=== PATIENT | female | born 1930 | race Caucasian/White ===

== ENCOUNTER → 2016-06-16 | Outpatient (CLI) | payer OTHER ==
[~2016-06-16] MED LIST: ACET-1138 PO; AMLO-110 PO; AMOX875T PO; ASPI81TA28 PO; BUME1TAB PO; CALC500C70 PO; CHOL1000 PO; CMD4 PO; CYAN10005 PO; DOCU100C31 PO; HYDR200T5 PO; HYG/25 PO; INSDGIPEN SC; LBT200 PO; LEVO150T9 PO; LEVO75TA5 PO; LISI-461 PO; METO1TAB69 PO; NRV5 PO; NVLG SC; OMEG10007 PO; OXYC1TAB3 PO; SIMV20TA2 PO; WARF2TAB8 PO; WARF4TAB8 PO
--- NOTE | 2016-06-16 14:53 | DIAGNOSTIC IMAGING REPORT ---
Venous Doppler left leg LEFT VENOUS DOPP LOWER EXT UNILAT CLINICAL HISTORY: L LEG POST OR BLOOD CLOT pain. Edema. TECHNIQUE: Venous Doppler COMPARISON STUDY: None FINDINGS: Normal study IMPRESSION: Normal study Electronically signed by: Kushal Garcia M.D. 06/16/2016 2:52 PM Dictated Date/Time: 06/16/2016 2:51 PM
== END | disposition home or self-care (01) ==
LOC: C.ULTR 14:13
PROVIDERS: ATTEND Orthopaedic Surgery Sports Medicine
DX: M79.605 Pain in left leg (principal)

== ENCOUNTER → 2016-06-21 | Outpatient (CLI) | payer OTHER ==
[2016-06-21 11:28] LABS: ESTIMATED AVERAGE GLUCOSE 114 mg/dl; HA1C FLAG Normal (Normal)
== END | disposition home or self-care (01) ==
LOC: C.LAB1850 09:37
PROVIDERS: ATTEND Nurse Practitioner Family
DX: E11.29 Type 2 diabetes mellitus with other diabetic kidney complication (principal)

== ENCOUNTER → 2016-09-03 | Outpatient (CLI) | payer OTHER ==
[~2016-09-03] MED LIST changes: +LISI40TA PO; +METO100T44 PO; -METO1TAB69 PO; +MRLP17X PO; +ZFRI4 IV
--- NOTE | 2016-09-03 11:24 | DIAGNOSTIC IMAGING REPORT ---
TWO VIEW CHEST CLINICAL HISTORY: Dyspnea. FINDINGS: PA and lateral chest radiographs are correlated with chest CT dated 12/06/2013. The heart is top normal for projection. There is atherosclerotic calcification of the thoracic aorta. The pulmonary vascular structures noncongested. Chronic interstitial thickening is unchanged. Small pleural effusions are identified on the lateral view with bibasilar consolidation. There is no pneumothorax. The skeletal structures are osteopenic. Degenerative change and hyperkyphosis are noted throughout the thoracic spine. IMPRESSION: Small pleural effusions with bibasilar consolidation. This likely represents atelectasis. Correlate clinically for evidence of superimposed pneumonia. Electronically signed by: Sergey Blanco M.D. 09/03/2016 11:22 AM Dictated Date/Time: 09/03/2016 11:13 AM
[2016-09-03 17:29] LABS: HEMATOCRIT 36.3 % (37-47); MEAN CELL VOLUME 89.6 fL (80-100); MEAN CORPUSCULAR HEMOGLOBIN 27.4 pg (25-34); MEAN CORPUSCULAR HGB CONC 30.6 g/dl (32-36); MEAN PLATELET VOLUME 10.2 fL (7.4-10.4); PLATELET COUNT 230 K/uL (130-400); RED BLOOD COUNT 4.05 M/uL (4.2-5.4); WHITE BLOOD COUNT 11.24 K/uL (4.8-10.8)
[2016-09-03 17:53] LABS: BLOOD UREA NITROGEN 28 mg/dl (7-18); BUN/CREATININE RATIO 17.7 (10-20); CALCIUM 9.2 mg/dl (8.5-10.1); CARBON DIOXIDE 28 mmol/L (21-32); CHLORIDE 108 mmol/L (98-107); GLUCOSE 63 mg/dl (70-99); PHOSPHORUS 2.9 mg/dl (2.5-4.9); POTASSIUM 4.5 mmol/L (3.5-5.1); SODIUM 143 mmol/L (136-145)
== END | disposition home or self-care (01) ==
LOC: C.RADPV 10:50
PROVIDERS: ATTEND Nurse Practitioner Family
DX: R06.02 Shortness of breath (principal); E03.9 Hypothyroidism, unspecified; N18.3 Chronic kidney disease, stage 3 (moderate)

== ENCOUNTER → 2016-09-21 | Outpatient (CLI) | payer OTHER ==
[2016-09-21 13:06] LABS: ESTIMATED AVERAGE GLUCOSE 117 mg/dl; HA1C FLAG Normal (Normal)
== END | disposition home or self-care (01) ==
LOC: C.LAB1850 11:17
PROVIDERS: ATTEND Nurse Practitioner Family
DX: E11.29 Type 2 diabetes mellitus with other diabetic kidney complication (principal)

== ENCOUNTER → 2016-09-29 | Outpatient (CLI) | payer OTHER ==
[2016-09-29 18:22] LABS: MANUAL MICROSCOPIC REQUIRED? NO; REVIEW REQ? NO; URINE APPEARANCE CLEAR (CLEAR); URINE BILIRUBIN NEG (NEG); URINE COLOR YELLOW; URINE EPITHELIAL CELL AUTO >30 /lpf (0-5); URINE NITRITE NEG (NEG); URINE PH 7.5 (4.5-7.5); URINE SPECIFIC GRAVITY 1.011 (1.000-1.030); UROBILINOGEN NEG (NEG)
[2016-09-29 19:53] LABS: URINE PROTIEN/CREAT RATIO 0.2 (0-0.2); URINE TOTAL PROTEIN 13.6 mg/dl (0-11.9)
== END | disposition home or self-care (01) ==
LOC: C.LABPVFM 15:00
PROVIDERS: ATTEND Internal Medicine Nephrology
DX: N18.3 Chronic kidney disease, stage 3 (moderate) (principal)

== ENCOUNTER → 2016-11-09 | Outpatient (CLI) | payer OTHER ==
--- NOTE | 2016-11-09 09:50 | DIAGNOSTIC IMAGING REPORT ---
LEFT TIBIA/FIBULA 2 VIEWS ROUTINE CLINICAL HISTORY: PAIN AND SWELLING OF LOWER LEG LT COMPARISON STUDY: Left ankle 05/07/2016. FINDINGS: Status post internal fixation of a bimalleolar fracture. The hardware appears intact. The alignment is anatomic. Mild soft tissue swelling within the distal left lower leg and ankle. 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 No acute fracture or dislocation within the left lower leg. IMPRESSION: Postoperative changes as described above. No evidence for hardware complication. Mild soft tissue swelling within the distal left lower leg and ankle. Electronically signed by: Jason Wilkerson M.D. 11/09/2016 9:49 AM Dictated Date/Time: 11/09/2016 9:47 AM
== END | disposition home or self-care (01) ==
LOC: C.RADPV 09:24
PROVIDERS: ATTEND Nurse Practitioner
DX: M79.662 Pain in left lower leg (principal); M79.89 Other specified soft tissue disorders

== ENCOUNTER 2016-11-16 11:23 | Inpatient (IN) | payer OTHER ==
[~2016-11-16] VITALS: Ht 162.6 cm; Wt 86.6 kg
[2016-11-16] MEDS: AMLODIPINE BESYLATE 5 MG TAB PO SCH (09:00)
[~2016-11-16 11:23] MED LIST changes: -AMOX875T PO; -BUME1TAB PO; -CHOL1000 PO; -CMD4 PO; -CYAN10005 PO; -LBT200 PO; -LISI40TA PO; -METO100T44 PO; -MRLP17X PO; -NRV5 PO; -SIMV20TA2 PO; -WARF2TAB8 PO; -WARF4TAB8 PO; -ZFRI4 IV
--- NOTE | 2016-11-16 12:10 | EMERGENCY ROOM VISIT NOTE ---
History Report prepared by Fabrizio: Susan Brower Under the Supervision of: Dr. Kelvin Srivastava M.D. 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 The patient's daughter states that the patient was watching her make sandwiches when she abruptly experienced syncope and fell over. The patient hit her head. The patient's daughter states that they were getting ready to go [place] [employer] [place] because they have a concession stand up there. The patient was inside in air conditioning when she experienced syncope and her daughter states that she wasn' t excessively hot or cold. The patient's granddaughter is in nursing school and witnessed the syncopal episode. The patient's granddaughter states that the patient may have experienced a seizure because she wasn't full unconscious but she wasn't responding to them either. The episode lasted for about 5 seconds. The patient states that she felt fine prior to experiencing syncope. She denies any lightheadedness, dizziness, chest pain, or shortness of breath prior to the syncopal episode. The patient states that she was lightheaded/dizzy without vertigo after the syncopal event. The patient is not on any blood thinners. The patient's daughter adds that the patient has seen Dr. Gandhi - Cardiology for heart problems. She has been diagnosed with an arrhythmia in the past but is not on any medication for it. 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 Please see Additional Medical History Sheet. Past Medical & Surgical Medical Problems: (1) Anemia (2) CLL (chronic lymphocytic leukemia) (3) Diabetes mellitus type II, controlled (4) HTN (hypertension) (5) Rheumatoid arthritis Surgical Problems: (1) History of cholecystectomy Family History Cancer Diabetes mellitus Heart disease Hypertension Social History Smoking Status: Never Smoker Drug Use: none Marital Status: Housing Status: lives with family Occupation Status: retired Current/Historical Medications Scheduled Amlodipine (Norvasc), 5 MG PO DAILY Aspirin (Aspirin Ec), 81 MG PO BID Bumetanide (Bumex), 1 MG PO DAILY Calcium/Vitamin D (Os-Ildefonso 500 Plus D), 1 TAB PO DAILY Chlorthalidone (Hygroton), 25 MG PO DAILY Cholecalciferol (Vitamin D3), 1,000 INTER.UNIT PO DAILY Cyanocobalamin (Vitamin B-12), 1,000 MCG PO DAILY Fish Oil ([place]-3), 1 CAP PO DAILY Hydroxychloroquine Sulfate (Plaquenil), 200 MG PO HS Insulin Aspart (Novolog), 7 UNITS SC QDB Insulin Aspart (Novolog), 7 UNITS SC QDL Insulin Aspart (Novolog), 9 UNITS SC QDD Insulin Glargine (Lantus Solostar), 22 UNITS SC DAILY Levothyroxine Sodium (Levothyroxine Sodium), 1 TAB PO WK Levothyroxine Sodium (Levothyroxine Sodium), 1 TAB PO DIRECTED Lisinopril (Zestril), 40 MG PO DAILY Metoprolol Succ (Toprol Xl) (Toprol-Xl ), 100 MG PO DAILY Simvastatin (Zocor), 20 MG PO DAILY Allergies Coded Allergies: No Known Allergies (Unverified , 11/16/16) Physical Exam Vital Signs Date Time Temp Pulse Resp B/P (MAP) Pulse Ox O2 Delivery O2 Flow Rate FiO2 11/16/16 14:38 49 18 108/59 96 11/16/16 14:37 40 11/16/16 13:53 61 13 97 11/16/16 13:34 58 16 193/71 96 Room Air 59 183/72 60 196/67 11/16/16 13:32 183/72 196/67 11/16/16 13:30 193/71 11/16/16 13:27 199/74 11/16/16 12:53 59 27 96 11/16/16 12:41 56 11/16/16 12:23 61 24 11/16/16 12:19 221/72 11/16/16 12:06 59 11/16/16 11:53 67 20 11/16/16 11:38 207/81 11/16/16 11:26 36.7 60 18 205/70 97 Room Air Physical Exam GENERAL: Patient awake, alert, oriented x 3. Patient follows commands. Patient does not appear toxic. Patient is adequately hydrated and well- nourished. SKIN: No erythema, pallor, cyanosis or rash HEENT: Normal head, scalp is nontender without ecchymosis, lumps, bumps, or bruises, no simental sign or raccoon sign, pupils equal, reactive to light and accommodation. Ears normal, no hemotympanum. Lesion on nose and midforehead which appear to be old. Oral cavity and posterior pharynx appear normal. Neck: Supple, nontender. Without adenopathy, no neck vein distention. LUNGS: Clear to auscultation. No wheezes, no rales, no rhonchi. HEART: No murmurs. No gallops. No rubs ABDOMEN: Obese. No masses, no rebound, no hepatomegaly or splenomegaly. EXTREMITIES: Ecchymosis on left lateral lower leg. 1+ pedal and pretibial edema. No calf or thigh tenderness. NEUROLOGIC: Cranial nerves II-XII within normal limits. No gross motor sensory function deficits. Medical Decision & Procedures Laboratory Results Test 11/16/16 12:24 11/16/16 13:24 Urine Color YELLOW Urine Appearance CLEAR (CLEAR) Urine pH 7.0 (4.5-7.5) Urine Specific [place] 1.010 (1.000-1.030) Urine Protein TRACE (NEG) Urine Glucose (UA) NEG (NEG) Urine Ketones NEG (NEG) Urine Occult Blood NEG (NEG) Urine Nitrite NEG (NEG) Urine Bilirubin NEG (NEG) Urine Urobilinogen NEG (NEG) Urine Leukocyte Esterase TRACE (NEG) Urine WBC (Auto) 1-5 /hpf (0-5) Urine RBC (Auto) 0-4 /hpf (0-4) Urine Hyaline Casts (Auto) 1-5 /lpf (0-5) Urine Epithelial Cells (Auto) >30 /lpf (0-5) Urine Bacteria (Auto) 1+ (NEG) Laboratory results as stated above per my review. Medications Administered Medications (Trade) Dose Ordered Sig/Carmen Route Start Time Stop Time Status Last Admin Dose Admin Amlodipine Besylate (Norvasc Tab) 5 mg NOW ONCE PO 11/16/16 12:45 11/16/16 12:46 DC 11/16/16 12:45 5 MG ECG Indication: syncope Rate (beats per minute): 59 Rhythm: other (Second degree AV block, type 2) Findings: no acute ischemic change, other (normal axis) Comparison ECG Date: no prior available Change: Repeat EKG revealed a rate of 46 with a second degree AV block type 2 ED Course 1145: Past medical records reviewed. The patient was evaluated in room C3. A complete history and physical examination was performed. 1245: Ordered Norvasc Tab 5 mg PO 1510: I reassessed the patient. She experienced an episode of bradycardia with a rate in the 40s. 1533: Upon reevaluation, the patient is resting comfortably. I discussed today' s findings with her. She verbalized agreement of the treatment plan. The patient will be evaluated for further management. Medical Decision Nurses notes reviewed. Medical history sheet reviewed. Differential diagnosis includes but is not limited to: syncope, arrhythmia, hypertension, metabolic disorder including hypoglycemia. The patient had a syncopal episode earlier today without any premonition. She has no prior cardiac history. Multiple labs, EKG and imaging were obtained. Please see above. EKG reveals a second-degree AV block type II. The patient did have a few episodes of bradycardia with a rate down to 40. The patient will require further evaluation hospital. The patient may require pacemaker. I discussed care with Dr. Staples. Medication Reconciliation: I attest that I have personally reviewed the patient' s current medication list. Blood Pressure Screening: Patient was found to have an elevated blood pressure and was referred to their primary doctor for recheck and further treatment. Consults Time Called: 1520 Consulting Physician: Dr. Staples - [facility] [place] Returned Call: 16:10 He will see the patient. He is aware of her EKG and bradycardia. Impression Primary Impression: Syncope Additional Impressions: Second degree AV block Bradycardia Scribe Attestation The scribe's documentation has been prepared under my direction and personally reviewed by me in its entirety. I confirm that the note above accurately reflects all work, treatment, procedures, and medical decision making performed by me. Departure Information Dispostion Being Evaluated By Hospitalist Referrals No Doctor, Assigned (PCP) Patient Instructions [facility] Problem Qualifiers Primary Impression: Syncope Syncope type: unspecified Qualified Codes: R55 - Syncope and collapse
[2016-11-16] MEDS ORDERED: AMLODIPINE BESYLATE 5 MG TAB PO ONE (12:45)
[2016-11-16] MEDS ORDERED: BUME1TAB PO (13:34)
[2016-11-16] MEDS ORDERED: METO1TAB69 PO (13:34)
[2016-11-16] MEDS ORDERED: SIMV20TA2 PO (13:34)
[2016-11-16] MEDS ORDERED: CYAN10005 PO (13:35)
[2016-11-16] MEDS ORDERED: CHOL1000 PO (13:35)
[2016-11-16 13:49] LABS: MANUAL MICROSCOPIC REQUIRED? NO; REVIEW REQ? NO; URINE APPEARANCE CLEAR (CLEAR); URINE BILIRUBIN NEG (NEG); URINE COLOR YELLOW; URINE EPITHELIAL CELL AUTO >30 /lpf (0-5); URINE NITRITE NEG (NEG); UROBILINOGEN NEG (NEG); ZZURINE CULT IF INDIC CATH YES
[2016-11-16 16:34] VITALS: BP 192/63; PULSE 45; TEMP 36.7; O2SAT 96; BMI 31.0
[2016-11-16 16:34] LABS: PROTHROMBIN TIME (PATIENT) 10.5 SECONDS (9.0-12.0)
[2016-11-16 16:38] LABS: BUN/CREATININE RATIO 20.7 (10-20); CALCIUM 9.4 mg/dl (8.5-10.1); CREATININE 1.7 mg/dl (0.60-1.20); POTASSIUM 4.2 mmol/L (3.5-5.1)
[2016-11-16 16:39] LABS: BASO % 0.8 %; BASO ABS # 0.09 K/uL (0-0.2); COMPLETE YES; HEMATOCRIT 39.9 % (37-47); IG% 0.4 %; LYMPH % 26.8 %; LYMPH ABS # 3.08 K/uL (1.2-3.4); MEAN CELL VOLUME 88.7 fL (80-100); MEAN CORPUSCULAR HEMOGLOBIN 28.7 pg (25-34); MEAN CORPUSCULAR HGB CONC 32.3 g/dl (32-36); MEAN PLATELET VOLUME 10.9 fL (7.4-10.4); MONO % 8.7 %; NEUT % 63.3 %; PLATELET COUNT 214 K/uL (130-400); WHITE BLOOD COUNT 11.51 K/uL (4.8-10.8)
[2016-11-16] MEDS ORDERED: ONDANSETRON INJ 2 MG/ML 2 ML VIAL IV PRN (17:15)
[2016-11-16] MEDS ORDERED: GLUCAGON FOR INJ 1 MG VIAL SQ PRN (17:15)
[2016-11-16] MEDS ORDERED: GLUCOSE 40% GEL 15 GM TUBE PO PRN (17:15)
[2016-11-16] MEDS ORDERED: GLUCOSE 10 TABS/TUBE PO PRN (17:15)
[2016-11-16] MEDS ORDERED: ACETAMINOPHEN 325 MG TAB PO PRN (17:15)
[2016-11-16] MEDS ORDERED: DEXTROSE 50% 50 ML SYR IV PRN (17:15)
--- NOTE | 2016-11-16 17:42 | DIAGNOSTIC IMAGING REPORT ---
SINGLE VIEW CHEST CLINICAL HISTORY: Bradycardia. Dyspnea. FINDINGS: An AP, portable, upright chest radiograph is compared to study dated 09/03/2016 and correlated with chest CT dated 10/18/2013. The examination is degraded by portable technique and patient rotation. Cardiac pads are in place. The heart is mildly enlarged and there is atherosclerotic calcification of the thoracic aorta. The pulmonary vascular is noncongested. Chronic additional thickening is unchanged. No airspace consolidation or large pleural effusion is seen. No pneumothorax is identified. The skeletal structures are osteopenic. The bony thorax is grossly intact. IMPRESSION: Cardiomegaly with no acute cardiopulmonary abnormality. Electronically signed by: Sergey Blanco M.D. 11/16/2016 5:40 PM Dictated Date/Time: 11/16/2016 5:39 PM
--- NOTE | 2016-11-16 18:05 | History and Physical ---
History & Physical Date & Time of Service: Nov 16, 2016 at 17:51 Chief Complaint: Elevated Bp, Fainted Primary Care Physician: Katharina Perez C.R.N.P History of Present Illness Source: patient The patient is an 86-year-old female who presents to the emergency department after a syncopal episode that occurred just prior to arrival. The patient's daughter reports that she was watching the patient makes sandwiches when she without warning fell over and hit her head. Family reports that after falling, patient's wasn't responding to them in a normal manner for about 5 seconds. Patient reports that she felt fine prior to the syncopal episode, in particular she denied lightheadedness or dizziness, chest pain, palpitations or shortness of breath or any other warning symptoms prior to the syncope. She has had no previous episodes of syncope. She follows with Dr. Gandhi from cardiology, and reportedly has been diagnosed with an arrhythmia in the past but is not on any medications. Past Medical/Surgical History Medical Problems: (1) Anemia Status: Chronic (2) CLL (chronic lymphocytic leukemia) Status: Chronic (3) Diabetes mellitus type II, controlled Status: Chronic (4) HTN (hypertension) Status: Chronic (5) Rheumatoid arthritis Status: Chronic Surgical Problems: (1) History of cholecystectomy Status: Chronic Family History Cancer Diabetes mellitus Heart disease Hypertension Social History Smoking Status: Never Smoker Smokeless Tobacco Use: No Alcohol Use: none Drug Use: none Marital Status: Occupational Status: retired Immunizations History of Influenza Vaccine: Yes Influenza Vaccine Date: Mar 20, 2014 History of Tetanus Vaccine?: Unknown History of Pneumococcal: Yes History of Hepatitis B Vaccine: No Multi-Drug Resistant Organisms History of MDRO: No Allergies Coded Allergies: No Known Allergies (Unverified , 11/16/16) Home Medications Scheduled Amlodipine (Norvasc), 5 MG PO DAILY Aspirin (Aspirin Ec), 81 MG PO BID Bumetanide (Bumex), 1 MG PO DAILY Calcium/Vitamin D (Os-Ildefonso 500 Plus D), 1 TAB PO DAILY Chlorthalidone (Hygroton), 25 MG PO DAILY Cholecalciferol (Vitamin D3), 1,000 INTER.UNIT PO DAILY Cyanocobalamin (Vitamin B-12), 1,000 MCG PO DAILY Fish Oil ([place]-3), 1 CAP PO DAILY Hydroxychloroquine Sulfate (Plaquenil), 200 MG PO HS Insulin Aspart (Novolog), 7 UNITS SC QDB Insulin Aspart (Novolog), 7 UNITS SC QDL Insulin Aspart (Novolog), 9 UNITS SC QDD Insulin Glargine (Lantus Solostar), 22 UNITS SC DAILY Levothyroxine Sodium (Levothyroxine Sodium), 1 TAB PO WK Levothyroxine Sodium (Levothyroxine Sodium), 1 TAB PO DIRECTED Lisinopril (Zestril), 40 MG PO DAILY Metoprolol Succ (Toprol Xl) (Toprol-Xl ), 100 MG PO DAILY Simvastatin (Zocor), 20 MG PO DAILY Review of Systems The patient denies chest pain, palpitations, shortness of breath, cough, lower extremity swelling, vision change, sore throat, fevers, chills, sweats, nausea, vomiting, abdominal pain, pelvic pain, blood in urine or stool, dysuria, urinary frequency or urgency, rash, abnormal bruising or bleeding, focal weakness, numbness or tingling in arms or legs, arthralgias or myalgias, back or neck pain, night sweats, or allergy symptoms. The review of systems is otherwise negative other than for that already noted above, and at least 10 systems have been reviewed. Physical Exam Vital Signs Date Time Temp Pulse Resp B/P (MAP) Pulse Ox O2 Delivery O2 Flow Rate FiO2 11/16/16 16:40 40 11/16/16 16:34 36.7 45 14 192/63 96 Room Air 11/16/16 16:31 192/63 11/16/16 16:28 45 14 96 11/16/16 16:01 179/86 11/16/16 15:58 55 19 97 11/16/16 15:31 169/87 11/16/16 15:28 56 21 96 11/16/16 15:01 156/63 11/16/16 14:58 56 18 95 11/16/16 14:38 49 18 108/59 96 11/16/16 14:37 40 11/16/16 14:31 108/59 11/16/16 14:28 60 22 97 11/16/16 14:01 154/66 11/16/16 13:58 59 19 97 11/16/16 13:53 61 13 97 11/16/16 13:34 58 16 193/71 96 Room Air 59 183/72 60 196/67 11/16/16 13:32 183/72 196/67 11/16/16 13:30 193/71 11/16/16 13:27 199/74 11/16/16 12:53 59 27 96 11/16/16 12:41 56 11/16/16 12:23 61 24 11/16/16 12:19 221/72 11/16/16 12:06 59 11/16/16 11:53 67 20 11/16/16 11:38 207/81 11/16/16 11:26 36.7 60 18 205/70 97 Room Air The patient is awake, well-developed and adequately nourished, alert and oriented 3, normocephalic and atraumatic, lying in bed and in no acute distress. HEENT--PERRL, EOMI, mucous membranes and oropharynx normal. Neck--supple, no JVD or bruits, thyroid normal, trachea midline, no adenopathy. Heart--normal S1 and S2, no extra beats, no murmurs, rubs or gallops. Lungs--clear bilaterally with good air movement, no respiratory distress, no accessory muscle use. Abdomen--normal bowel sounds and soft, nontender and nondistended, no hernias or masses, no organomegaly. Extremities--no cyanosis, clubbing or edema. There are good distal pulses b/l. Dermatologic--normal skin turgor, normal color, warm and dry, no abnormal lymph nodes, no rash. Neurologic--cranial nerves II through XII grossly intact. Rheumatologic--normal range of motion, nontender, muscles and joints. Psychiatric--normal affect. Diagnostics Laboratory Results Results Past 24 Hours Test 11/16/16 11:49 11/16/16 12:24 Range/Units White Blood Count 11.51 4.8-10.8 K/uL Red Blood Count 4.50 4.2-5.4 M/uL Hemoglobin 12.9 12.0-16.0 g/dL Hematocrit 39.9 37-47 % Mean Corpuscular Volume 88.7 80-100 fL Mean Corpuscular Hemoglobin 28.7 25-34 pg Mean Corpuscular Hemoglobin Concent 32.3 32-36 g/dl Platelet Count 214 130-400 K/uL Mean Platelet Volume 10.9 7.4-10.4 fL Neutrophils (%) (Auto) 63.3 % Lymphocytes (%) (Auto) 26.8 % Monocytes (%) (Auto) 8.7 % Eosinophils (%) (Auto) 0.0 % Basophils (%) (Auto) 0.8 % Neutrophils # (Auto) 7.29 1.4-6.5 K/uL Lymphocytes # (Auto) 3.08 1.2-3.4 K/uL Monocytes # (Auto) 1.00 0.11-0.59 K/uL Eosinophils # (Auto) 0.00 0-0.5 K/uL Basophils # (Auto) 0.09 0-0.2 K/uL RDW Standard Deviation 49.6 36.4-46.3 fL RDW Coefficient of Variation 15.4 11.5-14.5 % Immature Granulocyte % (Auto) 0.4 % Immature Granulocyte # (Auto) 0.05 0.00-0.02 K/uL Prothrombin Time 10.5 9.0-12.0 SECONDS Prothromb Time International Ratio 1.0 0.9-1.1 Activated Partial Thromboplast Time 24.8 21.0-31.0 SECONDS Partial Thromboplastin Ratio 1.0 Sodium Level 142 136-145 mmol/L Potassium Level 4.2 3.5-5.1 mmol/L Chloride Level 106 98-107 mmol/L Carbon Dioxide Level 31 21-32 mmol/L Anion Gap 5.0 3-11 mmol/L Blood Urea Nitrogen 35 7-18 mg/dl Creatinine 1.70 0.60-1.20 mg/dl Est Creatinine Clear Calc Drug Dose 25.3 ml/min Estimated GFR () 31.5 Estimated GFR (Non- 27.2 BUN/Creatinine Ratio 20.7 10-20 Random Glucose 82 70-99 mg/dl Calcium Level 9.4 8.5-10.1 mg/dl Total Bilirubin 0.4 0.2-1 mg/dl Aspartate Amino Transf (AST/SGOT) 18 15-37 U/L Alanine Aminotransferase (ALT/SGPT) 19 12-78 U/L Alkaline Phosphatase 79 45-117 U/L Troponin I 0.053 0-0.045 ng/ml Total Protein 7.7 6.4-8.2 gm/dl Albumin 3.8 3.4-5.0 gm/dl Globulin 3.9 2.5-4.0 gm/dl Albumin/Globulin Ratio 1.0 0.9-2 Urine Color YELLOW Urine Appearance CLEAR CLEAR Urine pH 7.0 4.5-7.5 Urine Specific [place] 1.010 1.000-1.030 Urine Protein TRACE NEG Urine Glucose (UA) NEG NEG Urine Ketones NEG NEG Urine Occult Blood NEG NEG Urine Nitrite NEG NEG Urine Bilirubin NEG NEG Urine Urobilinogen NEG NEG Urine Leukocyte Esterase TRACE NEG Urine WBC (Auto) 1-5 0-5 /hpf Urine RBC (Auto) 0-4 0-4 /hpf Urine Hyaline Casts (Auto) 1-5 0-5 /lpf Urine Epithelial Cells (Auto) >30 0-5 /lpf Urine Bacteria (Auto) 1+ NEG Microbiology Results 11/16/16 Urine Culture, Received Pending Diagnostic Radiology Patient Name: ED CORNELL Unit Number: [id number] Dictated: 11/16/161738 Transcribed: 11/16/161738 EV Printed Date/Time: [~ rep prt dt]/[~ rep prt tm] [~ rep ct labl] - [~ rep ct ivnm] [facility] [address] Dictated: 11/16/161738 Transcribed: 11/16/161738 EV Printed Date/Time: [~ rep prt dt]/[~ rep prt tm] [~ rep ct labl] - [~ rep ct ivnm] [~ rep ct add3]] SINGLE VIEW CHEST CLINICAL HISTORY: Bradycardia. Dyspnea. FINDINGS: An AP, portable, upright chest radiograph is compared to study dated 09/03/2016 and correlated with chest CT dated 10/18/2013. The examination is degraded by portable technique and patient rotation. Cardiac pads are in place. The heart is mildly enlarged and there is atherosclerotic calcification of the thoracic aorta. The pulmonary vascular is noncongested. Chronic additional thickening is unchanged. No airspace consolidation or large pleural effusion is seen. No pneumothorax is identified. The skeletal structures are osteopenic. The bony thorax is grossly intact. IMPRESSION: Cardiomegaly with no acute cardiopulmonary abnormality. Electronically signed by: Sergey Blanco M.D. 11/16/2016 5:40 PM Dictated Date/Time: 11/16/2016 5:39 PM The status of this report is Signed. Draft = Not yet reviewed or approved by Radiologist. Signed = Reviewed and approved by Radiologist. <AttendingPhy></AttendingPhy> <FamilyPhy>Katharina Perez C.R.N.P</FamilyPhy> < PrimaryPhy>Katharina Perez C.R.N.P</PrimaryPhy> <UnitNumber>[id number]</ UnitNumber> <VisitNumber>[id number]</VisitNumber> <PatientName>ED CORNELL Joe </PatientName> <DateOfBirth>1930</DateOfBirth> <Location>[facility]</Location> <ServiceDate>11/16/16</ServiceDate> <MNE>ESINDI</MNE> <OrderingPhy>Rony Staples M.D.</OrderingPhy> <OrderingPhyMNE>f rep ord dr manuel</OrderingPhyMNE> < DictatingPhyMNE>f rep dict dr manuel</DictatingPhyMNE> <CCListMNE>f rep ct mne</ CCListMNE> <AdmittingPhyMNE>f pt admit dr manuel</AdmittingPhyMNE> <AttendingPhyMNE >f pt attend dr manuel</AttendingPhyMNE> <ConsultingPhyMNE>f pt consult dr manuel</ConsultingPhyMNE> <FamilyPhyMNE>f pt fam dr manuel</FamilyPhyMNE> <OtherPhyMNE>f pt other dr manuel</OtherPhyMNE> < PrimaryPhyMNE>f pt prim care dr manuel</PrimaryPhyMNE> <ReferringPhyMNE>f pt referring dr manuel</ReferringPhyMNE> EKG EKG shows junctional rhythm at 59 beats per minute nonspecific ST changes. Impression Assessment and Plan Syncopal episode/junctional rhythm on EKG/elevated troponin 0.053/renal insufficiency--the patient will be admitted to the telemetry unit for serial cardiac enzymes, cardiac rhythm monitoring and a 2-D echocardiogram with Dopplers. We'll place pacer pads patient and keep transcutaneous pacer pads at bedside. We'll hold metoprolol succinate 100 mg by mouth daily, HCTZ and bumetanide. We will increase amlodipine from 5 mg every morning to twice a day. We'll hold lisinopril due to renal insufficiency We'll consult cardiology. Diabetes mellitus continue Lantus insulin 22 units subcutaneous every evening, and placement Accu-Cheks before meals and at bedtime with NovoLog coverage scale. Hyperlipidemia--continue simvastatin 20 mg by mouth daily. Rheumatoid arthritis--continue hydroxychloroquine 200 mg by mouth at bedtime. Hypothyroidism--continue dosing as per outpatient. Vitamin B12 deficiency--continue supplement 1000 g by mouth daily. Level of Care Telemetry Advanced Directives Existing Advance Directive: No Existing Living Will: Yes Existing Power of Turbine Inspector: Yes Resuscitation Status FULL RESUSCITATION VTE Prophylaxis VTE Risk Assessment Done? Y/N: Yes Risk Level: Moderate Given or contraindicated: SCD's
[2016-11-16 19:03] VITALS: BP 171/58; PULSE 42; TEMP 36.4; O2SAT 96
[2016-11-16] MEDS: NSS + 20MEQ KCL 1000ML 1,000 ML IV SCH (19:17)
[2016-11-16] MEDS: HYDROXYCHLOROQUINE SULFATE 200 MG TAB PO SCH (20:27)
[2016-11-16] MEDS: INSULIN ASPART 100 UNITS/ML 3 ML PEN SC SCH (20:28)
[2016-11-16] MEDS: INSULIN GLARGINE SOLOSTAR 100 UNITS/ML 3 ML PEN SC SCH (20:29)
[2016-11-16 23:33] VITALS: BP 163/69; PULSE 44; TEMP 36.4; O2SAT 96
[2016-11-17 01:58] LABS: CKMB/CK RATIO 1.5 (0-3.0)
[2016-11-17 03:53] VITALS: BP 168/63; PULSE 48; TEMP 36.5; O2SAT 99
[2016-11-17] MEDS: NSS + 20MEQ KCL 1000ML 1,000 ML IV SCH ×2 (05:28→15:23)
[2016-11-17] MEDS: LEVOTHYROXINE 75 MCG TAB PO SCH (05:28)
[2016-11-17 06:52] VITALS: BP 169/75; PULSE 49; TEMP 36.8; O2SAT 94
[2016-11-17 07:08] LABS: BASO % 0.5 %; BASO ABS # 0.05 K/uL (0-0.2); COMPLETE YES; EOS % 2.7 %; HEMATOCRIT 39.7 % (37-47); IG% 0.2 %; LYMPH % 18.9 %; LYMPH ABS # 1.87 K/uL (1.2-3.4); MEAN CELL VOLUME 89.2 fL (80-100); MEAN CORPUSCULAR HEMOGLOBIN 28.5 pg (25-34); MEAN PLATELET VOLUME 11.4 fL (7.4-10.4); MONO % 9.1 %; NEUT % 68.6 %; PLATELET COUNT 198 K/uL (130-400); RED BLOOD COUNT 4.45 M/uL (4.2-5.4); WHITE BLOOD COUNT 9.88 K/uL (4.8-10.8)
[2016-11-17 07:18] LABS: PROTHROMBIN TIME (PATIENT) 10.9 SECONDS (9.0-12.0)
[2016-11-17 07:37] LABS: BUN/CREATININE RATIO 20.1 (10-20); CALCIUM 9.1 mg/dl (8.5-10.1); CREATININE 1.4 mg/dl (0.60-1.20); MAGNESIUM 1.7 mg/dl (1.8-2.4); POTASSIUM 4.8 mmol/L (3.5-5.1)
[2016-11-17] MEDS: SIMVASTATIN 20 MG TAB PO SCH (07:45)
[2016-11-17] MEDS: CYANOCOBALAMIN 500 MCG TAB (VIT B-12) PO SCH (07:45)
[2016-11-17] MEDS: CHOLECALCIFEROL 1000 INTER.UNIT TAB PO SCH (07:46)
[2016-11-17] MEDS: CALCIUM 600MG + VIT D 400 IU TAB PO SCH (07:46)
[2016-11-17] MEDS: AMLODIPINE BESYLATE 5 MG TAB PO SCH (07:46)
[2016-11-17] MEDS: INSULIN ASPART 100 UNITS/ML 3 ML PEN SC SCH ×4 (07:47→20:02)
[2016-11-17] MEDS ORDERED: LISINOPRIL 10 MG TAB PO SCH (09:00)
[2016-11-17] MEDS ORDERED: AMLODIPINE BESYLATE 5 MG TAB PO SCH (09:00)
--- NOTE | 2016-11-17 09:32 | ECHOCARDIOGRAM REPORT ---
*NOTICE TO RECEIVING [facility] This information is strictly Confidential and protected under [place] law. [place] law prohibits you from making any further disclosure of this information unless further disclosure is expressly permitted by the written consent of the person to whom it pertains or is authorized by law. A general authorization for the release of medical or other information is not sufficient for this purpose. Hospital accepts no responsibility if the information is made available to any other person, INCLUDING THE PATIENT. Interpretation Summary * Name: ED CORNELL Study Date: 11/17/2016 06:57 AM BP: 168/63 mmHg * Patient Location: C.2T\S\S238\S\2 HR: 60 * : 1930 (M/d/yyy) Gender: Female Height: 64 in * Age: 86 yrs Ethnicity: [place] Weight: 180 lb * Ordering Physician: Rony Staples * Performed By: Hanh Lnadis * * Reason For Study: BRADYCARDIA, 2ND DEGREE HEART BLOCK * BSA: 1.9 m2 * Normal biventricular systolic function. * Mild concentric left ventricle hypertrophy. * Left ventricular diastolic dysfunction. * Mild biatrial dilatation. * Mild mitral and tricuspid regurgitation. * Mild pulmonary hypertension. * -- Conclusions -- * Aortic valve sclerosis moderate, without significant aortic valvular stenosis. Procedure Details * A complete two-dimensional transthoracic echocardiogram was performed (2D, M-mode, Doppler and color flow Doppler). Left Ventricle * The left ventricle is normal in size. * There is mild concentric left ventricular hypertrophy. * Ejection Fraction = 65-70%. * A full diastolic examination was done with clinical findings of Class II diastolic dysfunction. * The left ventricular wall motion is normal. Right Ventricle * The right ventricle is normal in size and function. * The right ventricular systolic function is normal as assessed by tricuspid annular plane systolic excursion (TAPSE) (normal >1.5 cm). Atria * The left atrium is mildly dilated. * The right atrium is mildly dilated. * No ASD detected; PFO is not assessed. Mitral Valve * There is mild mitral annular calcification. * The mitral valve leaflets appear normal. * There is no mitral valve stenosis. * There is mild mitral regurgitation. Tricuspid Valve * The tricuspid valve is not well visualized, but is grossly normal. * There is mild tricuspid regurgitation. * Right ventricular systolic pressure is elevated at 40-50mmHg. Aortic Valve * The aortic valve is trileaflet. * The aortic valve opens well. * Aortic valve sclerosis moderate, without significant aortic valvular stenosis. * No aortic regurgitation is present. Pulmonic Valve * The pulmonary valve is inadequately visualized, but the Doppler data is adequate for interpretation. * Pulmonic stenosis is absent. * There is no significant pulmonary regurgitation. Great Vessels * The aortic root is normal size. Pericardium/Pleural * There is no pericardial effusion. Great Vessels * Normal inferior vena cava diameter and respiratory variation suggests normal central venous pressure. MMode 2D Measurements and Calculations IVSd 1.4 cm IVSs 2.0 cm LVIDd 4.1 cm LVIDs 2.7 cm LVPWd 1.4 cm LVPWs 1.7 cm IVS/LVPW 10 FS 35.2 % EDV(Teich) 76.2 ml ESV(Teich) 26.7 ml EF(Teich) 64.9 % EDV(cubed) 71.3 ml ESV(cubed) 19.4 ml EF(cubed) 72.7 % % IVS thick 42.1 % % LVPW thick 20.5 % LV mass(C)d 221.0 grams LV mass(C)dI 118.1 grams/m\S\2 LV mass(C)s 199.9 grams LV mass(C)sI 106.9 grams/m\S\2 SV(Teich) 49.5 ml SI(Teich) 26.5 ml/m\S\2 SV(cubed) 51.8 ml SI(cubed) 27.7 ml/m\S\2 ACS 0.90 cm LA dimension 4.3 cm asc Aorta Diam 2.8 cm LVAd ap4 23.7 cm\S\2 LVLd ap4 6.8 cm EDV(MOD-sp4) 70.3 ml EDV(sp4-el) 69.9 ml LVAs ap4 11.8 cm\S\2 LVLs ap4 5.1 cm ESV(MOD-sp4) 23.4 ml ESV(sp4-el) 23.1 ml EF(MOD-sp4) 66.8 % EF(sp4-el) 66.9 % LVAd ap2 26.6 cm\S\2 LVLd ap2 6.8 cm EDV(MOD-sp2) 86.4 ml EDV(sp2-el) 89.1 ml LVAs ap2 14.7 cm\S\2 LVLs ap2 6.0 cm ESV(MOD-sp2) 29.7 ml ESV(sp2-el) 30.5 ml EF(MOD-sp2) 65.6 % EF(sp2-el) 65.8 % LVLd %diff -0.93 % EDV(MOD-bp) 78.3 ml LVLs %diff 14.2 % ESV(MOD-bp) 28.3 ml EF(MOD-bp) 63.9 % SV(MOD-sp4) 46.9 ml SI(MOD-sp4) 25.1 ml/m\S\2 SV(MOD-sp2) 56.7 ml SI(MOD-sp2) 30.3 ml/m\S\2 SV(MOD-bp) 50.0 ml SI(MOD-bp) 26.7 ml/m\S\2 SV(sp4-el) 46.8 ml SI(sp4-el) 25.0 ml/m\S\2 SV(sp2-el) 58.6 ml SI(sp2-el) 31.3 ml/m\S\2 Doppler Measurements and Calculations MV E max jayne 121.3 cm/sec MV A max jayne 85.2 cm/sec MV E/A 1.4 MV dec time 0.24 sec Ao V2 max 169.6 cm/sec Ao max PG 11.5 mmHg Ao max PG (full) 7.3 mmHg LV V1 max PG 4.2 mmHg LV V1 max 103.0 cm/sec MR max jayne 426.6 cm/sec MR max PG 73.0 mmHg PA V2 max 117.0 cm/sec PA max PG 5.5 mmHg TR max jayne 323.7 cm/sec
[2016-11-17 10:39] LABS: CKMB/CK RATIO 1.9 (0-3.0)
--- NOTE | 2016-11-17 10:41 | Clinical Documentation Query ---
HEATHER Blandon : CLINICAL DOCUMENTATION QUERY Documentation includes "renal insufficiency", not otherwise specified. Estimated GFR range from 02/27 to present of 26-35 ml/min. As appropriate, consider clarification as suggested below as this directly impacts DRG assignment. Thank you. In your clinical opinion is this patient being managed for: ( ) Chronic kidney disease, stage 4 ( ) Other explanation of clinical findings (Please Explain) ( ) Unable to determine (Please Define) ( ) Need to Discuss ( ) Not Agree The medical record reflects the following clinical findings, treatment, and risk factors. Clinical Indicators: As above Treatment: Serial chemistries, holding of Lisinopril Risk Factors: Age, diabetes, hypertension Please clarify and document your clinical opinion in the progress notes and discharge summary. Terms such as "probable", "suspected", "likely", "questionable", "possible", or "still to be ruled out" are acceptable. IF IN AGREEMENT, YOU MUST DOCUMENT ABOVE DIAGNOSTIC STATEMENT IN DAILY PROGRESS NOTES AND DISCHARGE SUMMARY. This document is not part of the patient's record. Thank You, Heather Tapia, RN [phone]
[2016-11-17 11:44] VITALS: BP 165/48; PULSE 51; TEMP 36.8; O2SAT 91
--- NOTE | 2016-11-17 12:37 | Cardiology Consultation ---
Cardiology Consultation Date of Service Nov 17, 2016. (Qing Espino, CHERELLE) Cardiology Consultation Cardiology Consultation: Date: 11/17/16 Requesting Physician: Dr. Staples Attending Junior Marketing Associate: Dr. Gandhi Subjective: Patient is an 85-year-old female who follows with Dr. Gandhi for routine cardiac care, with past history of paroxysmal atrial flutter, diagnosed in April 2017 in the post op setting after ORIF of ankle. 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 Due to age, fall risk, and no recurrent findings of arrhythmia, she was maintained on ASA therapy alone without anticoagulation therapy. Other history includes sinus bradycardia (rates around 50- asymptomatic) hypertension, DM, CLL, and RA. She was recently started on Bumex as outpatient due to LE edema and HTN. She has been taking medication for about 2 months. Edema improved with diuretic therapy. Yesterday she states she was in normal state of health, preparing food in her kitchen when she experienced sudden syncopal episode. She hit head but states no injury was sustained. Witnessed by family. She lost consciousness for approx 30 seconds. When she awoke, she noted dizziness, that resolved on the way to the hospital. She denies symptoms of dizziness, palpitations prior to sudden syncope. This was first event. No prior syncopal events. She denies recent or recurrent dizziness. No recent palpitations. no recent chest pain or SOB. She denies recent falls since April when she fractured her ankle. She admits to being "unsteady" at times and uses a walker or a cane for ambulation. No recent orthopnea, PND or LE edema. At time of consult, patient feeling well. She has had nor recurrent dizziness, syncope or near syncope since admission. No sense of palpitations. No chest pain or SOB. No headaches or vision changes. No orthopnea, PND or edema. Review of systems: See HPI for pertinent positives. All other 10 point review of systems is negative. PMH: 1. RA 2. Hypertension 3. DM 4. CLL 5. Paroxysmal atrial flutter 6. Hypothyroidism Surgical History 1. Cholecystectomy Social History: . Lives with daughter and family. No history of tobacco abuse. No alcohol use. Family History: She reports brother of ID age 6 Review of patient's allergies indicates: No Known Allergies Current Outpatient Prescriptions Reported Home Medications Medications Dose Route/Sig Max Daily Dose Days Date Category Vitamin B-12 (Cyanocobalamin) 1,000 Mcg Tab 1,000 Mcg PO DAILY 11/16/16 Reported Vitamin D3 (Cholecalciferol) 1,000 Unit Tab 1,000 Inter.unit PO DAILY 11/16/16 Reported Zocor (Simvastatin) 20 Mg Tab 20 Mg PO DAILY 11/16/16 Reported Toprol-Xl (Metoprolol Succinate) 100 Mg Tabcr 100 Mg PO DAILY 11/16/16 Reported Bumex (Bumetanide) 1 Mg Tab 1 Mg PO DAILY 11/16/16 Reported Aspirin Ec (Aspirin) 81 Mg Tab 81 Mg PO BID 30 05/08/16 Rx Plaquenil (Hydroxychloroquine Sulfate) 200 Mg Tab 200 Mg PO HS 05/07/16 Reported Novolog (Insulin Aspart) 100 Units/Ml Inj 9 Units SC QDD 05/07/16 Reported Novolog (Insulin Aspart) 100 Units/Ml Inj 7 Units SC QDL 05/07/16 Reported Novolog (Insulin Aspart) 100 Units/Ml Inj 7 Units SC QDB 05/07/16 Reported Lantus Solostar (Insulin Glargine) 100 Unit/Ml Inj 22 Units SC HS 05/07/16 Reported Levothyroxine Sodium 75 Mcg Tab 1 Tab PO DIRECTED 90 05/07/16 Reported Levothyroxine Sodium 150 Mcg Tab 1 Tab PO WK 90 05/07/16 Reported [place] (Chlorthalidone) 25 Mg Tab 25 Mg PO DAILY 05/07/16 Reported Norvasc (Amlodipine Besylate) 5 Mg Tab 5 Mg PO DAILY 05/07/16 Reported Zestril (Lisinopril) 10 Mg Tab 40 Mg PO DAILY 05/07/16 Reported [place]-3 (Fish Oil) 1 Ea Cap 1 Cap PO DAILY 09/06/13 Reported [place] 500 Plus D (Calcium/Vitamin D) Tab 1 Tab PO DAILY 09/06/13 Reported Physical Exam: Last 8 Hrs Date Time Temp Pulse Resp B/P (MAP) Pulse Ox O2 Delivery O2 Flow Rate FiO2 11/17/16 11:44 36.8 51 18 165/48 (87) 91 Room Air 11/17/16 08:00 Room Air 11/17/16 06:52 36.8 49 18 169/75 (106) 94 Room Air General: no acute distress and stated age Head: normocephalic, skin cancer lesion/scar on nose and forehead Eyes: conjunctiva are pink and non-injected, sclera clear Neck: supple, no adenopathy, no bruits, normal jugular venous pulse, no hepatojugular reflux Chest: normal shape and normal respiratory effort Lungs: clear to auscultation and percussion Cardiac Exam: slightly irregular, slow. no murmurs gallops or rubs - normal S1, normal S2 Pulses: 2(+) throughout Abdomen: abdomen soft, non-tender, no abnormal masses and no hepatosplenomegaly Musculoskeletal: no gait disturbance, no joint inflammation, no deforming arthritis Extremities: no edema and no cyanosis Neuro: grossly normal exam DATA this admission EKG on admission: 2:1 Atrial flutter at 59 bpm Repeat EKG on 11/16/16: ATrial flutter with slow ventricular response, variable AV block Repeat EKG on 11/17/16 AM: Atrial flutter with variable AV block and slow response at 45 bpm Telemetry reviewed - atrial flutter with slow response, mutiple pauses. Longest pause that I noted was 3.5 seconds occuring this AM at approx 7:35 AM. No symptoms. Echocardiogram reviewed, date 11/17/[address] Mackenzie of [facility] Normal biventricular systolic function. Mild concentric left ventricle hypertrophy. Left ventricular diastolic dysfunction. Mild biatrial dilatation. Mild mitral and tricuspid regurgitation. Mild pulmonary hypertension. -- Conclusions -- Aortic valve sclerosis moderate, without significant aortic valvular stenosis. Chest xray on admission: IMPRESSION: Cardiomegaly with no acute cardiopulmonary abnormality. Prior Data: 24 hour holter monitor reviewed from 06/2016: Avg. Heart Rate: 43 Max. Heart Rate: 75 Min. Heart Rate: 25 There is artifact on the tracings which make interpretation of the rhythm difficult. It is hard to differentiate between atrial flutter waves or cycled interference. The longest R to R interval was 3.1 seconds. Bradycardia occurred during normal sleeping hours. No ventricular ectopy was recorded. No symptoms were recorded by the patient Impression: 1. Syncope - secondary to bradycardia/slow ventricular rates/pauses vs mild dehdyration/renal insufficiency secondary to overdiuresis. 2. Paroxysmal atrial flutter with slow ventricular response, pauses up to 3.5 seconds on telemetry. No AV daniella blocking agents. 3. Hypertension - borderline 4. RA 5. CLL PLAN: Discussed with the patient/family today regarding possible causes of her syncope. May be due to overdiuresis and mild dehydration. However, she does have significant slow ventricular rates at times. She has not been taking any rate lowering medications. She does have a history of sinus bradycardia with HR in the 50's. She now has recurrent atrial flutter with slow response. Consult EP to consider pacemaker implantation and treatment of atrial flutter - rate/rhythm control. Also need to consider anticoagulation therapy. Last fall was in April 2016. CHADS2 score of at least 3. Will start IV heparin in the hospital and then further decide [facility] anticoagulation therapy as hospital course progresses. Case discussed with Dr. Gandhi. Will follow as hospital course progresses. (Qing Espino PA-C) CARDIOLOGY ATTENDING ADDENDUM: The patient was seen and personally examined. Agree with Qing Espino PA-C's findings and plans as documented above. Pt. well known to me from office practice. I suspect her previous fall earlier this year may have been related to bradycardia. Will probably benefit from a pacemaker. EP to see the patient today. (Jaime Gandhi, DO)
[2016-11-17] MEDS ORDERED: MAGNESIUM OXIDE 400 MG TAB PO ONE (12:41)
[2016-11-17] MEDS: HEPARIN 25,000 UNIT/500ML D5W 500 ML IV PRN (14:20)
[2016-11-17 15:34] VITALS: BP 155/65; PULSE 47; TEMP 36.4; O2SAT 95
--- NOTE | 2016-11-17 17:21 | Hospitalist Progress Note ---
Hospitalist Progress Note Date of Service Nov 17, 2016. Subjective Pt evaluation today including: conversation w/ patient Pain: no pain Medications Medications (Trade) Dose Ordered Sig/Carmen Route Start Time Stop Time Status Last Admin Dose Admin Potassium Chloride/Sodium Chloride 1,000 ml @ 100 mls/hr Q10H IV 11/16/16 19:00 12/16/16 18:59 11/17/16 15:23 100 MLS/HR Insulin Aspart (novoLOG ASPART) SLIDING SCALE If C... ACHS SC 11/16/16 21:00 12/16/16 20:59 11/17/16 17:07 4 UNITS Calcium/Vitamin D (Caltrate Plus Tab) 1 tab DAILY PO 11/17/16 09:00 12/17/16 08:59 11/17/16 07:46 1 TAB Cholecalciferol (Vitamin D Tab) 1,000 inter.unit DAILY PO 11/17/16 09:00 12/17/16 08:59 11/17/16 07:46 1,000 INTER.UNIT Cyanocobalamin (Vitamin B-12 Tab) 1,000 mcg DAILY PO 11/17/16 09:00 12/17/16 08:59 11/17/16 07:45 1,000 MCG Hydroxychloroquine Sulfate (Plaquenil Tab) 200 mg HS PO 11/16/16 21:00 12/16/16 20:59 11/16/16 20:27 200 MG Insulin Glargine (Lantus Solostar Pen) 22 units HS SC 11/16/16 21:00 12/16/16 20:59 11/16/16 20:29 22 UNITS Levothyroxine Sodium (Synthroid Tab) 75 mcg DAILYBB PO 11/17/16 06:00 12/17/16 06:59 11/17/16 05:28 75 MCG Simvastatin (Zocor Tab) 20 mg DAILY PO 11/17/16 09:00 12/17/16 08:59 11/17/16 07:45 20 MG Magnesium Oxide (Mag-Ox Tab) 400 mg 1241 ONCE PO 11/17/16 12:41 11/17/16 12:53 DC 11/17/16 14:17 400 MG Heparin Sodium/ Dextrose 500 ml @ 24 mls/hr [id number] PRN IV 11/17/16 14:00 12/17/16 13:59 11/17/16 14:20 24 MLS/HR Objective Vital Signs Date Time Temp Pulse Resp B/P (MAP) Pulse Ox O2 Delivery O2 Flow Rate FiO2 11/17/16 16:00 Room Air 11/17/16 15:34 36.4 47 18 155/65 (95) 95 Room Air 11/17/16 12:00 Room Air 11/17/16 11:44 36.8 51 18 165/48 (87) 91 Room Air 11/17/16 08:00 Room Air 11/17/16 06:52 36.8 49 18 169/75 (106) 94 Room Air 11/17/16 04:00 Room Air 11/17/16 03:53 36.5 48 18 168/63 (98) 99 Room Air 11/17/16 00:00 Room Air 11/16/16 23:33 36.4 44 20 163/69 (100) 96 Room Air 11/16/16 20:00 Room Air 11/16/16 19:03 36.4 42 16 171/58 (95) 96 Room Air 11/16/16 18:09 55 96 Physical Exam General Appearance: no apparent distress ENT: hearing grossly normal Neck: supple Respiratory/Chest: lungs clear Cardiovascular: no edema, + bradycardia, + irregularly irregular Abdomen: normal bowel sounds Extremities: normal range of motion Neurologic/Psychiatric: alert, normal mood/affect Laboratory Results Last 24 Hours Test 11/16/16 19:02 11/16/16 19:09 11/16/16 20:22 11/17/16 01:02 Bedside Glucose 131 mg/dl 135 mg/dl 157 mg/dl Total Creatine Kinase 110 U/L Creatine Kinase MB 1.7 ng/ml Creatine Kinase MB Ratio 1.5 Troponin I 0.062 ng/ml Test 11/17/16 06:32 11/17/16 06:35 11/17/16 09:44 11/17/16 11:17 White Blood Count 9.88 K/uL Red Blood Count 4.45 M/uL Hemoglobin 12.7 g/dL Hematocrit 39.7 % Mean Corpuscular Volume 89.2 fL Mean Corpuscular Hemoglobin 28.5 pg Mean Corpuscular Hemoglobin Concent 32.0 g/dl Platelet Count 198 K/uL Mean Platelet Volume 11.4 fL Neutrophils (%) (Auto) 68.6 % Lymphocytes (%) (Auto) 18.9 % Monocytes (%) (Auto) 9.1 % Eosinophils (%) (Auto) 2.7 % Basophils (%) (Auto) 0.5 % Neutrophils # (Auto) 6.77 K/uL Lymphocytes # (Auto) 1.87 K/uL Monocytes # (Auto) 0.90 K/uL Eosinophils # (Auto) 0.27 K/uL Basophils # (Auto) 0.05 K/uL RDW Standard Deviation 49.9 fL RDW Coefficient of Variation 15.3 % Immature Granulocyte % (Auto) 0.2 % Immature Granulocyte # (Auto) 0.02 K/uL Prothrombin Time 10.9 SECONDS Prothromb Time International Ratio 1.0 Activated Partial Thromboplast Time 25.0 SECONDS Partial Thromboplastin Ratio 1.0 Sodium Level 144 mmol/L Potassium Level 4.8 mmol/L Chloride Level 110 mmol/L Carbon Dioxide Level 30 mmol/L Anion Gap 4.0 mmol/L Blood Urea Nitrogen 28 mg/dl Creatinine 1.40 mg/dl Est Creatinine Clear Calc Drug Dose 31.9 ml/min Estimated GFR () 39.9 Estimated GFR (Non- 34.4 BUN/Creatinine Ratio 20.1 Random Glucose 82 mg/dl Calcium Level 9.1 mg/dl Magnesium Level 1.7 mg/dl Bedside Glucose 89 mg/dl 112 mg/dl Total Creatine Kinase 101 U/L Creatine Kinase MB 1.9 ng/ml Creatine Kinase MB Ratio 1.9 Troponin I 0.055 ng/ml Test 11/17/16 16:19 Bedside Glucose 108 mg/dl Assessment and Plan (1) Syncope Assessment & Plan: Cardiology has been consulted question of bradycardia versus mildly dehydrated state secondary to diuretics control clerk auditing has been consulted for the question of the patient would benefit from pacemaker placement (2) Bradycardia (3) Diabetes mellitus type II, controlled (4) HTN (hypertension) Assessment & Plan: Adjust blood pressure medications (5) CLL (chronic lymphocytic leukemia) (6) Rheumatoid arthritis Problem Qualifiers (1) Syncope: Syncope type: unspecified Qualified Codes: R55 - Syncope and collapse
[2016-11-17 19:32] VITALS: BP 167/66; PULSE 60; TEMP 36.8; O2SAT 97
[2016-11-17] MEDS: HYDROXYCHLOROQUINE SULFATE 200 MG TAB PO SCH (20:03)
[2016-11-17] MEDS: INSULIN GLARGINE SOLOSTAR 100 UNITS/ML 3 ML PEN SC SCH (20:06)
[2016-11-17 21:09] LABS: PARTIAL THROMBOPLASTIN RATIO 1.7
[2016-11-17] MEDS ORDERED: HEPARIN IV BOLUS 3,000 UNIT in SYRINGE 0 ML IV SCH (22:45)
[2016-11-18] VITALS (7 sets, daily range): BP systolic 151–183; BP diastolic 52–74; PULSE 51–65; TEMP 36.4–36.7; O2SAT 96–100
[2016-11-18] MEDS: NSS + 20MEQ KCL 1000ML 1,000 ML IV SCH ×3 (01:00→21:05)
[2016-11-18] MEDS: LEVOTHYROXINE 75 MCG TAB PO SCH (06:08)
[2016-11-18] MEDS: INSULIN ASPART 100 UNITS/ML 3 ML PEN SC SCH ×4 (07:00→21:00)
[2016-11-18 07:05] LABS: BASO % 0.6 %; BASO ABS # 0.05 K/uL (0-0.2); COMPLETE YES; EOS % 3.4 %; HEMATOCRIT 38.4 % (37-47); IG% 0.2 %; LYMPH % 25.7 %; LYMPH ABS # 2.31 K/uL (1.2-3.4); MEAN CELL VOLUME 88.7 fL (80-100); MEAN CORPUSCULAR HEMOGLOBIN 27.9 pg (25-34); MEAN CORPUSCULAR HGB CONC 31.5 g/dl (32-36); MEAN PLATELET VOLUME 10.8 fL (7.4-10.4); MONO % 8.7 %; NEUT % 61.4 %; PLATELET COUNT 177 K/uL (130-400); RED BLOOD COUNT 4.33 M/uL (4.2-5.4)
[2016-11-18 07:24] LABS: PARTIAL THROMBOPLASTIN RATIO 4.6; PROTHROMBIN TIME (PATIENT) 11.1 SECONDS (9.0-12.0)
[2016-11-18 07:35] LABS: BUN/CREATININE RATIO 16.5 (10-20); CALCIUM 9.1 mg/dl (8.5-10.1); CREATININE 1.3 mg/dl (0.60-1.20); MAGNESIUM 1.7 mg/dl (1.8-2.4); POTASSIUM 4.7 mmol/L (3.5-5.1)
[2016-11-18] MEDS: MAGNESIUM OXIDE 400 MG TAB PO SCH (09:27)
[2016-11-18] MEDS: SIMVASTATIN 20 MG TAB PO SCH (09:27)
[2016-11-18] MEDS: AMLODIPINE BESYLATE 5 MG TAB PO SCH (09:27)
[2016-11-18] MEDS: CALCIUM 600MG + VIT D 400 IU TAB PO SCH (09:27)
[2016-11-18] MEDS: CHOLECALCIFEROL 1000 INTER.UNIT TAB PO SCH (09:27)
[2016-11-18] MEDS: CYANOCOBALAMIN 500 MCG TAB (VIT B-12) PO SCH (09:27)
[2016-11-18] MEDS ORDERED: LISINOPRIL 40 MG TAB PO ONE (10:26)
--- NOTE | 2016-11-18 10:26 | Cardiology Follow-Up ---
Subjective General Date of Service: Nov 18, 2016. Chief Complaint: syncope Pt evaluation today including: conversation w/ patient, physical exam, chart review, lab review, review of studies, review of inpatient medication list History of Present Illness Patient feeling ok. Denies symptoms of dizziness, syncope or near syncope. no chest pain or SOB. No LE edema, orthopnea, PND or cough. Allergies Coded Allergies: No Known Allergies (Unverified , 11/16/16) Social History Smoking Status: Never Smoker Hx Tobacco Use In Past Year?: No Hx Alcohol Use - Type And Amou: No Hx Substance Use - Type And Am: No Problem List Medical Problems: (1) Bradycardia Status: Acute (2) Fracture dislocation of left ankle Status: Acute (3) Second degree AV block Status: Acute (4) Syncope Status: Acute Surgical Problems: (1) History of cholecystectomy Status: Chronic Review of Systems Respiratory: No cough, No sputum, No wheezing, No shortness of breath, No dyspnea at rest, No hemoptysis Cardiac: No chest pain, No orthopnea, No PND, No edema, No palpitations Physical Exam Vital Signs Last Vital Signs Documentation Date Time Temp Pulse Resp B/P (MAP) Pulse Ox O2 Delivery O2 Flow Rate FiO2 11/18/16 08:00 Room Air 11/18/16 07:14 36.4 65 20 176/63 (100) 97 183/70 (107) Physical Exam Constitutional: General Apperance: obese Level of Distress: NAD Psychiatric: Mental Status: active & alert Orientation: to time, to place, to person Head: normocephalic Eyes: Pupils: PERRLA Neck: supple Lungs: Respiratory effort: no dyspnea Auscultation: no wheezing, no rales/crackles Cardiovascular: Heart Auscultation: II/ ISABELLA, irregular rate rhythm Abdomen: Bowel Sounds: normal Inspection & Palpation: soft, non-distended Extremities: no cyanosis, no edema Assessment and Plan Assessment and Plan Impression: 1. Syncope - likely secondary to bradycardia/slow ventricular rates/pauses 2. Paroxysmal atrial flutter with slow ventricular response, pauses up to 3.5 seconds on telemetry. No AV daniella blocking agents. 3. Hypertension - elevated secondary to holding lisinopril, and diuretic therapy 4. RA 5. CLL 6. Acute on chronic kidney disease - elevated creatinine on admission secondary to recent increase in diuretic therapy. Improving. PLAN: Diuretics/lisinopril on hold due to elevated creatinine. Trending down. Resume home dose lisinopril 40 mg daily due to HTN. EP consult for atrial flutter slow rates, pauses. Would likely benefit from PPM implant. IV heparin for atrial flutter. Need to consider [facility] anticoagulation therapy with Coumadin. CHADS2 score of 3. Case discussed with Dr. Gandhi. Will follow. CARDIOLOGY ATTENDING ADDENDUM: The patient was seen and personally examined. Agree with Qing Espino PA-C's findings and plans as documented above. Looks like pacer may be delayed until Tuesday. Laboratory Results Last 24 Hours Test 11/17/16 11:17 11/17/16 16:19 11/17/16 20:01 11/17/16 20:35 Bedside Glucose 112 mg/dl 108 mg/dl 137 mg/dl Activated Partial Thromboplast Time 45.4 SECONDS Partial Thromboplastin Ratio 1.7 Test 11/18/16 06:36 11/18/16 06:42 Bedside Glucose 78 mg/dl White Blood Count 9.00 K/uL Red Blood Count 4.33 M/uL Hemoglobin 12.1 g/dL Hematocrit 38.4 % Mean Corpuscular Volume 88.7 fL Mean Corpuscular Hemoglobin 27.9 pg Mean Corpuscular Hemoglobin Concent 31.5 g/dl Platelet Count 177 K/uL Mean Platelet Volume 10.8 fL Neutrophils (%) (Auto) 61.4 % Lymphocytes (%) (Auto) 25.7 % Monocytes (%) (Auto) 8.7 % Eosinophils (%) (Auto) 3.4 % Basophils (%) (Auto) 0.6 % Neutrophils # (Auto) 5.53 K/uL Lymphocytes # (Auto) 2.31 K/uL Monocytes # (Auto) 0.78 K/uL Eosinophils # (Auto) 0.31 K/uL Basophils # (Auto) 0.05 K/uL RDW Standard Deviation 49.7 fL RDW Coefficient of Variation 15.3 % Immature Granulocyte % (Auto) 0.2 % Immature Granulocyte # (Auto) 0.02 K/uL Prothrombin Time 11.1 SECONDS Prothromb Time International Ratio 1.0 Activated Partial Thromboplast Time 119.0 SECONDS Partial Thromboplastin Ratio 4.6 Sodium Level 144 mmol/L Potassium Level 4.7 mmol/L Chloride Level 112 mmol/L Carbon Dioxide Level 27 mmol/L Anion Gap 5.0 mmol/L Blood Urea Nitrogen 22 mg/dl Creatinine 1.30 mg/dl Est Creatinine Clear Calc Drug Dose 35.3 ml/min Estimated GFR () 43.6 Estimated GFR (Non- 37.6 BUN/Creatinine Ratio 16.5 Random Glucose 70 mg/dl Calcium Level 9.1 mg/dl Magnesium Level 1.7 mg/dl
[2016-11-18] MEDS: HEPARIN 25,000 UNIT/500ML D5W 500 ML IV PRN (11:42)
--- NOTE | 2016-11-18 12:51 | Clinical Documentation Query ---
CHIP Haines : CLINICAL DOCUMENTATION QUERY Documentation includes "renal insufficiency" and "acute on chronic kidney disease", not otherwise specified. Estimated GFR range from 15 to present of 26-35 ml/min. As appropriate, consider clarification as suggested below as this directly impacts DRG assignment. Thank you. In your clinical opinion is this patient being managed for: ( ) JOSH on chronic kidney disease, stage 4 ( ) Other explanation of clinical findings (Please Explain) ( ) Unable to determine (Please Define) ( ) Need to Discuss ( ) Not Agree The medical record reflects the following clinical findings, treatment, and risk factors. Clinical Indicators: As above Treatment: Serial chemistries, holding of Lisinopril Risk Factors: Age, diabetes, hypertension Please clarify and document your clinical opinion in the progress notes and discharge summary. Terms such as "probable", "suspected", "likely", "questionable", "possible", or "still to be ruled out" are acceptable. IF IN AGREEMENT, YOU MUST DOCUMENT ABOVE DIAGNOSTIC STATEMENT IN DAILY PROGRESS NOTES AND DISCHARGE SUMMARY. This document is not part of the patient's record. Thank You, David Tapia, RN [phone]
[2016-11-18 14:16] LABS: PARTIAL THROMBOPLASTIN RATIO 2.2
[2016-11-18] MEDS: HYDROXYCHLOROQUINE SULFATE 200 MG TAB PO SCH (21:06)
[2016-11-18] MEDS: INSULIN GLARGINE SOLOSTAR 100 UNITS/ML 3 ML PEN SC SCH (21:11)
[2016-11-19] VITALS (9 sets, daily range): BP systolic 116–184; BP diastolic 49–76; PULSE 59–72; TEMP 36.3–37; O2SAT 95–98; Ht 162.6 cm; Wt 86.6 kg
--- NOTE | 2016-11-19 03:38 | Hospitalist Progress Note ---
Hospitalist Progress Note Date of Service Nov 18, 2016. Subjective Pt evaluation today including: conversation w/ patient, conversation w/ family Patient with no complaints of chest pain or shortness of breath awaiting pacemaker placement tomorrow All Other Systems: Reviewed and Negative Medications Medications (Trade) Dose Ordered Sig/Carmen Route Start Time Stop Time Status Last Admin Dose Admin Magnesium Oxide (Mag-Ox Tab) 400 mg QAM PO 11/18/16 09:00 12/18/16 08:59 11/18/16 09:27 400 MG Lisinopril (Zestril Tab) 40 mg 1026 ONCE PO 11/18/16 10:26 11/18/16 11:05 DC 11/18/16 11:53 40 MG Objective Vital Signs Date Time Temp Pulse Resp B/P (MAP) Pulse Ox O2 Delivery O2 Flow Rate FiO2 11/18/16 23:59 Room Air 11/18/16 23:19 36.4 57 20 179/63 (101) 96 Room Air 11/18/16 19:30 Room Air 11/18/16 19:01 36.6 61 18 170/62 (98) 100 Room Air 11/18/16 16:00 Room Air 11/18/16 14:53 36.5 61 18 165/62 (96) 98 Room Air 11/18/16 12:00 Room Air 11/18/16 10:53 36.5 62 20 151/68 (95) 96 Room Air 11/18/16 08:00 Room Air 11/18/16 07:14 36.4 65 20 176/63 (100) 97 Room Air 183/70 (107) 11/18/16 04:00 Room Air 11/18/16 03:48 36.5 59 20 154/52 (86) 99 Room Air Physical Exam General Appearance: no apparent distress ENT: hearing grossly normal Neck: supple Respiratory/Chest: lungs clear Cardiovascular: regular rate, rhythm Abdomen: normal bowel sounds Extremities: normal range of motion Laboratory Results Last 24 Hours Test 11/18/16 06:36 11/18/16 06:42 11/18/16 11:26 11/18/16 13:45 Bedside Glucose 78 mg/dl 157 mg/dl White Blood Count 9.00 K/uL Red Blood Count 4.33 M/uL Hemoglobin 12.1 g/dL Hematocrit 38.4 % Mean Corpuscular Volume 88.7 fL Mean Corpuscular Hemoglobin 27.9 pg Mean Corpuscular Hemoglobin Concent 31.5 g/dl Platelet Count 177 K/uL Mean Platelet Volume 10.8 fL Neutrophils (%) (Auto) 61.4 % Lymphocytes (%) (Auto) 25.7 % Monocytes (%) (Auto) 8.7 % Eosinophils (%) (Auto) 3.4 % Basophils (%) (Auto) 0.6 % Neutrophils # (Auto) 5.53 K/uL Lymphocytes # (Auto) 2.31 K/uL Monocytes # (Auto) 0.78 K/uL Eosinophils # (Auto) 0.31 K/uL Basophils # (Auto) 0.05 K/uL RDW Standard Deviation 49.7 fL RDW Coefficient of Variation 15.3 % Immature Granulocyte % (Auto) 0.2 % Immature Granulocyte # (Auto) 0.02 K/uL Prothrombin Time 11.1 SECONDS Prothromb Time International Ratio 1.0 Activated Partial Thromboplast Time 119.0 SECONDS 56.6 SECONDS Partial Thromboplastin Ratio 4.6 2.2 Sodium Level 144 mmol/L Potassium Level 4.7 mmol/L Chloride Level 112 mmol/L Carbon Dioxide Level 27 mmol/L Anion Gap 5.0 mmol/L Blood Urea Nitrogen 22 mg/dl Creatinine 1.30 mg/dl Est Creatinine Clear Calc Drug Dose 35.3 ml/min Estimated GFR () 43.6 Estimated GFR (Non- 37.6 BUN/Creatinine Ratio 16.5 Random Glucose 70 mg/dl Calcium Level 9.1 mg/dl Magnesium Level 1.7 mg/dl Test 11/18/16 16:19 11/18/16 20:39 Bedside Glucose 102 mg/dl 113 mg/dl Assessment and Plan (1) Syncope Assessment & Plan: Secondary to bradycardia pacemaker being placed on 2016 (2) Bradycardia (3) Diabetes mellitus type II, controlled (4) HTN (hypertension) Assessment & Plan: JANETH inhibitor restarted titrate in the context of renal insufficiency (5) CLL (chronic lymphocytic leukemia) (6) Rheumatoid arthritis Discharge planning: uncertain Problem Qualifiers (1) Syncope: Syncope type: unspecified Qualified Codes: R55 - Syncope and collapse
[2016-11-19] MEDS: LEVOTHYROXINE 75 MCG TAB PO SCH (05:28)
[2016-11-19] MEDS: NSS + 20MEQ KCL 1000ML 1,000 ML IV SCH (06:45)
[2016-11-19] MEDS: INSULIN ASPART 100 UNITS/ML 3 ML PEN SC SCH ×4 (07:00→20:10)
[2016-11-19] MEDS ORDERED: BACITRACIN OINT 0.9 GM PKT ONE (07:57)
[2016-11-19] MEDS ORDERED: BACITRACIN 50000 UNIT VIAL ONE (07:57)
[2016-11-19] MEDS ORDERED: LIDOCAINE HCL 1% 20 ML VIAL ONE ×2 (07:57→10:00)
[2016-11-19 08:11] LABS: BASO % 0.4 %; BASO ABS # 0.03 K/uL (0-0.2); COMPLETE YES; EOS % 4.1 %; HEMATOCRIT 37.7 % (37-47); IG% 0.3 %; LYMPH % 21.4 %; LYMPH ABS # 1.62 K/uL (1.2-3.4); MEAN CELL VOLUME 88.1 fL (80-100); MEAN CORPUSCULAR HEMOGLOBIN 27.8 pg (25-34); MEAN CORPUSCULAR HGB CONC 31.6 g/dl (32-36); MEAN PLATELET VOLUME 10.3 fL (7.4-10.4); MONO % 7.5 %; NEUT % 66.3 %; PLATELET COUNT 179 K/uL (130-400); RED BLOOD COUNT 4.28 M/uL (4.2-5.4); WHITE BLOOD COUNT 7.57 K/uL (4.8-10.8)
[2016-11-19 08:20] LABS: PARTIAL THROMBOPLASTIN RATIO 0.9; PROTHROMBIN TIME (PATIENT) 10.6 SECONDS (9.0-12.0)
[2016-11-19 08:40] LABS: BUN/CREATININE RATIO 11.5 (10-20); CALCIUM 9.2 mg/dl (8.5-10.1); CREATININE 1.3 mg/dl (0.60-1.20); MAGNESIUM 1.8 mg/dl (1.8-2.4); POTASSIUM 4.9 mmol/L (3.5-5.1)
--- NOTE | 2016-11-19 09:24 | History & Physical Bridge Note ---
H&P Re-Evaluation Bridge Note: I have examined the patient, reviewed the History & Physical and in the interval since the performance of the History & Physical I have noted the following changes of clinical significance: No changes noted. I reviewed the indications, procedure, risks and alternatives of pacemaker implantation with her with her daughter present, consent had previously been obtained by Dr. Gutierrez. She understands and agrees to proceed.
[2016-11-19] MEDS ORDERED: KEFZOL SPECIAL PROCEDURE STOCK 1 GM ADDVIAL IV ONE (09:25)
--- NOTE | 2016-11-19 09:25 | Procedure Note ---
Pre-Mod Sedation Assessment General Date of Moderate Sedation: Nov 19, 2016. Vital Signs: Vital Signs Past 12 Hours Date Time Temp Pulse Resp B/P (MAP) Pulse Ox O2 Delivery O2 Flow Rate FiO2 11/19/16 07:15 36.4 64 16 116/75 (89) 97 11/19/16 04:20 36.9 60 18 175/49 (91) 98 Room Air 11/19/16 04:00 Room Air 11/18/16 23:59 Room Air 11/18/16 23:19 36.4 57 20 179/63 (101) 96 Room Air Review Cardiovascular: regular rate, rhythm Abdomen: normal bowel sounds Lungs: lungs clear Pre-Sedation Airway Assessment Smoking Status: Never Smoker Procedure Planning Contraindications-for Mod Sed: None Yes Notes The planned sedation has been discussed with the patient and consent obtained. I have identified the patient, determined the appropriateness of sedation and have assessed the patient immediately prior to the procedure. All medicine(s) and interventions are by my order.
[2016-11-19] MEDS ORDERED: FENTANYL CITRATE INJ 50 MCG/1 ML 2 ML VIAL ONE ×2 (09:29→10:24)
[2016-11-19] MEDS ORDERED: MIDAZOLAM HCL 5 MG/ML 1 ML VIAL ONE (09:29)
[2016-11-19] MEDS ORDERED: MIDAZOLAM HCL 1 MG/ML 2ML VIAL ONE (10:24)
--- NOTE | 2016-11-19 10:40 | Cardiology Procedure Brief Nt ---
Preliminary Cardiology Note Procedure Date Nov 19, 2016. Pre-Procedure Diagnosis tachybradycardia syndrome Post-Procedure Diagnosis same Procedure(s) Performed Dual chamber pacemaker implantation Slot Technician Dr. Jorge Print Decorator(s) none Estimated Blood Loss 30 cc Preliminary Findings Good lead position, good measurements with the patient in atrial flutter with good flutter measurement, could not test atrial pacing Recommendations Monitor overnight Specimens None Anesthesia local with sedation Complication(s) None Disposition PCU
--- NOTE | 2016-11-19 10:42 | Procedure Note ---
Post-Mod Sedation Assessment General Date of Moderate Sedation Nov 19, 2016. Vital Signs: Vital Signs Past 12 Hours Date Time Temp Pulse Resp B/P (MAP) Pulse Ox O2 Delivery O2 Flow Rate FiO2 11/19/16 10:35 95 16 127/47 (73) 94 Room Air 11/19/16 08:00 Room Air 11/19/16 07:15 36.4 64 16 116/75 (89) 97 11/19/16 04:20 36.9 60 18 175/49 (91) 98 Room Air 11/19/16 04:00 Room Air 11/18/16 23:59 Room Air 11/18/16 23:19 36.4 57 20 179/63 (101) 96 Room Air Review - Discharge Criteria Vital Signs Stable: Yes Alert/Oriented/Conversant: Yes Returned to Baseline Mental St: Yes Nausea Absent/Minimal: Yes Pain/Discomfort/Absent/Minimal: Yes Normal/Baseline Respirations: Yes Active Bleeding?: No
[2016-11-19] MEDS ORDERED: ACETAMINOPHEN 325 MG TAB PO PRN (10:45)
--- NOTE | 2016-11-19 10:53 | [facility] Operative Report ---
Operative Report Operative Date Nov 19, 2016. Pre-Operative Diagnosis Tachybradycardia syndrome Post-Operative Diagnosis same Procedure(s) Performed Dual chamber pacemaker implantation Surgeon Dr. Jorge Movie Machine Operator Surgeon(s) none Estimated Blood Loss 30 cc Findings Good atrial and ventricular lead position Excellent pacing and sensing characteristics in the ventricle, see implant data sheet Excellent sensing in the atrium, atrial pacing cannot be evaluated due to atrial flutter. See implant data sheet. Specimens None Anesthesia local with sedation Complication(s) None Disposition PCU Description of Procedure This is an 86-year-old woman with tachybradycardia syndrome including atrial fibrillation/flutter with a rapid ventricular response and sinus bradycardia. She requires pacemaker implantation for heart rate support to allow control of her tachycardia arrhythmia. After obtaining informed consent for the procedure, she was prepped and draped in standard sterile manner for a left sided pacemaker implantation. The left prepectoral region was anesthetized with 1% lidocaine local anesthetic and left subclavian venipuncture was performed by percutaneous technique. A guidewire was placed the left subclavian vein and a 5 cm incision was made proximal to the left clavicle. A pacemaker pocket was formed by blunt dissection. A bacitracin-soaked sponge was placed in the pocket. An 8 Polish Medtronic lead introducer was placed over the guidewire into the left subclavian vein, the dilator and guidewire removed and a bipolar active fixation steroid tipped ventricular lead was advanced into the superior vena cava. A guidewire was placed back introducer and another 8 Polish Medtronic lead introducer was placed over the guidewire into the left subclavian vein. The dilator and guidewire were removed and a bipolar active fixation steroid tipped atrial lead was advanced into the superior vena cava. The guidewire was placed to the introducer and the introducer was stripped from the lead and guidewire. Using a curved stylette the ventricular lead was advanced through the right ventricular outflow tract and then using a straight stylette was positioned right ventricular apex. The screws extended fixing the lead in position. The atrial lead was positioned in the region of the atrial appendage and the screw extended fixing the lead in position. Pacing and sensing thresholds were evaluated and details are noted on the data sheet. The leads were attached to the anterior pectoral fascia using 2 sutures of 2-0 silk around each lead collar. The bacitracin-soaked sponges were removed from the pocket, the guidewire was removed from left subclavian vein and hemostasis was obtained. The pacemaker was attached to the leads and found to be functioning normally. It was placed in the pocket with the leads coiled beneath it and the incision was closed with a running double subcutaneous closure of 3- 0 V-lock, followed by a subcuticular skin closure of 4-0 Vicryl. Bacitracin was placed on incision and a pressure dressing applied. I attest to the content of the Intraoperative Record and any orders documented therein. Any exceptions are noted below.
--- NOTE | 2016-11-19 11:27 | Cardiology Follow-Up ---
Subjective General Date of Service: Nov 19, 2016. Chief Complaint: syncope Pt evaluation today including: conversation w/ patient, conversation w/ family , physical exam, chart review, lab review, review of studies, review of inpatient medication list History of Present Illness Patient sleeping/groggy after pacemaker implant today. Tolerated procedure without incident. Offers no complaints at this time. Family at bedside. Anticoagulation therapy discussed with daughter. They are concerned regarding risk of CVA. Understand fall risks/bleeding risk, wishing to initiate Coumadin for anticoagulation. Allergies Coded Allergies: No Known Allergies (Unverified , 11/16/16) Social History Smoking Status: Never Smoker Hx Tobacco Use In Past Year?: No Hx Alcohol Use - Type And Amou: No Hx Substance Use - Type And Am: No Problem List Medical Problems: (1) Bradycardia Status: Acute (2) Fracture dislocation of left ankle Status: Acute (3) Second degree AV block Status: Acute (4) Syncope Status: Acute Surgical Problems: (1) History of cholecystectomy Status: Chronic Review of Systems Respiratory: No cough, No sputum, No wheezing, No shortness of breath, No dyspnea at rest, No hemoptysis Cardiac: No chest pain, No orthopnea, No PND, No edema, No palpitations Physical Exam Vital Signs Last Vital Signs Documentation Date Time Temp Pulse Resp B/P (MAP) Pulse Ox O2 Delivery O2 Flow Rate FiO2 11/19/16 11:01 36.6 60 18 148/71 (96) 95 Room Air Physical Exam Constitutional: General Apperance: obese Level of Distress: NAD Psychiatric: Mental Status: active & alert Orientation: to time, to place, to person Head: normocephalic Eyes: Pupils: PERRLA Neck: supple Lungs: Respiratory effort: no dyspnea Auscultation: no wheezing, no rales/crackles Cardiovascular: Heart Auscultation: II/ ISABELLA, irregular rate rhythm Abdomen: Bowel Sounds: normal Inspection & Palpation: soft, non-distended Extremities: no cyanosis, no edema Assessment and Plan Assessment and Plan Impression: 1. Syncope - likely secondary to bradycardia/slow ventricular rates/pauses - S/ P dual chamber pacemaker implantation 2. Paroxysmal atrial flutter with slow ventricular response, pauses up to 3.5 seconds on telemetry. No AV daniella blocking agents. 3. Hypertension - borderline 4. RA 5. CLL 6. Acute on chronic kidney disease - elevated creatinine on admission secondary to recent increase in diuretic therapy. Improving. PLAN: tolerated pacemaker implant without issues. remains in atrial flutter with Ventricular pacing Risks/benefits of anticoagulation therapy discussed with family. They wish to initiate Coumadin. Start Coumadin 5 mg today. Monitor PT/INR Metoprolol succinate 25 mg BID resumed. Case discussed with Dr. Gandhi. Will follow. CARDIOLOGY ATTENDING ADDENDUM: The patient was seen and personally examined. Agree with Qing Espino PA-C's findings and plans as documented above. Ok to start coumadin. Beta lori for hr control. Laboratory Results Last 24 Hours Test 11/18/16 11:26 11/18/16 13:45 11/18/16 16:19 11/18/16 20:39 Bedside Glucose 157 mg/dl 102 mg/dl 113 mg/dl Activated Partial Thromboplast Time 56.6 SECONDS Partial Thromboplastin Ratio 2.2 Test 11/19/16 07:18 11/19/16 07:50 11/19/16 09:46 Bedside Glucose 74 mg/dl 91 mg/dl White Blood Count 7.57 K/uL Red Blood Count 4.28 M/uL Hemoglobin 11.9 g/dL Hematocrit 37.7 % Mean Corpuscular Volume 88.1 fL Mean Corpuscular Hemoglobin 27.8 pg Mean Corpuscular Hemoglobin Concent 31.6 g/dl Platelet Count 179 K/uL Mean Platelet Volume 10.3 fL Neutrophils (%) (Auto) 66.3 % Lymphocytes (%) (Auto) 21.4 % Monocytes (%) (Auto) 7.5 % Eosinophils (%) (Auto) 4.1 % Basophils (%) (Auto) 0.4 % Neutrophils # (Auto) 5.02 K/uL Lymphocytes # (Auto) 1.62 K/uL Monocytes # (Auto) 0.57 K/uL Eosinophils # (Auto) 0.31 K/uL Basophils # (Auto) 0.03 K/uL RDW Standard Deviation 48.8 fL RDW Coefficient of Variation 15.4 % Immature Granulocyte % (Auto) 0.3 % Immature Granulocyte # (Auto) 0.02 K/uL Prothrombin Time 10.6 SECONDS Prothromb Time International Ratio 1.0 Activated Partial Thromboplast Time 24.5 SECONDS Partial Thromboplastin Ratio 0.9 Sodium Level 145 mmol/L Potassium Level 4.9 mmol/L Chloride Level 114 mmol/L Carbon Dioxide Level 26 mmol/L Anion Gap 5.0 mmol/L Blood Urea Nitrogen 15 mg/dl Creatinine 1.30 mg/dl Est Creatinine Clear Calc Drug Dose 34.6 ml/min Estimated GFR () 43.6 Estimated GFR (Non- 37.6 BUN/Creatinine Ratio 11.5 Random Glucose 75 mg/dl Calcium Level 9.2 mg/dl Magnesium Level 1.8 mg/dl
[2016-11-19] MEDS ORDERED: METOPROLOL SUCC 25MG EXT REL TAB PO ONE (11:28)
[2016-11-19] MEDS: SIMVASTATIN 20 MG TAB PO SCH (11:38)
[2016-11-19] MEDS: AMLODIPINE BESYLATE 5 MG TAB PO SCH (11:38)
[2016-11-19] MEDS: CYANOCOBALAMIN 500 MCG TAB (VIT B-12) PO SCH (11:38)
[2016-11-19] MEDS: LISINOPRIL 40 MG TAB PO SCH (11:39)
[2016-11-19] MEDS: MAGNESIUM OXIDE 400 MG TAB PO SCH (11:39)
[2016-11-19] MEDS: CHOLECALCIFEROL 1000 INTER.UNIT TAB PO SCH (11:39)
[2016-11-19] MEDS: CALCIUM 600MG + VIT D 400 IU TAB PO SCH (11:39)
[2016-11-19] MEDS: KETOROLAC TROMETHAMINE 10 MG TAB PO PRN (16:47)
[2016-11-19] MEDS: WARFARIN SOD 4 MG TAB PO SCH (17:05)
[2016-11-19] MEDS ORDERED: NURSING VERBAL MED ORDER ONE (17:30)
[2016-11-19] MEDS: CEFAZOLIN IV 1,000 MG in DEXTROSE 5% 50ML 50 ML IV SCH (17:55)
[2016-11-19] MEDS: METOPROLOL SUCC 25MG EXT REL TAB PO SCH (20:07)
[2016-11-19] MEDS: HYDROXYCHLOROQUINE SULFATE 200 MG TAB PO SCH (20:08)
[2016-11-19] MEDS: INSULIN GLARGINE SOLOSTAR 100 UNITS/ML 3 ML PEN SC SCH (20:09)
[2016-11-20] VITALS (9 sets, daily range): BP systolic 127–197; BP diastolic 49–88; PULSE 60–94; TEMP 36.5–37.3; O2SAT 94–96
--- NOTE | 2016-11-20 00:32 | Hospitalist Progress Note ---
Hospitalist Progress Note Date of Service Nov 19, 2016. Subjective Pt evaluation today including: conversation w/ patient, conversation w/ family Patient with no complaints status post pacemaker Objective Vital Signs Date Time Temp Pulse Resp B/P (MAP) Pulse Ox O2 Delivery O2 Flow Rate FiO2 11/20/16 00:01 Room Air 11/19/16 23:15 36.6 60 18 184/76 (112) 95 Room Air 11/19/16 20:00 Room Air 11/19/16 19:30 36.5 59 22 168/73 (104) 95 Room Air 11/19/16 15:50 Room Air 11/19/16 15:45 37.0 61 22 150/64 (92) 95 Room Air 11/19/16 12:47 36.4 72 18 156/55 (88) 97 11/19/16 11:45 36.4 63 18 151/61 (91) 95 Room Air 11/19/16 11:30 Room Air 11/19/16 11:17 36.3 63 18 164/71 (102) 97 Room Air 11/19/16 11:01 36.6 60 18 148/71 (96) 95 Room Air 11/19/16 10:45 75 16 115/47 (69) 94 Room Air 11/19/16 10:35 95 16 127/47 (73) 94 Room Air 11/19/16 08:00 Room Air 11/19/16 07:15 36.4 64 16 116/75 (89) 97 11/19/16 04:20 36.9 60 18 175/49 (91) 98 Room Air 11/19/16 04:00 Room Air Physical Exam General Appearance: no apparent distress ENT: hearing grossly normal Neck: supple Respiratory/Chest: lungs clear Cardiovascular: regular rate, rhythm Abdomen: non tender Neurologic/Psychiatric: alert Laboratory Results Last 24 Hours Test 11/19/16 07:18 11/19/16 07:50 11/19/16 09:46 11/19/16 10:53 Bedside Glucose 74 mg/dl 91 mg/dl 103 mg/dl White Blood Count 7.57 K/uL Red Blood Count 4.28 M/uL Hemoglobin 11.9 g/dL Hematocrit 37.7 % Mean Corpuscular Volume 88.1 fL Mean Corpuscular Hemoglobin 27.8 pg Mean Corpuscular Hemoglobin Concent 31.6 g/dl Platelet Count 179 K/uL Mean Platelet Volume 10.3 fL Neutrophils (%) (Auto) 66.3 % Lymphocytes (%) (Auto) 21.4 % Monocytes (%) (Auto) 7.5 % Eosinophils (%) (Auto) 4.1 % Basophils (%) (Auto) 0.4 % Neutrophils # (Auto) 5.02 K/uL Lymphocytes # (Auto) 1.62 K/uL Monocytes # (Auto) 0.57 K/uL Eosinophils # (Auto) 0.31 K/uL Basophils # (Auto) 0.03 K/uL RDW Standard Deviation 48.8 fL RDW Coefficient of Variation 15.4 % Immature Granulocyte % (Auto) 0.3 % Immature Granulocyte # (Auto) 0.02 K/uL Prothrombin Time 10.6 SECONDS Prothromb Time International Ratio 1.0 Activated Partial Thromboplast Time 24.5 SECONDS Partial Thromboplastin Ratio 0.9 Sodium Level 145 mmol/L Potassium Level 4.9 mmol/L Chloride Level 114 mmol/L Carbon Dioxide Level 26 mmol/L Anion Gap 5.0 mmol/L Blood Urea Nitrogen 15 mg/dl Creatinine 1.30 mg/dl Est Creatinine Clear Calc Drug Dose 34.6 ml/min Estimated GFR () 43.6 Estimated GFR (Non- 37.6 BUN/Creatinine Ratio 11.5 Random Glucose 75 mg/dl Calcium Level 9.2 mg/dl Magnesium Level 1.8 mg/dl Test 11/19/16 16:15 11/19/16 20:05 Bedside Glucose 123 mg/dl 115 mg/dl Assessment and Plan (1) Syncope Assessment & Plan: Status post pacemaker (2) Bradycardia Assessment & Plan: Status post pacemaker see how patient feels tomorrow may need short-term rehabilitation (3) Diabetes mellitus type II, controlled (4) HTN (hypertension) (5) CLL (chronic lymphocytic leukemia) (6) Rheumatoid arthritis Problem Qualifiers (1) Syncope: Syncope type: unspecified Qualified Codes: R55 - Syncope and collapse
[2016-11-20] MEDS: CEFAZOLIN IV 1,000 MG in DEXTROSE 5% 50ML 50 ML IV SCH ×2 (01:40→10:41)
[2016-11-20] MEDS: LEVOTHYROXINE 75 MCG TAB PO SCH (05:56)
[2016-11-20] MEDS: KETOROLAC TROMETHAMINE 10 MG TAB PO PRN (05:57)
[2016-11-20] MEDS: CHOLECALCIFEROL 1000 INTER.UNIT TAB PO SCH (07:42)
[2016-11-20] MEDS: SIMVASTATIN 20 MG TAB PO SCH (07:42)
[2016-11-20] MEDS: MAGNESIUM OXIDE 400 MG TAB PO SCH (07:42)
[2016-11-20] MEDS: CALCIUM 600MG + VIT D 400 IU TAB PO SCH (07:43)
[2016-11-20] MEDS: AMLODIPINE BESYLATE 5 MG TAB PO SCH (07:43)
[2016-11-20] MEDS: METOPROLOL SUCC 25MG EXT REL TAB PO SCH (07:43)
[2016-11-20] MEDS: LISINOPRIL 40 MG TAB PO SCH (07:43)
[2016-11-20] MEDS: CYANOCOBALAMIN 500 MCG TAB (VIT B-12) PO SCH (07:44)
--- NOTE | 2016-11-20 08:13 | DIAGNOSTIC IMAGING REPORT ---
CHEST 2 VIEWS ROUTINE CLINICAL HISTORY: Chest x-ray status post pacemaker placement COMPARISON STUDY: 11/16/2016 FINDINGS: The cardiac and mediastinal contours remain stable. There is been interval placement of a left subclavian dual-chamber central venous pacemaker. Electrodes position is unremarkable. No pneumothorax is visualized. Since the prior study, the patient developed interstitial edema with subpleural septal lines. There is no lobar consolidation.[ IMPRESSION: 1. Interval development of subpleural septal edema 2. No evidence of pneumothorax status post placement of a left sided pacemaker Electronically signed by: Bro Cee M.D. 11/20/2016 8:11 AM Dictated Date/Time: 11/20/2016 8:10 AM
[2016-11-20] MEDS: INSULIN ASPART 100 UNITS/ML 3 ML PEN SC SCH ×4 (08:47→21:23)
[2016-11-20] MEDS ORDERED: BUMETANIDE 1 MG TAB PO ONE (09:00)
[2016-11-20] MEDS ORDERED: AMLODIPINE BESYLATE 5 MG TAB PO ONE (09:30)
[2016-11-20 10:00] LABS: INR 1.1 (0.9-1.1)
--- NOTE | 2016-11-20 10:38 | Cardiology Follow-Up ---
Subjective Subjective Date of Service: Nov 20, 2016. Pt evaluation today including: conversation w/ patient, physical exam, chart review, lab review, review of studies, review of inpatient medication list Additional Details: Pt seen and examined, oob in chair. States that she feels well. Denies cp, sob, palpitations, lightheadedness or dizziness. Slight tenderness at pocket site. Tele reviewed: v-paced Problem List Medical Problems: (1) Bradycardia Status: Acute (2) Fracture dislocation of left ankle Status: Acute (3) Second degree AV block Status: Acute (4) Syncope Status: Acute Surgical Problems: (1) History of cholecystectomy Status: Chronic Review of Systems Respiratory: No cough, No sputum, No wheezing, No shortness of breath, No dyspnea at rest, No hemoptysis Cardiac: No chest pain, No orthopnea, No PND, No edema, No palpitations Objective Vital Signs Last Vital Signs Documentation Date Time Temp Pulse Resp B/P (MAP) Pulse Ox O2 Delivery O2 Flow Rate FiO2 11/20/16 07:30 Room Air 11/20/16 07:08 37.1 62 20 164/88 (113) 96 Physical Exam: General Appearance: WD/WN, no apparent distress, + pertinent finding (nasal lesion) Eyes: bilateral eyes normal inspection, bilateral eyes PERRL, bilateral eyes EOMI ENT: normal ENT inspection, hearing grossly normal, pharynx normal Neck: supple, no adenopathy, thyroid normal, no JVD, no carotid bruits, trachea midline Respiratory/Chest: chest non-tender, lungs clear, normal breath sounds, no respiratory distress, no accessory muscle use Cardiovascular: regular rate, rhythm, no edema, no JVD, no murmur Abdomen: normal bowel sounds, non tender, soft, no organomegaly Extremities: normal range of motion, non-tender, normal inspection, no pedal edema, no calf tenderness Neurologic/Psychiatric: change management specialist II-XII nml as tested, no motor/sensory deficits, alert, normal mood/affect, oriented x 3 Skin: normal color, warm/dry, no rash Lymphatic: no adenopathy Assessment and Plan Impression: 1. Syncope - likely secondary to bradycardia/slow ventricular rates/pauses - S/ P dual chamber pacemaker implantation 2. Paroxysmal atrial flutter with slow ventricular response coumadin and metoprolol started 3. Hypertension - borderline 4. RA 5. CLL 6. Acute on chronic kidney disease - elevated creatinine on admission secondary to recent increase in diuretic therapy. Improving. ok to d/c to home from cardiac standpoint Discharge planning: uncertain
--- NOTE | 2016-11-20 15:44 | Hospitalist Progress Note ---
Hospitalist Progress Note Date of Service Nov 20, 2016. Subjective Pt evaluation today including: conversation w/ patient, chart review, lab review Patient with no complaints Objective Vital Signs Date Time Temp Pulse Resp B/P (MAP) Pulse Ox O2 Delivery O2 Flow Rate FiO2 11/20/16 14:02 61 20 184/72 (109) 95 Room Air 11/20/16 11:13 37.3 60 20 176/72 (106) 94 Room Air 11/20/16 07:30 Room Air 11/20/16 07:08 37.1 62 20 164/88 (113) 96 Nasal Cannula 11/20/16 04:00 Room Air 11/20/16 03:09 36.7 60 16 164/64 (97) 95 Room Air 11/20/16 00:01 Room Air 11/19/16 23:15 36.6 60 18 184/76 (112) 95 Room Air 11/19/16 20:00 Room Air 11/19/16 19:30 36.5 59 22 168/73 (104) 95 Room Air 11/19/16 15:50 Room Air 11/19/16 15:45 37.0 61 22 150/64 (92) 95 Room Air Physical Exam General Appearance: no apparent distress ENT: hearing grossly normal Neck: trachea midline Respiratory/Chest: lungs clear Cardiovascular: regular rate, rhythm, no edema Abdomen: non tender, soft Extremities: no pedal edema Laboratory Results Last 24 Hours Test 11/19/16 16:15 11/19/16 20:05 11/20/16 06:47 11/20/16 09:12 Bedside Glucose 123 mg/dl 115 mg/dl 79 mg/dl Prothrombin Time 12.0 SECONDS Prothromb Time International Ratio 1.1 Test 11/20/16 11:12 Bedside Glucose 94 mg/dl Assessment and Plan (1) Syncope (2) Bradycardia Assessment & Plan: Status post pacemaker (3) Diabetes mellitus type II, controlled (4) HTN (hypertension) Assessment & Plan: We'll adjust blood pressure medications changed metoprolol to 50 twice a day and increase amlodipine 10 daily secondary to increased blood pressure (5) CLL (chronic lymphocytic leukemia) (6) Rheumatoid arthritis Problem Qualifiers (1) Syncope: Syncope type: unspecified Qualified Codes: R55 - Syncope and collapse
--- NOTE | 2016-11-20 15:54 | [facility] Operative Report ---
Operative Report Operative Date Nov 20, 2016. Pre-Operative Diagnosis Tachybradycardia syndrome Post-Operative Diagnosis same Procedure(s) Performed Dual chamber pacemaker implantation Surgeon Dr. Jorge Quarter Seamer Surgeon(s) none Estimated Blood Loss 30 cc Findings Good lead position, good measurements. Specimens None Anesthesia local with sedation Disposition PCU Description of Procedure After obtaining informed consent for the procedure, the patient was brought to the laboratory and prepped and draped in the standard sterile manner. The left prepectoral region was anesthetized with 1% lidocaine local anesthetic and left axillary venipuncture was performed by percutaneous technique and a guidewire placed through the left subclavian vein into the superior vena cava. The area was further infiltrated with 1% lidocaine local anesthetic and a 5 cm incision was made parallel to the left clavicle and 2 cm below it and carried down to the anterior pectoralis fascia. A pacemaker pocket was formed by blunt dissection anterior to the pectoralis fascia and a bacitracin-soaked sponge (50, 000 units in 50 cc normal saline solution) was placed in the pocket. An 8 Azeri Medtronic lead introducer was placed over the guidewire into the left subclavian vein, the dilator and guidewire were removed and a bipolar active fixation steroid tipped ventricular lead was advanced through the introducer into the superior vena cava. A guidewire was placed through the introducer and the introducer was stripped from the lead and guidewire. Another 8 [place] Medtronic lead introducer was placed over the guidewire into the left subclavian vein, the dilator and guidewire were removed and a bipolar active fixation steroid tipped atrial lead was advanced through the introducer into the superior vena cava. A guidewire was placed back through the introducer and the introducer was stripped from the lead and guidewire. Using a curved stylette the ventricular lead was advanced through the right ventricular outflow tract into the pulmonary artery and then using a straight stylette was positioned in the right ventricular apex. The screw was extended fixing the lead in position. Pacing and sensing thresholds were evaluated in bipolar configuration and are recorded on the implant data sheet. Using a curved stylette the atrial lead was positioned in the region of the atrial appendage and the screw extended fixing the lead in position. Pacing and sensing thresholds were evaluated in bipolar configuration and are recorded on the implant data sheet. Once the leads were in position they were attached to the anterior pectoralis fascia using 2 sutures of 2-0 silk around each lead collar. The bacitracin- soaked sponge was removed from the pocket, hemostasis was obtained, the pacemaker was attached to the leads and placed in the pocket with the leads coiled beneath it. The incision was closed with a running double subcutaneous closure of 3-0 Vicryl absorbable suture, followed by running subcuticular skin closure of 4-0 V-Lock absorbable suture. Bacitracin ointment was placed on the incision and a pressure dressing applied. There were no complications. I attest to the content of the Intraoperative Record and any orders documented therein. Any exceptions are noted below.
[2016-11-20] MEDS: WARFARIN SOD 4 MG TAB PO SCH (16:48)
[2016-11-20] MEDS ORDERED: NURSING VERBAL MED ORDER ONE ×2 (17:30)
[2016-11-20] MEDS: LABETALOL HCL 200 MG TAB PO SCH (18:05)
[2016-11-20] MEDS ORDERED: METOPROLOL SUCC 50MG EXT REL TAB PO SCH (21:00)
[2016-11-20] MEDS: INSULIN GLARGINE SOLOSTAR 100 UNITS/ML 3 ML PEN SC SCH (21:21)
[2016-11-20] MEDS: HYDROXYCHLOROQUINE SULFATE 200 MG TAB PO SCH (21:24)
[2016-11-21 04:01] VITALS: BP 129/66; PULSE 61; TEMP 36.3; O2SAT 97
[2016-11-21] MEDS: LEVOTHYROXINE 75 MCG TAB PO SCH (06:08)
[2016-11-21 06:42] LABS: HEMATOCRIT 33.7 % (37-47); MEAN CELL VOLUME 87.1 fL (80-100); MEAN CORPUSCULAR HEMOGLOBIN 28.4 pg (25-34); MEAN CORPUSCULAR HGB CONC 32.6 g/dl (32-36); MEAN PLATELET VOLUME 10.1 fL (7.4-10.4); PLATELET COUNT 141 K/uL (130-400); RED BLOOD COUNT 3.87 M/uL (4.2-5.4); WHITE BLOOD COUNT 8.04 K/uL (4.8-10.8)
[2016-11-21 06:56] LABS: INR 1.5 (0.9-1.1); PROTHROMBIN TIME (PATIENT) 16.5 SECONDS (9.0-12.0)
[2016-11-21 07:00] VITALS: BP 153/59; PULSE 61; TEMP 36.6; O2SAT 96
[2016-11-21 07:13] LABS: BUN/CREATININE RATIO 13.6 (10-20); CALCIUM 9.2 mg/dl (8.5-10.1); CREATININE 1.6 mg/dl (0.60-1.20); POTASSIUM 4.3 mmol/L (3.5-5.1)
[2016-11-21] MEDS: LISINOPRIL 40 MG TAB PO SCH (08:55)
[2016-11-21] MEDS: SIMVASTATIN 20 MG TAB PO SCH (08:56)
[2016-11-21] MEDS: MAGNESIUM OXIDE 400 MG TAB PO SCH (08:56)
[2016-11-21] MEDS: CYANOCOBALAMIN 500 MCG TAB (VIT B-12) PO SCH (08:56)
[2016-11-21] MEDS: LABETALOL HCL 200 MG TAB PO SCH (08:56)
[2016-11-21] MEDS: CALCIUM 600MG + VIT D 400 IU TAB PO SCH (08:57)
[2016-11-21] MEDS: CHOLECALCIFEROL 1000 INTER.UNIT TAB PO SCH (08:57)
[2016-11-21] MEDS ORDERED: AMLODIPINE BESYLATE 5 MG TAB PO SCH (09:00)
[2016-11-21] MEDS: INSULIN ASPART 100 UNITS/ML 3 ML PEN SC SCH (09:09)
[2016-11-21] MEDS ORDERED: NRV5 PO (11:05)
[2016-11-21] MEDS ORDERED: LBT200 PO (11:05)
--- NOTE | 2016-11-21 11:10 | Discharge Instructions ---
Discharge Instructions Date of Service Nov 21, 2016. Admission Reason for Admission: Elevated Troponin I Level,Second Degree Av Block Discharge Discharge Diagnosis / Problem: Bradycardia requiring pacemaker Discharge Goals Goal(s): Improve function Activity Recommendations Activity Limitations: per Instructions/Follow-up section . Instructions / Follow-Up Instructions / Follow-Up Primary Care Physician in 1 week Current Hospital Diet Patient's current hospital diet: AHA Diet (Heart Healthy), Diabetes Type 2 Diet Discharge Diet Recommended Diet: Diabetes Type 1 Diet Procedures Procedures Performed: Pacemaker Insertion Pending Studies Studies pending at discharge: no Laboratory Results Hemoglobin A1c Test 09/21/16 11:31 Range/Units Estimated Average Glucose 117 mg/dl Hemoglobin A1c 5.7 H 4.5-5.6 % Medical Emergencies . Who to Call and When: Medical Emergencies: If at any time you feel your situation is an emergency, please call 911 immediately. . Non-Emergent Contact Non-Emergency issues call your: Primary Care Provider, Origination Specialist . . "Provider Documentation" section prepared by David Jean. . Epic Application Coordinator Recommendations Epic Application Coordinator Recommendations: [facility] VTE Core Measure Inpt VTE Proph given/why not?: Warfarin (Coumadin), SCD's
[2016-11-21] MEDS ORDERED: CMD4 PO (11:11)
[2016-11-21 11:15] VITALS: BP 153/59; PULSE 61; TEMP 36.6; O2SAT 96
--- NOTE | 2016-11-21 11:54 | Cardiology Follow-Up ---
Subjective Subjective Date of Service: Nov 21, 2016. Pt evaluation today including: conversation w/ patient, physical exam, chart review, lab review, review of studies, review of inpatient medication list Additional Details: Pt seen and examined, states that she feels well. Denies cp, sob, palpitations, lightheadedness or dizziness. Tele reviewed: Problem List Medical Problems: (1) Bradycardia Status: Acute (2) Fracture dislocation of left ankle Status: Acute (3) Second degree AV block Status: Acute (4) Syncope Status: Acute Surgical Problems: (1) History of cholecystectomy Status: Chronic Review of Systems Respiratory: No cough, No sputum, No wheezing, No shortness of breath, No dyspnea at rest, No hemoptysis Cardiac: No chest pain, No orthopnea, No PND, No edema, No palpitations Objective Vital Signs Last Vital Signs Documentation Date Time Temp Pulse Resp B/P (MAP) Pulse Ox O2 Delivery O2 Flow Rate FiO2 11/21/16 11:15 36.6 61 20 96 Room Air 11/21/16 07:00 153/59 (90) Physical Exam: General Appearance: WD/WN, no apparent distress Eyes: bilateral eyes normal inspection, bilateral eyes PERRL, bilateral eyes EOMI ENT: normal ENT inspection, hearing grossly normal, pharynx normal Neck: supple, no adenopathy, thyroid normal, no JVD, no carotid bruits, trachea midline Respiratory/Chest: chest non-tender, lungs clear, normal breath sounds, no respiratory distress, no accessory muscle use Cardiovascular: regular rate, rhythm, no edema, no JVD, + gallop/S4 Abdomen: normal bowel sounds, non tender, soft, no organomegaly, no pulsatile mass Extremities: normal inspection, no pedal edema, no calf tenderness Neurologic/Psychiatric: 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 Syncope - likely secondary to bradycardia/slow ventricular rates/pauses - S/ P dual chamber pacemaker implantation 2. Paroxysmal atrial flutter with slow ventricular response coumadin and metoprolol started 3. Hypertension - borderline 4. RA 5. CLL 6. Acute on chronic kidney disease - elevated creatinine on admission secondary to recent increase in diuretic therapy. Improving. ok to d/c to home from cardiac standpoint Discharge planning: uncertain
--- NOTE | 2016-11-21 18:05 | Discharge Summary ---
Discharge Summary Date of Service Nov 21, 2016. Discharge Summary Admission Date: Nov 16, 2016 at 17:16 Discharge Date: Nov 21, 2016 Discharge Disposition: Home Principal Diagnosis: Syncope Problems/Secondary Diagnoses: (1) History of cholecystectomy Status: Chronic Immunizations: Have You Had Influenza Vaccine: Yes Influenza Vaccine Date: Mar 20, 2014 History of Tetanus Vaccine?: Unknown History of Pneumococcal: Yes History of Hepatitis B Vaccine: No Medication Reconciliation New Medications: Amlodipine Besylate (Amlodipine Besylate) 5 Mg Tab 10 MG PO QAM for 30 Days, #60 TAB Labetalol HCl (Labetalol HCl) 200 Mg Tab 200 MG PO BID for 30 Days, #60 TAB Warfarin Sod (Coumadin) 4 Mg Tab 4 MG PO DAILY@16 for 15 Days, #15 TAB Continued Medications: Amlodipine (Norvasc) 5 Mg Tab 5 MG PO DAILY, TAB Aspirin (Aspirin Ec) 81 Mg Tab 81 MG PO BID for 30 Days Calcium/Vitamin D (Os-Ildefonso 500 Plus D) Tab 1 TAB PO DAILY, TAB Chlorthalidone (Hygroton) 25 Mg Tab 25 MG PO DAILY, TAB Cholecalciferol (Vitamin D3) 1,000 Unit Tab 1000 INTER.UNIT PO DAILY, TAB 3 Refills Cyanocobalamin (Vitamin B-12) 1,000 Mcg Tab 1000 MCG PO DAILY, TAB Fish Oil ([place]-3) 1 Ea Cap 1 CAP PO DAILY, CAP Hydroxychloroquine Sulfate (Plaquenil) 200 Mg Tab 200 MG PO HS, TAB Insulin Aspart (Novolog) 100 Units/Ml Inj 7 UNITS SC QDB Insulin Aspart (Novolog) 100 Units/Ml Inj 7 UNITS SC QDL Insulin Aspart (Novolog) 100 Units/Ml Inj 9 UNITS SC QDD Insulin Glargine (Lantus Solostar) 100 Unit/Ml Inj 22 UNITS SC HS, PEN Levothyroxine Sodium (Levothyroxine Sodium) 150 Mcg Tab 1 TAB PO WK for 90 Days, TAB 3 Refills Levothyroxine Sodium (Levothyroxine Sodium) 75 Mcg Tab 1 TAB PO DIRECTED for 90 Days, TAB 3 Refills Lisinopril (Zestril) 10 Mg Tab 40 MG PO DAILY, TAB Simvastatin (Zocor) 20 Mg Tab 20 MG PO DAILY, TAB Discontinued Medications: Bumetanide (Bumex) 1 Mg Tab 1 MG PO DAILY, TAB Metoprolol Succ (Toprol Xl) (Toprol-Xl ) 100 Mg Tabcr 100 MG PO DAILY, TAB Hospital Course (1) Syncope The patient is an 86-year-old who had a witnessed syncopal event at home while eating. She is brought in and found to be bradycardic. She is discovered to have tachybradycardia syndrome and pacemaker was inserted without difficulty she was deemed stable for discharge without any complications. Her beta lori was changed to labetalol for blood pressure control post procedure. Dr. Jorge inserted dual chamber pacemaker on 11/19/16. (2) Bradycardia (3) Diabetes mellitus type II, controlled (4) HTN (hypertension) (5) CLL (chronic lymphocytic leukemia) (6) Rheumatoid arthritis (7) A-fib for stroke prevention in the context of afib coumadin was started at 4 mg a day and she will follow up in the [facility] coumadin clinic. Total Time Spent: Greater than 30 minutes This includes examination of the patient, discharge planning, medication reconciliation, and communication with other providers. Discharge Instructions Please refer to the electronic Patient Visit Report (Discharge Instructions) for additional information. Problem Qualifiers (1) Syncope: Syncope type: unspecified Qualified Codes: R55 - Syncope and collapse
[2016-11-30] MEDS ORDERED: WARF4TAB8 PO (15:37)
[2016-11-30] MEDS ORDERED: WARF2TAB8 PO (15:37)
[2017-01-06] MEDS ORDERED: NRV5 PO (10:47)
== END 2016-11-21 13:31 | disposition home or self-care (01) | DRG 243 ==
LOC: C.EDB 11:24 → C.2T 17:16 → ENRESERV 17:46
PROVIDERS: ADMIT Hospitalist; ATTEND Hospitalist
PROC: 02HK3JZ Insertion of Pacemaker Lead into Right Ventricle, Percutaneous Approach (ICD-10-PCS; principal; 2016-11-19 09:31)
PROC: 0JH636Z Insertion of Pacemaker, Dual Chamber into Chest Subcutaneous Tissue and Fascia, Percutaneous Approach (ICD-10-PCS; principal; 2016-11-19 09:31)
PROC: 02H63JZ Insertion of Pacemaker Lead into Right Atrium, Percutaneous Approach (ICD-10-PCS; principal; 2016-11-19 09:31)
DX: I49.5 Sick sinus syndrome (principal); C91.10 Chronic lymphocytic leukemia of B-cell type not having achieved remission; N17.9 Acute kidney failure, unspecified; I48.92 Unspecified atrial flutter; I12.9 Hypertensive chronic kidney disease with stage 1 through stage 4 chronic kidney disease, or unspecified chronic kidney disease; E11.22 Type 2 diabetes mellitus with diabetic chronic kidney disease; N18.9 Chronic kidney disease, unspecified; E78.5 Hyperlipidemia, unspecified; M06.9 Rheumatoid arthritis, unspecified; E03.9 Hypothyroidism, unspecified; E53.8 Deficiency of other specified B group vitamins; Z79.4 Long term (current) use of insulin; Z79.82 Long term (current) use of aspirin; Z79.899 Other long term (current) drug therapy

== ENCOUNTER 2016-12-07 14:25 | Emergency (ER) | payer OTHER ==
[~2016-12-07] VITALS: Ht 161.3 cm; Wt 91.3 kg
[~2016-12-07 14:25] MED LIST changes: -ACET-1138 PO; -ASPI81TA28 PO; +CHOL1000 PO; +CYAN10005 PO; -DOCU100C31 PO; +LBT200 PO; +NRV5 PO; -OXYC1TAB3 PO; +SIMV20TA2 PO; +WARF2TAB8 PO; +WARF4TAB8 PO
[2016-12-07 14:27] VITALS: TEMP 36.5; Ht 161.3 cm; Wt 91.3 kg
[2016-12-07] MEDS ORDERED: LIDO/EPINEPHRINE/SOD BICARB 20 ML VIAL INFIL ONE (14:45)
--- NOTE | 2016-12-07 14:52 | EMERGENCY ROOM VISIT NOTE ---
History Report prepared by Fabrizio: Denise Barron Under the Supervision of: Dr. Sergey Horton M.D. 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 The patient was feeling fine today. She tripped over a rug, which caused her to fall to the ground. She thinks that her glasses scraped her nose, which caused the abrasion and bleeding to the bridge of her nose. She rates her pain as a 2/10 in severity. She denies any other injury. The patient denies headache, chest pain, neck pain, and any injury to her extremities. She denies feeling dizzy or lightheaded before her fall. She had a pacemaker placed earlier this month. She is on Coumadin. Her tetanus is up to date. 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 A total of 10 systems reviewed and were otherwise negative. Past Medical & Surgical Medical Problems: (1) A-fib (2) Anemia (3) CLL (chronic lymphocytic leukemia) (4) Diabetes mellitus type II, controlled (5) Elevated troponin I level (6) HTN (hypertension) (7) Rheumatoid arthritis Surgical Problems: (1) History of cholecystectomy Family History Cancer Diabetes mellitus Heart disease Hypertension Social History Smoking Status: Never Smoker Drug Use: none Marital Status: Housing Status: lives with family Occupation Status: retired Current/Historical Medications Scheduled Amlodipine (Norvasc), 5 MG PO DAILY Amlodipine Besylate (Amlodipine Besylate), 10 MG PO QAM Amoxicillin & Pot Clavulanate (Augmentin 875-125 mg), 875 MG PO BID Calcium/Vitamin D (Os-Ildefonso 500 Plus D), 1 TAB PO DAILY Chlorthalidone (Hygroton), 25 MG PO DAILY Cholecalciferol (Vitamin D3), 1,000 INTER.UNIT PO DAILY Cyanocobalamin (Vitamin B-12), 1,000 MCG PO DAILY Fish Oil ([place]-3), 1 CAP PO DAILY Hydroxychloroquine Sulfate (Plaquenil), 200 MG PO HS Insulin Aspart (Novolog), 7 UNITS SC QDB Insulin Aspart (Novolog), 7 UNITS SC QDL Insulin Aspart (Novolog), 9 UNITS SC QDD Insulin Glargine (Lantus Solostar), 22 UNITS SC HS Labetalol HCl (Labetalol HCl), 200 MG PO BID Levothyroxine Sodium (Levothyroxine Sodium), 1 TAB PO WK Levothyroxine Sodium (Levothyroxine Sodium), 1 TAB PO DIRECTED Lisinopril (Zestril), 40 MG PO DAILY Simvastatin (Zocor), 20 MG PO DAILY Warfarin Sod (Jantoven), 2 MG PO 6XWK Warfarin Sod (Jantoven), 4 MG PO WK Allergies Coded Allergies: No Known Allergies (Unverified , 11/16/16) Physical Exam Vital Signs Date Time Temp Pulse Resp B/P (MAP) Pulse Ox O2 Delivery O2 Flow Rate FiO2 12/07/16 16:02 60 20 141/57 95 12/07/16 14:27 36.5 70 17 163/77 96 Room Air Physical Exam GENERAL: Patient is in no acute distress. HEENT: There is an abrasion and 2 cm laceration to the nasal bridge, the nose seems stable, no epistaxis, no other facial trauma appreciated. Mucous membranes are moist, no scalp hematoma NECK: No stridor, no adenopathy, no meningismus, trachea is midline. No tenderness to the posterior c-spine. LUNGS: Clear to auscultation bilaterally, no wheeze, no rhonchi, breath sounds equal. HEART: Without murmurs gallops or rubs, regular rate and rhythm. ABDOMEN: Soft, nontender, bowel sounds positive, no hernias, no peritonitis. EXTREMITIES: No cyanosis or edema, full range of motion of all the joints without pain or difficulty, no signs for acute trauma. NEUROLOGIC: Oriented x 3, no acute motor or sensory deficits, no focal weakness. SKIN: No rash, no jaundice, no diaphoresis. Medical Decision & Procedures ER Provider Diagnostic Interpretation: Radiology results as stated below per my review and radiologist interpretation: CT SCAN OF THE FACIAL BONES WITHOUT IV CONTRAST CLINICAL HISTORY: Trauma. Fall. COMPARISON STUDY: Radiographs of the paranasal sinuses dated 11/05/2008. CT of the brain performed concurrently on 12/07/2016. TECHNIQUE: High-resolution CT scan of the facial bones is performed. Images are reviewed in the axial, sagittal, and coronal planes. IV contrast was not administered for this examination. A dose lowering technique was utilized adhering to the principles of ALARA. CT DOSE: 542.52 mGycm FINDINGS: The skeletal structures are osteopenic. There are nondepressed bilateral nasal bone fractures with overlying soft tissue edema. No additional facial bone fracture is seen. The bony orbits are intact and the orbital contents are within normal limits noting bilateral ocular lens implants. The zygomatic arches and pterygoid plates are preserved. The maxilla and mandible are intact. Advanced arthritic change is seen at the temporomandibular joints. There are no layering blood products within the paranasal sinuses. There is trace mucosal thickening within the maxillary antra. There is subtotal opacification of the right sphenoid sinus. There is thickening and sclerosis of the right sphenoid sinus wall indicating chronicity. Trace mucosal thickening is seen in the left frontal sinus. The mastoid air cells are well pneumatized. The visualized calvarium and upper cervical spine are maintained. Multilevel cervical spondylosis is partially imaged. Partially imaged brain parenchyma is within normal limits noting age-related involutional change. There are numerous dental caries and periapical lucencies identified. IMPRESSION: 1. There are bilateral nondepressed nasal bone fractures with overlying soft tissue edema. 2. No additional facial bone fracture is seen. 3. Numerous dental caries and periapical lucencies are identified. Follow-up with dentistry is recommended. 4. Chronic appearing paranasal sinus disease as above. Electronically signed by: Sergey Blanco M.D. 12/07/2016 3:16 PM Dictated Date/Time: 12/07/2016 3:[address] OF THE HEAD WITHOUT CONTRAST CLINICAL HISTORY: Fall. Anticoagulation. COMPARISON STUDY: No previous studies for comparison. CT DOSE: 638.56 mGycm TECHNIQUE: Helical axial images of the head were obtained without IV contrast. Automated exposure control was utilized for the study. A dose lowering technique was utilized adhering to the principles of ALARA. FINDINGS: No acute intracranial hemorrhage, midline shift or mass effect is present. Ventricular system is normal for age. Basilar cisterns are patent. There are no extra-axial collections. No calvarial fracture is present. The right sphenoid sinus is largely opacified and contains secretions. Right posterior ethmoid air cells are also opacified. The contents are low attenuation. This is likely infectious/inflammatory. Facial bones will be reported separately. IMPRESSION: 1. No acute intracranial findings. 2. No calvarial fracture. 3. Right sphenoid and right posterior ethmoid sinus opacification which is likely infectious/inflammatory. Electronically signed by: Minor Mtz M.D. 12/07/2016 3:16 PM Dictated Date/Time: 12/07/2016 3:12 PM Medications Administered Medications (Trade) Dose Ordered Sig/Carmen Route Start Time Stop Time Status Last Admin Dose Admin Amoxicillin/ Clavulanate Potassium (Augmentin Tab) 875 mg ONE ONCE PO 12/07/16 15:45 12/07/16 15:46 DC 12/07/16 15:58 875 MG ED Course 1434: The patient was evaluated in room B9. A complete history and physical exam was performed. 1445: Lidocaine/Epinephrine Inj 1527: Haider Kenny PA-C performed a laceration repair. Please see his note for further details. 1539: I reassessed the patient at this time. She is feeling better and resting comfortably. I discussed the results and treatment plan with the patient. I answered all pertaining questions that she had. She expressed understanding and verbalized agreement. The patient will be discharged home. 1545: Augmentin 875 mg PO Medical Decision Differential diagnoses includes c-spine fracture, facial fracture, skull fracture, intracranial bleeding, extremity fracture, abdominal, chest or back trauma. The patient presents with facial and head trauma since falling a short time ago. She is on Coumadin. She had a laceration/abrasion to her nose which was cleansed and Steri-Stripped by my PA. The patient did deny any pain in her neck , extremities, chest, back or abdomen. She states that she tripped and this caused the fall. Brain CT shows no acute bleed or mass effect, no skull fracture. Facial CT shows a nondisplaced nasal fracture, no other facial fracture seen. A note was made of an acute sinusitis. The patient has no current complaints. I am going to prescribe Augmentin for her sinus disease, this is an incidental finding. She was given a dose of oral Augmentin here before discharge. She will watch the nasal laceration for infection, she will follow with her family doctor and ENT, she can return here for worsening symptoms. Medication Reconcilliation Current Medication List: was personally reviewed by me Blood Pressure Screening Patient's blood pressure: Elevated blood pressure Blood pressure disposition: Elevated BP felt to be situational Impression Primary Impression: Nasal laceration Additional Impressions: Nasal fracture Fall Sinusitis Scribe Attestation The scribe's documentation has been prepared under my direction and personally reviewed by me in its entirety. I confirm that the note above accurately reflects all work, treatment, procedures, and medical decision making performed by me. Departure Information Dispostion Home / Self-Care Prescriptions Amoxicillin & Pot Clavulanate (Augmentin 875-125 mg) 1 Tab Tab 875 MG PO BID for 10 Days, #20 TAB Prov: Sergey Horton M.D. 12/07/16 Referrals No Doctor, Assigned (PCP) Forms HOME CARE DOCUMENTATION FORM, IMPORTANT VISIT INFORMATION Patient Instructions My [facility] Additional Instructions augmentin 2x per day for 10 days for the sinuses keep a good watch on the INR while on augmentin see family doctor for a recheck consider seeing ENT for the nasal fracture watch for infection--redness, fever, drainage return if worsening Problem Qualifiers Primary Impression: Nasal laceration Encounter type: initial encounter Qualified Codes: S01.21XA - Laceration without foreign body of nose, initial encounter Additional Impressions: Nasal fracture Encounter type: initial encounter Fracture type: closed Qualified Codes: S02.2XXA - Fracture of nasal bones, initial encounter for closed fracture Fall Encounter type: initial encounter Qualified Codes: W19.XXXA - Unspecified fall, initial encounter Sinusitis Sinusitis location: unspecified location Chronicity: acute Recurrence: non -recurrent Qualified Codes: J01.90 - Acute sinusitis, unspecified
--- NOTE | 2016-12-07 15:17 | DIAGNOSTIC IMAGING REPORT ---
CT SCAN OF THE FACIAL BONES WITHOUT IV CONTRAST CLINICAL HISTORY: Trauma. Fall. COMPARISON STUDY: Radiographs of the paranasal sinuses dated 11/05/2008. CT of the brain performed concurrently on 12/07/2016. TECHNIQUE: High-resolution CT scan of the facial bones is performed. Images are reviewed in the axial, sagittal, and coronal planes. IV contrast was not administered for this examination. A dose lowering technique was utilized adhering to the principles of ALARA. CT DOSE: 542.52 mGycm FINDINGS: The skeletal structures are osteopenic. There are nondepressed bilateral nasal bone fractures with overlying soft tissue edema. No additional facial bone fracture is seen. The bony orbits are intact and the orbital contents are within normal limits noting bilateral ocular lens implants. The zygomatic arches and pterygoid plates are preserved. The maxilla and mandible are intact. Advanced arthritic change is seen at the temporomandibular joints. There are no layering blood products within the paranasal sinuses. There is trace mucosal thickening within the maxillary antra. There is subtotal opacification of the right sphenoid sinus. There is thickening and sclerosis of the right sphenoid sinus wall indicating chronicity. Trace mucosal thickening is seen in the left frontal sinus. The mastoid air cells are well pneumatized. The visualized calvarium and upper cervical spine are maintained. Multilevel cervical spondylosis is partially imaged. Partially imaged brain parenchyma is within normal limits noting age-related involutional change. There are numerous dental caries and periapical lucencies identified. IMPRESSION: 1. There are bilateral nondepressed nasal bone fractures with overlying soft tissue edema. 2. No additional facial bone fracture is seen. 3. Numerous dental caries and periapical lucencies are identified. Follow-up with dentistry is recommended. 4. Chronic appearing paranasal sinus disease as above. Electronically signed by: Sergey Blanco M.D. 12/07/2016 3:16 PM Dictated Date/Time: 12/07/2016 3:09 PM
--- NOTE | 2016-12-07 15:17 | DIAGNOSTIC IMAGING REPORT ---
CT OF THE HEAD WITHOUT CONTRAST CLINICAL HISTORY: Fall. Anticoagulation. COMPARISON STUDY: No previous studies for comparison. CT DOSE: 638.56 mGycm TECHNIQUE: Helical axial images of the head were obtained without IV contrast. Automated exposure control was utilized for the study. A dose lowering technique was utilized adhering to the principles of ALARA. FINDINGS: No acute intracranial hemorrhage, midline shift or mass effect is present. Ventricular system is normal for age. Basilar cisterns are patent. There are no extra-axial collections. No calvarial fracture is present. The right sphenoid sinus is largely opacified and contains secretions. Right posterior ethmoid air cells are also opacified. The contents are low attenuation. This is likely infectious/inflammatory. Facial bones will be reported separately. IMPRESSION: 1. No acute intracranial findings. 2. No calvarial fracture. 3. Right sphenoid and right posterior ethmoid sinus opacification which is likely infectious/inflammatory. Electronically signed by: Minor Mtz M.D. 12/07/2016 3:16 PM Dictated Date/Time: 12/07/2016 3:12 PM
[2016-12-07] MEDS ORDERED: AMOX875T PO (15:45)
[2016-12-07] MEDS ORDERED: AMOXICILLIN/CLAVULANATE TAB 875 MG TAB PO ONE (15:45)
--- NOTE | 2016-12-07 15:53 | EMERGENCY ROOM VISIT NOTE ---
ED Visit Note Emergency Department Procedure Note I evaluated Ms. Park at the request Sergey Horton, emergency medicine, for repair of her nasal laceration following a fall. Please see Dr. Horton's notes for full information about her emergency department visit. Wound Repair: Description: Patient has a 2.2 cm full-thickness laceration over the bridge of the nose that slightly deviates to the right. On my examination there was no bleeding. Additionally on the tip of the nose on the right patient has a 2-3 mm superficial laceration. Once again there was no active bleeding. Complexity: Basic Verbal consent was obtained after the risks and benefits were explained. The skin was prepped with betadine. The wound was explored for foreign bodies and none found. Her wounds were irrigated with sterile saline. During irrigation patient had return of minimal bleeding and this was controlled with direct pressure. A small amount of insulin was placed around patient's full-thickness laceration. Her wound edges were then approximated with Steri-Strips. Patient superficial laceration was cleansed and was covered with a bandage. Hemostasis and excellent approximation was achieved. No complications and the patient tolerated the procedure well.
[2016-12-07 16:02] VITALS: BP 141/57; PULSE 60; O2SAT 95
[2017-01-06] MEDS ORDERED: NRV5 PO (10:47)
== END 2016-12-07 16:02 | disposition home or self-care (01) ==
LOC: C.EDB 14:26
DX: S01.21XA Laceration without foreign body of nose, initial encounter (principal); S02.2XXA Fracture of nasal bones, initial encounter for closed fracture; J01.90 Acute sinusitis, unspecified; W19.XXXA Unspecified fall, initial encounter; I48.91 Unspecified atrial fibrillation; D64.9 Anemia, unspecified; C91.11 Chronic lymphocytic leukemia of B-cell type in remission; E11.9 Type 2 diabetes mellitus without complications; I10 Essential (primary) hypertension; M06.9 Rheumatoid arthritis, unspecified; Z83.3 Family history of diabetes mellitus; Z82.49 Family history of ischemic heart disease and other diseases of the circulatory system; Z79.4 Long term (current) use of insulin; Z79.01 Long term (current) use of anticoagulants

== ENCOUNTER → 2016-12-21 | Outpatient (CLI) | payer OTHER ==
[2016-12-21 15:43] LABS: HEMATOCRIT 36.2 % (37-47); MEAN CELL VOLUME 90.3 fL (80-100); MEAN CORPUSCULAR HEMOGLOBIN 28.4 pg (25-34); MEAN CORPUSCULAR HGB CONC 31.5 g/dl (32-36); MEAN PLATELET VOLUME 10.4 fL (7.4-10.4); PLATELET COUNT 213 K/uL (130-400); RED BLOOD COUNT 4.01 M/uL (4.2-5.4); WHITE BLOOD COUNT 11.02 K/uL (4.8-10.8)
[2016-12-21 16:10] LABS: BLOOD UREA NITROGEN 28 mg/dl (7-18); BUN/CREATININE RATIO 13.2 (10-20); CALCIUM 9.1 mg/dl (8.5-10.1); CARBON DIOXIDE 32 mmol/L (21-32); CHLORIDE 107 mmol/L (98-107); GLUCOSE 87 mg/dl (70-99); POTASSIUM 4.2 mmol/L (3.5-5.1); SODIUM 144 mmol/L (136-145)
[2016-12-22 07:57] LABS: ESTIMATED AVERAGE GLUCOSE 123 mg/dl; HA1C FLAG Normal (Normal)
== END | disposition home or self-care (01) ==
LOC: C.LAB1850 14:31
PROVIDERS: ATTEND Internal Medicine Nephrology
DX: N18.3 Chronic kidney disease, stage 3 (moderate) (principal); E11.22 Type 2 diabetes mellitus with diabetic chronic kidney disease; Z51.81 Encounter for therapeutic drug level monitoring; Z79.01 Long term (current) use of anticoagulants; I48.91 Unspecified atrial fibrillation; Z95.0 Presence of cardiac pacemaker

== ENCOUNTER → 2017-01-14 | Outpatient (CLI) | payer OTHER ==
[~2017-01-14] MED LIST changes: -LBT200 PO
--- NOTE | 2017-01-14 10:53 | DIAGNOSTIC IMAGING REPORT ---
CHEST 2 VIEWS ROUTINE CLINICAL HISTORY: 86 years-old Female presenting with dyspnea on exertion. TECHNIQUE: PA and lateral views of the chest were obtained. COMPARISON: 11/20/2016. FINDINGS: Left-sided pacer with leads to the right atrium and right ventricular apex. Atherosclerosis of the aortic arch. Cardiac silhouette normal in size. Lungs and pleural spaces clear. Exaggerated thoracic kyphosis without focal compression deformity. Upper abdomen normal. IMPRESSION: 1. No acute cardiopulmonary disease. Electronically signed by: Bimal Hodge M.D. 01/14/2017 10:52 AM Dictated Date/Time: 01/14/2017 10:51 AM
== END | disposition home or self-care (01) ==
LOC: C.RADPV 10:28
PROVIDERS: ATTEND Nurse Practitioner Family
DX: R06.09 Other forms of dyspnea (principal)

== ENCOUNTER → 2017-03-01 | Outpatient (CLI) | payer OTHER ==
[2017-03-01 12:26] LABS: HEMATOCRIT 38.8 % (37-47); MEAN CELL VOLUME 91.9 fL (80-100); MEAN CORPUSCULAR HEMOGLOBIN 28.7 pg (25-34); MEAN CORPUSCULAR HGB CONC 31.2 g/dl (32-36); MEAN PLATELET VOLUME 10.9 fL (7.4-10.4); PLATELET COUNT 228 K/uL (130-400); RED BLOOD COUNT 4.22 M/uL (4.2-5.4); WHITE BLOOD COUNT 11.22 K/uL (4.8-10.8)
[2017-03-01 12:34] LABS: BLOOD UREA NITROGEN 28 mg/dl (7-18); CALCIUM 9.2 mg/dl (8.5-10.1); CARBON DIOXIDE 32 mmol/L (21-32); CHLORIDE 106 mmol/L (98-107); CREATININE 1.62 mg/dl (0.60-1.20); GLUCOSE 71 mg/dl (70-99); POTASSIUM 4.5 mmol/L (3.5-5.1); SODIUM 143 mmol/L (136-145)
[2017-03-01 12:47] LABS: CHOLESTEROL 135 mg/dl (0-200); CHOLESTEROL/HDL RATIO 2.4; HDL CHOLESTEROL 56 mg/dl; LDL CHOLESTEROL CALCULATED 38 mg/dl; PHOSPHORUS 2.7 mg/dl (2.5-4.9); THYROID STIMULATING HORMONE 0.702 uIu/ml (0.300-4.500); TRIGLYCERIDES 205 mg/dl (0-150); VERY LOW DENSITY LIPOPROT CALC 41 mg/dl
== END | disposition home or self-care (01) ==
LOC: C.LAB1850 09:55
PROVIDERS: ATTEND Internal Medicine Nephrology
DX: E11.29 Type 2 diabetes mellitus with other diabetic kidney complication (principal); N18.3 Chronic kidney disease, stage 3 (moderate)

== ENCOUNTER → 2017-03-02 | Outpatient (CLI) | payer OTHER ==
[2017-03-02 12:52] LABS: CHOLESTEROL/HDL RATIO 2.5
== END | disposition home or self-care (01) ==
LOC: C.LAB1850 09:07
PROVIDERS: ATTEND Nurse Practitioner Family
DX: E11.29 Type 2 diabetes mellitus with other diabetic kidney complication (principal)

== ENCOUNTER 2017-04-03 01:40 | Inpatient (IN) | payer OTHER ==
[2017-04-03] VITALS (13 sets, daily range): BP systolic 141–170; BP diastolic 50–115; PULSE 61–74; TEMP 36.6–37; O2SAT 89–100; Ht 160 cm; Wt 89.2 kg
[~2017-04-03] VITALS: Ht 160 cm; Wt 89.2 kg
[2017-04-03] MEDS ORDERED: FUROSEMIDE 40 MG/4 ML VIAL IV STA (01:58)
[2017-04-03 02:02] LABS: BASO % 0.3 %; BASO ABS # 0.05 K/uL (0-0.2); COMPLETE YES; HEMATOCRIT 39.1 % (37-47); IG% 0.3 %; LYMPH % 11.9 %; MEAN CELL VOLUME 90.9 fL (80-100); MEAN CORPUSCULAR HEMOGLOBIN 27.9 pg (25-34); MEAN CORPUSCULAR HGB CONC 30.7 g/dl (32-36); MEAN PLATELET VOLUME 9.8 fL (7.4-10.4); NEUT % 80.5 %; PLATELET COUNT 259 K/uL (130-400); WHITE BLOOD COUNT 15.92 K/uL (4.8-10.8)
[2017-04-03 02:15] LABS: INR 2.9 (0.9-1.1); PARTIAL THROMBOPLASTIN RATIO 1.5; PROTHROMBIN TIME (PATIENT) 32.1 SECONDS (9.0-12.0)
[2017-04-03] MEDS ORDERED: LISI40TA PO (02:16)
[2017-04-03] MEDS ORDERED: LEVO75TA5 PO (02:18)
[2017-04-03] MEDS ORDERED: METO100T44 PO (02:22)
[2017-04-03 02:26] LABS: BUN/CREATININE RATIO 17.5 (10-20); CALCIUM 8.6 mg/dl (8.5-10.1); CREATININE 1.38 mg/dl (0.60-1.20)
[2017-04-03] MEDS ORDERED: ASPI81TA28 PO (02:26)
[2017-04-03 02:50] LABS: ALB/GLOB RATIO 0.8 (0.9-2); CKMB/CK RATIO 1.8 (0-3.0)
[2017-04-03] MEDS ORDERED: VANCOMYCIN INJ 1,000 MG in SODIUM CHLORIDE 0.9% 250ML 250 ML IV STA (03:43)
[2017-04-03] MEDS ORDERED: ACETAMINOPHEN 325 MG TAB PO PRN (03:45)
[2017-04-03] MEDS ORDERED: POLYETHYLENE (MIRALAX) 17 GM PACK PO PRN (03:45)
[2017-04-03] MEDS ORDERED: MAGNESIUM HYDROXIDE SUSP 30 ML UDC PO PRN (03:45)
[2017-04-03] MEDS ORDERED: NITROGLYCERIN 0.4 MG SL PER TAB CHARGE SL PRN (03:45)
[2017-04-03] MEDS ORDERED: ALUMINUM/MAGNESIUM/SIMETH (MAALOX MAX) 30 ML UDC PO PRN (03:45)
[2017-04-03] MEDS ORDERED: VANCOMYCIN 1GM/270ML NSS ONE (03:51)
[2017-04-03] MEDS ORDERED: DEXTROSE 50% 50 ML SYR IV PRN (04:00)
[2017-04-03] MEDS ORDERED: DC ALL PREVIOUSLY ORDERED DIABETES MEDS ONE (04:00)
[2017-04-03] MEDS ORDERED: GLUCOSE 10 TABS/TUBE PO PRN (04:00)
[2017-04-03] MEDS ORDERED: GLUCAGON FOR INJ 1 MG VIAL SQ PRN (04:00)
[2017-04-03] MEDS ORDERED: GLUCOSE 40% GEL 15 GM TUBE PO PRN (04:00)
--- NOTE | 2017-04-03 04:08 | EMERGENCY ROOM VISIT NOTE ---
History Report prepared by Fabrizio: Rosalia Campos Under the Supervision of: Dr. Virgie Reeves D.O. First contact with patient: 01:42 Chief Complaint: SHORTNESS OF BREATH Stated Complaint: SHORT OF BREATH History of Present Illness The patient is an 86 year old female who presents to the Emergency Room with complaints of worsening SOB starting earlier today. The patient presents to the ED by EMS. She started getting SOB earlier today, but thought that she could wait it out. When she went to lie down to go to bed, she became very SOB. EMS state that the patient had rales and rhonchi all the way up to the apex. Her blood pressure was 180/100. Her oxygen saturation was 86-88 on room air. She was started on CPAP which improved her oxygen saturation to 100. She was given nitro paste in route. She feels improved on CPAP. She denies any chest pain. She denies any history of AL. She has a history of diabetes and hypertension. Her family states that she has not had problems with fluid in her lungs before. She has not had any respiratory problems in the past. She is not on any diuretic. Source of History: patient, family, EMS Onset: earlier today Position: other (global) Quality: other (SOB) Timing: worsening Associated Symptoms: No chest pain Review of Systems See HPI for pertinent positives & negatives. A total of 10 systems reviewed and were otherwise negative. Past Medical & Surgical Medical Problems: (1) A-fib (2) Anemia (3) CLL (chronic lymphocytic leukemia) (4) Diabetes mellitus type II, controlled (5) Elevated troponin I level (6) HTN (hypertension) (7) Pulmonary edema (8) Rheumatoid arthritis Surgical Problems: (1) History of cholecystectomy Family History Cancer Diabetes mellitus Heart disease Hypertension Social History Smoking Status: Never Smoker Drug Use: none Marital Status: Housing Status: lives with family Occupation Status: retired Current/Historical Medications Scheduled Amlodipine (Norvasc), 5 MG PO DAILY Aspirin (Aspirin Ec), 81 MG PO DAILY Cholecalciferol (Vitamin D3), 1,000 INTER.UNIT PO DAILY Cyanocobalamin (Vitamin B-12), 1,000 MCG PO DAILY Fish Oil (Matheny-3), 1,000 MG PO DAILY Hydroxychloroquine Sulfate (Plaquenil), 200 MG PO HS Insulin Aspart (Novolog), 7 UNITS SC QDB Insulin Aspart (Novolog), 7 UNITS SC QDL Insulin Aspart (Novolog), 9 UNITS SC QDD Insulin Glargine (Lantus Solostar), 22 UNITS SC HS Levothyroxine Sodium (Levothyroxine Sodium), 75 MCG PO 6XWK Levothyroxine Sodium (Levothyroxine Sodium), 150 MCG PO WK Lisinopril (Prinivil), 40 MG PO DAILY Metoprolol Succ (Toprol Xl) (Toprol-Xl ), 100 MG PO DAILY Simvastatin (Zocor), 20 MG PO DAILY Warfarin Sod (Jantoven), 2 MG PO 6XWK Warfarin Sod (Jantoven), 4 MG PO WK Allergies Coded Allergies: No Known Allergies (Unverified , 04/03/17) Physical Exam Vital Signs Date Time Temp Pulse Resp B/P (MAP) Pulse Ox O2 Delivery O2 Flow Rate FiO2 04/03/17 03:20 96 Nasal Cannula 2.0 04/03/17 03:15 67 20 97 Nasal Cannula 2.0 04/03/17 03:01 157/78 04/03/17 02:45 67 20 100 04/03/17 02:43 68 14 169/72 100 BiPAP 50 04/03/17 02:31 169/72 04/03/17 02:20 171/86 04/03/17 02:20 68 16 171/86 100 BiPAP 50 04/03/17 02:15 64 21 97 04/03/17 02:10 68 14 100 BiPAP 50 04/03/17 02:01 180/83 04/03/17 01:58 74 100 50 04/03/17 01:55 67 100 BiPAP 50 04/03/17 01:50 16 190/75 04/03/17 01:46 74 24 190/74 99 BiPAP 50 04/03/17 01:46 71 04/03/17 01:46 100 BiPAP 04/03/17 01:46 50 BiPAP Physical Exam General: Dyspneic with conversation. HEENT: Head - normocephalic and atraumatic Pupils are equal, round, and reactive to light. Extraocular eye muscles are intact, and sclera are anicteric. Nose - moist nasal mucosa without discharge. Mouth - moist buccal mucosa. Oropharynx is nonerythematous and there is no tonsillar exudate or edema noted. Neck: Supple; no JVD, nuchal rigidity, cervical lymphadenopathy. Heart: Regular rate and rhythm. There is a normal S1 and S2 with no murmurs, clicks, or gallops appreciated. Lungs: Rales in all lung atwood. Abdomen: Soft, completely nontender, nondistended, with good bowel sounds. There are no palpable pulsatile masses or hepatosplenomegaly. There is no guarding, rigidity, or rebound noted. Extremities: 2+ edema to the legs. No evidence of cyanosis or clubbing. There are easily palpable peripheral pulses. Skin: warm and dry with good turgor and no rashes. Medical Decision & Procedures ER Provider Diagnostic Interpretation: X-ray results as stated below per interpretation by me: Chest X-ray: Diffuse pulmonary edema. Pacemaker in place. Borderline cardiomegaly. Laboratory Results 04/03/17 01:53 Red Blood Count 4.30, Mean Corpuscular Volume 90.9, Mean Corpuscular Hemoglobin 27.9, Mean Corpuscular Hemoglobin Concent 30.7, Mean Platelet Volume 9.8, Neutrophils (%) (Auto) 80.5, Lymphocytes (%) (Auto) 11.9, Monocytes (%) (Auto) 7.0, Eosinophils (%) (Auto) 0.0, Basophils (%) (Auto) 0.3, Neutrophils # (Auto) 12.81, Lymphocytes # (Auto) 1.90, Monocytes # (Auto) 1.11, Eosinophils # (Auto) 0.00, Basophils # (Auto) 0.05 04/03/17 01:53 Test 04/03/17 01:53 White Blood Count 15.92 K/uL (4.8-10.8) Red Blood Count 4.30 M/uL (4.2-5.4) Hemoglobin 12.0 g/dL (12.0-16.0) Hematocrit 39.1 % (37-47) Mean Corpuscular Volume 90.9 fL (80-100) Mean Corpuscular Hemoglobin 27.9 pg (25-34) Mean Corpuscular Hemoglobin Concent 30.7 g/dl (32-36) Platelet Count 259 K/uL (130-400) Mean Platelet Volume 9.8 fL (7.4-10.4) Neutrophils (%) (Auto) 80.5 % Lymphocytes (%) (Auto) 11.9 % Monocytes (%) (Auto) 7.0 % Eosinophils (%) (Auto) 0.0 % Basophils (%) (Auto) 0.3 % Neutrophils # (Auto) 12.81 K/uL (1.4-6.5) Lymphocytes # (Auto) 1.90 K/uL (1.2-3.4) Monocytes # (Auto) 1.11 K/uL (0.11-0.59) Eosinophils # (Auto) 0.00 K/uL (0-0.5) Basophils # (Auto) 0.05 K/uL (0-0.2) RDW Standard Deviation 54.6 fL (36.4-46.3) RDW Coefficient of Variation 16.6 % (11.5-14.5) Immature Granulocyte % (Auto) 0.3 % Immature Granulocyte # (Auto) 0.05 K/uL (0.00-0.02) Prothrombin Time 32.1 SECONDS (9.0-12.0) Prothromb Time International Ratio 2.9 (0.9-1.1) Activated Partial Thromboplast Time 39.0 SECONDS (21.0-31.0) Partial Thromboplastin Ratio 1.5 Anion Gap 7.0 mmol/L (3-11) Est Creatinine Clear Calc Drug Dose 33.8 ml/min Estimated GFR () 40.6 Estimated GFR (Non- 35.0 BUN/Creatinine Ratio 17.5 (10-20) Calcium Level 8.6 mg/dl (8.5-10.1) Total Bilirubin 0.5 mg/dl (0.2-1) Aspartate Amino Transf (AST/SGOT) 37 U/L (15-37) Alanine Aminotransferase (ALT/SGPT) 28 U/L (12-78) Alkaline Phosphatase 80 U/L (45-117) Total Creatine Kinase 95 U/L (26-192) Creatine Kinase MB 1.7 ng/ml (0.5-3.6) Creatine Kinase MB Ratio 1.8 (0-3.0) Troponin I 0.057 ng/ml (0-0.045) Pro-B-Type Natriuretic Peptide 5008 pg/ml (0-1800) Total Protein 7.3 gm/dl (6.4-8.2) Albumin 3.2 gm/dl (3.4-5.0) Globulin 4.1 gm/dl (2.5-4.0) Albumin/Globulin Ratio 0.8 (0.9-2) Laboratory results per my review. Medications Administered Medications (Trade) Dose Ordered Sig/Carmen Route Start Time Stop Time Status Last Admin Dose Admin Furosemide (Lasix Inj) 40 mg NOW STAT IV 04/03/17 01:58 04/03/17 01:59 DC 04/03/17 02:10 40 MG Procedure Medications: Lasix Inj 40 mg IV. ECG Indication: SOB/dyspnea Rate (beats per minute): 74 Rhythm: other (ventricular paced) Findings: no acute ischemic change, no ectopy Comparison ECG Date: November 2016 Change: no significant change ED Course 0140: The patient was evaluated in room B1. A complete history and physical examination were performed. Nursing notes and previous electronic medical records were reviewed. IV lock was established and labs were drawn as above. A twelve-lead EKG was obtained as described above. She remained on BiPAP with significant relief of her respiratory distress. O2 saturations remain stable. Patient had a portable chest x-ray as described above. 0158: Lasix Inj 40 mg IV. A Strickland catheter will be placed. 0310: I reevaluated the patient. She feels much better. She is breathing much more easily. She has had significant output through the Strickland catheter. She will be taken off BiPAP. I discussed findings and results with her. She verbalized agreement of the treatment plan. The patient will be evaluated for further management and care. She is tolerating the nasal cannula nicely and O2 saturations remain stable. 0336: I discussed the patient's case with Dr. Staples, [facility] hospitalist. The patient will be evaluated for further management. Medical Decision The patient is a 86 year old female who presents to the ED with SOB. Differential diagnosis includes STEMI, CHF, pneumonia, PE, ACS. Labs: WBC count 15.9, stable H&H, BUN 24, creatinine 1.3, glucose 120, LFTs are normal, BNP 5008, troponin 0.057, INR 2.9. This is an 86-year-old female patient had a sudden onset of shortness of breath this evening. Chest x-ray is consistent with acute pulmonary edema. She has peripheral leg edema. O2 saturations are low without supplemental oxygen. She responded nicely to BiPAP. She was given IV Lasix with significant urinary output. She has an elevated troponin. I discussed the case with [facility] hospitalist they will evaluate for further management. Medication Reconcilliation Current Medication List: was personally reviewed by me Blood Pressure Screening Patient's blood pressure: Elevated blood pressure Will be addressed as inpatient. Consults Time Called: [phone] Consulting Physician: Dr. Staples [facility] hospitalist Returned Call: [phone] Discussed the patient's case. The patient will be evaluated for further management. Impression Primary Impression: Pulmonary edema Additional Impression: Elevated troponin Critical Care I have personally spent greater than 60 minutes of critical care time in the direct management of this patient. This includes bedside care, interpretation of diagnostic studies, and testing, discussion with consultants, patient, and family members, and other required patient management activities. This 60 minutes is in excess of all separately billable procedures. Scribe Attestation The scribe's documentation has been prepared under my direction and personally reviewed by me in its entirety. I confirm that the note above accurately reflects all work, treatment, procedures, and medical decision making performed by me. Departure Information Dispostion Being Evaluated By Hospitalist Referrals Katharina Perez, JayshreeR.N.P (PCP) Patient Instructions My [facility] Health Problem Qualifiers Primary Impression: Pulmonary edema Chronicity: acute Qualified Codes: J81.0 - Acute pulmonary edema
--- NOTE | 2017-04-03 04:14 | History and Physical ---
History & Physical Date & Time of Service: Apr 03, 2017 at 04:02 Chief Complaint: Short Of Breath Primary Care Physician: Katharina Perez C.R.N.P History of Present Illness Source: patient, family, hospital records Suad Park is an 86 yo F with hx of atrial fibrillation, on coumadin, pacemaker placement, type 2 diabetes, rheumatoid arthritis, and HTN who presents with shortness of breath. She reports it started occurring yesterday in the daytime, but got worse overnight. She felt she was gasping for air at times and that made her feel unwell. Nothing made her breathing better. She felt it was worse when laying flat. She also noticed bilateral leg swelling, though her left leg is always somewhat swollen and discolored after ankle surgery which she had years ago. She denies chest pain or abdominal pain at any point. She lives with her daughter and granddaughter, who called the ambulance to bring her in. After having a cordoba placed, she diuresed about 1200cc of fluid within an hour. Currently, she feels her breathing has improved. She denies fever, cough, or recent URI. Past Medical/Surgical History Medical Problems: (1) Anemia Status: Chronic (2) CLL (chronic lymphocytic leukemia) Status: Chronic (3) Diabetes mellitus type II, controlled Status: Chronic (4) HTN (hypertension) Status: Chronic (5) Rheumatoid arthritis Status: Chronic Surgical Problems: (1) History of cholecystectomy Status: Chronic Family History Cancer Diabetes mellitus Heart disease Hypertension Social History Smoking Status: Never Smoker Smokeless Tobacco Use: No Alcohol Use: none Drug Use: none Marital Status: Occupational Status: retired Immunizations History of Influenza Vaccine: Yes Influenza Vaccine Date: Mar 20, 2014 History of Tetanus Vaccine?: Unknown History of Pneumococcal: Yes History of Hepatitis B Vaccine: No Multi-Drug Resistant Organisms History of MDRO: No Allergies Coded Allergies: No Known Allergies (Unverified , 04/03/17) Home Medications Scheduled Amlodipine (Norvasc), 5 MG PO DAILY Aspirin (Aspirin Ec), 81 MG PO DAILY Cholecalciferol (Vitamin D3), 1,000 INTER.UNIT PO DAILY Cyanocobalamin (Vitamin B-12), 1,000 MCG PO DAILY Fish Oil (Willow-3), 1,000 MG PO DAILY Hydroxychloroquine Sulfate (Plaquenil), 200 MG PO HS Insulin Aspart (Novolog), 7 UNITS SC QDB Insulin Aspart (Novolog), 7 UNITS SC QDL Insulin Aspart (Novolog), 9 UNITS SC QDD Insulin Glargine (Lantus Solostar), 22 UNITS SC HS Levothyroxine Sodium (Levothyroxine Sodium), 75 MCG PO 6XWK Levothyroxine Sodium (Levothyroxine Sodium), 150 MCG PO WK Lisinopril (Prinivil), 40 MG PO DAILY Metoprolol Succ (Toprol Xl) (Toprol-Xl ), 100 MG PO DAILY Simvastatin (Zocor), 20 MG PO DAILY Warfarin Sod (Jantoven), 2 MG PO 6XWK Warfarin Sod (Jantoven), 4 MG PO WK Review of Systems See HPI for pertinent positives & negatives. A total of 10 systems reviewed and were otherwise negative. Physical Exam Vital Signs Date Time Temp Pulse Resp B/P (MAP) Pulse Ox O2 Delivery O2 Flow Rate FiO2 04/03/17 03:20 96 Nasal Cannula 2.0 04/03/17 03:15 67 20 97 Nasal Cannula 2.0 04/03/17 03:01 157/78 04/03/17 02:45 67 20 100 04/03/17 02:43 68 14 169/72 100 BiPAP 50 04/03/17 02:31 169/72 04/03/17 02:20 171/86 04/03/17 02:20 68 16 171/86 100 BiPAP 50 04/03/17 02:15 64 21 97 04/03/17 02:10 68 14 100 BiPAP 50 04/03/17 02:01 180/83 04/03/17 01:58 74 100 50 04/03/17 01:55 67 100 BiPAP 50 04/03/17 01:50 16 190/75 04/03/17 01:46 74 24 190/74 99 BiPAP 50 04/03/17 01:46 71 04/03/17 01:46 100 BiPAP 04/03/17 01:46 50 BiPAP General Appearance: WD/WN, no apparent distress Head: normocephalic, atraumatic Eyes: normal inspection, PERRL ENT: hearing grossly normal Neck: supple, no JVD Respiratory/Chest: + decreased breath sounds, + crackles (bibasilar) Cardiovascular: regular rate, rhythm, no edema, no murmur, normal peripheral pulses Abdomen/GI: normal bowel sounds, non tender, soft Back: no CVA tenderness, no muscle spasm Extremities/Musculoskelatal: + pedal edema (bilateral, with L sided hyperpigmentation and slight ankle deformity) Neurologic/Psych: computer assistant II-XII nml as tested, no motor/sensory deficits, alert, normal mood/affect, oriented x 3 Skin: no rash Diagnostics Laboratory Results Results Past 24 Hours Test 04/03/17 01:53 Range/Units White Blood Count 15.92 4.8-10.8 K/uL Red Blood Count 4.30 4.2-5.4 M/uL Hemoglobin 12.0 12.0-16.0 g/dL Hematocrit 39.1 37-47 % Mean Corpuscular Volume 90.9 80-100 fL Mean Corpuscular Hemoglobin 27.9 25-34 pg Mean Corpuscular Hemoglobin Concent 30.7 32-36 g/dl Platelet Count 259 130-400 K/uL Mean Platelet Volume 9.8 7.4-10.4 fL Neutrophils (%) (Auto) 80.5 % Lymphocytes (%) (Auto) 11.9 % Monocytes (%) (Auto) 7.0 % Eosinophils (%) (Auto) 0.0 % Basophils (%) (Auto) 0.3 % Neutrophils # (Auto) 12.81 1.4-6.5 K/uL Lymphocytes # (Auto) 1.90 1.2-3.4 K/uL Monocytes # (Auto) 1.11 0.11-0.59 K/uL Eosinophils # (Auto) 0.00 0-0.5 K/uL Basophils # (Auto) 0.05 0-0.2 K/uL RDW Standard Deviation 54.6 36.4-46.3 fL RDW Coefficient of Variation 16.6 11.5-14.5 % Immature Granulocyte % (Auto) 0.3 % Immature Granulocyte # (Auto) 0.05 0.00-0.02 K/uL Prothrombin Time 32.1 9.0-12.0 SECONDS Prothromb Time International Ratio 2.9 0.9-1.1 Activated Partial Thromboplast Time 39.0 21.0-31.0 SECONDS Partial Thromboplastin Ratio 1.5 Sodium Level 144 136-145 mmol/L Potassium Level 4.0 3.5-5.1 mmol/L Chloride Level 109 98-107 mmol/L Carbon Dioxide Level 28 21-32 mmol/L Anion Gap 7.0 3-11 mmol/L Blood Urea Nitrogen 24 7-18 mg/dl Creatinine 1.38 0.60-1.20 mg/dl Est Creatinine Clear Calc Drug Dose 33.8 ml/min Estimated GFR () 40.6 Estimated GFR (Non- 35.0 BUN/Creatinine Ratio 17.5 10-20 Random Glucose 120 70-99 mg/dl Calcium Level 8.6 8.5-10.1 mg/dl Total Bilirubin 0.5 0.2-1 mg/dl Aspartate Amino Transf (AST/SGOT) 37 15-37 U/L Alanine Aminotransferase (ALT/SGPT) 28 12-78 U/L Alkaline Phosphatase 80 45-117 U/L Total Creatine Kinase 95 26-192 U/L Creatine Kinase MB 1.7 0.5-3.6 ng/ml Creatine Kinase MB Ratio 1.8 0-3.0 Troponin I 0.057 0-0.045 ng/ml Pro-B-Type Natriuretic Peptide 5008 0-1800 pg/ml Total Protein 7.3 6.4-8.2 gm/dl Albumin 3.2 3.4-5.0 gm/dl Globulin 4.1 2.5-4.0 gm/dl Albumin/Globulin Ratio 0.8 0.9-2 Diagnostic Radiology Bilateral infiltrates. EKG Ventricular-paced rhythm Abnormal ECG When compared with ECG of 19-NOV-2016 11:13, Vent. rate has increased BY 12 BPM Impression Assessment and Plan 86 yo F with diabetes, HTN, atrial fib with shortness of breath - likely from pulmonary edema but could have components of pneumonia as well. Pulmonary edema - Ordering CT Chest without contrast to evaluate - Will provide another 40mg Lasix IV at 8am - Trend troponin q6h, recheck PRP with next labdraw as well - Continue O2 as needed - I&Os, daily weights - Will consult Cardiology, Dr Gandhi seems to be her primary mica paster Pneumonia - Will treat broadly with vanco, levaquin, and cefepime, and narrow accordingly Atrial fibrillation - Continue coumadin - 2mg daily except 4mg on Tuesdays. *I only ordered the 2mg dose, so if she is here on Tuesday, please ensure she gets 4mg. - Continue beta lori Type 2 DM - Sliding scale / Lantus - BSG AC and HS - Continue JANETH-I and statin Rheumatoid arthritis - Continue plaquenil Dispo: Admit to Tele Full code Coumadin for VTE prophylaxis Attending addendum: I have physically seen this patient, have supervised the medical residents activities, and agree with the H&P unless as otherwise noted. Assessment and Plan: Atrial fibrillation/hypertension/pulmonary edema-- The patient will be admitted to telemetry for serial cardiac enzymes, cardiac rhythm monitoring and a 2-D echocardiogram with Dopplers. Continue Coumadin, amlodipine, aspirin, lisinopril, and metoprolol succinate CT of the chest without contrast Given Lasix 40 mg IV in the ED, with over 1200 mL urine output so far Give additional Lasix 40 mg IV at 8 AM Consult cardiology Pneumonia-- Placed on vancomycin IV, Levaquin IV and cefepime IV. Diabetes mellitus-- continue Lantus insulin at 20 units subcutaneous at bedtime Place on Accu-Cheks before meals and at bedtime with NovoLog coverage per scale. Rheumatoid arthritis-- continue hydroxychloroquine Hyperlipidemia-- continue simvastatin 20 mg daily. Hypothyroidism-- Continue current dosing of levothyroxine sodium Level of Care Telemetry Resuscitation Status FULL RESUSCITATION VTE Prophylaxis VTE Risk Assessment Done? Y/N: Yes Risk Level: Moderate Given or contraindicated: Warfarin (Coumadin) Resident Tracking Resident Involvement: Resident Care Provided Care Provided: Adult Hospital Medicine
[2017-04-03] MEDS ORDERED: CEFEPIME IV 1,000 MG in DEXTROSE 5% 100ML 100 ML IV SCH (05:00)
[2017-04-03] MEDS ORDERED: VANCOMYCIN CONSULT ACTIVE PRN (05:00)
[2017-04-03] MEDS ORDERED: LEVOFLOXACIN CONSULT ACTIVE PRN (05:00)
[2017-04-03] MEDS: LEVOTHYROXINE 75 MCG TAB PO SCH (05:13)
[2017-04-03] MEDS: LEVOFLOXACIN / D5W 750 MG in PREMIXED IN D5W 150 ML IV SCH (05:13)
[2017-04-03] MEDS ORDERED: VANCOMYCIN INJ 750 MG in SODIUM CHLORIDE 0.9% 250ML 250 ML IV SCH (06:00)
--- NOTE | 2017-04-03 06:30 | DIAGNOSTIC IMAGING REPORT ---
CHEST ONE VIEW PORTABLE CLINICAL HISTORY: Shortness of breath COMPARISON STUDY: 01/14/2017 FINDINGS: The heart is borderline enlarged. There is a left subclavian dual-chamber central venous pacemaker present. Since the prior study, the patient has developed diffuse bilateral interstitial edema. There is mild right hilar prominence, likely secondary to focal edema as no masses identified in this area on the prior January 14, 2017 study. Small pleural effusions are visualized.[ IMPRESSION: Interval development of interstitial pulmonary edema. Clinical and radiographic follow-up is recommended. Electronically signed by: Bro Cee M.D. 04/03/2017 6:28 AM Dictated Date/Time: 04/03/2017 6:27 AM
--- NOTE | 2017-04-03 06:59 | DIAGNOSTIC IMAGING REPORT ---
(CHEST) THORAX WITHOUT CLINICAL HISTORY: Shortness of breath. Abnormal chest x-ray. COMPARISON STUDY: December 06, 2013 CT DOSE: 487.42 mGy.cm TECHNIQUE: CT of the thorax was performed from the thoracic inlet to the lung bases. Images are reviewed in the axial, sagittal, and coronal planes. IV contrast was not administered for this examination. A dose lowering technique was utilized adhering to the principles of ALARA. FINDINGS: Thyroid: Imaged portions of the thyroid gland are normal in appearance. Thoracic aorta: The thoracic aorta is normal in course and caliber, noting standard 3 vessel arch anatomy. Heart: The heart is borderline enlarged. No pericardial effusion is visualized. There is a left subclavian dual-chamber central venous pacemaker present. Lungs and pleural spaces: There are bilateral pleural effusions present. There is mild septal edema. There are patchy bilateral airspace opacities, most likely representing pulmonary edema. Mediastinum: There are mildly enlarged mediastinal lymph nodes slightly larger than on the preceding study. Mia: There is no definite hilar adenopathy given the limitations of a noncontrast study Axilla: There is no pathologic axillary lymphadenopathy Upper abdomen: Partially visualized upper abdominal viscera is within normal limits. Skeletal structures: There are no lytic or blastic osseous lesions. IMPRESSION: 1. Pulmonary edema pattern with borderline cardiomegaly, small moderate bilateral pleural effusions, mild septal edema, and bilateral groundglass pulmonary opacities 2. Mild mediastinal lymphadenopathy Electronically signed by: Bro Cee M.D. 04/03/2017 6:58 AM Dictated Date/Time: 04/03/2017 6:54 AM
--- NOTE | 2017-04-03 07:05 | Family Medicine Progress Note ---
Progress Note Date of Service Apr 03, 2017. Subjective Pt evaluation today including: conversation w/ patient, conversation w/ family , physical exam, chart review, lab review Patient came in last night with SOB and orthopnea, was found to have edema on CXR. Pt is breathing more comfortably today on 4 L NC. Constitutional: No fever, No chills, No sweats, No weight loss Respiratory: + shortness of breath, No cough, No sputum, No wheezing, No dyspnea on exertion Cardiovascular: + orthopnea, No chest pain, No edema, No palpitations Abdomen: No pain, No nausea, No vomiting, No diarrhea, No constipation Medications Current Inpatient Medications Medications (Trade) Dose Ordered Sig/Carmen Route Start Time Stop Time Status Last Admin Dose Admin Acetaminophen (Tylenol Tab) 650 mg Q4H PRN PO 04/03/17 03:45 05/03/17 03:44 Al Hydrox/Mg Hydrox/Simethicone (Maalox Max Susp) 15 ml Q4H PRN PO 04/03/17 03:45 05/03/17 03:44 Magnesium Hydroxide (Milk Of Magnesia Susp) 30 ml Q12H PRN PO 04/03/17 03:45 05/03/17 03:44 Ondansetron HCl (Zofran Inj) 4 mg Q6H PRN IV 04/03/17 03:45 05/03/17 03:44 Nitroglycerin (Nitrostat Tab) 0.4 mg UD PRN SL 04/03/17 03:45 05/03/17 03:44 Polyethylene (Miralax Powder Packet) 17 gm DAILY PRN PO 04/03/17 03:45 05/03/17 03:44 Amlodipine Besylate (Norvasc Tab) 5 mg DAILY PO 04/03/17 09:00 05/03/17 08:59 04/03/17 07:27 5 MG Aspirin (Ecotrin Tab) 81 mg DAILY PO 04/03/17 09:00 05/03/17 08:59 04/03/17 07:26 81 MG Cholecalciferol (Vitamin D Tab) 1,000 inter.unit DAILY PO 04/03/17 09:00 05/03/17 08:59 04/03/17 07:27 1,000 INTER.UNIT Cyanocobalamin (Vitamin B-12 Tab) 1,000 mcg DAILY PO 04/03/17 09:00 05/03/17 08:59 04/03/17 07:26 1,000 MCG Fish Oil (Falun-3 (Purified Fish Oil) Cap) 1 gm DAILY PO 04/03/17 09:00 05/03/17 08:59 04/03/17 07:26 1 GM Hydroxychloroquine Sulfate (Plaquenil Tab) 200 mg HS PO 04/03/17 21:00 05/03/17 20:59 Lisinopril (Zestril Tab) 40 mg DAILY PO 04/03/17 09:00 05/03/17 08:59 04/03/17 07:28 40 MG Metoprolol Succinate (Toprol Xl Tab) 100 mg DAILY PO 04/03/17 09:00 05/03/17 08:59 04/03/17 07:28 100 MG Simvastatin (Zocor Tab) 20 mg DAILY PO 04/03/17 09:00 05/03/17 08:59 04/03/17 07:26 20 MG Levofloxacin 750 mg/Prmx 150 ml @ 100 mls/hr Q48H IV 04/03/17 06:00 04/10/17 05:59 04/03/17 05:13 100 MLS/HR Cefepime HCl 1000 mg/Dextrose 111 ml @ 200 mls/hr Q8H IV 04/03/17 05:00 04/10/17 04:59 04/03/17 05:13 200 MLS/HR Warfarin Sodium (Coumadin Tab) 2 mg DAILY@16 PO 04/03/17 16:00 05/03/17 15:59 Levothyroxine Sodium (Synthroid Tab) 75 mcg DAILYBB PO 04/03/17 06:00 05/03/17 06:59 04/03/17 05:13 75 MCG Insulin Aspart (novoLOG ASPART) SLIDING SCALE If C... ACHS SC 04/03/17 07:00 05/03/17 06:59 04/03/17 07:31 1 UNITS Glucose (Glucose 40% Gel) 15-30 GRAMS 15 GRAMS... UD PRN PO 04/03/17 04:00 05/03/17 03:59 Glucose (Glucose Chew Tab) 4-8 Tablets 4 Tabl... UD PRN PO 04/03/17 04:00 05/03/17 03:59 Dextrose (Dextrose 50% 50ML Syringe) 25-50ML OF 50% DW IV FOR... UD PRN IV 04/03/17 04:00 05/03/17 03:59 Glucagon (Glucagon Inj) 1 mg UD PRN SQ 04/03/17 04:00 05/03/17 03:59 Insulin Glargine (Lantus Solostar Pen) 22 units HS SC 04/03/17 21:00 05/03/17 20:59 Vancomycin HCl (Consult) 1 ea UD PRN N/A 04/03/17 05:00 05/03/17 04:59 Levofloxacin (Consult) 1 ea UD PRN N/A 04/03/17 05:00 05/03/17 04:59 Cefepime HCl 1000 mg/Syringe 11 ml @ 5.5 mls/min Q8H IV 04/03/17 13:00 04/10/17 12:59 Vancomycin HCl 1250 mg/Sodium Chloride 275 ml @ 125 mls/hr Q24H IV 04/04/17 04:00 04/10/17 03:59 Objective Physical Exam General Appearance: WD/WN, no apparent distress Respiratory/Chest: chest non-tender, lungs clear, no respiratory distress, no accessory muscle use, + decreased breath sounds (bilateral bases ) Cardiovascular: regular rate, rhythm, no gallop, no JVD Abdomen: normal bowel sounds, non tender, soft, no organomegaly, no pulsatile mass Neurologic/Psychiatric: alert, normal mood/affect, oriented x 3 Skin: normal color, warm/dry, no rash Laboratory Results 04/03/17 01:53 Red Blood Count 4.30, Mean Corpuscular Volume 90.9, Mean Corpuscular Hemoglobin 27.9, Mean Corpuscular Hemoglobin Concent 30.7, Mean Platelet Volume 9.8, Neutrophils (%) (Auto) 80.5, Lymphocytes (%) (Auto) 11.9, Monocytes (%) (Auto) 7.0, Eosinophils (%) (Auto) 0.0, Basophils (%) (Auto) 0.3, Neutrophils # (Auto) 12.81, Lymphocytes # (Auto) 1.90, Monocytes # (Auto) 1.11, Eosinophils # (Auto) 0.00, Basophils # (Auto) 0.05 04/03/17 07:13 Test 04/03/17 01:53 04/03/17 07:12 04/03/17 07:13 White Blood Count 15.92 K/uL (4.8-10.8) Red Blood Count 4.30 M/uL (4.2-5.4) Hemoglobin 12.0 g/dL (12.0-16.0) Hematocrit 39.1 % (37-47) Mean Corpuscular Volume 90.9 fL (80-100) Mean Corpuscular Hemoglobin 27.9 pg (25-34) Mean Corpuscular Hemoglobin Concent 30.7 g/dl (32-36) Platelet Count 259 K/uL (130-400) Mean Platelet Volume 9.8 fL (7.4-10.4) Neutrophils (%) (Auto) 80.5 % Lymphocytes (%) (Auto) 11.9 % Monocytes (%) (Auto) 7.0 % Eosinophils (%) (Auto) 0.0 % Basophils (%) (Auto) 0.3 % Neutrophils # (Auto) 12.81 K/uL (1.4-6.5) Lymphocytes # (Auto) 1.90 K/uL (1.2-3.4) Monocytes # (Auto) 1.11 K/uL (0.11-0.59) Eosinophils # (Auto) 0.00 K/uL (0-0.5) Basophils # (Auto) 0.05 K/uL (0-0.2) RDW Standard Deviation 54.6 fL (36.4-46.3) RDW Coefficient of Variation 16.6 % (11.5-14.5) Immature Granulocyte % (Auto) 0.3 % Immature Granulocyte # (Auto) 0.05 K/uL (0.00-0.02) Prothrombin Time 32.1 SECONDS (9.0-12.0) Prothromb Time International Ratio 2.9 (0.9-1.1) Activated Partial Thromboplast Time 39.0 SECONDS (21.0-31.0) Partial Thromboplastin Ratio 1.5 Total Bilirubin 0.5 mg/dl (0.2-1) Aspartate Amino Transf (AST/SGOT) 37 U/L (15-37) Alanine Aminotransferase (ALT/SGPT) 28 U/L (12-78) Alkaline Phosphatase 80 U/L (45-117) Total Creatine Kinase 95 U/L (26-192) Creatine Kinase MB 1.7 ng/ml (0.5-3.6) Creatine Kinase MB Ratio 1.8 (0-3.0) Pro-B-Type Natriuretic Peptide 5008 pg/ml (0-1800) Total Protein 7.3 gm/dl (6.4-8.2) Albumin 3.2 gm/dl (3.4-5.0) Globulin 4.1 gm/dl (2.5-4.0) Albumin/Globulin Ratio 0.8 (0.9-2) Bedside Glucose 137 mg/dl (70-90) Anion Gap 7.0 mmol/L (3-11) Est Creatinine Clear Calc Drug Dose 34.5 ml/min Estimated GFR () 42.8 Estimated GFR (Non- 37.0 BUN/Creatinine Ratio 18.0 (10-20) Calcium Level 8.7 mg/dl (8.5-10.1) Troponin I 0.373 ng/ml (0-0.045) Assessment and Plan 86 yo F with diabetes, HTN, atrial fib presents with SOB, orthopnea Acute on Chronic Diastolic Heart Failure - CT demonstrated pulmonary edema, bilateral effusion - 40 mg of lasix when she arrived--1.5L of fluid off since - Additional 40 mg of Lasix this morning at 8am - Trend troponin q6h, 0.057--->0.313 - Continue O2 as needed - I&Os, daily weights -ECHO ordered -Cardiology consulted--> Dr Gandhi is her primary nonprofit director -Pt reports previously being on Lasix, but recently stopping bc of orthostasis Paroxysmal Atrial Flutter -Pt has a permanent pacemaker for sinus node dysfunction Concern of Pneumonia - Will treat broadly with vanco, levaquin, and cefepime, and narrow according -WBC of 15.92 on admission Atrial fibrillation - Continue coumadin - 2mg daily except 4mg on Tuesdays. *only ordered the 2mg dose, so if she is here on Tuesday, please ensure she gets 4mg. - Continue beta lori Type 2 DM - Sliding scale / Lantus - BSG AC and HS - Continue JANETH-I and statin Rheumatoid arthritis - Continue Plaquenil Dispo: Admit to Tele Full code Coumadin for VTE prophylaxis Reviewed: Pt Seen/Exam by Me History breathing much improved daughters at bedside - concerned about patient's salt intake. Constitutional: denies: fever Respiratory: negative: short of breath Cardiovascular: denies chest pain General Appearance: no apparent distress Respiratory: lungs clear, no respiratory distress Cardiovascular: regular rate, rhythm Neurologic/Psychiatric: alert, oriented x 3 Skin Characteristics: warm/dry Assessment/Plan Resident Physician Supervision Note: I independently interviewed and examined the patient and verified the haddad history and physical, reviewed labs and image studies, discussed the case with the resident Dr. Reyes and agree with the findings and care plan.
[2017-04-03] MEDS: SIMVASTATIN 20 MG TAB PO SCH (07:26)
[2017-04-03] MEDS: OMEGA-3 (PURIFIED FISH OIL) 1 GM CAP PO SCH (07:26)
[2017-04-03] MEDS: ASPIRIN 81 MG ECTAB PO SCH (07:26)
[2017-04-03] MEDS: CYANOCOBALAMIN 500 MCG TAB (VIT B-12) PO SCH (07:26)
[2017-04-03] MEDS: CHOLECALCIFEROL 1000 INTER.UNIT TAB PO SCH (07:27)
[2017-04-03] MEDS: AMLODIPINE BESYLATE 5 MG TAB PO SCH (07:27)
[2017-04-03] MEDS: LISINOPRIL 40 MG TAB PO SCH (07:28)
[2017-04-03] MEDS: METOPROLOL SUCC 50MG EXT REL TAB PO SCH (07:28)
[2017-04-03] MEDS: INSULIN ASPART 100 UNITS/ML 3 ML PEN SC SCH ×4 (07:31→21:00)
[2017-04-03] MEDS ORDERED: FUROSEMIDE INJ 40 MG in SYRINGE 0 ML IV ONE (08:00)
[2017-04-03 08:13] LABS: CALCIUM 8.7 mg/dl (8.5-10.1); CREATININE 1.32 mg/dl (0.60-1.20); POTASSIUM 4.1 mmol/L (3.5-5.1)
[2017-04-03] MEDS ORDERED: PERFLUTREN LIPID MICROSPHERE (DEFINITY) IV ONE (09:02)
[2017-04-03] MEDS ORDERED: CEFEPIME IV 1,000 MG in SYRINGE 0 ML IV SCH (13:00)
--- NOTE | 2017-04-03 13:22 | Pharmacy Progress Note ---
Pharmacy Abx Initial Consult Date of Service Apr 03, 2017. Pharmacy Dosing Scope Date of Consult: 04/03/17 Consultation requested by: Dr. Brothers Pharmacy is consulted to initiate Vancomycin IV dosing therapy, order appropriate labs and adjust drug dose/frequency. Subjective The patient is a 86 year old female admitted on Apr 03, 2017 at 03:41. Objective Height (Feet): 5 Height (Inches): 3.00 Weight (Kilograms): 93.700 Vital Signs (Past 12Hrs) Vital Signs Past 12 Hours Date Time Temp Pulse Resp B/P (MAP) Pulse Ox O2 Delivery O2 Flow Rate FiO2 04/03/17 12:00 94 Mask 4.0 04/03/17 11:40 36.6 61 24 141/87 (105) 93 2.0 04/03/17 08:00 94 Mask 4.0 04/03/17 07:31 36.9 66 20 149/80 (103) 94 6.0 04/03/17 04:49 36.7 65 30 170/115 93 Mask 6.0 04/03/17 03:20 96 Nasal Cannula 2.0 04/03/17 03:15 67 20 97 Nasal Cannula 2.0 04/03/17 03:01 157/78 04/03/17 02:45 67 20 100 04/03/17 02:43 68 14 169/72 100 BiPAP 50 04/03/17 02:31 169/72 04/03/17 02:20 171/86 04/03/17 02:20 68 16 171/86 100 BiPAP 50 04/03/17 02:15 64 21 97 04/03/17 02:10 68 14 100 BiPAP 50 04/03/17 02:01 180/83 04/03/17 01:58 74 100 50 04/03/17 01:55 67 100 BiPAP 50 04/03/17 01:50 16 190/75 04/03/17 01:46 74 24 190/74 99 BiPAP 50 04/03/17 01:46 71 04/03/17 01:46 100 BiPAP 04/03/17 01:46 50 BiPAP Lab Results (24Hrs) Laboratory Tests (24 Hours) Test 04/03/17 01:53 White Blood Count 15.92 K/uL (4.8-10.8) H Red Blood Count 4.30 M/uL (4.2-5.4) Hemoglobin 12.0 g/dL (12.0-16.0) Hematocrit 39.1 % (37-47) Mean Corpuscular Volume 90.9 fL (80-100) Mean Corpuscular Hemoglobin 27.9 pg (25-34) Mean Corpuscular Hemoglobin Concent 30.7 g/dl (32-36) L Platelet Count 259 K/uL (130-400) Mean Platelet Volume 9.8 fL (7.4-10.4) Neutrophils (%) (Auto) 80.5 % Lymphocytes (%) (Auto) 11.9 % Monocytes (%) (Auto) 7.0 % Eosinophils (%) (Auto) 0.0 % Basophils (%) (Auto) 0.3 % Neutrophils # (Auto) 12.81 K/uL (1.4-6.5) H Lymphocytes # (Auto) 1.90 K/uL (1.2-3.4) Monocytes # (Auto) 1.11 K/uL (0.11-0.59) H Eosinophils # (Auto) 0.00 K/uL (0-0.5) Basophils # (Auto) 0.05 K/uL (0-0.2) Total Creatine Kinase 95 U/L (26-192) Micro Results Date/Time Source Procedure Growth Status 04/03/17 00:00 Nasal MRSA DNA Surveillance Screen - Final Specimen Negative for MRSA by DNA Probe Complete Assessment & Plan Assessment 86 year old female with Pneumonia, CLL. Plan Vancomycin for treatment of Pneumonia. Vancomycin IV * Loading dose: 1750 mg (17.8 mg/kg) given in two separate doses. * Maintenance dose: Vanc 1250 mg IV (12.8 mg/kg) every 24 hours * Estimated Ke = 0.031/hr, Vd = 0.7 L/kg, t1/2 = 22.4 hrs * Goal trough level for Pneumonia: 15 to 20 mcg/mL * Trough level ordered for 04/06/17 before dose at 0400 Pharmacy will continue to follow and will adjust dose/frequency as necessary. Thank you.
--- NOTE | 2017-04-03 14:06 | CARDIOLOGY CONSULTATION ---
DATE OF CONSULTATION: 04/03/2017 REFERRING PHYSICIAN: [facility]. REASON FOR CONSULTATION: Shortness of breath. HISTORY OF PRESENT ILLNESS: This patient is an 86-year-old with a history of paroxysmal atrial flutter, diabetes mellitus, chronic lymphocytic leukemia, rheumatoid arthritis, hypertension, chronic diastolic heart failure and a permanent pacemaker for sinus node dysfunction. I actually last saw her earlier this month and she was doing well. According to the patient's daughter, her primary care physician stopped her Lasix because of some orthostatic dizziness. For the past several days, the patient noticed some increased lower extremity edema and eventually developed progressive shortness of breath and was admitted to the hospital. She was being given several doses of IV diuretics and feels much improved. She is currently in atrial flutter with a paced ventricular rhythm. In checking the reports from our office, she is in atrial arrhythmia about 27% of the time. She is on chronic anticoagulation. She also takes labetalol for her hypertension and control of her atrial arrhythmias. ALLERGIES: No known medical allergies. PAST MEDICAL HISTORY: As outlined above, the patient has a history of chronic lymphocytic leukemia. She is also treated for rheumatoid arthritis. She is a type 2 diabetic with hypertension. Her last echocardiogram showed preserved left ventricular systolic function, so she has heart failure on the basis of diastolic dysfunction. She received a permanent pacemaker for sinus node dysfunction. SOCIAL HISTORY: She has never smoked. She is . FAMILY MEDICAL HISTORY: Noncontributory. REVIEW OF SYSTEMS: A 10-point review of systems is negative except for the history of chief complaint. PHYSICAL EXAMINATION: GENERAL: She is alert and oriented, no acute distress. VITAL SIGNS: Blood pressure is 140/80 and pulse is regular at 60 beats per minute. She is afebrile. HEENT: She has a basal cell carcinoma on her nose. Mucous membranes are moist. She is normocephalic. NECK: The neck veins are not distended. Carotids have good upstrokes bilaterally without bruits. Thyroid is nonpalpable. RESPIRATORY: Breath sounds equal bilaterally and clear to auscultation. CARDIOVASCULAR: Heart has a regular rhythm. There are no cardiac murmurs. GASTROINTESTINAL: Abdomen is soft and nontender without organomegaly. EXTREMITIES: Free of edema, digit clubbing, or cyanosis. NEUROLOGIC: Grossly intact. SKIN: Warm to touch. LYMPH NODES: Negative to palpation. IMPRESSION: 1. Acute on chronic diastolic heart failure. 2. Paroxysmal atrial flutter. 3. Permanent pacemaker for sinus node dysfunction. 4. Hypertension and diabetes. 5. Chronic lymphocytic leukemia. 6. Rheumatoid arthritis. RECOMMENDATIONS: I would continue the patient's diuretics. With her diastolic heart failure, she will require some diuretic regimen after she leaves the hospital. I would recommend that the patient weigh herself every day and if she has a 2-3 pound weight gain, then she could take her loop diuretic for the next 2 days to clear the fluid. We will follow along with you during her hospital stay.
--- NOTE | 2017-04-03 14:35 | ECHOCARDIOGRAM REPORT ---
*NOTICE TO RECEIVING [employer] This information is strictly Confidential and protected under [place] law. [place] law prohibits you from making any further disclosure of this information unless further disclosure is expressly permitted by the written consent of the person to whom it pertains or is authorized by law. A general authorization for the release of medical or other information is not sufficient for this purpose. Hospital accepts no responsibility if the information is made available to any other person, INCLUDING THE PATIENT. Interpretation Summary * Name: ED CORNELL Study Date: 04/03/2017 09:27 AM BP: 170/115 mmHg * Patient Location: .2E\S\E205\S\1 HR: 65 * : 1930 (M/d/yyyy) Gender: Female Height: 62 in * Age: 86 yrs Ethnicity: [place] Weight: 216 lb * Ordering Physician: Estela Brothers * Referring Physician: Self, Referred * Performed By: Ilsa Pettit RDCS * * Reason For Study: Congestive Heart Failure * BSA: 2.0 m2 * -- Conclusions -- * The left ventricle is normal in size. * There is mild concentric left ventricular hypertrophy. * There is septal akinesis. * There is apical akinesis. * Ejection Fraction = 50-55%. * There is mild to moderate mitral regurgitation. * There is moderate to severe tricuspid regurgitation. * Mild to moderrate pulmonary hypertentsion Procedure Details * A complete two-dimensional transthoracic echocardiogram was performed (2D, M-mode, Doppler and color flow Doppler). * The study was technically difficult. * The study was technically difficult, but visualization was adequate with the administration of Definity ultrasound contrast. * There were technical limitations due to patient'sbody habitus * A contrast injection of Definity was performed to improve assessment of LV function. * Contrast was injected into an intravenous site in the left arm. * One vial of Definity ultrasound contrast was diluted in normal saline to a total volume of 10 ml. A total of '2' ml of solution was administered during imaging. * Lot # [id number] of Definity utilized for procedure. * The attending nurse who injected the contrast agent was Jazzy Rm RN. * Expiration date [id number]. Left Ventricle * The left ventricle is normal in size. * There is no thrombus. * There is mild concentric left ventricular hypertrophy. * Ejection Fraction = 50-55%. * There is septal akinesis. * There is apical akinesis. Right Ventricle * The right ventricle is normal size. * The right ventricular systolic function is normal. Atria * The left atrial size is normal. * Right atrial size is normal. * There is no evidence of atrial septal defect, but resolution does not allow assessment for a patent foramen ovale. Mitral Valve * The mitral valve anatomy is normal. * There is mild to moderate mitral regurgitation. Tricuspid Valve * The tricuspid valve anatomy is normal. * There is moderate to severe tricuspid regurgitation. Aortic Valve * The aortic valve is not well visualized. * No hemodynamically significant valvular aortic stenosis. * There is no significant aortic regurgitation. Pulmonic Valve * The pulmonic valve is not well visualized. Great Vessels * Mild to moderrate pulmonary hypertentsion MMode 2D Measurements and Calculations IVSd 1.1 cm IVSs 1.2 cm LVIDd 4.6 cm LVIDs 2.9 cm LVPWd 1.1 cm LVPWs 1.3 cm IVS/LVPW 0.96 FS 36.3 % EDV(Teich) 98.9 ml ESV(Teich) 33.6 ml EF(Teich) 66.0 % EDV(cubed) 99.3 ml ESV(cubed) 25.7 ml EF(cubed) 74.1 % % IVS thick 12.7 % % LVPW thick 17.0 % LV mass(C)d 184.7 grams LV mass(C)dI 93.5 grams/m\S\2 LV mass(C)s 117.1 grams LV mass(C)sI 59.3 grams/m\S\2 SV(Teich) 65.3 ml SI(Teich) 33.0 ml/m\S\2 SV(cubed) 73.6 ml SI(cubed) 37.3 ml/m\S\2 Ao root diam 2.6 cm Ao root area 5.1 cm\S\2 ACS 1.6 cm LA dimension 3.9 cm LA/Ao 1.5 LVOT diam 1.5 cm LVOT area 1.7 cm\S\2 LVAd ap4 23.5 cm\S\2 LVLd ap4 6.8 cm EDV(MOD-sp4) 68.1 ml EDV(sp4-el) 68.8 ml LVAs ap4 15.4 cm\S\2 LVLs ap4 6.7 cm ESV(MOD-sp4) 30.4 ml ESV(sp4-el) 30.1 ml EF(MOD-sp4) 55.4 % EF(sp4-el) 56.2 % LVAd ap2 28.1 cm\S\2 LVLd ap2 7.5 cm EDV(MOD-sp2) 86.8 ml EDV(sp2-el) 89.0 ml LVAs ap2 19.3 cm\S\2 LVLs ap2 7.2 cm ESV(MOD-sp2) 43.0 ml ESV(sp2-el) 44.2 ml EF(MOD-sp2) 50.4 % EF(sp2-el) 50.3 % LVLd %diff 9.1 % EDV(MOD-bp) 81.3 ml LVLs %diff 6.9 % ESV(MOD-bp) 37.0 ml EF(MOD-bp) 54.5 % SV(MOD-sp4) 37.7 ml SI(MOD-sp4) 19.1 ml/m\S\2 SV(MOD-sp2) 43.7 ml SI(MOD-sp2) 22.1 ml/m\S\2 SV(MOD-bp) 44.3 ml SI(MOD-bp) 22.4 ml/m\S\2 SV(sp4-el) 38.7 ml SI(sp4-el) 19.6 ml/m\S\2 SV(sp2-el) 44.8 ml SI(sp2-el) 22.7 ml/m\S\2 Doppler Measurements and Calculations MV E max jayne 132.1 cm/sec MV A max jayne 63.1 cm/sec MV E/A 2.1 MV V2 max 124.2 cm/sec MV max PG 6.2 mmHg MV V2 mean 61.0 cm/sec MV mean PG 1.8 mmHg MV V2 VTI 34.1 cm MV P1/2t max jayne 131.1 cm/sec MV P1/2t 105.3 msec MVA(P1/2t) 2.1 cm\S\2 MV dec slope 364.6 cm/sec\S\2 MV dec time 0.19 sec Ao V2 max 166.6 cm/sec Ao max PG 11.1 mmHg Ao max PG (full) 7.6 mmHg ERICA(V,A) 0.97 cm\S\2 ERICA(V,D) 0.97 cm\S\2 LV V1 max PG 3.5 mmHg LV V1 max 93.6 cm/sec MR max jayne 526.3 cm/sec MR max PG 110.8 mmHg MR mean jayne 401.8 cm/sec MR mean PG 70.4 mmHg MR VTI 161.9 cm PA V2 max 116.6 cm/sec PA max PG 5.4 mmHg PI max jayne 218.7 cm/sec PI max PG 19.1 mmHg PI dec slope 174.4 cm/sec\S\2 PI P1/2t 367.4 msec TR max jayne 313.1 cm/sec
[2017-04-03] MEDS: WARFARIN SOD 2 MG TAB PO SCH (15:50)
[2017-04-03] MEDS: HYDROXYCHLOROQUINE SULFATE 200 MG TAB PO SCH (19:35)
[2017-04-03] MEDS: INSULIN GLARGINE SOLOSTAR 100 UNITS/ML 3 ML PEN SC SCH (21:10)
[2017-04-04] VITALS (12 sets, daily range): BP systolic 115–151; BP diastolic 58–79; PULSE 61–90; TEMP 36.7–37.4; O2SAT 90–97
[2017-04-04] MEDS ORDERED: VANCOMYCIN INJ 1,250 MG in SODIUM CHLORIDE 0.9% 250ML 250 ML IV SCH (04:00)
[2017-04-04] MEDS: LEVOTHYROXINE 75 MCG TAB PO SCH (05:34)
[2017-04-04 06:11] LABS: HEMATOCRIT 32.6 % (37-47); MEAN CELL VOLUME 88.6 fL (80-100); MEAN CORPUSCULAR HGB CONC 31.6 g/dl (32-36); MEAN PLATELET VOLUME 9.9 fL (7.4-10.4); PLATELET COUNT 197 K/uL (130-400); RED BLOOD COUNT 3.68 M/uL (4.2-5.4); WHITE BLOOD COUNT 15.13 K/uL (4.8-10.8)
[2017-04-04 06:25] LABS: INR 2.4 (0.9-1.1); PROTHROMBIN TIME (PATIENT) 26.1 SECONDS (9.0-12.0)
[2017-04-04 06:40] LABS: BUN/CREATININE RATIO 20.3 (10-20); CALCIUM 8.5 mg/dl (8.5-10.1); CREATININE 1.53 mg/dl (0.60-1.20); POTASSIUM 3.9 mmol/L (3.5-5.1)
[2017-04-04] MEDS: AMLODIPINE BESYLATE 5 MG TAB PO SCH (08:06)
[2017-04-04] MEDS: CHOLECALCIFEROL 1000 INTER.UNIT TAB PO SCH (08:06)
[2017-04-04] MEDS: SIMVASTATIN 20 MG TAB PO SCH (08:06)
[2017-04-04] MEDS: METOPROLOL SUCC 50MG EXT REL TAB PO SCH (08:06)
[2017-04-04] MEDS: OMEGA-3 (PURIFIED FISH OIL) 1 GM CAP PO SCH (08:07)
[2017-04-04] MEDS: ASPIRIN 81 MG ECTAB PO SCH (08:07)
[2017-04-04] MEDS: LISINOPRIL 40 MG TAB PO SCH (08:07)
[2017-04-04] MEDS: CYANOCOBALAMIN 500 MCG TAB (VIT B-12) PO SCH (08:07)
[2017-04-04] MEDS: INSULIN ASPART 100 UNITS/ML 3 ML PEN SC SCH ×4 (08:11→21:00)
--- NOTE | 2017-04-04 08:30 | Hospitalist Progress Note ---
Hospitalist Progress Note Date of Service Apr 04, 2017. (Sulma Schaffer PA-C) Subjective Pt evaluation today including: conversation w/ patient, conversation w/ family , physical exam, chart review, lab review, review of studies Pain: None Voiding: cordoba catheter in place The patient was seen and examined this morning. Pt was seen acutely for call from nursing for worsening shortness of breath, tachypnea, wheezing and altered mental status. Pts daughter is present at bedside. Pt reports feeling like she cant breath at this point, is wheezing, but without chest tightness or chest pain. She has a dry cough without mucous production. Denies any fevers, sweats or chills. She never typically requires supplemental O2. Pt is from home and lives with her daughter. She denies feeling swollen in her hands or feet. The patient is able to answer all questions appropriately and is oriented to self and place, but not to date. Saturations were decreased to 90% on 6L via NC so was placed on Bipap while at bedside. ABG CXR 1 view portable Mag and Phos added on Lasix 40 mg IV stat UA and Ucx Pulmonary consulted for possible empyema with pleural effusions (Sulma Schaffer PA-C) Objective Vital Signs Date Time Temp Pulse Resp B/P (MAP) Pulse Ox O2 Delivery O2 Flow Rate FiO2 04/04/17 04:00 94 Nasal Cannula 4.0 04/04/17 03:50 37.4 90 31 151/68 (95) 90 Nasal Cannula 6.0 04/04/17 00:23 37.0 66 30 148/61 (90) 90 Nasal Cannula 3.0 04/04/17 00:10 94 Nasal Cannula 4.0 04/03/17 21:05 92 Nasal Cannula 4.0 04/03/17 21:00 89 Nasal Cannula 3.0 04/03/17 20:10 94 94 Nasal Cannula 3.0 04/03/17 20:00 94 Nasal Cannula 4.0 04/03/17 19:13 36.7 65 27 165/50 (88) 96 Nasal Cannula 3.0 04/03/17 16:00 94 Mask 4.0 04/03/17 15:11 37.0 66 20 151/74 (99) 94 Nasal Cannula 4.0 04/03/17 12:00 94 Mask 4.0 04/03/17 11:40 36.6 61 24 141/87 (105) 93 2.0 (Sulma Schaffer PA-C) Physical Exam General Appearance: + mild distress, + obese Eyes: PERRL, EOMI ENT: hearing grossly normal, pharynx normal Neck: supple, no JVD Respiratory/Chest: + pertinent finding (on 6 L via NC and switched to Bipap, + crackles bilaterally throughout, diminished breath sounds at bases bilaterally, no wheeze or rales) Cardiovascular: + tachycardia, + pertinent finding (Couplets showing on monitor , ) Abdomen: normal bowel sounds, non tender, soft, + pertinent finding (Cordoba cath in place draining dark yellow urine) Extremities: non-tender, no calf tenderness, + pedal edema (1+ pitting edema bilaterally) Neurologic/Psychiatric: alert, oriented x 3 Skin: normal color, warm/dry (Sulma Schaffer PA-C) Laboratory Results Last 24 Hours Test 04/03/17 11:18 04/03/17 14:11 04/03/17 16:21 04/03/17 19:17 Bedside Glucose 221 mg/dl 141 mg/dl Troponin I 0.417 ng/ml 0.362 ng/ml Test 04/03/17 20:24 04/04/17 05:29 04/04/17 06:43 Bedside Glucose 173 mg/dl 184 mg/dl White Blood Count 15.13 K/uL Red Blood Count 3.68 M/uL Hemoglobin 10.3 g/dL Hematocrit 32.6 % Mean Corpuscular Volume 88.6 fL Mean Corpuscular Hemoglobin 28.0 pg Mean Corpuscular Hemoglobin Concent 31.6 g/dl RDW Standard Deviation 53.5 fL RDW Coefficient of Variation 16.6 % Platelet Count 197 K/uL Mean Platelet Volume 9.9 fL Prothrombin Time 26.1 SECONDS Prothromb Time International Ratio 2.4 Sodium Level 137 mmol/L Potassium Level 3.9 mmol/L Chloride Level 100 mmol/L Carbon Dioxide Level 26 mmol/L Anion Gap 11.0 mmol/L Blood Urea Nitrogen 31 mg/dl Creatinine 1.53 mg/dl Est Creatinine Clear Calc Drug Dose 29.8 ml/min Estimated GFR () 35.8 Estimated GFR (Non- 30.9 BUN/Creatinine Ratio 20.3 Random Glucose 178 mg/dl Calcium Level 8.5 mg/dl (Sulma Schaffer, CHERELLE) Assessment and Plan Acute Respiratory Failure Pneumonia? - Will treat broadly with vanco, levaquin, and cefepime for now - WBC of 15.92 on admission and remains - concern for possible empyema with pleural effusion on CT. Will ask pulmonary medicine to see the patient and comment on possible needs for drainage or other intervention - Check ABG stat - pH 7.46 Co2= 35, Po2=74, HCo3= 25 -- pt placed on Bipap at 10 /, rate increased from 12 to 16 as her RR was 31 at bedside. - Portable CXR now - appears slightly improved compared to yesterdays, still with pulmonary edema and bilateral pleural effusions - Checking mag and phos this morning - Mag 1.4 - will replace IV - pt received 2 g total - Will ask master ocean yacht to see the patient for possible needs for advanced level of care/intubation - pt is agreeable to intubation if necessary at this time. Acute on Chronic diastolic CHF exacerbation - Pt presented with Shortness of breath, Pulmonary Edema with pleural effusions - CT chest reviewed: IMPRESSION: 1. Pulmonary edema pattern with borderline cardiomegaly, small moderate bilateral pleural effusions, mild septal edema, and bilateral groundglass pulmonary opacities 2. Mild mediastinal lymphadenopathy - I&Os, daily weights - Cardiology consulted--> Dr Gandhi is her primary promotional model - appreciate recs - Pt reports previously being on Lasix, but recently stopping bc of orthostasis - Add incentive spirometry - Echo completed: * -- Conclusions -- * The left ventricle is normal in size. * There is mild concentric left ventricular hypertrophy. * There is septal akinesis. * There is apical akinesis. * Ejection Fraction = 50-55%. * There is mild to moderate mitral regurgitation. * There is moderate to severe tricuspid regurgitation. 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 4th set was drawn and now numbers are trending downward. Atrial fibrillation - Continue coumadin - 2mg daily except 4mg on Tuesdays - follow INR - Continue beta lori Hypertension - echocardiogram as above - Cont amlodipine 5 mg, aspirin 81 mg daily, lisinopril 40 mg , and metoprolol succinate 100 mg daily - Given Lasix 40 mg IV in the ED, with large volume diuresis, giving another 40 mg IV this morning. - Consult cardiology - appreciate recommendations Diabetes mellitus - continue Lantus insulin at 22 units subcutaneous at bedtime - ISS with accuchecks ACHS Rheumatoid arthritis - continue hydroxychloroquine Hyperlipidemia - continue simvastatin 20 mg daily. Hypothyroidism - Continue levothyroxine 75 mcg daily DVT ppx: teds, scds CODE STATUS: FULL CODE - pt would want intubation/ resuscitation efforts at this time. Discussion was held with daughter present at bedside. Disposition: From home, lives with daughter (Sulma Schaffer, CHERELLE) I examined patient and agree with above note. I discussed analysis and plan with APC. I answered all of the patients questions. In regards to her plan, I believe her problem is multifactorial: pneumonia and a component of her Heart failure. Will continue with diuretics and will continue with triple antibiotic therapy. I also discussed case with Pulmonary and Critical care team. Will hold off transfer from ICU as patient improved throughout the day. will place on bipap at night. (Dominick Segovia M.D.)
[2017-04-04 08:46] LABS: ESTIMATED AVERAGE GLUCOSE 117 mg/dl; HA1C FLAG Normal (Normal)
[2017-04-04] MEDS ORDERED: FUROSEMIDE INJ 40 MG in SYRINGE 0 ML IV ONE (09:15)
--- NOTE | 2017-04-04 09:22 | DIAGNOSTIC IMAGING REPORT ---
CHEST ONE VIEW PORTABLE CLINICAL HISTORY: Assess for pleural effusion, pulmonary edema, pneumonia. COMPARISON STUDY: Chest radiograph and chest CT April 03, 2017. FINDINGS: A dual lead left subclavian pacemaker is noted. There is no pneumothorax. Small bilateral pleural effusions are again noted. Interstitial thickening has improved. Perihilar and bibasilar opacities have also improved. IMPRESSION: 1. Interval improvement in mixed interstitial and alveolar opacities which favors improving pulmonary edema. An infectious process could appear similar but is considered less likely. 2. Small bilateral pleural effusions. Electronically signed by: Minor Mtz M.D. 04/04/2017 9:21 AM Dictated Date/Time: 04/04/2017 9:19 AM
[2017-04-04 09:25] LABS: ARTERIAL BLD GAS O2 SATURATION 94.1 % (90-95); ARTERIAL BLOOD GAS BASE EXCESS 0.9 mEq/L (-9-1.8); ARTERIAL BLOOD GAS HCO3 25 mmol/L (19-24); ARTERIAL BLOOD GAS PO2 74 mm/Hg (80-95); ARTERIAL BLOOD GAS pH 7.46 (7.35-7.45)
[2017-04-04 09:26] LABS: O2 ADMINISTRATION 40%
[2017-04-04 09:27] LABS: ALLEN TEST POS (POS)
[2017-04-04 09:34] LABS: MAGNESIUM 1.4 mg/dl (1.8-2.4); PHOSPHORUS 2.7 mg/dl (2.5-4.9)
--- NOTE | 2017-04-04 10:22 | Clinical Documentation Query ---
QUERY 1 OF [address] YOUNG, In your clinical opinion is this patient being managed for: ( ) Chronic kidney disease, stage 3-4 ( ) Chronic kidney disease, stage 3 ( ) Not Agree ( ) Other explanation of clinical findings (Please Explain) ( ) Unable to determine (Please Define) ( ) Need to Discuss The medical record reflects the following clinical findings, treatment, and risk factors. Clinical Indicators: 86 yo female presenting with acute on chronic diastolic CHF. Review of historical GFR showed range of 21.1-37.6 over the past year. Treatment: monitor PRP's, treat comorbid conditions Risk Factors: age, A fib, DM II, HTN, chronic diastolic CHF QUERY 2 OF 2 In your clinical opinion is this patient being managed for: ( ) Type II WA/NSTEMI due to demand ischemia, POA ( ) Not Agree ( ) Other explanation of clinical findings (Please Explain) ( ) Unable to determine (Please Define) ( ) Need to Discuss The medical record reflects the following clinical findings, treatment, and risk factors. Clinical Indicators: Trops 0.057/0.313/0.417/0.362. Treatment: cardiology consult, O2 support, IV lasix, serial trops, ECHO, continue norvasc/ASA/coumadin/zestril/toprol xl Risk Factors: age, acute on chronic diastolic CHF, DM II, HTN, A fib Please clarify and document your clinical opinion in the progress notes and discharge summary. Terms such as "probable", "suspected", "likely", "questionable", "possible", or "still to be ruled out" are acceptable. IF IN AGREEMENT, YOU MUST DOCUMENT ABOVE DIAGNOSTIC STATEMENT IN DAILY PROGRESS NOTES AND DISCHARGE SUMMARY. This document is not part of the patient's record. Thank You, Mana Berry, MADELIN [phone]
[2017-04-04] MEDS ORDERED: MAGNESIUM SULFATE 1GM / D5W 1 GM in PREMIXED IN D5W 100 ML IV ONE ×2 (10:30→12:15)
--- NOTE | 2017-04-04 10:57 | Cardiology Follow-Up ---
Subjective General Date of Service: Apr 04, 2017. Chief Complaint: follow-up shortness of breath Pt evaluation today including: conversation w/ patient, conversation w/ family , physical exam History of Present Illness The patient is a 86 year old female seen in cardiology follow up of shortness of breath. The initial consultation had been performed by Dr Gandhi who is her primary outpt programming intern. The patient is to daughters who accompany her at the bedside today. The patient had been in her normal state of health earlier this month and had actually been seen in outpatient cardiology follow-up with no reported complaints at that time. It sounds as though her chlorthalidone had been discontinued in the interim time due to dizziness, and the patient developed progressive shortness of breath that worsened acutely prompting hospitalization. Her chest x-ray and CT findings were consistent with interstitial edema. The patient received 2 doses of IV furosemide on 04/03/17 with 3??5 L of urinary output and received another dose of 40 mg of IV furosemide this morning at 9 AM. In the interpreter deaf hours this morning she had progressive hypoxia and shortness of breath and is now on BiPAP. She is comfortable on BiPAP with the exception of the mask is irritating her face. She denies any chest discomfort. Allergies Coded Allergies: No Known Allergies (Unverified , 04/03/17) Social History Smoking Status: Former Smoker Hx Tobacco Use In Past Year?: No Hx Alcohol Use - Type And Amou: No Hx Substance Use - Type And Am: No Problem List Medical Problems: (1) Bradycardia Status: Acute (2) Elevated troponin Status: Acute (3) Fall Status: Acute (4) Fracture dislocation of left ankle Status: Acute (5) Nasal fracture Status: Acute (6) Nasal laceration Status: Acute (7) Second degree AV block Status: Acute (8) Sinusitis Status: Acute (9) Syncope Status: Acute Physical Exam Vital Signs Last Vital Signs Documentation Date Time Temp Pulse Resp B/P (MAP) Pulse Ox O2 Delivery O2 Flow Rate FiO2 04/04/17 08:41 75 96 40 04/04/17 08:16 37.0 24 123/64 (83) Nasal Cannula 04/04/17 08:00 6.0 Physical Exam Constitutional: Level of Distress: NAD, acutely ill Head: normocephalic Neck: supple Lungs: Auscultation: pertinent finding (decreased breath sounds to bases bilaterally) Cardiovascular: Heart Auscultation: RRR, no murmurs Abdomen: Inspection & Palpation: soft, non-distended Extremities: no cyanosis, no edema Neurologic: Gait & Station: pertinent finding (no focal deficits) Assessment and Plan Assessment and Plan Impression: 86-year-old female 1. Acute decompensation, diastolic heart failure 2. Paroxysmal atrial fibrillation, atrial flutter, currently in what appears to be rate controlled atrial flutter 3. Occasional PVCs noted on telemetry including several ventricular couplets and ventricular triplets 4. Moderate tricuspid regurgitation, mild to moderate pulmonary hypertension, calculated pulmonary artery systolic pressure on echocardiogram this admission was in the range of 45-50 mmHg Discussion/recommendations: I reviewed the patient's echocardiogram images from this hospitalization independently. There is a new wall motion abnormality encompassing the apical portion of the inferoseptum, anteroseptal, and apex that was not present in November. November 2016 she had been admitted for complaint of syncope and was found to have bradycardia. A dual-chamber permanent pacemaker was therefore placed at that time. The patient is ventricular paced on telemetry and EKG this hospitalization. EKG is therefore not helpful in excluding underlying ischemia or age undetermined infarction. Recent outpatient pacemaker check revealed appropriate function including 11 years of generator longevity. Paroxysmal atrial fibrillation and atrial flutter were noted with a atrial fibrillation burden of 26%. She is atrial paced 70% the time and right ventricular paced 27% the time. Since this is the first echocardiogram had been performed since placement of pacemaker, it is difficult to determine if the noted wall motion abnormalities reflect pacemaker activation from the right ventricular apex, or this represents an age- indeterminate septal/apical infarction. Contrast images certainly illustrate well that her left ventricle are systolic function is normal overall. At present, I recommend continue diuretic therapy, she has received 40 mg of IV furosemide earlier this morning, and further dosing will be held off until we reassess her hemodynamics and renal function tomorrow. I have added low-dose topical nitroglycerin. [facility] been ordered by the primary team as has been a urinary culture. Agree with empiric antibiotics for now case there is a superimposed pneumonia, favor continued treatment for heart failure . Her INR is stable at 2??4, continue current dose of Coumadin 2 mg daily. Will Follow. Laboratory Results Last 24 Hours Test 04/03/17 11:18 04/03/17 14:11 04/03/17 16:21 04/03/17 19:17 Bedside Glucose 221 mg/dl 141 mg/dl Troponin I 0.417 ng/ml 0.362 ng/ml Test 04/03/17 20:24 04/04/17 05:29 04/04/17 06:43 04/04/17 09:04 Bedside Glucose 173 mg/dl 184 mg/dl White Blood Count 15.13 K/uL Red Blood Count 3.68 M/uL Hemoglobin 10.3 g/dL Hematocrit 32.6 % Mean Corpuscular Volume 88.6 fL Mean Corpuscular Hemoglobin 28.0 pg Mean Corpuscular Hemoglobin Concent 31.6 g/dl RDW Standard Deviation 53.5 fL RDW Coefficient of Variation 16.6 % Platelet Count 197 K/uL Mean Platelet Volume 9.9 fL Prothrombin Time 26.1 SECONDS Prothromb Time International Ratio 2.4 Sodium Level 137 mmol/L Potassium Level 3.9 mmol/L Chloride Level 100 mmol/L Carbon Dioxide Level 26 mmol/L Anion Gap 11.0 mmol/L Blood Urea Nitrogen 31 mg/dl Creatinine 1.53 mg/dl Est Creatinine Clear Calc Drug Dose 29.8 ml/min Estimated GFR () 35.8 Estimated GFR (Non- 30.9 BUN/Creatinine Ratio 20.3 Random Glucose 178 mg/dl Estimated Average Glucose 117 mg/dl Hemoglobin A1c 5.7 % Calcium Level 8.5 mg/dl Phosphorus Level 2.7 mg/dl Magnesium Level 1.4 mg/dl Arterial Blood pH 7.46 Arterial Blood Partial Pressure CO2 35 mmHg Arterial Blood Partial Pressure O2 74 mm/Hg Arterial Blood HCO3 25 mmol/L Arterial Blood Oxygen Saturation 94.1 % Arterial Blood Base Excess 0.9 mEq/L Arterial Blood Gas Delivery 40% Jimi Test POS Test 04/04/17 10:12
[2017-04-04] MEDS: NITROGLYCERIN OINT 2% 1GM PACKET EXT SCH ×3 (11:13→23:41)
[2017-04-04 11:18] LABS: REVIEW REQ? NO; URINE APPEARANCE CLOUDY (CLEAR); URINE BILIRUBIN NEG (NEG); URINE COLOR YELLOW; URINE EPITHELIAL CELL AUTO 20-30 /lpf (0-5); URINE NITRITE NEG (NEG); URINE SPECIFIC GRAVITY 1.018 (1.000-1.030); UROBILINOGEN NEG (NEG); ZZURINE CULT IF INDIC CATH YES
[2017-04-04 11:19] LABS: MANUAL MICROSCOPIC REQUIRED? NO
[2017-04-04] MEDS ORDERED: NURSING VERBAL MED ORDER ONE (12:15)
--- NOTE | 2017-04-04 14:01 | Pulmonary Consultation ---
History General Date of Service: Apr 04, 2017. Stated Complaint: Pulmonary Edema HPI The patient is a 86 year old female who presents to [facility] with complaints of Pulmonary Edema. The patient's primary care provider is Katharina Perez C.R.N.P. Ms. Park is a 86-year-old female who was in her normal state of health until a few days ago when she presented with worsening shortness of breath, dyspnea on exertion and bilateral lower extremity edema. Patient states that she was previously on Lasix by mouth for lower extremity edema however this was discontinued secondary to orthostatic changes in September of this year. Per patient and family this was never resumed. She denied any fevers, chills, or coughing. She denies any night sweats, weight loss or hemoptysis. She was able to perform most activities of daily living without dyspnea until a few days ago. She denied any orthopnea, paroxysmal nocturnal dyspnea. She was able still able to climb a few stairs in front of the house that he uses a banister and taking her time. She denied any chest pain, palpitations or any lightheadedness or dizziness. 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 She also has history of rheumatoid arthritis and is on Plaquenil. Initial vital signs in the ER, showed a blood pressure of 190/75, respiratory rate is 16, pulse is 67. She was noted to be in acute respiratory distress and placed on BiPAP with an FiO2 of 50% with recorded SaO2 of 100%. Laboratory data was significant for chloride of 109, creatinine of 1.38, pro-BNP 5000. Troponin was 0.057 which increased to 0.373 and peaked at 0.417. Chest x-ray from 04/03/2017 was consistent with interstitial pulmonary edema. A CT chest was done which confirmed this and also showed borderline cardiomegaly. There was small to moderate bilateral pleural effusions noted with mild septal edema and groundglass pulmonary opacities. Mild mediastinal lymphadenopathy was noted. She was empirically started on vancomycin 750 g IV 1 dose, cefepime 1 g every 8 hours IV and Levaquin 750 mg IV every 48 hours to empirically cover for community-acquired pneumonia. She was given Lasix 40 mg IV with diuresis of about 2.6 L. Over the course of the day she was titrated down to 2 L nasal cannula and saturating 97%. Transthoracic echocardiogram from 04/03/2017 showed left ventricular normal size, septal akinesis as well as apical akinesis. Ejection fraction of 50-55%. Mild to moderate mitral regurgitation. Moderate to severe tricuspid regurgitation. Mild to moderate pulmonary artery hypertension. No ASD noted. Over the course of the night, noted to be mouth breathing with episodes of nocturnal hypoxemia and apnea with desaturations to 88%. FiO2 increased to 5.5 L to maintain SaO2 greater than 90% . She slept well overnight. This morning, patient had an episode of hypoxia and respiratory distress while attempting to eat breakfast. Per nurse she was quite tachypneic, wheezing and using accessory muscles of respiration. Stat chest x-ray showed interval improvement in mixed interstitial and alveolar opacities, likely representing pulmonary edema. Small pleural effusions noted. She was given a stat dose of Lasix 40 g IV, nitroglycerin paste placed on arm and BiPAP applied. ABG showed 7.46/35/70/25/94.1% on 40%. At the time of my evaluation, patient was back on nasal cannula. She denied any shortness of breath, chest pain. She was sitting up in bed attempting to eat lunch. Family at bedside. Historian: patient, family Onset: last week Complaint Status: improved Review of Systems Constitutional: reports: as stated in HPI Eyes: reports: as stated in HPI ENT: reports: as stated in HPI Cardiovascular: reports: as stated in HPI Respiratory: reports: as stated in HPI Gastrointestinal: reports: as stated in HPI Genitourinary - Female: reports: as stated in HPI Musculoskeletal: reports: as stated in HPI Integumentary: reports: as stated in HPI Neurologic: reports: as stated in HPI Psychiatric: reports: as stated in HPI Endocrine: as stated in HPI Hematologic / Lymphatic: as stated in HPI Allergic / Immunologic: as stated in HPI All Other Symptoms All Other Systems: Reviewed and Negative Past Medical History Past Medical History: Paroxysmal atrial fibrillation/aflutter on Coumadin 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 Diabetes, hypertension, heart disease. Social History She is a lifetime nonsmoker, denies any alcohol or illicit drug use. She is retired and . Hx Tobacco Use In Past Year?: No Smoking Status: Former Smoker Marital status: Occupational Status: retired Immunizations History of Influenza Vaccine: Yes Influenza Vaccine Date: Mar 20, 2014 History of Tetanus Vaccine?: Unknown History of Pneumococcal: Yes History of Hepatitis B Vaccine: No History of MDRO History of MDRO: No Allergies Coded Allergies: No Known Allergies (Unverified , 04/03/17) Current Medications Reported Home Medications Medications Dose Route/Sig Max Daily Dose Days Date Category Dose Instructions Aspirin Ec (Aspirin) 81 Mg Tab 81 Mg PO DAILY 04/03/17 Reported Toprol-Xl (Metoprolol Succinate) 100 Mg Tabcr 100 Mg PO DAILY 04/03/17 Reported Levothyroxine Sodium 75 Mcg Tab 150 Mcg PO WK 04/03/17 Reported take 2 tablets daily on tuesdays Prinivil (Lisinopril) 40 Mg Tab 40 Mg PO DAILY 04/03/17 Reported Jantoven (Warfarin Sodium) 4 Mg Tab 4 Mg PO WK 11/30/16 Reported take 4 mg daily on tuesdays Jantoven (Warfarin Sodium) 2 Mg Tab 2 Mg PO 6XWK 11/30/16 Reported take 2 mg daily every day except tuesday Vitamin B-12 (Cyanocobalamin) 1,000 Mcg Tab 1,000 Mcg PO DAILY 11/16/16 Reported Vitamin D3 (Cholecalciferol) 1,000 Unit Tab 1,000 Inter.unit PO DAILY 11/16/16 Reported Zocor (Simvastatin) 20 Mg Tab 20 Mg PO DAILY 11/16/16 Reported Plaquenil (Hydroxychloroquine Sulfate) 200 Mg Tab 200 Mg PO HS 05/07/16 Reported Novolog (Insulin Aspart) 100 Units/Ml Inj 9 Units SC QDD 05/07/16 Reported Novolog (Insulin Aspart) 100 Units/Ml Inj 7 Units SC QDL 05/07/16 Reported Novolog (Insulin Aspart) 100 Units/Ml Inj 7 Units SC QDB 05/07/16 Reported Lantus Solostar (Insulin Glargine) 100 Unit/Ml Inj 22 Units SC HS 05/07/16 Reported Levothyroxine Sodium 75 Mcg Tab 75 Mcg PO 6XWK 05/07/16 Reported take 1 tablet daily every day but tuesday Norvasc (Amlodipine Besylate) 5 Mg Tab 5 Mg PO DAILY 05/07/16 Reported [place]-3 (Fish Oil) 1 Ea Cap 1,000 Mg PO DAILY 09/06/13 Reported Physical Physical Exam Vital Signs: Date Time Temp Pulse Resp B/P (MAP) Pulse Ox O2 Delivery O2 Flow Rate FiO2 04/04/17 12:29 37.0 71 20 129/79 (96) 94 Nasal Cannula 04/04/17 12:17 BiPAP 40 04/04/17 10:30 BiPAP 40 04/04/17 08:41 75 96 40 04/04/17 08:40 BiPAP 40 04/04/17 08:16 37.0 86 24 123/64 (83) 91 Nasal Cannula 04/04/17 08:00 90 Nasal Cannula 6.0 Humidified Oxygen 04/04/17 04:00 94 Nasal Cannula 4.0 04/04/17 03:50 37.4 90 31 151/68 (95) 90 Nasal Cannula 6.0 04/04/17 00:23 37.0 66 30 148/61 (90) 90 Nasal Cannula 3.0 04/04/17 00:10 94 Nasal Cannula 4.0 04/03/17 21:05 92 Nasal Cannula 4.0 04/03/17 21:00 89 Nasal Cannula 3.0 04/03/17 20:10 94 94 Nasal Cannula 3.0 04/03/17 20:00 94 Nasal Cannula 4.0 04/03/17 19:13 36.7 65 27 165/50 (88) 96 Nasal Cannula 3.0 04/03/17 16:00 94 Mask 4.0 04/03/17 15:11 37.0 66 20 151/74 (99) 94 Nasal Cannula 4.0 General Appearance: WELL-APPEARING, WD/WN, NO APPARENT DISTRESS, obese Head: NORMOCEPHALIC, ATRAUMATIC Eyes: PERRLA, NO DISCHARGE, EOMI ENT: poor dentition, other (maculopapular brown colored lesion on tip of nose.) Neck: NORMAL RANGE OF MOTION, NO TENDERNESS, TRACHEA MIDLINE Respiratory: CLEAR TO AUSCULTATION, NO RESPIRATORY DISTRESS, accessory muscle use, other (decreased breath sounds at bases) Cardiovasular: NO M/G/R (appreciated), irregular rate, abnormal rhythm Abdomen: NON TENDER, NORMAL BOWEL SOUNDS Back: other (multiple raised white to daily colored plaque-like lesions on back) Upper Extremities: NO EDEMA, NO DEFORMITY, NORMAL ROM, other (no cyanosis, no clubbing) Lower Extremities: NO EDEMA, NO DEFORMITY, NORMAL ROM Neuro: ALERT, ORIENTED x 3, NORMAL MOTOR EXAM Psychiatric: NORMAL AFFECT, NO SUICIDAL IDEATION, CONTRACTS FOR SAFETY Diagnostics Labs Results Past 24 Hours Test 04/03/17 14:11 04/03/17 16:21 04/03/17 19:17 04/03/17 20:24 Range/Units Troponin I 0.417 0.362 0-0.045 ng/ml Bedside Glucose 141 173 70-90 mg/dl Test 04/04/17 05:29 04/04/17 06:43 04/04/17 09:04 04/04/17 09:50 Range/Units White Blood Count 15.13 4.8-10.8 K/uL Red Blood Count 3.68 4.2-5.4 M/uL Hemoglobin 10.3 12.0-16.0 g/dL Hematocrit 32.6 37-47 % Mean Corpuscular Volume 88.6 80-100 fL Mean Corpuscular Hemoglobin 28.0 25-34 pg Mean Corpuscular Hemoglobin Concent 31.6 32-36 g/dl RDW Standard Deviation 53.5 36.4-46.3 fL RDW Coefficient of Variation 16.6 11.5-14.5 % Platelet Count 197 130-400 K/uL Mean Platelet Volume 9.9 7.4-10.4 fL Prothrombin Time 26.1 9.0-12.0 SECONDS Prothromb Time International Ratio 2.4 0.9-1.1 Sodium Level 137 136-145 mmol/L Potassium Level 3.9 3.5-5.1 mmol/L Chloride Level 100 98-107 mmol/L Carbon Dioxide Level 26 21-32 mmol/L Anion Gap 11.0 3-11 mmol/L Blood Urea Nitrogen 31 7-18 mg/dl Creatinine 1.53 0.60-1.20 mg/dl Est Creatinine Clear Calc Drug Dose 29.8 ml/min Estimated GFR () 35.8 Estimated GFR (Non- 30.9 BUN/Creatinine Ratio 20.3 10-20 Random Glucose 178 70-99 mg/dl Estimated Average Glucose 117 mg/dl Hemoglobin A1c 5.7 4.5-5.6 % Calcium Level 8.5 8.5-10.1 mg/dl Phosphorus Level 2.7 2.5-4.9 mg/dl Magnesium Level 1.4 1.8-2.4 mg/dl Bedside Glucose 184 70-90 mg/dl Arterial Blood pH 7.46 7.35-7.45 Arterial Blood Partial Pressure CO2 35 35-46 mmHg Arterial Blood Partial Pressure O2 74 80-95 mm/Hg Arterial Blood HCO3 25 19-24 mmol/L Arterial Blood Oxygen Saturation 94.1 90-95 % Arterial Blood Base Excess 0.9 -9-1.8 mEq/L Arterial Blood Gas Delivery 40% Jimi Test POS POS Urine Color YELLOW Urine Appearance CLOUDY CLEAR Urine pH 5.0 4.5-7.5 Urine Specific [place] 1.018 1.000-1.030 Urine Protein 1+ NEG Urine Glucose (UA) NEG NEG Urine Ketones NEG NEG Urine Occult Blood 3+ NEG Urine Nitrite NEG NEG Urine Bilirubin NEG NEG Urine Urobilinogen NEG NEG Urine Leukocyte Esterase SMALL NEG Urine WBC (Auto) 10-30 0-5 /hpf Urine RBC (Auto) >30 0-4 /hpf Urine Hyaline Casts (Auto) 1-5 0-5 /lpf Urine Epithelial Cells (Auto) 20-30 0-5 /lpf Urine Bacteria (Auto) NEG NEG Test 04/04/17 11:26 Range/Units Bedside Glucose 296 70-90 mg/dl Microbiology Results 04/04/17 Urine Culture, Received Pending Diagnostic Radiology Chest x-ray 04/04/2017 IMPRESSION: 1. Interval improvement in mixed interstitial and alveolar opacities which favors improving pulmonary edema. An infectious process could appear similar but is considered less likely. 2. Small bilateral pleural effusions. CT chest 04/03/2017 IMPRESSION: 1. Pulmonary edema pattern with borderline cardiomegaly, small moderate bilateral pleural effusions, mild septal edema, and bilateral groundglass pulmonary opacities 2. Mild mediastinal lymphadenopathy Chest x-ray 04/03/2017 IMPRESSION: Interval development of interstitial pulmonary edema. Transthoracic echocardiogram 04/03/2017 * -- Conclusions -- * The left ventricle is normal in size. * There is mild concentric left ventricular hypertrophy. * There is septal akinesis. * There is apical akinesis. * Ejection Fraction = 50-55%. * There is mild to moderate mitral regurgitation. * There is moderate to severe tricuspid regurgitation. * Mild to moderate pulmonary hypertension EKG EKG from 04/03/2017 Ventricular rate 74 beats a minute Ventricular paced rhythm, with atrial flutter. 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 This is most likely secondary to acute on chronic diastolic dysfunction. Patient has not been on diuretic therapy for quite some time now secondary to orthostatic hypotension resulting in episodes of dizziness and lightheadedness. Nonetheless she has now become more symptomatic with increased dyspnea as well as lower extremity edema and swelling. She has responded well to diuretic therapy with about 2.5 L output within the last 24 hours. She has had a slight bump in her creatinine status which will have to be monitored closely. She is also being empirically treated for possible community-acquired pneumonia with vancomycin, Levaquin and cefepime. She was also noted to have episodes of hypoxemia while sleeping. This most likely represents obstructive sleep apnea versus central apnea. This morning patient had an acute episode of hypothermia with dyspnea while eating. This may likely have been an episode of aspiration. Repeat chest x-ray showed some interval improvement suggesting that this is likely pulmonary edema versus infectious pulmonary process. The time of my evaluation, she has clinically improved from a respiratory standpoint. Nonetheless, continue with supplemental oxygen to maintain an SaO2 above 92%. Recommend BiPAP at night for episodes of nocturnal hypoxemia and when necessary. Prior to discharge she should have a nocturnal oximetry. She should also have a formal polysomnography evaluation upon discharge. Patient has no history of smoking tobacco, but does have history of rheumatoid arthritis on Plaquenil. She should have full PFT to evaluate for restrictive lung disease. Continue with current antibiotics should be sufficient at this point continue for 5-7 days. We should hold off on corticosteroids as they may worsen fluid overload. Consider ipratropium/Xopenex when necessary for bronchospasm. Continue with diuresis as kidney function tolerates. Repeat electrolytes accordingly. Cardiology is on board and optimizing medications. In terms of pulmonary hypertension, this is most likely secondary to group II or group III if rheumatoid arthritis contributing. Recommended treatment is to treat the underlying cause. I do not think that I'll right heart catheterization is warranted at this time but something to consider in the future if she does not clinically improve. I spoke to daughters, as well as patient regarding goals of care and CODE STATUS. She states that she would like to remain a level I, with full resuscitation including CPR and mechanical ventilation if needed. She states that she was fully functional prior to this admission and feels that a trial of intubation would be appropriate if needed. I appreciate the consult.
[2017-04-04] MEDS: WARFARIN SOD 2 MG TAB PO SCH (18:14)
[2017-04-04] MEDS: HYDROXYCHLOROQUINE SULFATE 200 MG TAB PO SCH (21:11)
[2017-04-04] MEDS: INSULIN GLARGINE SOLOSTAR 100 UNITS/ML 3 ML PEN SC SCH (21:14)
[2017-04-05] VITALS (8 sets, daily range): BP systolic 116–129; BP diastolic 49–83; PULSE 67–76; TEMP 36.2–37.2; O2SAT 94–98
[2017-04-05] MEDS: NITROGLYCERIN OINT 2% 1GM PACKET EXT SCH (04:41)
[2017-04-05] MEDS: LEVOFLOXACIN / D5W 750 MG in PREMIXED IN D5W 150 ML IV SCH (05:27)
[2017-04-05] MEDS: LEVOTHYROXINE 75 MCG TAB PO SCH (05:46)
[2017-04-05] MEDS: SIMVASTATIN 20 MG TAB PO SCH (07:27)
[2017-04-05] MEDS: OMEGA-3 (PURIFIED FISH OIL) 1 GM CAP PO SCH (07:27)
[2017-04-05] MEDS: LISINOPRIL 40 MG TAB PO SCH (07:27)
--- NOTE | 2017-04-05 07:27 | Hospitalist Progress Note ---
Hospitalist Progress Note Date of Service Apr 05, 2017. (Sulma Schaffer PA-C) Subjective Pt evaluation today including: conversation w/ patient, conversation w/ family , physical exam, chart review, lab review, review of studies Pain: None PO Intake: Good Voiding: cordoba catheter in place The patient was seen and examined this morning. Pts daughters are present at bedside. Overnight pt did not wear Bipap due to it not being placed, she denies refusing to wear it. She reports the mask is uncomfortable but that she will wear it if she needs it today. Rena encouraged her to wear it some this morning. Her breathing feels better, and she denies feeling acutely short of breath at rest. Pt is ambulating to the bathroom but is very sob with walking there, which is approximately 8 feet from the bed. She denies productive cough and reports her cough is diminished as well. Denies chest pain, tightness, palpitation or flutter. Pt denies fever, chills or sweats overnight. Pt has cordoba catheter in it and there is blood on the UA, urine appears darkened in the bag. She denies dysuria lower abdominal pain. Pt is tolerating an oral diet without difficulty, no n/v/d. Last BM was yesterday. Tele events overnight included increasing bouts of Vtach starting at ~2100 last evening. This morning continues to have similar rhythm as yesterday morning. Does not appear to have as much ectopy today. Her mag was adequately replaced yesterday morning and equals 2.2 today. ROS: Reviewed as above. (Sulma Schaffer PA-C) Objective Vital Signs Date Time Temp Pulse Resp B/P (MAP) Pulse Ox O2 Delivery O2 Flow Rate FiO2 04/05/17 04:00 Nasal Cannula 6.0 04/05/17 03:33 36.7 73 25 125/66 (85) 95 Nasal Cannula 6.0 04/05/17 00:00 Nasal Cannula 6.0 04/04/17 23:38 36.9 69 23 132/63 (86) 97 Nasal Cannula 6.0 04/04/17 20:00 Nasal Cannula 6.0 04/04/17 19:28 36.7 66 21 138/60 (86) 94 Nasal Cannula 6.0 04/04/17 16:11 97 Nasal Cannula 6.0 04/04/17 15:33 36.8 61 25 115/58 (77) 96 Nasal Cannula 6.0 04/04/17 12:29 37.0 71 20 129/79 (96) 94 Nasal Cannula 04/04/17 12:17 BiPAP 40 04/04/17 10:30 BiPAP 40 04/04/17 08:41 75 96 40 04/04/17 08:40 BiPAP 40 04/04/17 08:16 37.0 86 24 123/64 (83) 91 Nasal Cannula 04/04/17 08:00 90 Nasal Cannula 6.0 Humidified Oxygen (Sulma Schaffer PA-C) Physical Exam General Appearance: WD/WN, no apparent distress, + obese, + pertinent finding ( on 4 L via NC, appears comfortable) Eyes: PERRL, EOMI ENT: hearing grossly normal, pharynx normal, + pertinent finding (nodular vascular lesion over tip of nose, ~ 1 cm in size.) Neck: supple, no JVD Respiratory/Chest: chest non-tender, no respiratory distress, no accessory muscle use, + pertinent finding (on 4 L via NC, diminished breath sound in the R base, improved aeration compared to yesterday, no wheezes, no crackles. ) Cardiovascular: + tachycardia, + systolic murmur Abdomen: normal bowel sounds, non tender, soft, + pertinent finding (Cordoba catheter in placed draining dark urine) Extremities: non-tender, no calf tenderness, + pedal edema (2+ minimal pitting in BLE, worse in the Left compared to R. Chronic venous stasis changes over the left posterior calf) Neurologic/Psychiatric: alert, normal mood/affect, oriented x 3 Skin: normal color, warm/dry Notes: Back: normal inspection, no CVA tenderness (Sulma Schaffer PA-C) Laboratory Results Last 24 Hours Test 04/04/17 09:04 04/04/17 09:50 04/04/17 11:26 04/04/17 16:37 Arterial Blood pH 7.46 Arterial Blood Partial Pressure CO2 35 mmHg Arterial Blood Partial Pressure O2 74 mm/Hg Arterial Blood HCO3 25 mmol/L Arterial Blood Oxygen Saturation 94.1 % Arterial Blood Base Excess 0.9 mEq/L Arterial Blood Gas Delivery 40% Jimi Test POS Urine Color YELLOW Urine Appearance CLOUDY Urine pH 5.0 Urine Specific [place] 1.018 Urine Protein 1+ Urine Glucose (UA) NEG Urine Ketones NEG Urine Occult Blood 3+ Urine Nitrite NEG Urine Bilirubin NEG Urine Urobilinogen NEG Urine Leukocyte Esterase SMALL Urine WBC (Auto) 10-30 /hpf Urine RBC (Auto) >30 /hpf Urine Hyaline Casts (Auto) 1-5 /lpf Urine Epithelial Cells (Auto) 20-30 /lpf Urine Bacteria (Auto) NEG Bedside Glucose 296 mg/dl 272 mg/dl Test 04/04/17 16:38 04/04/17 20:47 04/05/17 06:34 04/05/17 07:04 Bedside Glucose 166 mg/dl 144 mg/dl 154 mg/dl (Sulma Schaffer, PAEsterC) Assessment and Plan Acute Respiratory Failure Pneumonia - possible aspiration - Will treat broadly with vanco, levaquin, and cefepime for now - will continue day #3 - WBC of 15.92 on admission and slightly improved - Appears more comfortable today although did not wear Bipap overnight. - Pulmonology on board - Portable CXR 04/05 - appears slightly improved compared to yesterdays, still with pulmonary edema and bilateral pleural effusions - Checking mag and phos this morning- adequately replaced today. - Continue bipap HS - encouraged pt to wear this overnight. She is agreeable - Pulmonary consulted - appreciate recs - Will need noc ox prior to d/c, formal polysomnography upon discharge, and full PFT to eval for restrictive lung disease - Hold off on corticosteroids as they may worsen fluid overload. Consider ipratropium/Xopenex when necessary for bronchospasm. Acute on Chronic diastolic CHF exacerbation - Pt presented with Shortness of breath, Pulmonary Edema with pleural effusions - CT chest reviewed: IMPRESSION: 1. Pulmonary edema pattern with borderline cardiomegaly, small moderate bilateral pleural effusions, mild septal edema, and bilateral groundglass pulmonary opacities 2. Mild mediastinal lymphadenopathy - I&Os- pt is out >1 L yesterday with lasix IV on 04/04 - will continue to diurese with small dose of Lasix 20 mg IV today - Pt reports previously being on Lasix, but recently stopping bc of orthostasis - daily weights - Cardiology consulted- appreciate recs - discussed with Dr. Gandhi this morning - Cont incentive spirometry - Echo completed: * -- Conclusions -- * The left ventricle is normal in size. * There is mild concentric left ventricular hypertrophy. * There is septal akinesis. * There is apical akinesis. * Ejection Fraction = 50-55%. * There is mild to moderate mitral regurgitation. * There is moderate to severe tricuspid regurgitation. * Mild to moderate pulmonary hypertension Biventricular Pacemaker in place for sinus node dysfunction - Placed November 16 2016- will ask cardiology regarding interrogation and possible resynchronization Paroxysmal atrial fibrillation, atrial flutter, currently in what appears to be rate controlled atrial flutter - Occasional PVCs noted on telemetry - also had several ventricular couplets and ventricular triplets - improved yesterday after magnesium and bipap. This morning appears to be back in atrial flutter. Moderate tricuspid regurgitation Mild to moderate pulmonary hypertension- Cardiology calculated pulmonary artery systolic pressure on echocardiogram this admission = 45-50 mmHg Elevated Troponins - Likely due to demand ischemia with pt being in atrial flutter at time of admission. 4th set was drawn and now numbers are trending downward. - Echo as above - pacemaker placement may be influencing what appears to be an inferior.anteriolateral infarct - appreciate cardiology recs. Atrial fibrillation - Continue coumadin - 2mg daily except 4mg on Tuesdays - follow INR - Continue beta lori Hypertension - echocardiogram as above - Cont amlodipine 5 mg, aspirin 81 mg daily, lisinopril 40 mg , and metoprolol succinate 100 mg daily - Diuresis on board with good output. - Consult cardiology - appreciate recommendations Diabetes mellitus - continue Lantus insulin at 22 units subcutaneous at bedtime - ISS with accuchecks [facility] Rheumatoid arthritis - continue hydroxychloroquine Hyperlipidemia - continue simvastatin 20 mg daily. Hypothyroidism - Continue levothyroxine 75 mcg daily DVT ppx: teds, scds CODE STATUS: FULL CODE - pt would want intubation/ resuscitation efforts at this time. Discussion was held with daughters present at bedside. Disposition: From home, lives with daughter Daughters were updated at bedside, all their questions and concerns were addressed. (Sulma Schaffer, CHERELLE) I examined patient and agree with above note. I discussed A/P with Patient and APC. I answered all of the patients questions. Below is my physical exam. General Appearance: WD/WN, no apparent distress, + obese, + pertinent finding ( on 4 L via NC, appears comfortable) ENT: + pertinent finding (nodular vascular lesion over tip of nose, ~ 1 cm in size.) Neck: supple, no JVD Respiratory/Chest: chest non-tender, no respiratory distress, no accessory muscle use, + pertinent finding diminished breath sound in the R base, no wheezes, no crackles. Cardiovascular: + tachycardia, + systolic murmur Abdomen: normal bowel sounds, non tender, soft, + pertinent finding (Cordoba catheter in placed draining dark urine) Extremities: non-tender, no calf tenderness, + pedal edema (2+ minimal pitting in BLE, worse in the Left compared to R. Chronic venous stasis changes over the left posterior calf) Neurologic/Psychiatric: alert, normal mood/affect, oriented x 3 (Dominick Segovia M.D.)
[2017-04-05 07:28] LABS: BASO % 0.2 %; BASO ABS # 0.02 K/uL (0-0.2); COMPLETE YES; EOS % 2.6 %; HEMATOCRIT 28.8 % (37-47); IG% 0.3 %; LYMPH ABS # 0.85 K/uL (1.2-3.4); MEAN CELL VOLUME 87.3 fL (80-100); MEAN CORPUSCULAR HEMOGLOBIN 28.2 pg (25-34); MEAN CORPUSCULAR HGB CONC 32.3 g/dl (32-36); MEAN PLATELET VOLUME 10.1 fL (7.4-10.4); MONO % 4.9 %; PLATELET COUNT 181 K/uL (130-400); WHITE BLOOD COUNT 12.08 K/uL (4.8-10.8)
[2017-04-05] MEDS: INSULIN ASPART 100 UNITS/ML 3 ML PEN SC SCH ×4 (07:31→20:26)
[2017-04-05 07:39] LABS: INR 2.3 (0.9-1.1); PROTHROMBIN TIME (PATIENT) 25.3 SECONDS (9.0-12.0)
[2017-04-05 07:56] LABS: CALCIUM 8.6 mg/dl (8.5-10.1); CREATININE 1.47 mg/dl (0.60-1.20); MAGNESIUM 2.2 mg/dl (1.8-2.4); POTASSIUM 3.7 mmol/L (3.5-5.1)
[2017-04-05] MEDS: AMLODIPINE BESYLATE 5 MG TAB PO SCH (07:59)
[2017-04-05] MEDS: METOPROLOL SUCC 50MG EXT REL TAB PO SCH (07:59)
[2017-04-05] MEDS: CYANOCOBALAMIN 500 MCG TAB (VIT B-12) PO SCH (07:59)
[2017-04-05] MEDS: CHOLECALCIFEROL 1000 INTER.UNIT TAB PO SCH (07:59)
[2017-04-05] MEDS: ASPIRIN 81 MG ECTAB PO SCH (07:59)
[2017-04-05] MEDS ORDERED: FUROSEMIDE 40 MG TAB PO STA (09:18)
[2017-04-05] MEDS ORDERED: POTASSIUM CHLORIDE 20 MEQ TABCR PO STA (09:18)
--- NOTE | 2017-04-05 09:24 | CARDIOLOGY PROGRESS NOTE ---
DATE: 04/05/2017 FOLLOWUP VISIT SUBJECTIVE: The patient is an 86-year-old female with a history of paroxysmal atrial arrhythmias, permanent pacemaker, chronic lymphocytic leukemia, and diastolic heart failure who was admitted with decompensated diastolic heart failure. She was having problems with orthostasis while on diuretics as an outpatient. The diuretics were discontinued and the patient then developed increased edema of her lower extremities and eventually congestive heart failure. For the past several days she has been receiving intravenous diuretics with improvement. She has also been on antibiotics to cover community acquired pneumonia which is likely due to her history of chronic lymphocytic leukemia. She has been in paroxysmal atrial flutter which is not unexpected from previous interrogations of her pacemaker. This morning, however, she appears to be in a sinus mechanism with V pacing. She did not use BiPAP through the night. In general, she feels better. The pulmonary consult is appreciated. OBJECTIVE: GENERAL: She is alert and oriented. VITAL SIGNS: Blood pressure is 120/60. Pulse is regular at 76. She is afebrile. HEENT: She is normocephalic. Pupils are equal and reactive to light. Extraocular muscles are intact bilaterally. NECK: The neck veins are flat. Carotids have good upstrokes bilaterally without bruits. Thyroid is nonpalpable. RESPIRATORY: Breath sounds are equal without rales or rhonchi. CARDIOVASCULAR: Heart has a regular rhythm. Normal S1, S2. No S3, S4. GASTROINTESTINAL: Abdomen is soft, nontender without organomegaly. EXTREMITIES: Free of edema, digit clubbing, or cyanosis. NEUROLOGIC: Grossly intact. SKIN: Warm to touch. LYMPH NODES: Negative to palpation. LABORATORY DATA: INR is 2.3, hemoglobin is 9.3, WBC count is 12, creatinine is 1.47, potassium is 3.7. IMPRESSION: 1. Acute on chronic diastolic heart failure. 2. Paroxysmal atrial flutter. 3. Chronic lymphocytic leukemia. 4. Community acquired pneumonia. RECOMMENDATIONS: I do note that the patient has hematuria in her Strickland bag today. I would say that that is most likely a combination of Coumadin and irritation from the Strickland. We should discontinue the Strickland when we can. Also, we could hold the Coumadin for a day or two until the hematuria improves. I will supplement her potassium this morning. Overall, I think the patient is improving and we should increase her activity levels.
[2017-04-05] MEDS ORDERED: FUROSEMIDE INJ 20 MG in SYRINGE 0 ML IV SCH (09:30)
[2017-04-05] MEDS ORDERED: WARFARIN SOD 2 MG TAB PO ONE (16:00)
[2017-04-05] MEDS: WARFARIN SOD 2 MG TAB PO SCH (16:49)
[2017-04-05] MEDS: FUROSEMIDE 40 MG TAB PO SCH (16:50)
[2017-04-05] MEDS: HYDROXYCHLOROQUINE SULFATE 200 MG TAB PO SCH (20:24)
[2017-04-05] MEDS: POTASSIUM CHLORIDE 20 MEQ TABCR PO SCH (20:25)
[2017-04-05] MEDS: INSULIN GLARGINE SOLOSTAR 100 UNITS/ML 3 ML PEN SC SCH (20:29)
--- NOTE | 2017-04-05 21:08 | Pulmonology Progress Note ---
Pulmonary Progress Note Date of Service Apr 05, 2017. Attending Dr. Strickland Subjective Patient seen and examined this afternoon. She states that she's feeling better from a respiratory standpoint. She hasn't had any further episodes of feeling short of breath and difficulty breathing. She is using BiPAP intermittently with nasal cannula. Tolerating well. She denies any chest pain or cough. She is requesting to be out of bed to chair. Objective Vital signs reviewed. Gen: Awake alert oriented 3, was on BiPAP but it was requested to have it removed. Placed on 4 L nasal cannula. She is speaking in full sentences without dyspnea or use of accessory muscles of respiration. CVS: S1-S2 Lungs/chest: Decreased breath sounds bilaterally, mild crackles at bases Abdomen: Obese, nontender, nondistended, bowel sounds positive Extremities: Trace lower extremity edema, no cyanosis or clubbing Labs reviewed. Imaging reviewed and reviewed by me. Medications reviewed. 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 Park appears to be clinically improving from a respiratory standpoint. She still using BiPAP and nasal cannula intermittently. Initially had about 2.5 L diuresis however putting out less over the last 24 hours. Creatinine appears to be improving slightly. Continue with supplemental oxygen to maintain an SaO2 above 92%. Continue BiPAP at night for episodes of nocturnal hypoxemia and when necessary. Prior to discharge she should have a nocturnal oximetry. She should also have a formal polysomnography evaluation upon discharge. Patient has no history of smoking tobacco, but does have history of rheumatoid arthritis on Plaquenil. She should have full PFT to evaluate for restrictive lung disease. Continue with current antibiotics should be sufficient at this point continue for 5-7 days. Continue with corticosteroids as they may worsen fluid overload. Consider ipratropium/Xopenex when necessary for bronchospasm. Continue with diuresis as kidney function tolerates. Repeat electrolytes accordingly. Cardiology is on board and optimizing medications. Please let me know if you have any further questions or concerns. Data Medications: Current Inpatient Medications Medications (Trade) Dose Ordered Sig/Carmen Route Start Time Stop Time Status Last Admin Dose Admin Acetaminophen (Tylenol Tab) 650 mg Q4H PRN PO 04/03/17 03:45 05/03/17 03:44 Al Hydrox/Mg Hydrox/Simethicone (Maalox Max Susp) 15 ml Q4H PRN PO 04/03/17 03:45 05/03/17 03:44 Magnesium Hydroxide (Milk Of Magnesia Susp) 30 ml Q12H PRN PO 04/03/17 03:45 05/03/17 03:44 Ondansetron HCl (Zofran Inj) 4 mg Q6H PRN IV 04/03/17 03:45 05/03/17 03:44 Nitroglycerin (Nitrostat Tab) 0.4 mg UD PRN SL 04/03/17 03:45 05/03/17 03:44 Polyethylene (Miralax Powder Packet) 17 gm DAILY PRN PO 04/03/17 03:45 05/03/17 03:44 Amlodipine Besylate (Norvasc Tab) 5 mg DAILY PO 04/03/17 09:00 05/03/17 08:59 04/05/17 07:59 5 MG Aspirin (Ecotrin Tab) 81 mg DAILY PO 04/03/17 09:00 05/03/17 08:59 04/05/17 07:59 81 MG Cholecalciferol (Vitamin D Tab) 1,000 inter.unit DAILY PO 04/03/17 09:00 05/03/17 08:59 04/05/17 07:59 1,000 INTER.UNIT Cyanocobalamin (Vitamin B-12 Tab) 1,000 mcg DAILY PO 04/03/17 09:00 05/03/17 08:59 04/05/17 07:59 1,000 MCG Fish Oil (Mora-3 (Purified Fish Oil) Cap) 1 gm DAILY PO 04/03/17 09:00 05/03/17 08:59 04/05/17 07:27 1 GM Hydroxychloroquine Sulfate (Plaquenil Tab) 200 mg HS PO 04/03/17 21:00 05/03/17 20:59 04/04/17 21:11 200 MG Lisinopril (Zestril Tab) 40 mg DAILY PO 04/03/17 09:00 05/03/17 08:59 04/05/17 07:27 40 MG Metoprolol Succinate (Toprol Xl Tab) 100 mg DAILY PO 04/03/17 09:00 05/03/17 08:59 04/05/17 07:59 100 MG Simvastatin (Zocor Tab) 20 mg DAILY PO 04/03/17 09:00 05/03/17 08:59 04/05/17 07:27 20 MG Levofloxacin 750 mg/Prmx 150 ml @ 100 mls/hr Q48H IV 04/03/17 06:00 04/10/17 05:59 04/05/17 05:27 100 MLS/HR Warfarin Sodium (Coumadin Tab) 2 mg DAILY@16 PO 04/03/17 16:00 05/03/17 15:59 04/04/17 18:14 2 MG Levothyroxine Sodium (Synthroid Tab) 75 mcg DAILYBB PO 04/03/17 06:00 05/03/17 06:59 04/05/17 05:46 75 MCG Insulin Aspart (novoLOG ASPART) SLIDING SCALE If C... ACHS SC 04/03/17 07:00 05/03/17 06:59 04/05/17 12:01 3 UNITS Glucose (Glucose 40% Gel) 15-30 GRAMS 15 GRAMS... UD PRN PO 04/03/17 04:00 05/03/17 03:59 Glucose (Glucose Chew Tab) 4-8 Tablets 4 Tabl... UD PRN PO 04/03/17 04:00 05/03/17 03:59 Dextrose (Dextrose 50% 50ML Syringe) 25-50ML OF 50% DW IV FOR... UD PRN IV 04/03/17 04:00 05/03/17 03:59 Glucagon (Glucagon Inj) 1 mg UD PRN SQ 04/03/17 04:00 05/03/17 03:59 Insulin Glargine (Lantus Solostar Pen) 22 units HS SC 04/03/17 21:00 05/03/17 20:59 04/04/17 21:14 22 UNITS Levofloxacin (Consult) 1 ea UD PRN N/A 04/03/17 05:00 05/03/17 04:59 Warfarin Sodium (Coumadin Tab) 2 mg Tu@1600 ONCE PO 04/05/17 16:00 04/05/17 16:01 Furosemide (Lasix Tab) 40 mg BID17 PO 04/05/17 17:00 05/05/17 16:59 Potassium Chloride (Klor-Con Tab) 20 meq BID PO 04/05/17 21:00 05/05/17 20:59 I & O: 24-Hour Column 04/06/17 08:00 Intake Total 200 ml Output Total 375 ml Balance -175 ml Vital Signs: Date Time Temp Pulse Resp B/P (MAP) Pulse Ox O2 Delivery O2 Flow Rate FiO2 04/05/17 12:00 BiPAP 40 04/05/17 11:48 36.2 73 22 122/53 (76) 94 Nasal Cannula 5.0 04/05/17 08:03 36.7 76 21 126/52 (76) 95 Nasal Cannula 6.0 76 04/05/17 08:00 96 Nasal Cannula 5.0 Humidified Oxygen 04/05/17 04:00 Nasal Cannula 6.0 04/05/17 03:33 36.7 73 25 125/66 (85) 95 Nasal Cannula 6.0 04/05/17 00:00 Nasal Cannula 6.0 04/04/17 23:38 36.9 69 23 132/63 (86) 97 Nasal Cannula 6.0 04/04/17 20:00 Nasal Cannula 6.0 04/04/17 19:28 36.7 66 21 138/60 (86) 94 Nasal Cannula 6.0 04/04/17 16:11 97 Nasal Cannula 6.0 04/04/17 15:33 36.8 61 25 115/58 (77) 96 Nasal Cannula 6.0 Laboratory Results: Last 24 Hours Test 04/04/17 16:37 04/04/17 16:38 04/04/17 20:47 04/05/17 06:34 Bedside Glucose 272 mg/dl 166 mg/dl 144 mg/dl 154 mg/dl Test 04/05/17 07:04 White Blood Count 12.08 K/uL Red Blood Count 3.30 M/uL Hemoglobin 9.3 g/dL Hematocrit 28.8 % Mean Corpuscular Volume 87.3 fL Mean Corpuscular Hemoglobin 28.2 pg Mean Corpuscular Hemoglobin Concent 32.3 g/dl Platelet Count 181 K/uL Mean Platelet Volume 10.1 fL Neutrophils (%) (Auto) 85.0 % Lymphocytes (%) (Auto) 7.0 % Monocytes (%) (Auto) 4.9 % Eosinophils (%) (Auto) 2.6 % Basophils (%) (Auto) 0.2 % Neutrophils # (Auto) 10.26 K/uL Lymphocytes # (Auto) 0.85 K/uL Monocytes # (Auto) 0.59 K/uL Eosinophils # (Auto) 0.32 K/uL Basophils # (Auto) 0.02 K/uL RDW Standard Deviation 52.6 fL RDW Coefficient of Variation 16.4 % Immature Granulocyte % (Auto) 0.3 % Immature Granulocyte # (Auto) 0.04 K/uL Prothrombin Time 25.3 SECONDS Prothromb Time International Ratio 2.3 Sodium Level 135 mmol/L Potassium Level 3.7 mmol/L Chloride Level 100 mmol/L Carbon Dioxide Level 28 mmol/L Anion Gap 7.0 mmol/L Blood Urea Nitrogen 47 mg/dl Creatinine 1.47 mg/dl Est Creatinine Clear Calc Drug Dose 31.0 ml/min Estimated GFR () 37.6 Estimated GFR (Non- 32.4 BUN/Creatinine Ratio 32.0 Random Glucose 146 mg/dl Calcium Level 8.6 mg/dl Magnesium Level 2.2 mg/dl
[2017-04-06] VITALS (11 sets, daily range): BP systolic 125–137; BP diastolic 43–78; PULSE 64–76; TEMP 36.8–38.7; O2SAT 94–98
[2017-04-06] MEDS ORDERED: VANCOMYCIN TROUGH ONE (03:30)
[2017-04-06] MEDS: LEVOTHYROXINE 75 MCG TAB PO SCH (05:34)
[2017-04-06 05:36] LABS: BASO % 0.2 %; BASO ABS # 0.02 K/uL (0-0.2); COMPLETE YES; HEMATOCRIT 29.9 % (37-47); IG% 0.2 %; LYMPH ABS # 0.62 K/uL (1.2-3.4); MEAN CELL VOLUME 87.4 fL (80-100); MEAN CORPUSCULAR HEMOGLOBIN 27.8 pg (25-34); MEAN CORPUSCULAR HGB CONC 31.8 g/dl (32-36); MEAN PLATELET VOLUME 9.9 fL (7.4-10.4); MONO % 5.5 %; NEUT % 89.1 %; PLATELET COUNT 186 K/uL (130-400); RED BLOOD COUNT 3.42 M/uL (4.2-5.4); WHITE BLOOD COUNT 12.33 K/uL (4.8-10.8)
[2017-04-06] MEDS: ONDANSETRON INJ 2 MG/ML 2 ML VIAL IV PRN (05:37)
[2017-04-06 05:51] LABS: PROTHROMBIN TIME (PATIENT) 40.8 SECONDS (9.0-12.0)
[2017-04-06 06:30] LABS: INR 3.6 (0.9-1.1)
[2017-04-06 06:31] LABS: BUN/CREATININE RATIO 32.3 (10-20); CALCIUM 8.5 mg/dl (8.5-10.1); CREATININE 1.33 mg/dl (0.60-1.20); MAGNESIUM 2.1 mg/dl (1.8-2.4); POTASSIUM 4.1 mmol/L (3.5-5.1)
[2017-04-06] MEDS: INSULIN ASPART 100 UNITS/ML 3 ML PEN SC SCH ×4 (07:54→21:12)
[2017-04-06] MEDS: AMLODIPINE BESYLATE 5 MG TAB PO SCH (08:04)
[2017-04-06] MEDS: CHOLECALCIFEROL 1000 INTER.UNIT TAB PO SCH (08:04)
[2017-04-06] MEDS: ASPIRIN 81 MG ECTAB PO SCH (08:04)
[2017-04-06] MEDS: CYANOCOBALAMIN 500 MCG TAB (VIT B-12) PO SCH (08:05)
[2017-04-06] MEDS: METOPROLOL SUCC 50MG EXT REL TAB PO SCH (08:05)
[2017-04-06] MEDS: SIMVASTATIN 20 MG TAB PO SCH (08:05)
[2017-04-06] MEDS: LISINOPRIL 40 MG TAB PO SCH (08:06)
[2017-04-06] MEDS: OMEGA-3 (PURIFIED FISH OIL) 1 GM CAP PO SCH (08:06)
[2017-04-06] MEDS: POTASSIUM CHLORIDE 20 MEQ TABCR PO SCH ×2 (08:06→21:08)
[2017-04-06] MEDS: FUROSEMIDE 40 MG TAB PO SCH ×2 (08:07→17:00)
--- NOTE | 2017-04-06 08:15 | Hospitalist Progress Note ---
Hospitalist Progress Note Date of Service Apr 06, 2017. (Sulma Schaffer PA-C) Subjective Pt evaluation today including: conversation w/ patient, physical exam, chart review, lab review, review of studies PO Intake: Fair Voiding: no voiding problems The patient was seen and examined this morning. Pt reports feeling nauseous this morning starting around 6:30-7 am, and that she was unable to eat breakfast. She did not vomit. Pt denies feeling lightheaded, dizzy, having any chest pain, palpitation or flutter at that time. Pt has a slight abdominal discomfort and bloating today. She has had 1 BM daily since being here, and denies any cramping or diarrhea. Yesterday she worked with PT/OT and she was able to ambulate in the room with a little less shortness of breath. Overnight, pt worse bipap for a total of 3.5 hours, but otherwise cannot stand this due to the discomfort at the bridge of her nose. She did not sleep at all with bipap on. Currently has adequate sats on 4L. ROS: 6 point ROS reviewed and otherwise negative. (Sulma Schaffer PA-C) Objective Vital Signs Date Time Temp Pulse Resp B/P (MAP) Pulse Ox O2 Delivery O2 Flow Rate FiO2 04/06/17 07:44 37.0 68 20 135/54 (81) 94 04/06/17 04:00 BiPAP 40 04/06/17 03:40 37.1 76 25 132/65 (87) 95 Nasal Cannula 4.0 Humidified Oxygen 04/06/17 03:00 66 98 40 04/05/17 23:59 BiPAP 40 04/05/17 23:38 37.2 67 24 116/83 (94) 98 BiPAP 40 04/05/17 22:25 72 96 40 04/05/17 20:00 Nasal Cannula 4.0 04/05/17 19:50 37.1 69 20 119/61 (80) 97 Nasal Cannula 4.0 Humidified Oxygen 04/05/17 16:00 Nasal Cannula 4.0 04/05/17 15:32 36.9 68 21 129/49 (75) 96 Nasal Cannula 4.0 Humidified Oxygen 04/05/17 12:00 BiPAP 40 04/05/17 11:48 36.2 73 22 122/53 (76) 94 Nasal Cannula 5.0 (Sulma Schaffer PA-C) Physical Exam Notes: General Appearance: WD/WN, no apparent distress, + obese, + pertinent finding ( on 4 L via NC, appears comfortable sitting up in bedside chair) Eyes: PERRL, EOMI ENT: hearing grossly normal, pharynx normal, + pertinent finding (nodular vascular lesion over tip of nose, ~ 1 cm in size.) Neck: supple, no JVD Respiratory/Chest: chest non-tender, no respiratory distress, no accessory muscle use, + pertinent finding (on 4 L via NC, improved breath sounds throughout, not diminished at bases, no wheezes, no crackles. ) Cardiovascular: Regular rate, + systolic murmur Abdomen: normal bowel sounds, non tender, soft, + pertinent finding (Strickland catheter in placed draining dark urine) Extremities: non-tender, no calf tenderness, + pedal edema (1+ minimal pitting in BLE, worse in the Left compared to R. Chronic venous stasis changes over the left posterior calf) Neurologic/Psychiatric: alert, normal mood/affect, oriented x 3 Skin: normal color, warm/dry (Sulma Schaffer PA-C) Laboratory Results Last 24 Hours Test 04/05/17 16:05 04/05/17 20:10 04/06/17 05:18 04/06/17 05:46 Bedside Glucose 152 mg/dl 158 mg/dl 116 mg/dl White Blood Count 12.33 K/uL Red Blood Count 3.42 M/uL Hemoglobin 9.5 g/dL Hematocrit 29.9 % Mean Corpuscular Volume 87.4 fL Mean Corpuscular Hemoglobin 27.8 pg Mean Corpuscular Hemoglobin Concent 31.8 g/dl Platelet Count 186 K/uL Mean Platelet Volume 9.9 fL Neutrophils (%) (Auto) 89.1 % Lymphocytes (%) (Auto) 5.0 % Monocytes (%) (Auto) 5.5 % Eosinophils (%) (Auto) 0.0 % Basophils (%) (Auto) 0.2 % Neutrophils # (Auto) 10.98 K/uL Lymphocytes # (Auto) 0.62 K/uL Monocytes # (Auto) 0.68 K/uL Eosinophils # (Auto) 0.00 K/uL Basophils # (Auto) 0.02 K/uL RDW Standard Deviation 51.9 fL RDW Coefficient of Variation 16.2 % Immature Granulocyte % (Auto) 0.2 % Immature Granulocyte # (Auto) 0.03 K/uL Prothrombin Time 40.8 SECONDS Prothromb Time International Ratio 3.6 Sodium Level 139 mmol/L Potassium Level 4.1 mmol/L Chloride Level 103 mmol/L Carbon Dioxide Level 28 mmol/L Anion Gap 8.0 mmol/L Blood Urea Nitrogen 43 mg/dl Creatinine 1.33 mg/dl Est Creatinine Clear Calc Drug Dose 34.3 ml/min Estimated GFR () 42.4 Estimated GFR (Non- 36.6 BUN/Creatinine Ratio 32.3 Random Glucose 108 mg/dl Calcium Level 8.5 mg/dl Magnesium Level 2.1 mg/dl (Sulma Schaffer, PAPerry) Assessment and Plan Acute Respiratory Failure Pneumonia - possible aspiration - Will treat broadly with vanco, levaquin, and cefepime fx 3 days, now down to levaquin 750 mg PO daily alone - WBC of 15.92 on admission and improved to 12.3K - Appears more comfortable today although only tolerated 3.5 hr of bipap overnight - Portable CXR 04/05 - appears slightly improved compared to prior, still with pulmonary edema and bilateral pleural effusions - Follow electrolytes, including mag and phos - stable - Continue bipap HS - Pulmonary consulted - appreciate recs - Will need noc ox prior to d/c, formal polysomnography upon discharge, and full PFT to eval for restrictive lung disease - Hold off on corticosteroids as they may worsen fluid overload. Consider ipratropium/Xopenex when necessary for bronchospasm. Acute on Chronic diastolic CHF exacerbation - Cardiology consulted- appreciate recs - discussed with Dr. Gandhi this morning - Pt presented with Shortness of breath, Pulmonary Edema with pleural effusions - CT chest reviewed: IMPRESSION: 1. Pulmonary edema pattern with borderline cardiomegaly, small moderate bilateral pleural effusions, mild septal edema, and bilateral groundglass pulmonary opacities 2. Mild mediastinal lymphadenopathy - I&Os- pt is out total of - 3.5 L at this time - Pt reports previously being on Lasix, but recently stopping bc of orthostasis - daily weights - Cont incentive spirometry - Echo completed: * -- Conclusions -- * The left ventricle is normal in size. * There is mild concentric left ventricular hypertrophy. * There is septal akinesis. * There is apical akinesis. * Ejection Fraction = 50-55%. * There is mild to moderate mitral regurgitation. * There is moderate to severe tricuspid regurgitation. * Mild to moderate pulmonary hypertension Hematuria - Urine Cx checked and is negative for infection. Will hold coumadin for a few days and see if this resolves per cardiology Biventricular Pacemaker in place for sinus node dysfunction - Placed November 16 2016- will ask cardiology regarding interrogation and possible resynchronization Paroxysmal atrial fibrillation, atrial flutter, currently in what appears to be rate controlled atrial flutter - Occasional PVCs noted on telemetry - also had several ventricular couplets and ventricular triplets - improved 04/04 after magnesium and bipap. - Improved Moderate tricuspid regurgitation Mild to moderate pulmonary hypertension- Cardiology calculated pulmonary artery systolic pressure on echocardiogram this admission = 45-50 mmHg Elevated Troponins - Likely due to demand ischemia with pt being in atrial flutter at time of admission. 4th set was drawn and now numbers are trending downward. - Echo as above - pacemaker placement may be influencing what appears to be an inferior.anteriolateral infarct - appreciate cardiology recs. Atrial fibrillation - HOLD coumadin with hematuria- Normal regimen 2mg daily except 4mg on Tuesdays - follow INR - Continue beta lori Hypertension - echocardiogram as above - Cont amlodipine 5 mg, aspirin 81 mg daily, lisinopril 40 mg , and metoprolol succinate 100 mg daily - Diuresis on board with good output. - Consult cardiology - appreciate recommendations Diabetes mellitus - continue Lantus insulin at 22 units subcutaneous at bedtime - ISS with accuchecks ACHS Rheumatoid arthritis - continue hydroxychloroquine Hyperlipidemia - continue simvastatin 20 mg daily. Hypothyroidism - Continue levothyroxine 75 mcg daily DVT ppx: teds, scds CODE STATUS: FULL CODE - pt would want intubation/ resuscitation efforts at this time. Discussion was held with daughters present at bedside. Disposition: From home, lives with daughter (Sulma Schaffer, PAPerry) I examined patient and agree with above note. I discussed A/P with Patient and APC. I answered all of the patients questions. Below is my physical exam. General Appearance: WD/WN, no apparent distress, + obese, + pertinent finding ( on 4 L via NC, appears comfortable) ENT: + pertinent finding (nodular vascular lesion over tip of nose, ~ 1 cm in size.) Neck: supple, no JVD Respiratory/Chest: chest non-tender, no respiratory distress, no accessory muscle use,improved breath sound throughout, no wheezes, no crackles. Cardiovascular: + tachycardia, + systolic murmur Abdomen: normal bowel sounds, non tender, soft, + pertinent finding (Strickland catheter in placed draining dark urine) Extremities: non-tender, no calf tenderness, + pedal edema (2+ minimal pitting in BLE, worse in the Left compared to R. Chronic venous stasis changes over the left posterior calf) Neurologic/Psychiatric: alert, normal mood/affect, oriented x 3 (Dominick Segovia M.D.)
--- NOTE | 2017-04-06 11:16 | PROGRESS NOTE ---
DATE: 04/06/2017 FOLLOWUP VISIT SUBJECTIVE: The patient is an 86-year-old with history of paroxysmal atrial arrhythmias, permanent pacemaker, chronic lymphocytic leukemia, and diastolic heart failure who was admitted with decompensated diastolic heart failure. The patient had been orthostatic as an outpatient and her diuretics were discontinued by her primary care physician. Soon after she developed lower extremity edema and then progressive shortness of breath. She has been in the hospital for several days now. She is slowly improving and currently is sitting in a chair today without complaint. OBJECTIVE: GENERAL: She is alert and oriented. VITAL SIGNS: Blood pressure is 130/60, pulse is regular at 70 beats per minute. She is afebrile. HEENT: She is normocephalic. Pupils are equal and reactive to light. Extraocular muscles are intact bilaterally. NECK: The neck veins are flat. Carotids have good upstrokes bilaterally without bruits. Thyroid is nonpalpable. RESPIRATORY: Breath sounds equal bilaterally and clear to auscultation. CARDIOVASCULAR: Heart has a regular rhythm. Normal S1, S2. No S3, S4. No cardiac rubs or murmurs. GASTROINTESTINAL: Abdomen is soft, nontender without organomegaly. EXTREMITIES: Free of edema, digital clubbing, or cyanosis. NEUROLOGIC: Grossly intact. SKIN: Warm to touch. LYMPH NODES: Negative to palpation. LABORATORY DATA: Potassium is 4.1, creatinine is 3.11. IMPRESSION: 1. Acute on chronic diastolic heart failure. 2. Paroxysmal atrial flutter. 3. Chronic lymphocytic leukemia. 4. Community acquired pneumonia. RECOMMENDATIONS: The patient clinically continues to do well. I would increase her activity levels. Also, I would try to switch her over to oral antibiotics when possible.
--- NOTE | 2017-04-06 19:46 | DIAGNOSTIC IMAGING REPORT ---
KUB CLINICAL HISTORY: Generalized abdominal pain. FINDINGS: 2 AP, portable, supine abdominal radiographs are correlated with abdominal CT dated 10/18/2013. There is a nonobstructed abdominal bowel gas pattern. Moderate fecal retention is observed. No evidence of intraperitoneal free air is seen. There are no abnormal abdominal calcifications. The skeletal structures are osteopenic. Moderate lumbosacral spondylosis and scoliosis are observed. Heart cardiomegaly and pacemaker leads are identified in the lower chest. IMPRESSION: Nonobstructed abdominal bowel gas pattern noting moderate colonic fecal retention. Electronically signed by: Sergey Blanco M.D. 04/06/2017 7:45 PM Dictated Date/Time: 04/06/2017 7:43 PM
[2017-04-06] MEDS: HYDROXYCHLOROQUINE SULFATE 200 MG TAB PO SCH (21:08)
[2017-04-06] MEDS: INSULIN GLARGINE SOLOSTAR 100 UNITS/ML 3 ML PEN SC SCH (21:12)
[2017-04-07] VITALS (11 sets, daily range): BP systolic 117–144; BP diastolic 48–69; PULSE 60–73; TEMP 36.4–37.8; O2SAT 91–100
[2017-04-07] MEDS: LEVOTHYROXINE 75 MCG TAB PO SCH (05:38)
[2017-04-07 05:59] LABS: BASO % 0.1 %; BASO ABS # 0.03 K/uL (0-0.2); COMPLETE YES; HEMATOCRIT 29.8 % (37-47); IG% 0.4 %; LYMPH % 5.3 %; LYMPH ABS # 1.07 K/uL (1.2-3.4); MEAN CELL VOLUME 88.2 fL (80-100); MEAN CORPUSCULAR HEMOGLOBIN 27.5 pg (25-34); MEAN CORPUSCULAR HGB CONC 31.2 g/dl (32-36); MEAN PLATELET VOLUME 9.8 fL (7.4-10.4); NEUT % 87.2 %; PLATELET COUNT 212 K/uL (130-400); RED BLOOD COUNT 3.38 M/uL (4.2-5.4); WHITE BLOOD COUNT 20.02 K/uL (4.8-10.8)
[2017-04-07 06:07] LABS: PROTHROMBIN TIME (PATIENT) 45.3 SECONDS (9.0-12.0)
[2017-04-07 06:43] LABS: BUN/CREATININE RATIO 27.4 (10-20); CALCIUM 8.6 mg/dl (8.5-10.1); CREATININE 1.51 mg/dl (0.60-1.20); MAGNESIUM 1.9 mg/dl (1.8-2.4); POTASSIUM 4.1 mmol/L (3.5-5.1)
[2017-04-07] MEDS: INSULIN ASPART 100 UNITS/ML 3 ML PEN SC SCH ×4 (07:00→20:38)
[2017-04-07] MEDS ORDERED: VANCOMYCIN CONSULT ACTIVE PRN (07:30)
[2017-04-07] MEDS ORDERED: VANCOMYCIN INJ 1,750 MG in SODIUM CHLORIDE 0.9% 500ML 500 ML IV SCH (08:00)
[2017-04-07] MEDS: SIMVASTATIN 20 MG TAB PO SCH (08:10)
[2017-04-07] MEDS: ASPIRIN 81 MG ECTAB PO SCH (08:10)
[2017-04-07] MEDS: AMLODIPINE BESYLATE 5 MG TAB PO SCH (08:10)
[2017-04-07] MEDS: CHOLECALCIFEROL 1000 INTER.UNIT TAB PO SCH (08:10)
[2017-04-07] MEDS: CYANOCOBALAMIN 500 MCG TAB (VIT B-12) PO SCH (08:10)
[2017-04-07] MEDS: METOPROLOL SUCC 50MG EXT REL TAB PO SCH (08:11)
[2017-04-07] MEDS: OMEGA-3 (PURIFIED FISH OIL) 1 GM CAP PO SCH (08:11)
[2017-04-07] MEDS: FUROSEMIDE 40 MG TAB PO SCH ×2 (08:12→16:50)
[2017-04-07] MEDS: POTASSIUM CHLORIDE 20 MEQ TABCR PO SCH ×2 (08:12→21:21)
[2017-04-07] MEDS: LEVOFLOXACIN 750 MG TAB PO SCH (08:12)
[2017-04-07] MEDS: LISINOPRIL 40 MG TAB PO SCH (08:13)
[2017-04-07] MEDS: CEFEPIME IV 1,000 MG in SYRINGE 0 ML IV SCH ×2 (08:17→21:27)
[2017-04-07] MEDS ORDERED: CEFEPIME IV 1,000 MG in DEXTROSE 5% 100ML 100 ML IV SCH (09:00)
--- NOTE | 2017-04-07 10:32 | Pharmacy Progress Note ---
Pharmacy Abx Dose Progress Nt Date of Service Apr 07, 2017. Pharmacy Dosing Scope Patient was re-started on Vancomycin today. Objective Height (Feet): 5 Height (Inches): 3.00 Weight (Kilograms): 89.200 Vital Signs (Past 12Hrs) Vital Signs Past 12 Hours Date Time Temp Pulse Resp B/P (MAP) Pulse Ox O2 Delivery O2 Flow Rate FiO2 04/07/17 08:08 36.8 69 20 138/69 (92) 99 Nasal Cannula 3.0 04/07/17 08:00 96 Nasal Cannula 4.0 04/07/17 04:30 37.8 70 16 125/50 (75) 94 Nasal Cannula 3.5 04/07/17 04:00 Nasal Cannula 4.0 04/07/17 00:00 37.8 66 17 120/56 (77) 95 Nasal Cannula 3.5 04/06/17 23:59 95 Nasal Cannula 4.0 Lab Results (24Hrs) Laboratory Tests (24 Hours) Test 04/07/17 05:24 White Blood Count 20.02 K/uL (4.8-10.8) H Red Blood Count 3.38 M/uL (4.2-5.4) L Hemoglobin 9.3 g/dL (12.0-16.0) L Hematocrit 29.8 % (37-47) L Mean Corpuscular Volume 88.2 fL (80-100) Mean Corpuscular Hemoglobin 27.5 pg (25-34) Mean Corpuscular Hemoglobin Concent 31.2 g/dl (32-36) L Platelet Count 212 K/uL (130-400) Mean Platelet Volume 9.8 fL (7.4-10.4) Neutrophils (%) (Auto) 87.2 % Lymphocytes (%) (Auto) 5.3 % Monocytes (%) (Auto) 7.0 % Eosinophils (%) (Auto) 0.0 % Basophils (%) (Auto) 0.1 % Neutrophils # (Auto) 17.43 K/uL (1.4-6.5) H Lymphocytes # (Auto) 1.07 K/uL (1.2-3.4) L Monocytes # (Auto) 1.40 K/uL (0.11-0.59) H Eosinophils # (Auto) 0.01 K/uL (0-0.5) Basophils # (Auto) 0.03 K/uL (0-0.2) Micro Results Date/Time Source Procedure Growth Status 04/03/17 00:00 Nasal MRSA DNA Surveillance Screen - Final Specimen Negative for MRSA by DNA Probe Complete 04/04/17 09:50 Urine,Catheterized Urine Culture - Final NO GROWTH - LESS THAN 1,000 COLONIES/ML Complete Assessment & Plan Assessment 86 year old female started on Vancomycin for treatment of Pneumonia. Plan Vancomycin IV * Vancomycin 1750 mg IV loading dose started for 8 AM today. * Then Vanco 1250 mg IV q24h ordered starting tomorrow. * Dosing based on previous calculations on 04/03/17 when Vanco was initially ordered. * Goal trough level for Pneumonia: 15 to 20 mcg/mL * Trough level ordered for: 04/10/17 before 8 am dose. Pharmacy will continue to follow and will adjust dose/frequency as necessary. Thank you.
--- NOTE | 2017-04-07 11:59 | Progress Note ---
Subjective Date of Service: Apr 07, 2017. Subjective Pt evaluation today including: conversation w/ patient, conversation w/ family , physical exam, lab review, review of inpatient medication list Pain: no pain PO Intake: improving slowly Voiding: no voiding problems patient feels okay today, no improvement since yesterday appetite slowly getting better breathing is the same, mild cough, no sputum less edema reviewed vitals, fever yesterday and then 37.8 in the evening WBC up to 20k from 12k despite antibiotics discussed with patient and family Problem List Medical Problems: (1) Bradycardia Status: Acute (2) Elevated troponin Status: Acute (3) Fall Status: Acute (4) Fracture dislocation of left ankle Status: Acute (5) Nasal fracture Status: Acute (6) Nasal laceration Status: Acute (7) Second degree AV block Status: Acute (8) Sinusitis Status: Acute (9) Syncope Status: Acute Review of Systems Constitutional: + fever, + weakness, + fatigue Respiratory: + cough, + dyspnea on exertion All Other Systems: Reviewed and Negative Medications Current Inpatient Medications Medications (Trade) Dose Ordered Sig/Carmen Route Start Time Stop Time Status Last Admin Dose Admin Acetaminophen (Tylenol Tab) 650 mg Q4H PRN PO 04/03/17 03:45 05/03/17 03:44 Al Hydrox/Mg Hydrox/Simethicone (Maalox Max Susp) 15 ml Q4H PRN PO 04/03/17 03:45 05/03/17 03:44 Magnesium Hydroxide (Milk Of Magnesia Susp) 30 ml Q12H PRN PO 04/03/17 03:45 05/03/17 03:44 Ondansetron HCl (Zofran Inj) 4 mg Q6H PRN IV 04/03/17 03:45 05/03/17 03:44 04/06/17 05:37 4 MG Nitroglycerin (Nitrostat Tab) 0.4 mg UD PRN SL 04/03/17 03:45 05/03/17 03:44 Polyethylene (Miralax Powder Packet) 17 gm DAILY PRN PO 04/03/17 03:45 05/03/17 03:44 Amlodipine Besylate (Norvasc Tab) 5 mg DAILY PO 04/03/17 09:00 05/03/17 08:59 04/07/17 08:10 5 MG Aspirin (Ecotrin Tab) 81 mg DAILY PO 04/03/17 09:00 05/03/17 08:59 04/07/17 08:10 81 MG Cholecalciferol (Vitamin D Tab) 1,000 inter.unit DAILY PO 04/03/17 09:00 05/03/17 08:59 04/07/17 08:10 1,000 INTER.UNIT Cyanocobalamin (Vitamin B-12 Tab) 1,000 mcg DAILY PO 04/03/17 09:00 05/03/17 08:59 04/07/17 08:10 1,000 MCG Fish Oil ([place]-3 (Purified Fish Oil) Cap) 1 gm DAILY PO 04/03/17 09:00 05/03/17 08:59 04/07/17 08:11 1 GM Hydroxychloroquine Sulfate (Plaquenil Tab) 200 mg HS PO 04/03/17 21:00 05/03/17 20:59 04/06/17 21:08 200 MG Lisinopril (Zestril Tab) 40 mg DAILY PO 04/03/17 09:00 05/03/17 08:59 04/07/17 08:13 40 MG Metoprolol Succinate (Toprol Xl Tab) 100 mg DAILY PO 04/03/17 09:00 05/03/17 08:59 04/07/17 08:11 100 MG Simvastatin (Zocor Tab) 20 mg DAILY PO 04/03/17 09:00 05/03/17 08:59 04/07/17 08:10 20 MG Warfarin Sodium (Coumadin Tab) 2 mg DAILY@16 PO 04/03/17 16:00 05/03/17 15:59 Future Hold 04/05/17 16:49 2 MG Levothyroxine Sodium (Synthroid Tab) 75 mcg DAILYBB PO 04/03/17 06:00 05/03/17 06:59 04/07/17 05:38 75 MCG Insulin Aspart (novoLOG ASPART) SLIDING SCALE If C... ACHS SC 04/03/17 07:00 05/03/17 06:59 04/06/17 21:12 1 UNITS Glucose (Glucose 40% Gel) 15-30 GRAMS 15 GRAMS... UD PRN PO 04/03/17 04:00 05/03/17 03:59 Glucose (Glucose Chew Tab) 4-8 Tablets 4 Tabl... UD PRN PO 04/03/17 04:00 05/03/17 03:59 Dextrose (Dextrose 50% 50ML Syringe) 25-50ML OF 50% DW IV FOR... UD PRN IV 04/03/17 04:00 05/03/17 03:59 Glucagon (Glucagon Inj) 1 mg UD PRN SQ 04/03/17 04:00 05/03/17 03:59 Insulin Glargine (Lantus Solostar Pen) 22 units HS SC 04/03/17 21:00 05/03/17 20:59 04/06/17 21:12 22 UNITS Levofloxacin (Consult) 1 ea UD PRN N/A 04/03/17 05:00 05/03/17 04:59 Furosemide (Lasix Tab) 40 mg BID17 PO 04/05/17 17:00 05/05/17 16:59 04/07/17 08:12 40 MG Potassium Chloride (Klor-Con Tab) 20 meq BID PO 04/05/17 21:00 05/05/17 20:59 04/07/17 08:12 20 MEQ Levofloxacin (Levaquin Tab) 750 mg Q48H PO 04/07/17 11:00 04/10/17 10:59 04/07/17 08:12 750 MG Vancomycin HCl 1250 mg/Sodium Chloride 275 ml @ 125 mls/hr Q24H IV 04/08/17 08:00 04/14/17 07:59 Vancomycin HCl (Consult) 1 ea UD PRN N/A 04/07/17 07:30 05/07/17 07:29 Cefepime HCl 1000 mg/Syringe 11 ml @ 5.5 mls/min Q12H IV 04/07/17 09:00 04/14/17 08:59 04/07/17 08:17 5.5 MLS/MIN Objective Vital Signs Date Time Temp Pulse Resp B/P (MAP) Pulse Ox O2 Delivery O2 Flow Rate FiO2 04/07/17 08:08 36.8 69 20 138/69 (92) 99 Nasal Cannula 3.0 04/07/17 08:00 96 Nasal Cannula 4.0 04/07/17 04:30 37.8 70 16 125/50 (75) 94 Nasal Cannula 3.5 04/07/17 04:00 Nasal Cannula 4.0 04/07/17 00:00 37.8 66 17 120/56 (77) 95 Nasal Cannula 3.5 04/06/17 23:59 95 Nasal Cannula 4.0 04/06/17 20:15 37.6 68 20 125/52 (76) 94 Nasal Cannula 4.0 Humidified Oxygen 04/06/17 20:00 94 Nasal Cannula 4.0 Humidified Oxygen 04/06/17 16:00 95 Nasal Cannula 4.0 Humidified Oxygen 04/06/17 15:37 38.7 66 20 137/43 (74) 96 Nasal Cannula 4.0 Humidified Oxygen 04/06/17 12:00 95 Nasal Cannula 4.0 Physical Exam General Appearance: WD/WN, no apparent distress Eyes: normal inspection, EOMI, sclerae normal ENT: normal ENT inspection, hearing grossly normal, pharynx normal Neck: supple, no adenopathy, no JVD, trachea midline Respiratory/Chest: chest non-tender, lungs clear, no respiratory distress, no accessory muscle use, + decreased breath sounds, + pertinent finding (limited inspiration, cannot take deep breath) Cardiovascular: regular rate, rhythm, no edema, no gallop, no JVD, no murmur Abdomen: normal bowel sounds, non tender, soft, no organomegaly Extremities: normal range of motion, non-tender, normal inspection, no pedal edema, no calf tenderness, pelvis stable Neurologic/Psychiatric: hand tier II-XII nml as tested, alert, normal mood/affect, oriented x 3, + motor weakness Skin: normal color, warm/dry, no rash Laboratory Results Last 24 Hours Test 04/06/17 16:15 04/06/17 20:14 04/07/17 05:24 04/07/17 07:23 Bedside Glucose 150 mg/dl 201 mg/dl 84 mg/dl White Blood Count 20.02 K/uL Red Blood Count 3.38 M/uL Hemoglobin 9.3 g/dL Hematocrit 29.8 % Mean Corpuscular Volume 88.2 fL Mean Corpuscular Hemoglobin 27.5 pg Mean Corpuscular Hemoglobin Concent 31.2 g/dl Platelet Count 212 K/uL Mean Platelet Volume 9.8 fL Neutrophils (%) (Auto) 87.2 % Lymphocytes (%) (Auto) 5.3 % Monocytes (%) (Auto) 7.0 % Eosinophils (%) (Auto) 0.0 % Basophils (%) (Auto) 0.1 % Neutrophils # (Auto) 17.43 K/uL Lymphocytes # (Auto) 1.07 K/uL Monocytes # (Auto) 1.40 K/uL Eosinophils # (Auto) 0.01 K/uL Basophils # (Auto) 0.03 K/uL RDW Standard Deviation 52.6 fL RDW Coefficient of Variation 16.3 % Immature Granulocyte % (Auto) 0.4 % Immature Granulocyte # (Auto) 0.08 K/uL Prothrombin Time 45.3 SECONDS Prothromb Time International Ratio 4.0 Sodium Level 135 mmol/L Potassium Level 4.1 mmol/L Chloride Level 100 mmol/L Carbon Dioxide Level 28 mmol/L Anion Gap 7.0 mmol/L Blood Urea Nitrogen 41 mg/dl Creatinine 1.51 mg/dl Est Creatinine Clear Calc Drug Dose 29.4 ml/min Estimated GFR () 36.4 Estimated GFR (Non- 31.4 BUN/Creatinine Ratio 27.4 Random Glucose 52 mg/dl Calcium Level 8.6 mg/dl Magnesium Level 1.9 mg/dl Test 04/07/17 11:19 Bedside Glucose 126 mg/dl Assessment and Plan Acute Respiratory Failure Pneumonia - possible aspiration treated for several days with broad spectrum, tapered to Levaquin 04/06, then had fever, increased leukocytosis add back Vanco and Cefepime and follow WBC, no fever since yesterday minimal cough, poor inspiratory effort CXR tomorrow continue BIPAP HS needs nocturnal oximetry, PFT, sleep study on discharge Acute on Chronic diastolic CHF exacerbation - Cardiology consulted- appreciate recs - Pt presented with Shortness of breath, Pulmonary Edema with pleural effusions - patient negative 4.6 liters this admission, weight down 4.5kg - continue lasix 40mg PO BID Hematuria - Urine Cx checked and is negative for infection Biventricular 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 - Improved Moderate tricuspid regurgitation Mild to moderate pulmonary hypertension- Cardiology calculated pulmonary artery systolic pressure on echocardiogram this admission = 45-50 mmHg Elevated Troponins - Likely due to demand ischemia with pt being in atrial flutter at time of admission. 4th set was drawn and now numbers are trending downward. - Echo as above - pacemaker placement may be influencing what appears to be an inferior.anteriolateral infarct - appreciate cardiology recs. Atrial fibrillation - HOLD coumadin, INR 4.0 - Continue beta lori Hypertension - echocardiogram as above - Cont amlodipine 5 mg, aspirin 81 mg daily, lisinopril 40 mg , and metoprolol succinate 100 mg daily - Diuresis on board with good output. - Consult cardiology - appreciate recommendations Diabetes mellitus - continue Lantus insulin at 22 units subcutaneous at bedtime - ISS with accuchecks ACHS Rheumatoid arthritis - continue hydroxychloroquine Hyperlipidemia - continue simvastatin 20 mg daily. Hypothyroidism - Continue levothyroxine 75 mcg daily DVT ppx: teds, scds CODE STATUS: FULL CODE - pt would want intubation/ resuscitation efforts at this time. Discussion was held with daughters present at bedside. Disposition: From home, lives with daughter
--- NOTE | 2017-04-07 12:17 | Cardiology Follow-Up ---
Subjective Subjective Date of Service: Apr 07, 2017. Pt evaluation today including: conversation w/ patient, physical exam, chart review, lab review, review of studies, review of inpatient medication list Additional Details: Pt seen and examined, states that she's feeling well. Still requiring oxygen supplementation to breath easily but diuresing very well. Edema resolved. Denies cp, palpitations, lightheadedness or dizziness. Problem List Medical Problems: (1) Bradycardia Status: Acute (2) Elevated troponin Status: Acute (3) Fall Status: Acute (4) Fracture dislocation of left ankle Status: Acute (5) Nasal fracture Status: Acute (6) Nasal laceration Status: Acute (7) Second degree AV block Status: Acute (8) Sinusitis Status: Acute (9) Syncope Status: Acute Review of Systems Constitutional: + fever, + weakness, + fatigue Respiratory: + cough, + dyspnea on exertion Cardiac: + orthopnea, No chest pain, No edema, No palpitations Abdomen: No pain, No nausea, No vomiting, No diarrhea, No constipation Objective Vital Signs Last Vital Signs Documentation Date Time Temp Pulse Resp B/P (MAP) Pulse Ox O2 Delivery O2 Flow Rate FiO2 04/07/17 08:08 36.8 69 20 138/69 (92) 99 Nasal Cannula 3.0 04/06/17 04:00 40 Physical Exam: General Appearance: WD/WN, no apparent distress Eyes: bilateral eyes normal inspection, bilateral eyes PERRL, bilateral eyes EOMI ENT: normal ENT inspection, hearing grossly normal, pharynx normal Neck: supple, no adenopathy, no JVD, no carotid bruits, trachea midline Respiratory/Chest: chest non-tender, lungs clear, no respiratory distress, no accessory muscle use, + decreased breath sounds, + pertinent finding (limited inspiration, cannot take deep breath) Cardiovascular: regular rate, rhythm, no edema, no gallop, no JVD, no murmur Abdomen: normal bowel sounds, non tender, soft, no organomegaly Extremities: normal range of motion, non-tender, normal inspection, no pedal edema, no calf tenderness, pelvis stable Neurologic/Psychiatric: beef selector II-XII nml as tested, alert, normal mood/affect, oriented x 3, + motor weakness Skin: normal color, warm/dry, no rash Lymphatic: no adenopathy Assessment and Plan 1. acute decompensated diastolic heart failure resolved. diuresed well, does not examine as volume overloaded was previously maintained on bumex 1 mg daily which she tolerated well before the med was stopped would give pm dose of lasix as ordered but will change to bumex 1 mg po daily in AM will then need CHF clinic follow up at [facility] within 1 week further inpatient status based on pulmonary status
[2017-04-07] MEDS: ONDANSETRON INJ 2 MG/ML 2 ML VIAL IV PRN (16:49)
[2017-04-07] MEDS: HYDROXYCHLOROQUINE SULFATE 200 MG TAB PO SCH (21:21)
[2017-04-07] MEDS: INSULIN GLARGINE SOLOSTAR 100 UNITS/ML 3 ML PEN SC SCH (21:27)
[2017-04-08 00:01] VITALS: O2SAT 92
[2017-04-08 03:51] VITALS: BP 129/43; PULSE 67; TEMP 37.1; O2SAT 95
[2017-04-08] MEDS: LEVOTHYROXINE 75 MCG TAB PO SCH (05:20)
[2017-04-08 06:27] LABS: BASO % 0.2 %; BASO ABS # 0.03 K/uL (0-0.2); COMPLETE YES; HEMATOCRIT 30.9 % (37-47); IG% 0.3 %; LYMPH % 5.7 %; LYMPH ABS # 1.08 K/uL (1.2-3.4); MEAN CORPUSCULAR HEMOGLOBIN 28.2 pg (25-34); MEAN PLATELET VOLUME 9.7 fL (7.4-10.4); MONO % 6.6 %; NEUT % 87.2 %; PLATELET COUNT 222 K/uL (130-400); RED BLOOD COUNT 3.51 M/uL (4.2-5.4); WHITE BLOOD COUNT 18.83 K/uL (4.8-10.8)
[2017-04-08 06:57] LABS: BUN/CREATININE RATIO 24.5 (10-20); CALCIUM 8.8 mg/dl (8.5-10.1); CREATININE 1.69 mg/dl (0.60-1.20); MAGNESIUM 1.8 mg/dl (1.8-2.4); POTASSIUM 4.5 mmol/L (3.5-5.1)
[2017-04-08] MEDS: INSULIN ASPART 100 UNITS/ML 3 ML PEN SC SCH ×4 (07:00→20:28)
[2017-04-08] MEDS ORDERED: VANCOMYCIN INJ 1,250 MG in SODIUM CHLORIDE 0.9% 250ML 250 ML IV SCH (08:00)
[2017-04-08 08:20] VITALS: BP 135/47; PULSE 67; TEMP 36.6; O2SAT 97
[2017-04-08] MEDS: ASPIRIN 81 MG ECTAB PO SCH (08:23)
[2017-04-08] MEDS: POTASSIUM CHLORIDE 20 MEQ TABCR PO SCH ×2 (08:23→21:42)
[2017-04-08] MEDS: CYANOCOBALAMIN 500 MCG TAB (VIT B-12) PO SCH (08:24)
[2017-04-08] MEDS: FUROSEMIDE 40 MG TAB PO SCH (08:24)
[2017-04-08] MEDS: OMEGA-3 (PURIFIED FISH OIL) 1 GM CAP PO SCH (08:24)
[2017-04-08] MEDS: AMLODIPINE BESYLATE 5 MG TAB PO SCH (08:24)
[2017-04-08] MEDS: METOPROLOL SUCC 50MG EXT REL TAB PO SCH (08:24)
[2017-04-08] MEDS: SIMVASTATIN 20 MG TAB PO SCH (08:25)
[2017-04-08] MEDS: CHOLECALCIFEROL 1000 INTER.UNIT TAB PO SCH (08:25)
[2017-04-08] MEDS: LISINOPRIL 40 MG TAB PO SCH (08:25)
[2017-04-08] MEDS: CEFEPIME IV 1,000 MG in SYRINGE 0 ML IV SCH (09:19)
--- NOTE | 2017-04-08 09:53 | PROGRESS NOTE ---
DATE: 04/08/2017 FOLLOWUP VISIT SUBJECTIVE: The patient is an 86-year-old with a history of paroxysmal atrial arrhythmias, permanent pacemaker, chronic lymphocytic leukemia and diastolic heart failure. She was admitted with decompensated diastolic heart failure. Diuretics were discontinued as an outpatient. She is now most likely euvolemic. Unfortunately, she did spike a fever and as such, she may have an aspiration pneumonia. She has been started on antibiotics. OBJECTIVE: GENERAL: She is alert and oriented. VITAL SIGNS: Blood pressure is 130/50 and pulse is regular at 70 beats per minute. She is afebrile. HEENT: She is normocephalic. Pupils are equal and reactive to light. Extraocular muscles are intact bilaterally. NECK: The neck veins are flat. Carotids have good upstrokes bilaterally without bruits. Thyroid is nonpalpable. RESPIRATORY: Breath sounds equal bilaterally and clear to auscultation. CARDIOVASCULAR: Heart has a regular rhythm. There is normal S1 and S2. No S3 or S4. No cardiac rubs or murmurs. GASTROINTESTINAL: Abdomen is soft and nontender without organomegaly. EXTREMITIES: Free of edema, digit clubbing, or cyanosis. NEUROLOGIC: Grossly intact. SKIN: Warm to touch. LYMPH NODES: Negative to palpation. LABORATORY DATA: Hemoglobin is 9.9 and WBC count is 18.8. IMPRESSION: 1. Acute on chronic diastolic heart failure. 2. Paroxysmal atrial flutter. 3. Chronic lymphocytic leukemia. 4. Community acquired pneumonia. RECOMMENDATIONS: The patient from a cardiac standpoint is doing well. I will switch her over to oral diuretics. She probably has a persistent white count because of her chronic lymphocytic leukemia. This may be a consideration in regard to future dosing of antibiotics.
[2017-04-08 12:02] VITALS: BP 124/64; PULSE 60; TEMP 36.6; O2SAT 99
--- NOTE | 2017-04-08 12:15 | Progress Note ---
Subjective Date of Service: Apr 08, 2017. Subjective Pt evaluation today including: conversation w/ patient, conversation w/ family (daughter at the bedside), physical exam, lab review, conversation w/ hematology oncology consultant , review of inpatient medication list Pain: no pain PO Intake: slowly improving Voiding: no voiding problems patient breathing better today, minimal cough no fever or chills d/w Dr. Gandhi, patient has CLL, certainly could be contributing to leukocytosis agreed with stopping Cefepime and Vancomycin to limit fluid intake reviewed labs, WBC 18k, Cr 1.6, slowly trending upward with diuresis Problem List Medical Problems: (1) Bradycardia Status: Acute (2) Elevated troponin Status: Acute (3) Fall Status: Acute (4) Fracture dislocation of left ankle Status: Acute (5) Nasal fracture Status: Acute (6) Nasal laceration Status: Acute (7) Second degree AV block Status: Acute (8) Sinusitis Status: Acute (9) Syncope Status: Acute Review of Systems Constitutional: + weakness, + fatigue Respiratory: + shortness of breath, + dyspnea on exertion All Other Systems: Reviewed and Negative Medications Current Inpatient Medications Medications (Trade) Dose Ordered Sig/Carmen Route Start Time Stop Time Status Last Admin Dose Admin Acetaminophen (Tylenol Tab) 650 mg Q4H PRN PO 04/03/17 03:45 05/03/17 03:44 Al Hydrox/Mg Hydrox/Simethicone (Maalox Max Susp) 15 ml Q4H PRN PO 04/03/17 03:45 05/03/17 03:44 Magnesium Hydroxide (Milk Of Magnesia Susp) 30 ml Q12H PRN PO 04/03/17 03:45 05/03/17 03:44 Ondansetron HCl (Zofran Inj) 4 mg Q6H PRN IV 04/03/17 03:45 05/03/17 03:44 04/07/17 16:49 4 MG Nitroglycerin (Nitrostat Tab) 0.4 mg UD PRN SL 04/03/17 03:45 05/03/17 03:44 Polyethylene (Miralax Powder Packet) 17 gm DAILY PRN PO 04/03/17 03:45 05/03/17 03:44 Amlodipine Besylate (Norvasc Tab) 5 mg DAILY PO 04/03/17 09:00 05/03/17 08:59 04/08/17 08:24 5 MG Aspirin (Ecotrin Tab) 81 mg DAILY PO 04/03/17 09:00 05/03/17 08:59 04/08/17 08:23 81 MG Cholecalciferol (Vitamin D Tab) 1,000 inter.unit DAILY PO 04/03/17 09:00 05/03/17 08:59 04/08/17 08:25 1,000 INTER.UNIT Cyanocobalamin (Vitamin B-12 Tab) 1,000 mcg DAILY PO 04/03/17 09:00 05/03/17 08:59 04/08/17 08:24 1,000 MCG Fish Oil ([place]-3 (Purified Fish Oil) Cap) 1 gm DAILY PO 04/03/17 09:00 05/03/17 08:59 04/08/17 08:24 1 GM Hydroxychloroquine Sulfate (Plaquenil Tab) 200 mg HS PO 04/03/17 21:00 05/03/17 20:59 04/07/17 21:21 200 MG Lisinopril (Zestril Tab) 40 mg DAILY PO 04/03/17 09:00 05/03/17 08:59 04/08/17 08:25 40 MG Metoprolol Succinate (Toprol Xl Tab) 100 mg DAILY PO 04/03/17 09:00 05/03/17 08:59 04/08/17 08:24 100 MG Simvastatin (Zocor Tab) 20 mg DAILY PO 04/03/17 09:00 05/03/17 08:59 04/08/17 08:25 20 MG Levothyroxine Sodium (Synthroid Tab) 75 mcg DAILYBB PO 04/03/17 06:00 05/03/17 06:59 04/08/17 05:20 75 MCG Insulin Aspart (novoLOG ASPART) SLIDING SCALE If C... ACHS SC 04/03/17 07:00 05/03/17 06:59 04/08/17 11:54 1 UNITS Glucose (Glucose 40% Gel) 15-30 GRAMS 15 GRAMS... UD PRN PO 04/03/17 04:00 05/03/17 03:59 Glucose (Glucose Chew Tab) 4-8 Tablets 4 Tabl... UD PRN PO 04/03/17 04:00 05/03/17 03:59 Dextrose (Dextrose 50% 50ML Syringe) 25-50ML OF 50% DW IV FOR... UD PRN IV 04/03/17 04:00 05/03/17 03:59 Glucagon (Glucagon Inj) 1 mg UD PRN SQ 04/03/17 04:00 05/03/17 03:59 Insulin Glargine (Lantus Solostar Pen) 22 units HS SC 04/03/17 21:00 05/03/17 20:59 04/07/17 21:27 22 UNITS Levofloxacin (Consult) 1 ea UD PRN N/A 04/03/17 05:00 05/03/17 04:59 Potassium Chloride (Klor-Con Tab) 20 meq BID PO 04/05/17 21:00 05/05/17 20:59 04/08/17 08:23 20 MEQ Levofloxacin (Levaquin Tab) 750 mg Q48H PO 04/07/17 11:00 04/10/17 10:59 04/07/17 08:12 750 MG Bumetanide (Bumex Tab) 1 mg QAM PO 04/09/17 09:00 05/09/17 08:59 Objective Vital Signs Date Time Temp Pulse Resp B/P (MAP) Pulse Ox O2 Delivery O2 Flow Rate FiO2 04/08/17 12:02 36.6 60 16 124/64 (84) 99 Nasal Cannula 04/08/17 08:20 36.6 67 18 135/47 (76) 97 04/08/17 08:00 Nasal Cannula 2.0 04/08/17 04:00 Nasal Cannula 2.0 04/08/17 03:51 37.1 67 18 129/43 (71) 95 Nasal Cannula 2.0 04/08/17 00:01 92 Nasal Cannula 2.0 04/07/17 23:17 37.3 73 18 144/55 (84) 92 Nasal Cannula 2.0 04/07/17 20:00 97 Room Air 04/07/17 19:24 37.0 72 21 141/48 (79) 91 Room Air 04/07/17 16:00 96 Room Air 04/07/17 15:39 37.7 65 20 120/61 (80) 96 Nasal Cannula 2.0 Humidified Oxygen 04/07/17 12:07 36.4 60 16 117/58 (77) 100 Nasal Cannula 2.0 Physical Exam General Appearance: WD/WN, no apparent distress Eyes: normal inspection, EOMI, sclerae normal ENT: normal ENT inspection, hearing grossly normal, pharynx normal Neck: supple, no adenopathy, no JVD, trachea midline Respiratory/Chest: chest non-tender, lungs clear, no respiratory distress, no accessory muscle use, + decreased breath sounds (bases), + pertinent finding ( poor inspiration, restricted) Cardiovascular: regular rate, rhythm, no edema, no gallop, no JVD, no murmur Abdomen: normal bowel sounds, non tender (non distended), soft, no organomegaly Extremities: normal range of motion, non-tender, normal inspection, no pedal edema, no calf tenderness, pelvis stable Neurologic/Psychiatric: furniture sales consultant II-XII nml as tested, no motor/sensory deficits, alert, normal mood/affect, oriented x 3 Skin: normal color, warm/dry, no rash Laboratory Results Last 24 Hours Test 04/07/17 16:28 04/07/17 20:13 04/08/17 06:09 04/08/17 07:17 Bedside Glucose 137 mg/dl 159 mg/dl 86 mg/dl White Blood Count 18.83 K/uL Red Blood Count 3.51 M/uL Hemoglobin 9.9 g/dL Hematocrit 30.9 % Mean Corpuscular Volume 88.0 fL Mean Corpuscular Hemoglobin 28.2 pg Mean Corpuscular Hemoglobin Concent 32.0 g/dl Platelet Count 222 K/uL Mean Platelet Volume 9.7 fL Neutrophils (%) (Auto) 87.2 % Lymphocytes (%) (Auto) 5.7 % Monocytes (%) (Auto) 6.6 % Eosinophils (%) (Auto) 0.0 % Basophils (%) (Auto) 0.2 % Neutrophils # (Auto) 16.43 K/uL Lymphocytes # (Auto) 1.08 K/uL Monocytes # (Auto) 1.24 K/uL Eosinophils # (Auto) 0.00 K/uL Basophils # (Auto) 0.03 K/uL RDW Standard Deviation 52.4 fL RDW Coefficient of Variation 16.2 % Immature Granulocyte % (Auto) 0.3 % Immature Granulocyte # (Auto) 0.05 K/uL Sodium Level 133 mmol/L Potassium Level 4.5 mmol/L Chloride Level 99 mmol/L Carbon Dioxide Level 29 mmol/L Anion Gap 5.0 mmol/L Blood Urea Nitrogen 41 mg/dl Creatinine 1.69 mg/dl Est Creatinine Clear Calc Drug Dose 26.3 ml/min Estimated GFR () 31.8 Estimated GFR (Non- 27.4 BUN/Creatinine Ratio 24.5 Random Glucose 86 mg/dl Calcium Level 8.8 mg/dl Magnesium Level 1.8 mg/dl Test 04/08/17 11:10 Bedside Glucose 147 mg/dl Assessment and Plan Acute Respiratory Failure due to pneumonia as well as pulmonary edema treated for several days with broad spectrum, tapered to Levaquin 04/06, then had fever, increased leukocytosis add back Vanco and Cefepime on 04/07 no fever, WBC 18k today in hindsight, patient has CLL so certainly could contribute to leukocytosis recommend completing Levaquin course which would end 04/10 minimal cough, poor inspiratory effort needs nocturnal oximetry, PFT, sleep study on discharge Acute on Chronic diastolic CHF exacerbation - Cardiology consulted- appreciate recs - Pt presented with Shortness of breath, Pulmonary Edema with pleural effusions - patient negative 6.1 liters this admission, weight down 5kg - continue lasix 40mg PO BID but need to watch Cr as it is slowly increasing, 1.6 today Hematuria - Urine Cx checked and is negative for infection Biventricular 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 - Improved - continue beta lori - holding Coumadin for INR of 4.0 on 04/07, repeat INR tomorrow to decide about timing of resuming Coumadin Moderate tricuspid regurgitation Mild to moderate pulmonary hypertension- Cardiology calculated pulmonary artery systolic pressure on echocardiogram this admission = 45-50 mmHg Elevated Troponins - Likely due to demand ischemia with pt being in atrial flutter at time of admission. 4th set was drawn and now numbers are trending downward. - Echo as above - pacemaker placement may be influencing what appears to be an inferior.anteriolateral infarct - appreciate cardiology recs. Hypertension - echocardiogram as above - Cont amlodipine 5 mg, aspirin 81 mg daily, lisinopril 40 mg , and metoprolol succinate 100 mg daily - Diuresis on board with good output. - Consult cardiology - appreciate recommendations Diabetes mellitus - continue Lantus insulin at 22 units subcutaneous at bedtime - ISS with accuchecks MANI Rheumatoid arthritis - continue hydroxychloroquine Hyperlipidemia - continue simvastatin 20 mg daily. Hypothyroidism - Continue levothyroxine 75 mcg daily DVT ppx: teds, scds CODE STATUS: FULL CODE - pt would want intubation/ resuscitation efforts at this time. Discussion was held with daughters present at bedside. transfer to medical floor today as vitals have been stable and rhythm stable PT/OT consulted discussed discharge plan with patient and daughter at the bedside, in agreement that rehab would benefit her continue diuresis per cardiology, watch renal function, volume contraction, complete 2 more days of Levaquin
--- NOTE | 2017-04-08 13:53 | DIAGNOSTIC IMAGING REPORT ---
[facility] CLINICAL HISTORY: constipation, abdominal pain pain COMPARISON STUDY: 04/06/2017 FINDINGS: Mild nonobstructive ileus. No significant bowel distention. No evidence for fecal impaction. IMPRESSION: Mild nonobstructive ileus. No significant fecal impaction or colonic fecal stasis The above report was generated using voice recognition software. It may contain grammatical, syntax or spelling errors. Electronically signed by: Kushal Garcia M.D. 04/08/2017 1:52 PM Dictated Date/Time: 04/08/2017 1:50 PM
[2017-04-08 14:12] VITALS: BP 124/64; PULSE 60; TEMP 36.6; O2SAT 99
[2017-04-08] MEDS: INSULIN GLARGINE SOLOSTAR 100 UNITS/ML 3 ML PEN SC SCH (20:45)
[2017-04-08] MEDS: HYDROXYCHLOROQUINE SULFATE 200 MG TAB PO SCH (21:42)
[2017-04-09 00:26] VITALS: BP 131/73; PULSE 60; TEMP 36.7; O2SAT 98
[2017-04-09 06:12] LABS: BASO % 0.3 %; BASO ABS # 0.05 K/uL (0-0.2); EOS % 2.7 %; HEMATOCRIT 28.3 % (37-47); IG% 0.4 %; LYMPH ABS # 1.27 K/uL (1.2-3.4); MEAN CELL VOLUME 88.2 fL (80-100); MEAN CORPUSCULAR HEMOGLOBIN 27.4 pg (25-34); MEAN CORPUSCULAR HGB CONC 31.1 g/dl (32-36); MONO % 7.1 %; NEUT % 81.5 %; PLATELET COUNT 214 K/uL (130-400); RED BLOOD COUNT 3.21 M/uL (4.2-5.4)
[2017-04-09] MEDS: LEVOTHYROXINE 75 MCG TAB PO SCH (06:13)
[2017-04-09 06:27] LABS: PROTHROMBIN TIME (PATIENT) 42.9 SECONDS (9.0-12.0)
[2017-04-09 06:29] LABS: INR 3.8 (0.9-1.1)
[2017-04-09 06:39] LABS: COMPLETE YES; ECHINOCYTES 1+
[2017-04-09 06:40] LABS: BUN/CREATININE RATIO 27.7 (10-20); CALCIUM 8.5 mg/dl (8.5-10.1); CREATININE 1.6 mg/dl (0.60-1.20); POTASSIUM 4.9 mmol/L (3.5-5.1)
[2017-04-09] MEDS: POTASSIUM CHLORIDE 20 MEQ TABCR PO SCH ×2 (07:28→21:00)
[2017-04-09 07:36] VITALS: BP 118/67; PULSE 60; TEMP 36.5; O2SAT 98
[2017-04-09] MEDS: INSULIN ASPART 100 UNITS/ML 3 ML PEN SC SCH ×4 (07:59→21:00)
[2017-04-09] MEDS: OMEGA-3 (PURIFIED FISH OIL) 1 GM CAP PO SCH (08:00)
[2017-04-09] MEDS: SIMVASTATIN 20 MG TAB PO SCH (08:00)
[2017-04-09] MEDS: ASPIRIN 81 MG ECTAB PO SCH (08:00)
[2017-04-09] MEDS: CHOLECALCIFEROL 1000 INTER.UNIT TAB PO SCH (08:00)
[2017-04-09] MEDS: METOPROLOL SUCC 50MG EXT REL TAB PO SCH (08:01)
[2017-04-09] MEDS: AMLODIPINE BESYLATE 5 MG TAB PO SCH (08:01)
[2017-04-09] MEDS: LISINOPRIL 40 MG TAB PO SCH (08:01)
[2017-04-09] MEDS: BUMETANIDE 1 MG TAB PO SCH (08:01)
[2017-04-09] MEDS: CYANOCOBALAMIN 500 MCG TAB (VIT B-12) PO SCH (08:01)
[2017-04-09 11:05] VITALS: O2SAT 99
[2017-04-09] MEDS: LEVOFLOXACIN 750 MG TAB PO SCH (12:14)
[2017-04-09] MEDS ORDERED: LACTULOSE SYRUP 30 GM/45 ML UDP PO STA (13:47)
[2017-04-09 16:00] VITALS: O2SAT 93
[2017-04-09 16:28] VITALS: BP 131/73; PULSE 60; TEMP 36.5; O2SAT 92
[2017-04-09] MEDS: HYDROXYCHLOROQUINE SULFATE 200 MG TAB PO SCH (20:47)
[2017-04-09] MEDS: INSULIN GLARGINE SOLOSTAR 100 UNITS/ML 3 ML PEN SC SCH (21:21)
[2017-04-10 00:12] VITALS: BP 106/54; PULSE 62; TEMP 36.6; O2SAT 95
[2017-04-10 05:53] LABS: BASO % 0.4 %; BASO ABS # 0.05 K/uL (0-0.2); COMPLETE YES; HEMATOCRIT 29.8 % (37-47); IG% 0.4 %; LYMPH % 9.9 %; LYMPH ABS # 1.35 K/uL (1.2-3.4); MEAN CELL VOLUME 87.6 fL (80-100); MEAN CORPUSCULAR HEMOGLOBIN 27.1 pg (25-34); MEAN CORPUSCULAR HGB CONC 30.9 g/dl (32-36); MEAN PLATELET VOLUME 9.6 fL (7.4-10.4); MONO % 8.4 %; NEUT % 80.9 %; PLATELET COUNT 245 K/uL (130-400); WHITE BLOOD COUNT 13.61 K/uL (4.8-10.8)
[2017-04-10 06:00] LABS: INR 3.4 (0.9-1.1); PROTHROMBIN TIME (PATIENT) 38.4 SECONDS (9.0-12.0)
[2017-04-10] MEDS: LEVOTHYROXINE 75 MCG TAB PO SCH (06:06)
[2017-04-10 06:31] LABS: CALCIUM 8.6 mg/dl (8.5-10.1); CREATININE 1.87 mg/dl (0.60-1.20); POTASSIUM 4.9 mmol/L (3.5-5.1)
[2017-04-10] MEDS ORDERED: VANCOMYCIN TROUGH ONE (07:30)
[2017-04-10] MEDS: AMLODIPINE BESYLATE 5 MG TAB PO SCH (07:33)
[2017-04-10] MEDS: CYANOCOBALAMIN 500 MCG TAB (VIT B-12) PO SCH (07:33)
[2017-04-10] MEDS: CHOLECALCIFEROL 1000 INTER.UNIT TAB PO SCH (07:33)
[2017-04-10] MEDS: BUMETANIDE 1 MG TAB PO SCH (07:33)
[2017-04-10] MEDS: ASPIRIN 81 MG ECTAB PO SCH (07:33)
[2017-04-10] MEDS: POTASSIUM CHLORIDE 20 MEQ TABCR PO SCH ×2 (07:33→21:00)
[2017-04-10] MEDS: LISINOPRIL 40 MG TAB PO SCH (07:34)
[2017-04-10] MEDS: SIMVASTATIN 20 MG TAB PO SCH (07:34)
[2017-04-10] MEDS: OMEGA-3 (PURIFIED FISH OIL) 1 GM CAP PO SCH (07:34)
[2017-04-10] MEDS: METOPROLOL SUCC 50MG EXT REL TAB PO SCH (07:34)
[2017-04-10] MEDS: INSULIN ASPART 100 UNITS/ML 3 ML PEN SC SCH ×4 (07:49→21:00)
[2017-04-10 08:11] VITALS: BP 116/73; PULSE 62; TEMP 36.7; O2SAT 96
--- NOTE | 2017-04-10 08:15 | Progress Note ---
Subjective Date of Service: Apr 09, 2017. Subjective Pt evaluation today including: conversation w/ patient, conversation w/ family , physical exam Patient was examined around noon on . Patient reports breathing well. She states feeling almost back to baseline. She states that she has not required Nasal cannula today. However, she does continue to feel bloated and has not had a bowel movement in about 3 days. This has affected the patient with her diet as she does not want to eat any food. Problem List Medical Problems: (1) Bradycardia Status: Acute (2) Elevated troponin Status: Acute (3) Fall Status: Acute (4) Fracture dislocation of left ankle Status: Acute (5) Nasal fracture Status: Acute (6) Nasal laceration Status: Acute (7) Second degree AV block Status: Acute (8) Sinusitis Status: Acute (9) Syncope Status: Acute Review of Systems Constitutional: No fever, No chills Respiratory: + shortness of breath, No cough, No sputum Cardiac: No chest pain, No orthopnea Abdomen: + pain, + nausea, + constipation Musculoskeletal: No joint pain Neurologic: No memory loss, No paralysis Psychiatric: No depression symptoms, No anhedonism Endo: No fatigue Skin: No rash, No itch All Other Systems: Reviewed and Negative Medications Current Inpatient Medications Medications (Trade) Dose Ordered Sig/Carmen Route Start Time Stop Time Status Last Admin Dose Admin Acetaminophen (Tylenol Tab) 650 mg Q4H PRN PO 04/03/17 03:45 05/03/17 03:44 Al Hydrox/Mg Hydrox/Simethicone (Maalox Max Susp) 15 ml Q4H PRN PO 04/03/17 03:45 05/03/17 03:44 Magnesium Hydroxide (Milk Of Magnesia Susp) 30 ml Q12H PRN PO 04/03/17 03:45 05/03/17 03:44 04/09/17 13:49 30 ML Ondansetron HCl (Zofran Inj) 4 mg Q6H PRN IV 04/03/17 03:45 05/03/17 03:44 04/07/17 16:49 4 MG Nitroglycerin (Nitrostat Tab) 0.4 mg UD PRN SL 04/03/17 03:45 05/03/17 03:44 Polyethylene (Miralax Powder Packet) 17 gm DAILY PRN PO 04/03/17 03:45 05/03/17 03:44 Amlodipine Besylate (Norvasc Tab) 5 mg DAILY PO 04/03/17 09:00 05/03/17 08:59 04/10/17 07:33 5 MG Aspirin (Ecotrin Tab) 81 mg DAILY PO 04/03/17 09:00 05/03/17 08:59 04/10/17 07:33 81 MG Cholecalciferol (Vitamin D Tab) 1,000 inter.unit DAILY PO 04/03/17 09:00 05/03/17 08:59 04/10/17 07:33 1,000 INTER.UNIT Cyanocobalamin (Vitamin B-12 Tab) 1,000 mcg DAILY PO 04/03/17 09:00 05/03/17 08:59 04/10/17 07:33 1,000 MCG Fish Oil ([place]-3 (Purified Fish Oil) Cap) 1 gm DAILY PO 04/03/17 09:00 05/03/17 08:59 04/10/17 07:34 1 GM Hydroxychloroquine Sulfate (Plaquenil Tab) 200 mg HS PO 04/03/17 21:00 05/03/17 20:59 04/09/17 20:47 200 MG Lisinopril (Zestril Tab) 40 mg DAILY PO 04/03/17 09:00 05/03/17 08:59 04/10/17 07:34 40 MG Metoprolol Succinate (Toprol Xl Tab) 100 mg DAILY PO 04/03/17 09:00 05/03/17 08:59 04/10/17 07:34 100 MG Simvastatin (Zocor Tab) 20 mg DAILY PO 04/03/17 09:00 05/03/17 08:59 04/10/17 07:34 20 MG Levothyroxine Sodium (Synthroid Tab) 75 mcg DAILYBB PO 04/03/17 06:00 05/03/17 06:59 04/10/17 06:06 75 MCG Insulin Aspart (novoLOG ASPART) SLIDING SCALE If C... ACHS SC 04/03/17 07:00 05/03/17 06:59 04/10/17 07:49 4 UNITS Glucose (Glucose 40% Gel) 15-30 GRAMS 15 GRAMS... UD PRN PO 04/03/17 04:00 05/03/17 03:59 Glucose (Glucose Chew Tab) 4-8 Tablets 4 Tabl... UD PRN PO 04/03/17 04:00 05/03/17 03:59 Dextrose (Dextrose 50% 50ML Syringe) 25-50ML OF 50% DW IV FOR... UD PRN IV 04/03/17 04:00 05/03/17 03:59 Glucagon (Glucagon Inj) 1 mg UD PRN SQ 04/03/17 04:00 05/03/17 03:59 Insulin Glargine (Lantus Solostar Pen) 22 units HS SC 04/03/17 21:00 05/03/17 20:59 04/09/17 21:21 22 UNITS Levofloxacin (Consult) 1 ea UD PRN N/A 04/03/17 05:00 05/03/17 04:59 Potassium Chloride (Klor-Con Tab) 20 meq BID PO 04/05/17 21:00 05/05/17 20:59 04/10/17 07:33 20 MEQ Levofloxacin (Levaquin Tab) 750 mg Q48H PO 04/07/17 11:00 04/10/17 10:59 04/09/17 12:14 750 MG Bumetanide (Bumex Tab) 1 mg QAM PO 04/09/17 09:00 05/09/17 08:59 04/10/17 07:33 1 MG Objective Vital Signs Date Time Temp Pulse Resp B/P (MAP) Pulse Ox O2 Delivery O2 Flow Rate FiO2 04/10/17 05:39 Room Air 04/10/17 01:48 Room Air 04/10/17 00:12 36.6 62 20 106/54 (71) 95 Room Air 04/09/17 16:28 36.5 60 18 131/73 (92) 92 Room Air 04/09/17 16:00 93 Room Air 04/09/17 11:05 99 Physical Exam Comments: General Appearance: WD/WN, no apparent distress Eyes: normal inspection, EOMI, sclerae normal ENT: normal ENT inspection, hearing grossly normal, pharynx normal Neck: supple, no adenopathy, no JVD, trachea midline Respiratory/Chest: chest non-tender, lungs clear, no respiratory distress, no accessory muscle use, + decreased breath sounds (bases), Cardiovascular: regular rate, rhythm, no edema, no gallop, no JVD, no murmur Abdomen: normal bowel sounds, non tender (non distended), soft, no organomegaly Extremities: normal range of motion, non-tender, normal inspection, no pedal edema, no calf tenderness, pelvis stable Neurologic/Psychiatric: central office technician II-XII nml as tested, no motor/sensory deficits, alert, normal mood/affect, oriented x 3 Skin: normal color, warm/dry, no rash Laboratory Results Last 24 Hours Test 04/09/17 11:40 04/09/17 16:47 04/09/17 20:58 04/10/17 05:34 Bedside Glucose 94 mg/dl 132 mg/dl 175 mg/dl White Blood Count 13.61 K/uL Red Blood Count 3.40 M/uL Hemoglobin 9.2 g/dL Hematocrit 29.8 % Mean Corpuscular Volume 87.6 fL Mean Corpuscular Hemoglobin 27.1 pg Mean Corpuscular Hemoglobin Concent 30.9 g/dl Platelet Count 245 K/uL Mean Platelet Volume 9.6 fL Neutrophils (%) (Auto) 80.9 % Lymphocytes (%) (Auto) 9.9 % Monocytes (%) (Auto) 8.4 % Eosinophils (%) (Auto) 0.0 % Basophils (%) (Auto) 0.4 % Neutrophils # (Auto) 11.01 K/uL Lymphocytes # (Auto) 1.35 K/uL Monocytes # (Auto) 1.14 K/uL Eosinophils # (Auto) 0.00 K/uL Basophils # (Auto) 0.05 K/uL RDW Standard Deviation 53.5 fL RDW Coefficient of Variation 16.5 % Immature Granulocyte % (Auto) 0.4 % Immature Granulocyte # (Auto) 0.06 K/uL Prothrombin Time 38.4 SECONDS Prothromb Time International Ratio 3.4 Sodium Level 135 mmol/L Potassium Level 4.9 mmol/L Chloride Level 100 mmol/L Carbon Dioxide Level 30 mmol/L Anion Gap 5.0 mmol/L Blood Urea Nitrogen 45 mg/dl Creatinine 1.87 mg/dl Est Creatinine Clear Calc Drug Dose 23.7 ml/min Estimated GFR () 28.1 Estimated GFR (Non- 24.3 BUN/Creatinine Ratio 24.0 Random Glucose 118 mg/dl Calcium Level 8.6 mg/dl Test 04/10/17 07:04 Bedside Glucose 123 mg/dl Assessment and Plan Acute respiratory failure in an 86 year old female with H/O CLL, likely secondary to Acute on chronic diastolic dysfunction and pneumonia Acute Respiratory Failure due to pneumonia as well as pulmonary edema treated for several days with broad spectrum, tapered to Levaquin 04/06, then had fever, increased leukocytosis add back Vanco and Cefepime on 04/07 no fever (since 04/07), WBC 15k today has been going down in hindsight, patient has CLL so certainly could contribute to leukocytosis recommend completing Levaquin course which would end 04/10 (tomorrow) minimal cough will order nocturnal oximetry tonight PFT and sleep study as outpatient Acute on Chronic diastolic CHF exacerbation - Cardiology consulted- appreciate recs - Pt presented with Shortness of breath, Pulmonary Edema with pleural effusions - patient negative 6.1 liters this admission, weight down 5kg - TODAY CHANGED FROM LASIX TO Bumex 1 mg PO AM -but need to watch Cr as it is slowly increasing, 1.8 today Hematuria - Urine Cx checked and is negative for infection Biventricular 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 - Improved - continue beta lori - holding Coumadin for INR of 3.6 today, repeat INR tomorrow to decide about timing of resuming Coumadin Moderate tricuspid regurgitation Mild to moderate pulmonary hypertension- Cardiology calculated pulmonary artery systolic pressure on echocardiogram this admission = 45-50 mmHg Elevated Troponins - Likely due to demand ischemia with pt being in atrial flutter at time of admission. 4th set was drawn and now numbers are trending downward. - Echo as above - pacemaker placement may be influencing what appears to be an inferior.anteriolateral infarct - appreciate cardiology recs. Hypertension - echocardiogram as above - Cont amlodipine 5 mg, aspirin 81 mg daily, lisinopril 40 mg , and metoprolol succinate 100 mg daily - Diuresis on board with good output. - Consult cardiology - appreciate recommendations Diabetes mellitus - continue Lantus insulin at 22 units subcutaneous at bedtime - ISS with accuchecks ACHS Rheumatoid arthritis - continue hydroxychloroquine Hyperlipidemia - continue simvastatin 20 mg daily. Hypothyroidism - Continue levothyroxine 75 mcg daily DVT ppx: teds, scds CODE STATUS: FULL CODE - pt would want intubation/ resuscitation efforts at this time. Discussion was held with daughters present at bedside. discussed discharge plan with patient and daughter at the bedside, in agreement that rehab would benefit her. Referral sent. Perhaps discharge tomorrow. continue diuresis per cardiology, watch renal function, volume contraction, complete 2 more days of Levaquin Continued [facility] stay due to: home environment unsafe for pt Discharge planning: rehab hospital
--- NOTE | 2017-04-10 11:43 | Progress Note ---
Subjective Date of Service: Apr 10, 2017. Subjective Pt evaluation today including: conversation w/ patient, physical exam 86 yo female with no complaints today. Patient reports feeling well. She had a bowel movement, no longer has abdominal pain, and tolerated breakfast. Problem List Medical Problems: (1) Bradycardia Status: Acute (2) Elevated troponin Status: Acute (3) Fall Status: Acute (4) Fracture dislocation of left ankle Status: Acute (5) Nasal fracture Status: Acute (6) Nasal laceration Status: Acute (7) Second degree AV block Status: Acute (8) Sinusitis Status: Acute (9) Syncope Status: Acute Review of Systems Constitutional: No fever, No chills Respiratory: No cough, No sputum, No wheezing, No shortness of breath Cardiac: No chest pain, No orthopnea Abdomen: No pain, No nausea Neurologic: No memory loss, No paralysis Endo: No fatigue Skin: No rash, No itch All Other Systems: Reviewed and Negative Medications Current Inpatient Medications Medications (Trade) Dose Ordered Sig/Carmen Route Start Time Stop Time Status Last Admin Dose Admin Acetaminophen (Tylenol Tab) 650 mg Q4H PRN PO 04/03/17 03:45 05/03/17 03:44 Al Hydrox/Mg Hydrox/Simethicone (Maalox Max Susp) 15 ml Q4H PRN PO 04/03/17 03:45 05/03/17 03:44 Magnesium Hydroxide (Milk Of Magnesia Susp) 30 ml Q12H PRN PO 04/03/17 03:45 05/03/17 03:44 04/09/17 13:49 30 ML Ondansetron HCl (Zofran Inj) 4 mg Q6H PRN IV 04/03/17 03:45 05/03/17 03:44 04/07/17 16:49 4 MG Nitroglycerin (Nitrostat Tab) 0.4 mg UD PRN SL 04/03/17 03:45 05/03/17 03:44 Polyethylene (Miralax Powder Packet) 17 gm DAILY PRN PO 04/03/17 03:45 05/03/17 03:44 Amlodipine Besylate (Norvasc Tab) 5 mg DAILY PO 04/03/17 09:00 05/03/17 08:59 04/10/17 07:33 5 MG Aspirin (Ecotrin Tab) 81 mg DAILY PO 04/03/17 09:00 05/03/17 08:59 04/10/17 07:33 81 MG Cholecalciferol (Vitamin D Tab) 1,000 inter.unit DAILY PO 04/03/17 09:00 05/03/17 08:59 04/10/17 07:33 1,000 INTER.UNIT Cyanocobalamin (Vitamin B-12 Tab) 1,000 mcg DAILY PO 04/03/17 09:00 05/03/17 08:59 04/10/17 07:33 1,000 MCG Fish Oil ([place]-3 (Purified Fish Oil) Cap) 1 gm DAILY PO 04/03/17 09:00 05/03/17 08:59 04/10/17 07:34 1 GM Hydroxychloroquine Sulfate (Plaquenil Tab) 200 mg HS PO 04/03/17 21:00 05/03/17 20:59 04/09/17 20:47 200 MG Lisinopril (Zestril Tab) 40 mg DAILY PO 04/03/17 09:00 05/03/17 08:59 04/10/17 07:34 40 MG Metoprolol Succinate (Toprol Xl Tab) 100 mg DAILY PO 04/03/17 09:00 05/03/17 08:59 04/10/17 07:34 100 MG Simvastatin (Zocor Tab) 20 mg DAILY PO 04/03/17 09:00 05/03/17 08:59 04/10/17 07:34 20 MG Levothyroxine Sodium (Synthroid Tab) 75 mcg DAILYBB PO 04/03/17 06:00 05/03/17 06:59 04/10/17 06:06 75 MCG Insulin Aspart (novoLOG ASPART) SLIDING SCALE If C... ACHS SC 04/03/17 07:00 05/03/17 06:59 04/10/17 07:49 4 UNITS Glucose (Glucose 40% Gel) 15-30 GRAMS 15 GRAMS... UD PRN PO 04/03/17 04:00 05/03/17 03:59 Glucose (Glucose Chew Tab) 4-8 Tablets 4 Tabl... UD PRN PO 04/03/17 04:00 05/03/17 03:59 Dextrose (Dextrose 50% 50ML Syringe) 25-50ML OF 50% DW IV FOR... UD PRN IV 04/03/17 04:00 05/03/17 03:59 Glucagon (Glucagon Inj) 1 mg UD PRN SQ 04/03/17 04:00 05/03/17 03:59 Insulin Glargine (Lantus Solostar Pen) 22 units HS SC 04/03/17 21:00 05/03/17 20:59 04/09/17 21:21 22 UNITS Levofloxacin (Consult) 1 ea UD PRN N/A 04/03/17 05:00 05/03/17 04:59 Potassium Chloride (Klor-Con Tab) 20 meq BID PO 04/05/17 21:00 05/05/17 20:59 04/10/17 07:33 20 MEQ Bumetanide (Bumex Tab) 1 mg QAM PO 04/09/17 09:00 05/09/17 08:59 04/10/17 07:33 1 MG Objective Vital Signs Date Time Temp Pulse Resp B/P (MAP) Pulse Ox O2 Delivery O2 Flow Rate FiO2 04/10/17 08:11 36.7 62 16 116/73 (87) 96 Room Air 04/10/17 08:00 Nasal Cannula 2.0 04/10/17 05:39 Room Air 04/10/17 01:48 Room Air 04/10/17 00:12 36.6 62 20 106/54 (71) 95 Room Air 04/09/17 16:28 36.5 60 18 131/73 (92) 92 Room Air 04/09/17 16:00 93 Room Air Physical Exam Comments: General Appearance: WD/WN, no apparent distress Eyes: normal inspection, EOMI, sclerae normal ENT: normal ENT inspection, hearing grossly normal, pharynx normal Neck: supple, no adenopathy, no JVD, trachea midline Respiratory/Chest: chest non-tender, lungs clear, no respiratory distress, no accessory muscle use, + decreased breath sounds (bases), Cardiovascular: regular rate, rhythm, no edema, no gallop, no JVD, no murmur Abdomen: normal bowel sounds, non tender (non distended), soft, no organomegaly Extremities: normal range of motion, non-tender, normal inspection, no pedal edema, no calf tenderness, pelvis stable Neurologic/Psychiatric: maori liaison adviser II-XII nml as tested, no motor/sensory deficits, alert, normal mood/affect, oriented x 3 Skin: normal color, warm/dry, no rash Laboratory Results Last 24 Hours Test 04/09/17 11:40 04/09/17 16:47 04/09/17 20:58 04/10/17 05:34 Bedside Glucose 94 mg/dl 132 mg/dl 175 mg/dl White Blood Count 13.61 K/uL Red Blood Count 3.40 M/uL Hemoglobin 9.2 g/dL Hematocrit 29.8 % Mean Corpuscular Volume 87.6 fL Mean Corpuscular Hemoglobin 27.1 pg Mean Corpuscular Hemoglobin Concent 30.9 g/dl Platelet Count 245 K/uL Mean Platelet Volume 9.6 fL Neutrophils (%) (Auto) 80.9 % Lymphocytes (%) (Auto) 9.9 % Monocytes (%) (Auto) 8.4 % Eosinophils (%) (Auto) 0.0 % Basophils (%) (Auto) 0.4 % Neutrophils # (Auto) 11.01 K/uL Lymphocytes # (Auto) 1.35 K/uL Monocytes # (Auto) 1.14 K/uL Eosinophils # (Auto) 0.00 K/uL Basophils # (Auto) 0.05 K/uL RDW Standard Deviation 53.5 fL RDW Coefficient of Variation 16.5 % Immature Granulocyte % (Auto) 0.4 % Immature Granulocyte # (Auto) 0.06 K/uL Prothrombin Time 38.4 SECONDS Prothromb Time International Ratio 3.4 Sodium Level 135 mmol/L Potassium Level 4.9 mmol/L Chloride Level 100 mmol/L Carbon Dioxide Level 30 mmol/L Anion Gap 5.0 mmol/L Blood Urea Nitrogen 45 mg/dl Creatinine 1.87 mg/dl Est Creatinine Clear Calc Drug Dose 23.7 ml/min Estimated GFR () 28.1 Estimated GFR (Non- 24.3 BUN/Creatinine Ratio 24.0 Random Glucose 118 mg/dl Calcium Level 8.6 mg/dl Test 04/10/17 07:04 Bedside Glucose 123 mg/dl Assessment and Plan Acute respiratory failure in an 86 year old female with H/O CLL, likely secondary to Acute on chronic diastolic dysfunction and pneumonia Acute Respiratory Failure due to pneumonia as well as pulmonary edema treated for several days with broad spectrum, tapered to Levaquin 04/06, then had fever, increased leukocytosis add back Vanco and Cefepime on 04/07 no fever (since 04/07), WBC 13.6 today has been going down in hindsight, patient has CLL so certainly could contribute to leukocytosis will stop levaquin today minimal cough Nocturnal oxymetry results showed about 10 mins <88% Needs home oxygen PFT and sleep study as outpatient Acute on Chronic diastolic CHF exacerbation - Cardiology consulted- appreciate recs - Pt presented with Shortness of breath, Pulmonary Edema with pleural effusions - patient negative 6.1 liters this admission, weight down 5kg - Yesterday changed to bumex 1mg po daily. 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 - Improved - continue beta lori - holding Coumadin for INR of 3.6 today, repeat INR tomorrow to decide about timing of resuming Coumadin Moderate tricuspid regurgitation Mild to moderate pulmonary hypertension- Cardiology calculated pulmonary artery systolic pressure on echocardiogram this admission = 45-50 mmHg Elevated Troponins - Likely due to demand ischemia with pt being in atrial flutter at time of admission. 4th set was drawn and now numbers are trending downward. - Echo as above - pacemaker placement may be influencing what appears to be an inferior.anteriolateral infarct - appreciate cardiology recs. Hypertension - echocardiogram as above - Cont amlodipine 5 mg, aspirin 81 mg daily, lisinopril 40 mg , and metoprolol succinate 100 mg daily - Diuresis on board with good output. - Consult cardiology - appreciate recommendations Diabetes mellitus - continue Lantus insulin at 22 units subcutaneous at bedtime - ISS with accuchecks ACHS Rheumatoid arthritis - continue hydroxychloroquine Hyperlipidemia - continue simvastatin 20 mg daily. Hypothyroidism - Continue levothyroxine 75 mcg daily DVT ppx: teds, scds CODE STATUS: FULL CODE - pt would want intubation/ resuscitation efforts at this time. Discussion was held with daughters present at bedside. discussed discharge plan with patient and daughter at the bedside, in agreement that rehab would benefit her. Referral sent. Perhaps discharge today. needs home oxygen Have nurse navigator: schedule with Dr. Montalvo in 2 weeks continue diuresis per cardiology, watch renal function, volume contraction, Continued [facility] stay due to: home environment unsafe for pt Discharge planning: rehab hospital
--- NOTE | 2017-04-10 14:06 | Cardiology Follow-Up ---
Subjective General Date of Service: Apr 10, 2017. Chief Complaint: follow-up shortness of breath Pt evaluation today including: conversation w/ patient, conversation w/ family , physical exam History of Present Illness The patient is a 86 year old female seen in follow up. Pt feeling improved. Denies SOB. Had BM yesterday. She is off of telemetry. Allergies Coded Allergies: No Known Allergies (Unverified , 04/03/17) Social History Smoking Status: Former Smoker Hx Tobacco Use In Past Year?: No Hx Alcohol Use - Type And Amou: No Hx Substance Use - Type And Am: No Problem List Medical Problems: (1) Bradycardia Status: Acute (2) Elevated troponin Status: Acute (3) Fall Status: Acute (4) Fracture dislocation of left ankle Status: Acute (5) Nasal fracture Status: Acute (6) Nasal laceration Status: Acute (7) Second degree AV block Status: Acute (8) Sinusitis Status: Acute (9) Syncope Status: Acute Physical Exam Vital Signs Last Vital Signs Documentation Date Time Temp Pulse Resp B/P (MAP) Pulse Ox O2 Delivery O2 Flow Rate FiO2 04/10/17 08:11 36.7 62 16 116/73 (87) 96 Room Air 04/10/17 08:00 2.0 04/06/17 04:00 40 Physical Exam Constitutional: Level of Distress: NAD Head: normocephalic Neck: supple Lungs: Auscultation: breath sounds normal, no wheezing, pertinent finding Cardiovascular: Heart Auscultation: RRR, no murmurs Abdomen: Inspection & Palpation: soft, non-distended Extremities: no cyanosis, no edema Neurologic: Gait & Station: pertinent finding (no focal deficits) Assessment and Plan Assessment and Plan Impression: 86-year-old female 1. Acute decompensation, diastolic heart failure-improving 2. Paroxysmal atrial fibrillation, atrial flutter, currently in what appears to be rate controlled atrial flutter 3. Occasional PVCs noted on telemetry including several ventricular couplets and ventricular triplets 4. Moderate tricuspid regurgitation, mild to moderate pulmonary hypertension, calculated pulmonary artery systolic pressure on echocardiogram this admission was in the range of 45-50 mmHg Discussion/recommendations: Hold bumex tomorrow pending repeat BMP in am. Will need to tolerate some degree of azotemia. Will resume coumadin when INR < 3. Laboratory Results Last 24 Hours Test 04/09/17 16:47 04/09/17 20:58 04/10/17 05:34 04/10/17 07:04 Bedside Glucose 132 mg/dl 175 mg/dl 123 mg/dl White Blood Count 13.61 K/uL Red Blood Count 3.40 M/uL Hemoglobin 9.2 g/dL Hematocrit 29.8 % Mean Corpuscular Volume 87.6 fL Mean Corpuscular Hemoglobin 27.1 pg Mean Corpuscular Hemoglobin Concent 30.9 g/dl Platelet Count 245 K/uL Mean Platelet Volume 9.6 fL Neutrophils (%) (Auto) 80.9 % Lymphocytes (%) (Auto) 9.9 % Monocytes (%) (Auto) 8.4 % Eosinophils (%) (Auto) 0.0 % Basophils (%) (Auto) 0.4 % Neutrophils # (Auto) 11.01 K/uL Lymphocytes # (Auto) 1.35 K/uL Monocytes # (Auto) 1.14 K/uL Eosinophils # (Auto) 0.00 K/uL Basophils # (Auto) 0.05 K/uL RDW Standard Deviation 53.5 fL RDW Coefficient of Variation 16.5 % Immature Granulocyte % (Auto) 0.4 % Immature Granulocyte # (Auto) 0.06 K/uL Prothrombin Time 38.4 SECONDS Prothromb Time International Ratio 3.4 Sodium Level 135 mmol/L Potassium Level 4.9 mmol/L Chloride Level 100 mmol/L Carbon Dioxide Level 30 mmol/L Anion Gap 5.0 mmol/L Blood Urea Nitrogen 45 mg/dl Creatinine 1.87 mg/dl Est Creatinine Clear Calc Drug Dose 23.7 ml/min Estimated GFR () 28.1 Estimated GFR (Non- 24.3 BUN/Creatinine Ratio 24.0 Random Glucose 118 mg/dl Calcium Level 8.6 mg/dl Test 04/10/17 11:22 Bedside Glucose 95 mg/dl
[2017-04-10 15:26] VITALS: BP 127/76; PULSE 63; TEMP 36.4; O2SAT 96
[2017-04-10 16:00] VITALS: O2SAT 92
[2017-04-10] MEDS: ONDANSETRON INJ 2 MG/ML 2 ML VIAL IV PRN (16:58)
[2017-04-10] MEDS: HYDROXYCHLOROQUINE SULFATE 200 MG TAB PO SCH (21:27)
[2017-04-10] MEDS: INSULIN GLARGINE SOLOSTAR 100 UNITS/ML 3 ML PEN SC SCH (21:32)
[2017-04-11 00:25] VITALS: BP 101/61; PULSE 65; TEMP 36.6; O2SAT 95
[2017-04-11 05:29] LABS: HEMATOCRIT 31.2 % (37-47); MEAN CELL VOLUME 88.4 fL (80-100); MEAN CORPUSCULAR HEMOGLOBIN 26.9 pg (25-34); MEAN CORPUSCULAR HGB CONC 30.4 g/dl (32-36); MEAN PLATELET VOLUME 9.3 fL (7.4-10.4); PLATELET COUNT 268 K/uL (130-400); RED BLOOD COUNT 3.53 M/uL (4.2-5.4); WHITE BLOOD COUNT 12.91 K/uL (4.8-10.8)
[2017-04-11 05:40] LABS: INR 3.3 (0.9-1.1); PROTHROMBIN TIME (PATIENT) 37.3 SECONDS (9.0-12.0)
[2017-04-11 06:05] LABS: BUN/CREATININE RATIO 22.1 (10-20); CALCIUM 8.9 mg/dl (8.5-10.1); CREATININE 1.87 mg/dl (0.60-1.20); POTASSIUM 4.7 mmol/L (3.5-5.1)
[2017-04-11] MEDS: LEVOTHYROXINE 75 MCG TAB PO SCH (06:22)
[2017-04-11 07:50] VITALS: BP 128/65; PULSE 70; TEMP 36.6; O2SAT 95
[2017-04-11] MEDS: LISINOPRIL 40 MG TAB PO SCH (08:13)
[2017-04-11] MEDS: OMEGA-3 (PURIFIED FISH OIL) 1 GM CAP PO SCH (08:13)
[2017-04-11] MEDS: SIMVASTATIN 20 MG TAB PO SCH (08:13)
[2017-04-11] MEDS: CHOLECALCIFEROL 1000 INTER.UNIT TAB PO SCH (08:13)
[2017-04-11] MEDS: METOPROLOL SUCC 50MG EXT REL TAB PO SCH (08:13)
[2017-04-11] MEDS: CYANOCOBALAMIN 500 MCG TAB (VIT B-12) PO SCH (08:13)
[2017-04-11] MEDS: POTASSIUM CHLORIDE 20 MEQ TABCR PO SCH (08:14)
[2017-04-11] MEDS: ASPIRIN 81 MG ECTAB PO SCH (08:14)
[2017-04-11] MEDS: AMLODIPINE BESYLATE 5 MG TAB PO SCH (08:14)
[2017-04-11] MEDS: INSULIN ASPART 100 UNITS/ML 3 ML PEN SC SCH (08:15)
--- NOTE | 2017-04-11 08:47 | Hospitalist Progress Note ---
Hospitalist Progress Note Date of Service Apr 11, 2017. Subjective Pt evaluation today including: conversation w/ patient, conversation w/ family , physical exam, chart review, lab review, review of studies Pain: None PO Intake: Good Voiding: no voiding problems Objective Vital Signs Date Time Temp Pulse Resp B/P (MAP) Pulse Ox O2 Delivery O2 Flow Rate FiO2 04/11/17 07:50 36.6 70 18 128/65 (86) 95 Room Air 04/11/17 00:25 36.6 65 18 101/61 (74) 95 Room Air 04/11/17 00:00 Room Air 04/10/17 16:00 92 Room Air 04/10/17 15:26 36.4 63 18 127/76 (93) 96 Room Air Laboratory Results Last 24 Hours Test 04/10/17 11:22 04/10/17 16:26 04/10/17 20:52 04/11/17 05:14 Bedside Glucose 95 mg/dl 107 mg/dl 122 mg/dl White Blood Count 12.91 K/uL Red Blood Count 3.53 M/uL Hemoglobin 9.5 g/dL Hematocrit 31.2 % Mean Corpuscular Volume 88.4 fL Mean Corpuscular Hemoglobin 26.9 pg Mean Corpuscular Hemoglobin Concent 30.4 g/dl RDW Standard Deviation 53.8 fL RDW Coefficient of Variation 16.8 % Platelet Count 268 K/uL Mean Platelet Volume 9.3 fL Prothrombin Time 37.3 SECONDS Prothromb Time International Ratio 3.3 Sodium Level 137 mmol/L Potassium Level 4.7 mmol/L Chloride Level 102 mmol/L Carbon Dioxide Level 31 mmol/L Anion Gap 4.0 mmol/L Blood Urea Nitrogen 41 mg/dl Creatinine 1.87 mg/dl Est Creatinine Clear Calc Drug Dose 23.7 ml/min Estimated GFR () 28.1 Estimated GFR (Non- 24.3 BUN/Creatinine Ratio 22.1 Random Glucose 88 mg/dl Calcium Level 8.9 mg/dl Test 04/11/17 07:37 Bedside Glucose 83 mg/dl Assessment and Plan Acute respiratory failure in an 86 year old female with H/O CLL, likely secondary to Acute on chronic diastolic dysfunction and pneumonia Acute Respiratory Failure due to pneumonia as well as pulmonary edema - treated for several days with broad spectrum, tapered to Levaquin 04/06, then had fever, increased leukocytosis - add back Vanco and Cefepime on 04/07 - no fever (since 04/07), WBC 13.6 today has been going down - in hindsight, patient has CLL so certainly could contribute to leukocytosis - will stop levaquin again on 04/10 - minimal cough - Nocturnal oxymetry results showed about 10 mins <88% so needs home oxygen - Will need formal PFT and sleep study as outpatient Acute on Chronic diastolic CHF exacerbation - Cardiology consulted- appreciate recs - Pt presented with Shortness of breath, Pulmonary Edema with pleural effusions - patient negative 4.6 liters this admission, weight down 5kg - Using bumex for diuresis, held 04/11 for elevated Cr. and low K+, follow daily PRP. -May consider restarting Bumex at .5 mg PO daily or every other day. - Cardiology recs: Will need to tolerate some degree of azotemia. Hematuria - Urine Cx checked and is negative for infection. 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 - Improved - Coumadin on hold today for elevated INR of 3.3, has been on hold since 04/05 Moderate tricuspid regurgitation Mild to moderate pulmonary hypertension- Cardiology calculated pulmonary artery systolic pressure on echocardiogram this admission = 45-50 mmHg Elevated Troponins - Likely due to demand ischemia with pt being in atrial flutter at time of admission. 4th set was drawn and now numbers are trending downward. - Echo as above - pacemaker placement may be influencing what appears to be an inferior.anterolateral infarct - appreciate cardiology recs. Atrial fibrillation - HOLD coumadin with hematuria- Normal regimen 2mg daily except 4mg on Tuesdays - follow INR - Continue beta lori Hypertension - echocardiogram as above - Cont amlodipine 5 mg, aspirin 81 mg daily, lisinopril 40 mg , and metoprolol succinate 100 mg daily - Diuresis on board with good output. - Consult cardiology - appreciate recommendations Diabetes mellitus - continue Lantus insulin at 22 units subcutaneous at bedtime - ISS with accuchecks ACHS Rheumatoid arthritis - continue hydroxychloroquine Hyperlipidemia - continue simvastatin 20 mg daily. Hypothyroidism - Continue levothyroxine 75 mcg daily DVT ppx: teds, scds CODE STATUS: FULL CODE - pt would want intubation/ resuscitation efforts at this time. Discussion was held with daughters present at bedside. Disposition: From home, lives with daughter
--- NOTE | 2017-04-11 11:01 | DIAGNOSTIC IMAGING REPORT ---
KUB HISTORY: Acute epigastric abdominal pain bloating, epigastric pain COMPARISON: KUB 04/08/2017. FINDINGS: The bowel gas pattern is non-obstructive. There is no organomegaly. Moderate volume of formed colonic stool of the transverse colon. No renal calculi. No ureteral calculi. No pneumoperitoneum or pneumatosis. No fracture. Multilevel advanced degenerative changes of the spine. Degenerative changes also seen within the pelvis and hips. Pacer wire is noted overlying the expected region of the right ventricle. IMPRESSION: 1. Nonobstructive bowel gas pattern. 2. Moderate stool volume of the transverse colon. 3. No urolith identified. Electronically signed by: Hung Davenport M.D. 04/11/2017 10:59 AM Dictated Date/Time: 04/11/2017 10:58 AM
[2017-04-11] MEDS ORDERED: MRLP17X PO (11:06)
[2017-04-11] MEDS ORDERED: ZFRI4 IV (11:06)
[2017-04-11] MEDS ORDERED: BUME1TAB PO (11:10)
--- NOTE | 2017-04-11 11:11 | Discharge Instructions ---
Discharge Instructions Date of Service Apr 11, 2017. Admission Reason for Admission: Pulmonary Edema Discharge Discharge Diagnosis / Problem: Acute on chronic CHF exacerbation Discharge Goals Goal(s): Decrease discomfort, Improve function, Increase independence, Improve disease control Activity Recommendations Activity Level: Ambulates in room Therapies: Physical Therapy, Occupational Therapy Lifting Limitations: no more than 25 pounds, gradually increase as tolerated Exercise/Sports Limitations: as tolerated, gradually increase as tolerated Shower/Bathe: no limitations (with assistance) . Additional Information Patient informed of condition: Yes Advance Directives: No DNR: No Level of Care: Acute Rehab Communicable Disease: No Prognosis: Stable Strickland Catheter: No Instructions / Follow-Up Instructions / Follow-Up You were admitted to [facility] with Acute pulmonary edema secondary to acute Congestive Heart Failure. During your stay here you were treated with intravenous diuretics, rate controlling agents for heart rate, bipap for breathing short term, and other supportive care. Your symptoms improved and you were stable for discharge to [facility]. Imaging studies which were completed include Echocardiogram of the heart, and showed diastolic dysfunction consistent with CHF. You finished a course of antibiotics for possible aspiration pneumonia during your stay at the hospital. Follow up with pulmonology for formal PFT testing as an outpatient. You will also need tested for home oxygen needs prior to discharge from [facility]. Medications: Continue taking Bumex 0.5 mg daily for fluid - weigh yourself daily Do not take coumadin tonight. Have INR checked tomorrow morning to determine if you should resume this medication. INR at time of discharge was 3.3 Continue taking bowel regimen as directed. Continue taking your other medications as instructed. Specific CHF Instructions: Call your Primary Care doctor if any of the following symptoms or problems start or get worse: * Shortness of breath or difficulty breathing * Wake up at night short of breath * Chest pain * Cough * Swelling of your hands, feet, or legs * More fatigued or tired with your normal activity * Palpitations - sudden fast heart beats WEIGHT * Weigh yourself every morning after using the bathroom. * Use the same scale. * Wear the same amount of clothing. * Write your weight down on a chart. * Call your Primary Care doctor if you gain more than 2-3 pounds in 1-2 days or more than 5 lbs in 1 week. MEDICATIONS * Use this discharge instruction sheet for medication instructions. * Take your medications at the time your doctor ordered. * Do not skip a dose of your medicines. * If you miss a dose of medicine, take it as soon as possible, but DO NOT DOUBLE A DOSE. * Read your medicine information when you get home. * Know all of the side effects of your medicine. If in doubt, ask your pharmacist * Call your Primary Care doctor's office if you have any side effects. * Be sure all of your doctors know what medicine and herbs you take (including cold, flu, and herbal medicine). Take the following with you to your follow-up doctor appointments: * Weight Chart * Medication List * List of questions Do not drink excessive alcohol, beer or wine. Appointments: Follow up with your Primary Care Provider within 1 week. Follow up with Cardiology within 1-2 weeks. Follow up with pulmonology within 1-2 weeks for formal PFT. Current Hospital Diet Patient's current hospital diet: AHA Diet (Heart Healthy), Low Sodium Diet (2gm Na) Discharge Diet Recommended Diet: AHA Diet (Heart Healthy), Low Sodium Diet (2gm Na) Pending Studies Studies pending at discharge: no Laboratory Results Hemoglobin A1c Test 04/04/17 05:29 Range/Units Estimated Average Glucose 117 mg/dl Hemoglobin A1c 5.7 H 4.5-5.6 % Lipid Panel Test 03/02/17 09:19 Range/Units Triglycerides Level 145 0-150 mg/dl Cholesterol Level 138 0-200 mg/dl HDL Cholesterol 56 mg/dl Cholesterol/HDL Ratio 2.5 LDL Cholesterol, Calculated 53 mg/dl Medical Emergencies . Who to Call and When: Medical Emergencies: If at any time you feel your situation is an emergency, please call 911 immediately. . Non-Emergent Contact Non-Emergency issues call your: Primary Care Provider Call Non-Emergent contact if: you have a fever, temperature is above 100.5, your pain is not controlled, your pain is worsening, your pain is unusual for you, your pain is concerning you, you have any medication questions other concerns with your health. Call 911 or go directly to the Emergency Department if you experience any of the following: Chest pain, chest tightness, shortness of breath, abdominal pain , lightheadedness, dizziness, gastrointestinal bleeding, or have any other concerns regarding your health. . Past History Medical & Surgical History: (1) A-fib (2) Diabetes mellitus type II, controlled (3) HTN (hypertension) (4) CLL (chronic lymphocytic leukemia) (5) Rheumatoid arthritis (6) Elevated troponin I level (7) Pulmonary edema (8) Elevated troponin . "Provider Documentation" section prepared by Juana Schaffer. . Core Measure Problem Core Measures: None
[2017-04-11 11:23] VITALS: BP 128/65; PULSE 70; TEMP 36.6; O2SAT 95
--- NOTE | 2017-04-11 13:22 | Discharge Summary ---
Discharge Summary Date of Service Apr 11, 2017. 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 Paroxysmal atrial fibrillation Atrial flutter Moderate tricuspid regurgitation Mild to moderate pulmonary hypertension Elevated Troponins- Likely due to demand ischemia with pt being in atrial flutter at time of admission Atrial fibrillation Hypertension Diabetes mellitus Rheumatoid arthritis Hyperlipidemia Hypothyroidism Immunizations: Have You Had Influenza Vaccine: Yes Influenza Vaccine Date: Mar 20, 2014 History of Tetanus Vaccine?: Unknown History of Pneumococcal: Yes History of Hepatitis B Vaccine: No Procedures: CHEST ONE VIEW PORTABLE 04/03 IMPRESSION: Interval development of interstitial pulmonary edema. Clinical and radiographic follow-up is recommended. (CHEST) THORAX WITHOUT 04/03 IMPRESSION: 1. Pulmonary edema pattern with borderline cardiomegaly, small moderate bilateral pleural effusions, mild septal edema, and bilateral groundglass pulmonary opacities 2. Mild mediastinal lymphadenopathy CHEST ONE VIEW PORTABLE 04/04 IMPRESSION: 1. Interval improvement in mixed interstitial and alveolar opacities which favors improving pulmonary edema. An infectious process could appear similar but is considered less likely. 2. Small bilateral pleural effusions. KUB 04/06 IMPRESSION: Nonobstructed abdominal bowel gas pattern noting moderate colonic fecal retention. KUB 04/08 IMPRESSION: Mild nonobstructive ileus. No significant fecal impaction or colonic fecal stasis KUB 04/11 IMPRESSION: 1. Nonobstructive bowel gas pattern. 2. Moderate stool volume of the transverse colon. 3. No urolith identified. Consultations: Pulmonology Cardiology Medication Reconciliation New Medications: Bumetanide (Bumex) 1 Mg Tab 0.5 TAB PO DAILY for 30 Days, #15 TAB 1 Refill Ondansetron (Ondansetron Hcl) 2 Mg/Ml Inj 4 MG IV Q6H PRN for Nausea for 30 Days, #120 TAB Polyethylene (Miralax) 17 Gm Pow 17 GM PO DAILY PRN for Constipation for 30 Days, #30 DOSE Continued Medications: Amlodipine (Norvasc) 5 Mg Tab 5 MG PO DAILY Aspirin (Aspirin Ec) 81 Mg Tab 81 MG PO DAILY Cholecalciferol (Vitamin D3) 1,000 Unit Tab 1000 INTER.UNIT PO DAILY, 3 Refills Cyanocobalamin (Vitamin B-12) 1,000 Mcg Tab 1000 MCG PO DAILY Fish Oil ([place]-3) 1 Ea Cap 1000 MG PO DAILY Hydroxychloroquine Sulfate (Plaquenil) 200 Mg Tab 200 MG PO HS Insulin Aspart (Novolog) 100 Units/Ml Inj 7 UNITS SC QDB Insulin Aspart (Novolog) 100 Units/Ml Inj 7 UNITS SC QDL Insulin Aspart (Novolog) 100 Units/Ml Inj 9 UNITS SC QDD Insulin Glargine (Lantus Solostar) 100 Unit/Ml Inj 22 UNITS SC HS Levothyroxine Sodium (Levothyroxine Sodium) 75 Mcg Tab 75 MCG PO 6XWK, 3 Refills take 1 tablet daily every day but tuesday Levothyroxine Sodium (Levothyroxine Sodium) 75 Mcg Tab 150 MCG PO WK, 3 Refills take 2 tablets daily on tuesdays Lisinopril (Prinivil) 40 Mg Tab 40 MG PO DAILY, TAB Metoprolol Succ (Toprol Xl) (Toprol-Xl ) 100 Mg Tabcr 100 MG PO DAILY, TAB Simvastatin (Zocor) 20 Mg Tab 20 MG PO DAILY Warfarin Sod (Jantoven) 2 Mg Tab 2 MG PO 6XWK take 2 mg daily every day except tuesday Warfarin Sod (Jantoven) 4 Mg Tab 4 MG PO WK take 4 mg daily on tuesdays Discharge Exam The patient was seen and examined this morning. Pt reports doing well today. She reports her breathing is normal, and that she has been ambulating about the room and carroll without difficulty. She reports no swelling in her feet or legs, and denies chest pain or pressure. She reports a waxing and waning abdominal bloating/pressure sensation, but reports it it relieved with passing gas or belching. She denies any current abdominal pain, nausea, vomiting, and had a small bowel movement this morning. She is tolerating a diet without difficulty. Pts daughter, Renita, was spoken to on the phone. Repeat KUB this morning was negative for ileus and results were shared with the patient and daughter. ROS: 10 point ROS reviewed and otherwise negative Physical Exam: General Appearance: WD/WN, no apparent distress Eyes: PERRL, EOMI ENT: hearing grossly normal, pharynx normal Neck: supple, no JVD Respiratory/Chest: chest non-tender, lungs clear, no respiratory distress, no accessory muscle use, + pertinent finding (on room air) Cardiovascular: regular rate, rhythm, normal peripheral pulses Abdomen / GI: normal bowel sounds, non tender, soft, no organomegaly Extremities: no calf tenderness, no pedal edema Neurologic/Psychiatric: alert, normal mood/affect, oriented x 3 Skin: normal color, warm/dry Hospital Course History of Present Illness Source: patient, family, hospital records Suad Park is an 86 yo F with hx of atrial fibrillation, on coumadin, pacemaker placement, type 2 diabetes, rheumatoid arthritis, and HTN who presents with shortness of breath. She reports it started occurring yesterday in the daytime, but got worse overnight. She felt she was gasping for air at times and that made her feel unwell. Nothing made her breathing better. She felt it was worse when laying flat. She also noticed bilateral leg swelling, though her left leg is always somewhat swollen and discolored after ankle surgery which she had years ago. She denies chest pain or abdominal pain at any point. She lives with her daughter and granddaughter, who called the ambulance to bring her in. After having a cordoba placed, she diuresed about 1200cc of fluid within an hour. Currently, she feels her breathing has improved. She denies fever, cough, or recent URI. Physical Exam General Appearance: WD/WN, no apparent distress Head: normocephalic, atraumatic Eyes: normal inspection, PERRL ENT: hearing grossly normal Neck: supple, no JVD Respiratory/Chest: + decreased breath sounds, + crackles (bibasilar) Cardiovascular: regular rate, rhythm, no edema, no murmur, normal peripheral pulses Abdomen/GI: normal bowel sounds, non tender, soft Back: no CVA tenderness, no muscle spasm Extremities/Musculoskelatal: + pedal edema (bilateral, with L sided hyperpigmentation and slight ankle deformity) Neurologic/Psych: rn hemodialysis II-XII nml as tested, no motor/sensory deficits, alert, normal mood/affect, oriented x 3 Skin: no rash Hospital Course: Acute respiratory failure in an 86 year old female with H/O CLL, likely secondary to Acute on chronic diastolic dysfunction and pneumonia Acute Respiratory Failure due to pneumonia as well as pulmonary edema - treated for several days with broad spectrum, tapered to Levaquin 04/06, then had fever, increased leukocytosis again trended downward - add back Vanco and Cefepime on 04/07 - she was then transitioned to levaquin alone on 04/10 - pt had 10 day course of abx treatment. - no fever (since 04/07), WBC trended downward - in hindsight, patient has CLL so certainly could contribute to leukocytosis - Nocturnal oxymetry results showed about 10 mins <88% so needs home oxygen - will ask for [facility] to coordinate - Will need formal PFT and sleep study as outpatient Acute on Chronic diastolic CHF exacerbation - Cardiology consulted- appreciate recs - Pt presented with Shortness of breath, Pulmonary Edema with pleural effusions - patient negative 4.6 liters this admission, weight down 5kg - Using bumex for diuresis, held 04/11 for elevated Cr. and low K+, follow daily PRP. - On discharge continue Bumex at 0.5 mg PO daily until seen by PCP at follow up - Cardiology recs: Will need to tolerate some degree of azotemia. - Have BMP checked in 2 days to monitor kidney function with scheduled Bumex. Hematuria - Urine Cx checked and is negative for infection. Continue to hold coumadin - resolved. - Restart coumadin once INR therapeutic, at time of dc was 3.[address] for sinus node dysfunction - Placed November 16 2016- will ask cardiology regarding interrogation and possible resynchronization Paroxysmal atrial fibrillation, atrial flutter, currently in what appears to be rate controlled atrial flutter - Occasional PVCs noted on telemetry - also had several ventricular couplets and ventricular triplets - improved 04/04 after magnesium and bipap. - Improved - Coumadin on hold today for elevated INR of 3.3, has been on hold since 04/05 Moderate tricuspid regurgitation Mild to moderate pulmonary hypertension- Cardiology calculated pulmonary artery systolic pressure on echocardiogram this admission = 45-50 mmHg Elevated Troponins - Likely due to demand ischemia with pt being in atrial flutter at time of admission. 4th set was drawn and numbers trended downward. - Echo as above - pacemaker placement may be influencing what appears to be an inferior.anterolateral infarct - appreciate cardiology recs. Atrial fibrillation - HOLD coumadin with hematuria- Normal regimen 2mg daily except 4mg on Tuesdays - follow INR - Continue beta lori Hypertension - echocardiogram as above - Cont amlodipine 5 mg, aspirin 81 mg daily, lisinopril 40 mg , and metoprolol succinate 100 mg daily - Diuresis on board with good output. - Consult cardiology - appreciate recommendations Diabetes mellitus - continue Lantus insulin at 22 units subcutaneous at bedtime - ISS with accuchecks ACHS Rheumatoid arthritis - continue hydroxychloroquine Hyperlipidemia - continue simvastatin 20 mg daily. Hypothyroidism - Continue levothyroxine 75 mcg daily DVT ppx: teds, scds CODE STATUS: FULL CODE - pt would want intubation/ resuscitation efforts at this time. Discussion was held with daughters present at bedside. Disposition: From home, lives with daughter. DC today to [facility] Total Time Spent: Greater than 30 minutes This includes examination of the patient, discharge planning, medication reconciliation, and communication with other providers. Discharge Instructions Please refer to the electronic Patient Visit Report (Discharge Instructions) for additional information. Follow-Up Follow up with your Primary Care Provider within 1 week. Follow up with Cardiology within 1-2 weeks. Follow up with pulmonology within 1-2 weeks for formal PFT. Additional Copies To Katharina Perez C.R.N.P
== END 2017-04-11 12:25 | DRG 177 ==
LOC: EDBD 01:40 → C.EDB 01:41 → C.2E 03:41 → ENRESERV 04:07 → C.MED 04-08 14:15 → CMPBEDREQ 04-08 14:34
PROVIDERS: ADMIT Hospitalist; ATTEND Internal Medicine
DX: J69.0 Pneumonitis due to inhalation of food and vomit (principal); J96.00 Acute respiratory failure, unspecified whether with hypoxia or hypercapnia; I50.33 Acute on chronic diastolic (congestive) heart failure; I48.92 Unspecified atrial flutter; C91.10 Chronic lymphocytic leukemia of B-cell type not having achieved remission; I11.0 Hypertensive heart disease with heart failure; I27.22 Pulmonary hypertension due to left heart disease; E11.9 Type 2 diabetes mellitus without complications; I48.0 Paroxysmal atrial fibrillation; E03.9 Hypothyroidism, unspecified; E78.5 Hyperlipidemia, unspecified; M06.9 Rheumatoid arthritis, unspecified; R31.0 Gross hematuria; T45.515A Adverse effect of anticoagulants, initial encounter; R10.13 Epigastric pain; Z79.01 Long term (current) use of anticoagulants; Z79.4 Long term (current) use of insulin; Z79.82 Long term (current) use of aspirin; Z79.899 Other long term (current) drug therapy; Z95.0 Presence of cardiac pacemaker; Z83.3 Family history of diabetes mellitus

== ENCOUNTER → 2017-07-04 | Outpatient (CLI) | payer OTHER ==
[~2017-07-04] MED LIST changes: +ASPI81TA28 PO; +BUME1TAB PO; -CALC500C70 PO; -HYG/25 PO; -LEVO150T9 PO; -LISI-461 PO; +LISI40TA PO; +METO100T44 PO; +MRLP17X PO; -NRV5 PO; -WARF4TAB8 PO; +ZFRI4 IV
[2017-07-04 10:35] LABS: HEMOGLOBIN A1C 5.5 % (4.5-5.6)
[2017-07-04 10:51] LABS: ALBUMIN 3.4 gm/dl (3.4-5.0); BLOOD UREA NITROGEN 20 mg/dl (7-18); CALCIUM 9.1 mg/dl (8.5-10.1); CARBON DIOXIDE 30 mmol/L (21-32); CREATININE 1.24 mg/dl (0.60-1.20); GLUCOSE 61 mg/dl (70-99); POTASSIUM 3.5 mmol/L (3.5-5.1); SODIUM 142 mmol/L (136-145)
== END | disposition home or self-care (01) ==
LOC: C.LAB1850 09:34
PROVIDERS: ATTEND Internal Medicine Nephrology
DX: N18.3 Chronic kidney disease, stage 3 (moderate) (principal); E03.9 Hypothyroidism, unspecified

== ENCOUNTER → 2017-07-14 | Outpatient (CLI) | payer OTHER ==
[2017-07-14 12:56] LABS: BASO % 1.2 %; BASO ABS # 0.12 K/uL (0-0.2); EOS % 6.1 %; EOS ABS # 0.59 K/uL (0-0.5); HEMOGLOBIN 11.8 g/dL (12.0-16.0); IG# 0.02 K/uL (0.00-0.02); LYMPH % 18.6 %; MEAN CELL VOLUME 89.8 fL (80-100); MEAN CORPUSCULAR HEMOGLOBIN 27.9 pg (25-34); MEAN CORPUSCULAR HGB CONC 31.1 g/dl (32-36); MEAN PLATELET VOLUME 10.1 fL (7.4-10.4); MONO % 9.2 %; MONO ABS # 0.89 K/uL (0.11-0.59); NEUT % 64.7 %; NEUT ABS # 6.24 K/uL (1.4-6.5); PLATELET COUNT 226 K/uL (130-400); RED CELL DISTRIBUTION WIDTH CV 16.3 % (11.5-14.5); RED CELL DISTRIBUTION WIDTH SD 53.7 fL (36.4-46.3); WHITE BLOOD COUNT 9.66 K/uL (4.8-10.8)
== END | disposition home or self-care (01) ==
LOC: C.LABPVFM 10:19
PROVIDERS: ATTEND Nurse Practitioner
DX: D64.9 Anemia, unspecified (principal)

== ENCOUNTER 2020-11-06 10:00 | Inpatient (IN) ==
[2020-11-06] MEDS ORDERED: BUMETANIDE 1 MG in SYRINGE 0 ML IV ONE (10:31)
[2020-11-06 10:38] LABS: Basophils # (auto) 0.05 K/uL (0-0.2); Basophils % (auto) 0.5 %; Hematocrit (blood only) 34.5 % (37-47); Immature Granulocytes # (auto) 0.02 K/uL (0.00-0.02); Immature Granulocytes % (auto) 0.2 %; Lymphocytes % (auto) 13.4 %; Mean Corpuscular Hemoglobin 27.8 pg (25-34); Mean Corpuscular Hgb Conc 31.9 g/dL (32-36); Mean Corpuscular Volume 87.1 fL (80-100); Mean Platelet Volume 10.8 fL (7.4-10.4); Monocytes # (auto) 1.06 K/uL (0.11-0.59); Monocytes % (auto) 10.2 %; Neutrophils # (auto) 7.89 K/uL (1.4-6.5); Neutrophils % (auto) 75.7 %; Platelet Count 243 K/uL (130-400); RDW Coefficient of Variation 18.4 % (11.5-14.5); RDW Standard Deviation 58.4 fL (36.4-46.3); Red Blood Count 3.96 M/uL (4.2-5.4); White Blood Count 10.42 K/uL (4.8-10.8)
--- NOTE | 2020-11-06 10:38 | Emergency Department Note ---
Impression & Plan Cellulitis of right lower extremity, Acute renal failure superimposed on stage 3 chronic kidney disease, Acute heart failure with preserved ejection fraction ED Provider Note NAME: ED CORNELL AGE: 89 SEX: F : 1930 ARRIVES VIA: Walk-In INFORMANT: Patient, ED PROVIDER(S): Vasiliy Huang MD CHIEF COMPLAINT: Shortness of breath HPI: This is an 89-year-old female who has a history of congestive heart failure who presents to the emergency department complaining of increasing shortness of breath that gets worse with exertion. The patient reports she is only able to walk about 4 5 feet before she becomes short of breath. In addition the patient also has gained approximately 6 pounds. She is to weigh herself every day as per congestive heart failure clinic. The patient spoke with her primary care physician today who directed her to the emergency department. The patient reports rest makes the shortness of breath better. Per the daughter the patient was placed on a new medication however is very short of breath and it does not seem to be helping. Patient is also taking an antibiotic for bilateral cellulitis to the legs. ROS: See above HPI for pertinent positives & negatives. A total of 10 systems reviewed and were otherwise negative. PAST MEDICAL HISTORY: See Below PAST SURGICAL HISTORY: See Below FAMILY HISTORY: See Below SOCIAL HISTORY: See Below HOME MEDICATIONS: See Below ALLERGIES: See Below VITALS: See Below PHYSICAL EXAMINATION: VITAL SIGNS - Vital signs and nursing notes were reviewed. GENERAL - 89-year-old female appearing stated age who is in no acute distress. Communicates well with provider and answers questions appropriately. SKIN - +2 pitting edema, b/l to legs, blistering present. HEAD - NC/AT. EYES - PERRL with EOMI bilaterally. Sclera anicteric. Palpebral conjunctiva pink and moist with no injection noted. EARS - No deformities of external structures noted on gross examination bilaterally. NOSE - Midline and without cyanosis. No epistaxis or purulent drainage noted. Septum midline without deviation or septal hematoma noted. MOUTH/OROPHARYNX - Without perioral cyanosis. Buccal mucosa pink and moist and without leukoplakia. Tongue midline with equal elevation of palate bilaterally. No tonsillar hypertrophy, erythema, or exudates noted. NECK - Neck with FROM. Supple to palpation. No nuchal rigidity. LUNGS - Chest wall symmetric without accessory muscle use, intercostals retractions, or central cyanosis. Normal vesicular breath sounds CTA B/L. No wheezes, rales, or rhonchi appreciated. CARDIAC - RRR with S1/S2. No murmur, rubs, or gallops appreciated. ABDOMEN - Abdominal contour without pulsations or visible masses. BS normoactive all four quadrants. No tenderness, palpable masses, hepatosplenom egaly, or ascites noted. EXTREMITIES - No clubbing or peripheral cyanosis. +2 pitting edema present. +3/5 radial, posterior tibial, and dorsalis pedis pulses palpated throughout. +5/5 strength noted in UE/LE bilaterally. NEUROLOGIC - Cranial nerves II through XII grossly intact. Sensory intact to light touch throughout. Patellar reflexes +2/4. PSYCH - A&Ox3 and cooperates fully with examiner. Pt is very pleasant and interacts well with examiner. MEDICAL DECISION MAKING: Patient was seen and evaluated as above in room C2. Review was performed of nursing notes and vital signs. I did review pertinent previous visits and patient history. After obtaining a thorough history and physical examination the above work up was performed. This is an 89-year-old female who presents emergency department complaining of shortness of breath. The patient was given Bumex upon arrival to the depart ment. She is already also on an antibiotic for bilateral cellulitis. She does have an elevation in her troponin and her BUN and creatinine are slightly bumped. I did discuss the case with the internal medicine service who did agree to meet the patient. Patient and family are in agreement with treatment plan. An order was placed for continuous cardiac monitoring. The monitor shows a rate of 85 with paced rhythm. The patient was evaluated during a period of high volume and high acuity during the global COVID-19 pandemic, and that diagnosis was suspected/considered upon their initial presentation. Their evaluation, treatment and testing was consistent with current guidelines for patients who present with complaints or symptoms that may be related to COVID-19. Patient was seen while provider was wearing PPE. Triage Nursing notes reviewed. Prior medical records reviewed Vital Signs: reviewed and remarkable for no significant abnormalities Differential diagnosis: Reactive airway disease, pneumonia, pneumothorax, COPD, CHF, infections, cardiac ischemia, pulmonary embolism, musculoskeletal, gastrointestinal, as well as other pathologies. ER treatment provided: See below Diagnostics interpreted by me: ECG: EKG shows a paced rhythm QTC is 528 ventricular rate is 71 EKG is compared to 08/26/2020 and is unchanged from previous. Laboratory studies: As stated above and show below. 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 Rheumatoid arthritis Stage 3b chronic kidney disease Surgical History History of cataract surgery History of cholecystectomy History of facial surgery History of hysterectomy Family History Mother Alzheimer disease Brother Myocardial infarction Other Diabetes Hypertension Hypothyroidism Denies family history of Ovarian cancer Prostate cancer Breast cancer Colorectal cancer Social History Smoking Status: Never smoker Second Hand Exposure: No; Do You Dip or Chew Tobacco: No; Tobacco Cessation Education Requested by Patient: No Hx Alcohol Use: No Hx Substance Use: No Preferred Language: Serbian Communication Ability: Effective Band Master Required: No Beliefs That Will Affect Care: None marital status: / Current Living Situation: Family current occupational status: retired Other Information That Helps Us Care for You: No Feels Safe at Home: Yes Safety Concerns: Feels Safe At This Time caffeine: Yes Dental Care, Regularly: No Physical Activity Frequency: Does not Exercise Seatbelt Use: always Sunscreen Use: Yes Assistive Devices: Glasses and Oxygen - Continuous Allergies Allergies Allergy/AdvReac Type Severity Reaction Status Date / Time No Known Allergies Allergy Unverified 11/06/20 10:42 Home Meds Home Medications Medication Instructions Recorded Confirmed aspirin 81 mg tablet,delayed 81 mg PO DAILY 02/06/18 11/06/20 release cholecalciferol (vitamin D3) 25 1,000 units PO DAILY 02/06/18 11/06/20 mcg (1,000 unit) capsule cyanocobalamin (vitamin B-12) 1,000 mcg PO DAILY 02/06/18 11/06/20 1,000 mcg capsule omega-3 fatty acids 1,000 mg 1,000 mg PO DAILY 02/06/18 11/06/20 capsule simvastatin 20 mg tablet 20 mg PO QPM 02/06/18 11/06/20 hydroxychloroquine 200 mg tablet 200 mg PO HS tab 01/01/19 11/06/20 hydralazine 10 mg PO BID 08/05/20 11/06/20 insulin aspart U-100 [Novolog 4 unit SQ TIDM 08/05/20 11/06/20 U-100 Insulin aspart] insulin detemir U-100 [Levemir 27 unit SQ PM 08/05/20 11/06/20 U-100 Insulin] bumetanide 0.5 mg PO DAILY 08/26/20 11/06/20 diclofenac sodium 1 ea TOPICAL UD PRN 08/26/20 11/06/20 levothyroxine 75 mcg tablet 75 mcg PO DAILY tab 09/18/20 11/06/20 multivitamin 1 tab PO DAILY 09/29/20 11/06/20 Previous Rx's Medication Instructions Recorded amlodipine 10 mg tablet 10 mg PO DAILY #90 tab 08/06/20 warfarin 2 mg tablet 2 mg PO QAM #90 tab 08/11/20 metoprolol succinate 100 mg 100 mg PO DAILY #90 tab 08/25/20 tablet,extended release 24 hr albuterol sulfate 90 mcg/actuation 1 - 2 puff INH QID PRN #18 g 08/26/20 aerosol inhaler wheelchair- light weight with leg #1 ea 10/20/20 rest gel foam cushion sulfamethoxazole 800 1 tab PO BID #14 tab 10/31/20 mg-trimethoprim 160 mg tablet Results & Data (ED) Vital Signs Vital Signs - 24 hr 11/06/20 10:04 Temperature 36.3 C L Temperature Source Skin Pulse Rate 85 Respiratory Rate 20 Respiratory Effort / Characteristics Non-Labored Spontaneous Respiratory Depth Normal Respiratory Pattern Regular Blood Pressure 137/71 Blood Pressure Mean 93 Pulse Oximetry 94 Oxygen Delivery Method Room Air Sepsis Recent Fever Within 48 Hours No Sepsis New/Unexplained Change in Mental Status N/A Sepsis Action Taken by Nursing No Action Required Laboratory Data Result diagrams: 11/08/20 06:26 11/08/20 06:26 Lab Results 06/24/21 06/24/21 06/24/21 Range/Units 10:21 10:21 10:21 WBC 10.42 (4.8-10.8) K/uL RBC 3.96 L (4.2-5.4) M/uL Hgb 11.0 L (12.0-16.0) g/dL Hct 34.5 L (37-47) % MCV 87.1 (80-100) fL MCH 27.8 (25-34) pg MCHC 31.9 L (32-36) g/dL RDW Std Deviation 58.4 H (36.4-46.3) fL RDW Coeff of Te 18.4 H (11.5-14.5) % Plt Count 243 (130-400) K/uL MPV 10.8 H (7.4-10.4) fL Immature Gran % (Auto) 0.2 % Neut % (Auto) 75.7 % Lymph % (Auto) 13.4 % Freestone % (Auto) 10.2 % Eos % (Auto) 0.0 % Baso % (Auto) 0.5 % Neut # (Auto) 7.89 H (1.4-6.5) K/uL Lymph # (Auto) 1.40 (1.2-3.4) K/uL Freestone # (Auto) 1.06 H (0.11-0.59) K/uL Eos # (Auto) 0.00 (0-0.5) K/uL Baso # (Auto) 0.05 (0-0.2) K/uL Immature Gran # (Auto) 0.02 (0.00-0.02) K/uL ESR (0-30) mm/hr PT 32.4 H (9.0-12.0) Seconds INR 3.5 H (0.9-1.1) APTT 37.9 H (21.0-31.0) Seconds PTT Ratio 1.4 Sodium 135 L (136-145) mmol/L Potassium 3.6 (3.5-5.1) mmol/L Chloride 100 (98-107) mmol/L Carbon Dioxide 27 (21-32) mmol/L Anion Gap 9.0 (3-11) BUN 33 H (7-18) mg/dl Creatinine 2.13 H (0.6-1.2) mg/dl Est Cr Clr Drug Dosing 18.1 ml/min Est GFR ( Amer) 23.4 ml/min Est GFR (Non-Af Amer) 20.1 ml/min BUN/Creatinine Ratio 15.4 (10-20) Glucose 147 H (70-99) mg/dl Calcium 9.3 (8.5-10.1) mg/dl Total Bilirubin 0.9 (0.2-1) mg/dl AST 31 (15-37) U/L ALT 38 (12-78) U/L Alkaline Phosphatase 88 (45-117) U/L Total Creatine Kinase 122 (26-192) U/L CK-MB (CK-2) 2.5 (0.5-3.6) ng/ml CK/CKMB % Calc 2.0 (0-3.0) Troponin I 0.042 (0-0.045) ng/ml C-Reactive Protein (0-0.29) mg/dl NT-Pro-B Natriuret Pep 6364 H (0-1800) pg/ml Total Protein 7.3 (6.4-8.2) gm/dl Albumin 3.6 (3.4-5.0) gm/dl Globulin 3.7 (2.5-4.0) gm/dl Albumin/Globulin Ratio 1.0 (0.9-2) Lipase 173 (73-393) U/L Procalcitonin (0-0.5) ng/ml Urine Color Urine Appearance (Clear) Urine pH (4.5-7.5) Ur Specific [place] (1.000-1.030) Urine Protein (Negative) Urine Glucose (UA) (Negative) Urine Ketones (Negative) Urine Blood (Negative) Urine Nitrite (Negative) Urine Bilirubin (Negative) Urine Urobilinogen (Negative) Ur Leukocyte Esterase (Negative) COVID-19 Eval Order SARS-CoV-2 (PCR) (Negative) 11/06/20 11/06/20 11/06/20 Range/Units 10:25 10:25 10:52 WBC (4.8-10.8) K/uL RBC (4.2-5.4) M/uL Hgb (12.0-16.0) g/dL Hct (37-47) % MCV (80-100) fL MCH (25-34) pg MCHC (32-36) g/dL RDW Std Deviation (36.4-46.3) fL RDW Coeff of Te (11.5-14.5) % Plt Count (130-400) K/uL MPV (7.4-10.4) fL Immature Gran % (Auto) % Neut % (Auto) % Lymph % (Auto) % Freestone % (Auto) % Eos % (Auto) % Baso % (Auto) % Neut # (Auto) (1.4-6.5) K/uL Lymph # (Auto) (1.2-3.4) K/uL Freestone # (Auto) (0.11-0.59) K/uL Eos # (Auto) (0-0.5) K/uL Baso # (Auto) (0-0.2) K/uL Immature Gran # (Auto) (0.00-0.02) K/uL ESR 45 H (0-30) mm/hr PT (9.0-12.0) Seconds INR (0.9-1.1) APTT (21.0-31.0) Seconds PTT Ratio Sodium (136-145) mmol/L Potassium (3.5-5.1) mmol/L Chloride (98-107) mmol/L Carbon Dioxide (21-32) mmol/L Anion Gap (3-11) BUN (7-18) mg/dl Creatinine (0.6-1.2) mg/dl Est Cr Clr Drug Dosing ml/min Est GFR ( Amer) ml/min Est GFR (Non-Af Amer) ml/min BUN/Creatinine Ratio (10-20) Glucose (70-99) mg/dl Calcium (8.5-10.1) mg/dl Total Bilirubin (0.2-1) mg/dl AST (15-37) U/L ALT (12-78) U/L Alkaline Phosphatase (45-117) U/L Total Creatine Kinase (26-192) U/L CK-MB (CK-2) (0.5-3.6) ng/ml CK/CKMB % Calc (0-3.0) Troponin I (0-0.045) ng/ml C-Reactive Protein (0-0.29) mg/dl NT-Pro-B Natriuret Pep (0-1800) pg/ml Total Protein (6.4-8.2) gm/dl Albumin (3.4-5.0) gm/dl Globulin (2.5-4.0) gm/dl Albumin/Globulin Ratio (0.9-2) Lipase (73-393) U/L Procalcitonin (0-0.5) ng/ml Urine Color Urine Appearance (Clear) Urine pH (4.5-7.5) Ur Specific [place] (1.000-1.030) Urine Protein (Negative) Urine Glucose (UA) (Negative) Urine Ketones (Negative) Urine Blood (Negative) Urine Nitrite (Negative) Urine Bilirubin (Negative) Urine Urobilinogen (Negative) Ur Leukocyte Esterase (Negative) COVID-19 Eval Order Covid19 at [facility] SARS-CoV-2 (PCR) NEGATIVE (Negative) 11/06/20 11/06/20 11/06/20 Range/Units 10:52 10:52 11:04 WBC (4.8-10.8) K/uL RBC (4.2-5.4) M/uL Hgb (12.0-16.0) g/dL Hct (37-47) % MCV (80-100) fL MCH (25-34) pg MCHC (32-36) g/dL RDW Std Deviation (36.4-46.3) fL RDW Coeff of Te (11.5-14.5) % Plt Count (130-400) K/uL MPV (7.4-10.4) fL Immature Gran % (Auto) % Neut % (Auto) % Lymph % (Auto) % Freestone % (Auto) % Eos % (Auto) % Baso % (Auto) % Neut # (Auto) (1.4-6.5) K/uL Lymph # (Auto) (1.2-3.4) K/uL Fre[place] # (Auto) (0.11-0.59) K/uL Eos # (Auto) (0-0.5) K/uL Baso # (Auto) (0-0.2) K/uL Immature Gran # (Auto) (0.00-0.02) K/uL ESR (0-30) mm/hr PT (9.0-12.0) Seconds INR (0.9-1.1) APTT (21.0-31.0) Seconds PTT Ratio Sodium (136-145) mmol/L Potassium (3.5-5.1) mmol/L Chloride (98-107) mmol/L Carbon Dioxide (21-32) mmol/L Anion Gap (3-11) BUN (7-18) mg/dl Creatinine (0.6-1.2) mg/dl Est Cr Clr Drug Dosing ml/min Est GFR ( Amer) ml/min Est GFR (Non-Af Amer) ml/min BUN/Creatinine Ratio (10-20) Glucose (70-99) mg/dl Calcium (8.5-10.1) mg/dl Total Bilirubin (0.2-1) mg/dl AST (15-37) U/L ALT (12-78) U/L Alkaline Phosphatase (45-117) U/L Total Creatine Kinase (26-192) U/L CK-MB (CK-2) (0.5-3.6) ng/ml CK/CKMB % Calc (0-3.0) Troponin I (0-0.045) ng/ml C-Reactive Protein 3.61 H (0-0.29) mg/dl NT-Pro-B Natriuret Pep (0-1800) pg/ml Total Protein (6.4-8.2) gm/dl Albumin (3.4-5.0) gm/dl Globulin (2.5-4.0) gm/dl Albumin/Globulin Ratio (0.9-2) Lipase (73-393) U/L Procalcitonin < 0.05 (0-0.5) ng/ml Urine Color Yellow Urine Appearance Clear (Clear) Urine pH 5.0 (4.5-7.5) Ur Specific [place] 1.013 (1.000-1.030) Urine Protein Negative (Negative) Urine Glucose (UA) Negative (Negative) Urine Ketones Negative (Negative) Urine Blood Negative (Negative) Urine Nitrite Negative (Negative) Urine Bilirubin Negative (Negative) Urine Urobilinogen Negative (Negative) Ur Leukocyte Esterase Negative (Negative) COVID-19 Eval Order SARS-CoV-2 (PCR) (Negative) Administered Medications Acetaminophen (Acetaminophen 325 Mg Tab) 650 mg PO Q4H PRN PRN Reason: Pain or Fever Stop: 12/06/20 14:07 Last Admin: 11/07/20 21:30 Dose: 650 mg Documented by: [id number] Amlodipine Besylate (Amlodipine Besylate 5 Mg Tab) 5 mg PO DAILY RODOLFO Stop: 12/07/20 08:59 Last Admin: 11/08/20 08:21 Dose: 5 mg Documented by: [id number] Admin: 11/07/20 08:10 Dose: 5 mg Documented by: [id number] Aspirin (Aspirin 81 Mg Ectab) 81 mg PO DAILY RODOLFO Stop: 12/07/20 08:59 Last Admin: 11/08/20 08:20 Dose: 81 mg Documented by: [id number] Admin: 11/07/20 08:11 Dose: 81 mg Documented by: [id number] Cyanocobalamin (Cyanocobalamin 500 Mcg Tablet (Vitamin B-12)) 1,000 mcg PO DAILY RODOLFO Stop: 12/07/20 08:59 Last Admin: 11/08/20 08:21 Dose: 1,000 mcg Documented by: [id number] Admin: 11/07/20 08:11 Dose: 1,000 mcg Documented by: [id number] Hydralazine HCl (Hydralazine 10 Mg Tab) 10 mg PO BID RODOLFO Stop: 12/08/20 08:59 Last Admin: 11/08/20 08:51 Dose: 10 mg Documented by: [id number] Hydroxychloroquine Sulfate (Hydroxychloroquine Sulfate 200 Mg Tab) 200 mg PO HS RODOLFO Stop: 12/06/20 20:59 Last Admin: 11/07/20 21:31 Dose: 200 mg Documented by: [id number] Admin: 11/06/20 20:45 Dose: 200 mg Documented by: [id number] Bumetanide 1 mg/ Syringe 4 mls @ 4 mls/min IV BID@0900,1700 RODOLFO Stop: 12/06/20 16:59 Last Admin: 11/08/20 08:51 Dose: 4 mls/min Documented by: [id number] Admin: 11/07/20 17:07 Dose: 4 mls/min Documented by: [id number] Admin: 11/07/20 08:11 Dose: 4 mls/min Documented by: [id number] Admin: 11/06/20 17:11 Dose: 4 mls/min Documented by: [id number] Insulin Aspart (Insulin Aspart 100 Units/Ml 3 Ml Pen) 0 units SC ACHS RODOLFO Stop: 12/06/20 16:29 Last Admin: 11/08/20 12:37 Dose: 5 units Documented by: [id number] Cosigned by: [id number] Admin: 11/08/20 08:27 Dose: 2 units Documented by: [id number] Cosigned by: [id number] Admin: 11/07/20 21:33 Dose: 1 units Documented by: [id number] Cosigned by: [id number] Admin: 11/07/20 17:31 Dose: 1 units Documented by: [id number] Cosigned by: [id number] Admin: 11/07/20 12:13 Dose: Not Given Documented by: [id number] Admin: 11/07/20 08:12 Dose: 4 units Documented by: [id number] Cosigned by: [id number] Admin: 11/06/20 20:46 Dose: Not Given Documented by: [id number] Cosigned by: [id number] Admin: 11/06/20 17:10 Dose: 5 units Documented by: [id number] Cosigned by: [id number] Levothyroxine Sodium (Levothyroxine Sodium 75 Mcg Tablet) 75 mcg PO DAILYBB RODOLFO Stop: 12/07/20 06:29 Last Admin: 11/08/20 06:09 Dose: 75 mcg Documented by: [id number] Admin: 11/07/20 06:03 Dose: 75 mcg Documented by: [id number] Metoprolol Succinate (Metoprolol Succ 50mg Ext Rel Tab) 100 mg PO DAILY RODOLFO Stop: 12/07/20 08:59 Last Admin: 11/08/20 08:21 Dose: 100 mg Documented by: [id number] Admin: 11/07/20 08:10 Dose: 100 mg Documented by: [id number] Multivitamins (Multivitamin Tab) 1 tab PO DAILY RODOLFO Stop: 12/07/20 08:59 Last Admin: 11/08/20 08:22 Dose: 1 tab Documented by: [id number] Admin: 11/07/20 08:10 Dose: 1 tab Documented by: [id number] Simvastatin (Simvastatin 20 Mg Tab) 20 mg PO QPM RODOLFO Stop: 12/06/20 20:59 Last Admin: 11/07/20 21:31 Dose: 20 mg Documented by: [id number] Admin: 11/06/20 20:45 Dose: 20 mg Documented by: [id number] Vitamin D (Cholecalciferol 1,000 Units 25 Mcg Tab) 1,000 units PO DAILY RODOLFO Stop: 12/07/20 08:59 Last Admin: 11/08/20 08:20 Dose: 1,000 units Documented by: [id number] Admin: 11/07/20 08:11 Dose: 1,000 units Documented by: [id number] Discontinued Medications Bumetanide 1 mg/ Syringe 4 mls @ 4 mls/min IV ONE ONE Stop: 11/06/20 10:32 Last Admin: 11/06/20 10:51 Dose: 4 mls/min Documented by: [id number] Vancomycin HCl 1,750 mg/ (Sodium Chloride) 535 mls @ 200 mls/hr IV NOW STA Stop: 11/06/20 15:09 Last Infusion: 11/06/20 16:10 Dose: 0 mls/hr Documented by: [id number] Admin: 11/06/20 13:28 Dose: 200 mls/hr Documented by: [id number] Ceftriaxone Sodium (Rocephin) 2,000 mg in 70 mls @ 140 mls/hr IV NOW STA Stop: 11/06/20 12:43 Last Infusion: 11/06/20 13:17 Dose: 0 mls/hr Documented by: [id number] Admin: 11/06/20 12:47 Dose: 140 mls/hr Documented by: [id number] Ceftriaxone Sodium 2,000 mg/ (Dextrose) 70 mls @ 140 mls/hr IV Q24H [facility]; Protocol Stop: 11/14/20 12:59 Last Infusion: 11/07/20 13:39 Dose: 0 mls/hr Documented by: [id number] Admin: 11/07/20 13:09 Dose: 140 mls/hr Documented by: [id number] Vancomycin HCl 1,250 mg/ (Sodium Chloride) 275 mls @ 200 mls/hr IV 1000 ONE Stop: 11/07/20 11:22 Last Infusion: 11/07/20 11:10 Dose: 0 mls/hr Documented by: [id number] Admin: 11/07/20 09:47 Dose: 200 mls/hr Documented by: [id number] Vancomycin HCl 1,000 mg/ (Sodium Chloride) 270 mls @ 200 mls/hr IV ONCE ONE Stop: 11/08/20 11:20 Last Infusion: 11/08/20 10:42 Dose: 0 mls/hr Documented by: [id number] Admin: 11/08/20 10:15 Dose: 200 mls/hr Documented by: [id number] Insulin Aspart (Insulin Aspart 100 Units/Ml 3 Ml Pen) 0 units SC 0000,0400 RODOLFO Stop: 11/07/20 04:01 Last Admin: 11/07/20 06:04 Dose: Not Given Documented by: [id number] Cosigned by: [id number] Admin: 11/07/20 00:08 Dose: Not Given Documented by: [id number] Cosigned by: [id number] Insulin Aspart (Insulin Aspart 100 Units/Ml 3 Ml Pen) 0 units SC 0000,0400 RODOLFO Stop: 11/08/20 04:01 Last Admin: 11/08/20 03:53 Dose: Not Given Documented by: [id number] Admin: 11/08/20 00:50 Dose: Not Given Documented by: [id number] Insulin Detemir (Insulin Detemir Flexpen/Flex Touch 100 Units/Ml 3ml) 22 units SC HS RODOLFO Stop: 12/06/20 20:59 Last Admin: 11/06/20 20:45 Dose: 22 units Documented by: [id number] Cosigned by: [id number] Insulin Detemir (Insulin Detemir Flexpen/Flex Touch 100 Units/Ml 3ml) 0 units SC HS RODOLFO; Protocol Stop: 12/07/20 20:59 Last Admin: 11/07/20 21:32 Dose: 12 units Documented by: [id number] Cosigned by: [id number] Discharge Plan Visit Data Chief Complaint: Shortness of Breath/Dyspnea Stated Complaint: GAINING WEIGHT, HARD TO BREATH ED Provider: Vasiliy Huang Discharge Problem: Cellulitis of right lower extremity, Acute renal failure superimposed on stage 3 chronic kidney disease, Acute heart failure with preserved ejection fraction Patient Disposition: Admitted As Inpatient Discharge Instructions Interventions: ED Discharge Assessment Last Done: 11/06/20 13:44 Discharge Problem: Acute renal failure superimposed on stage 3 chronic kidney disease Qualifiers: Acute renal failure type: unspecified Chronic kidney disease stage 3 subtype: unspecified whether 3a or 3b Qualified Code(s): N17.9 - Acute kidney failure, unspecified
--- NOTE | 2020-11-06 10:47 | XRay Report ---
SINGLE VIEW CHEST CLINICAL HISTORY: Atypical chest pain. FINDINGS: An AP, portable, upright chest radiograph is compared to study dated 08/26/2020 and correlat ed with chest CT dated 04/03/2017. A 2-lead cardiac pacemaker is unchanged in position and partially obscures the left mid chest. The heart is enlarged noting atherosclerotic calcification of the thorac ic aorta. There is pulmonary vascular congestion. Small pleural effusions are noted with bibasilar at electasis. No pneumothorax is seen. The skeletal structures are osteopenic. The bony thorax is grossl y intact. IMPRESSION: 1. Cardiomegaly and cardiac pacemaker with evidence of congestive failure. 2. Small pleural effusions with bibasilar atelectasis. ACT 112: Negative or not required by law. Electronically signed by: Sergey Blanco M.D. 11/06/2020 10:45 AM
[2020-11-06 10:58] LABS: INR 3.5 (0.9-1.1); Partial Thromboplastin Ratio 1.4; Partial Thromboplastin Time 37.9 Seconds (21.0-31.0); Prothrombin Time 32.4 Seconds (9.0-12.0)
[2020-11-06 11:02] LABS: Albumin Level 3.6 gm/dl (3.4-5.0); BUN Creatinine Ratio 15.4 (10-20); Calcium 9.3 mg/dl (8.5-10.1); Creatinine Clr Calc Pharmacy 18.1 ml/min; Est GFR (African American) 23.4 ml/min; Est GFR (Non-African American) 20.1 ml/min; Potassium 3.6 mmol/L (3.5-5.1)
[2020-11-06 11:12] LABS: Appearance Urine Clear (Clear); Bilirubin Urine Negative (Negative); Blood Urine Negative (Negative); Color Urine Yellow; Glucose Urine UA Negative (Negative); Ketones Urine Negative (Negative); Leukocyte Esterase Urine Negative (Negative); Nitrite Urine Negative (Negative); Protein Urine Negative (Negative); Specific Gravity Urine 1.013 (1.000-1.030); Urobilinogen Urine Negative (Negative)
[2020-11-06 11:12] LABS: Bilirubin,Total 0.9 mg/dl (0.2-1); Creatine Kinase MB 2.5 ng/ml (0.5-3.6); Globulin 3.7 gm/dl (2.5-4.0); Total Protein 7.3 gm/dl (6.4-8.2); Troponin I 0.042 ng/ml (0-0.045)
--- NOTE | 2020-11-06 11:45 | History & Physical Report ---
Date of Service November 06, 2020 Assessment & Plan (1) Acute heart failure with preserved ejection fraction: Elevated BNP, LVEF 50% in setting of moderate MR, moderate TR, pulmonary artery systolic pressure 65 mm Hg Strict I&Os Daily weights Low Na, heart healthy diet, fluid restrict 1500 mL Usual diuretics with torsemide 20mg PO, will increase to Bumex 1mg IV BID and monitor renal function Consult cardiology (2) Cellulitis of right lower extremity: Difficult to rule out since she is already been on Bactrim although leg does not appear to be overly cellulitic at that current time. Since the erythema has improved despite worsening leg edema and congestive heart failure we will switch antibiotics to ceftriaxone and vancomycin. (3) Acute kidney injury: ?artificial rise from Bactrim use - stop Bactrim ?reduced cardiac output from CHF Monitor daily, predicting improvement with diuresis and stopping Bactrim (4) Rheumatoid arthritis: Continue hydroxychloroquine 200 mg p.o. at bedtime Suspect she has underlying restrictive lung disease given her pulmonary hypertension. Patient to follow up with pulmonology with PFTs after discharge. (5) CLL (chronic lymphocytic leukemia): (6) Diabetes mellitus with insulin therapy: HbA1c 7.1 in March. Repeat with a.m. labs Consult pharmacy for glycemic control. (7) Hypothyroidism: TSH WNL in March Continue levothyroxine 75 mcg PO daily (8) Presence of cardiac pacemaker: Noted for sick sinus syndrome (9) Persistent atrial fibrillation: Anticoagulation with warfarin (currently on hold due to Bactrim use and elevated INR) Repeat INR daily Rate control strategy with metoprolol succinate 100mg (10) Resistant hypertension: Discontinue hydralazine to allow up titration of diuretics. This may also help with leg edema. Continue metoprolol succinate 100 mg p.o. daily, amlodipine 10 mg p.o. daily, Bumex as above. (11) DVT prophylaxis: Warfarin maangement as above History of Present Illness Chief Complaint: Shortness of breath, leg swelling Primary Care Provider: SILVIA Recinos Vivian is an 89 year old female who presents to the ER due to shortness of breath and leg swelling. She has been having on and off problems since August with her breathing with changes made to her diuretics by cardiology. More recently she was diagnosed with pneumonia based on a chest XR on 10/16 although she was having no fever, chills or cough at that time. She was treated with 7 days of cefuroxime. She did not notice a significant improvement. On follow up with her fruit buyer on October 29 there was some concern about cellulitis with her right leg more swollen than the left side with erythema and warmth. Subsequent visit to her PCP on October 31 she was started on Bactrim for cellulitis. She reports the leg looks less erythematous now but over the last week she has been getting more short of breath and her leg swelling bilaterally has become worse. She spoke to her PCP today and recommended coming to the ER. In the ER creatinine has increased from 1.31 to 2.13. CXR showed evidence of congestive failure with bilateral small pleural effusions. She was given Bumex 1mg IV. She was referred to medicine for admission and ongoing management of CHF exacerbation and cellulitis. Allergies Allergy/AdvReac Type Severity Reaction Status Date / Time No Known Allergies Allergy Unverified 11/06/20 10:42 Home Medications Medication Instructions Recorded Confirmed Type aspirin 81 mg tablet,delayed 81 mg PO DAILY 02/06/18 11/06/20 History release cholecalciferol (vitamin D3) 25 1,000 units PO DAILY 02/06/18 11/06/20 History mcg (1,000 unit) capsule cyanocobalamin (vitamin B-12) 1,000 mcg PO DAILY 02/06/18 11/06/20 History 1,000 mcg capsule omega-3 fatty acids 1,000 mg 1,000 mg PO DAILY 02/06/18 11/06/20 History capsule simvastatin 20 mg tablet 20 mg PO QPM 02/06/18 11/06/20 History hydroxychloroquine 200 mg tablet 200 mg PO HS tab 01/01/19 11/06/20 History hydralazine 10 mg PO BID 08/05/20 11/06/20 History insulin aspart U-100 [Novolog 4 unit SQ TIDM 08/05/20 11/06/20 History U-100 Insulin aspart] insulin detemir U-100 [Levemir 27 unit SQ PM 08/05/20 11/06/20 History U-100 Insulin] amlodipine 10 mg tablet 10 mg PO DAILY #90 tab 08/06/20 11/06/20 Rx warfarin 2 mg tablet 2 mg PO QAM #90 tab 08/11/20 11/06/20 Rx metoprolol succinate 100 mg 100 mg PO DAILY #90 tab 08/25/20 11/06/20 Rx tablet,extended release 24 hr albuterol sulfate 90 mcg/actuation 1 - 2 puff INH QID PRN #18 g 08/26/20 11/06/20 Rx aerosol inhaler bumetanide 0.5 mg PO DAILY 08/26/20 11/06/20 History diclofenac sodium 1 ea TOPICAL UD PRN 08/26/20 11/06/20 History levothyroxine 75 mcg tablet 75 mcg PO DAILY tab 09/18/20 11/06/20 History multivitamin 1 tab PO DAILY 09/29/20 11/06/20 History wheelchair- light weight with leg #1 ea 10/20/20 10/31/20 Rx rest gel foam cushion sulfamethoxazole 800 1 tab PO BID #14 tab 10/31/20 11/06/20 Rx mg-trimethoprim 160 mg tablet Past Med/Surg History Medical History Acquired deformity of both feet Acquired hallux valgus of right foot Callus COVID-19 virus infection 08/2020 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 of left foot Persistent atrial fibrillation Presence of cardiac pacemaker permanent dual chamber 11/19/2016 for sinus node dysfuction Rheumatoid arthritis Stage 3b chronic kidney disease Surgical History History of cataract surgery History of cholecystectomy History of facial surgery History of hysterectomy Family History Mother Alzheimer disease Brother Myocardial infarction Other Diabetes Hypertension Hypothyroidism Denies family history of Ovarian cancer Prostate cancer Breast cancer Colorectal cancer Social History Smoking Status: Never smoker Second Hand Exposure: No; Do You Dip or Chew Tobacco: No; Tobacco Cessation Education Requested by Patient: No Hx Alcohol Use: No Hx Substance Use: No Preferred Language: Tajik Communication Ability: Effective Aligner Barrel And Receiver Required: No Beliefs That Will Affect Care: None marital status: / Current Living Situation: Family current occupational status: retired Other Information That Helps Us Care for You: No Feels Safe at Home: Yes Safety Concerns: Feels Safe At This Time caffeine: Yes Dental Care, Regularly: No Physical Activity Frequency: Does not Exercise Seatbelt Use: always Sunscreen Use: Yes Assistive Devices: Walker Review of Systems Review of Systems: All systems reviewed & are unremarkable except as noted in HPI & below Physical Exam Constitutional: well developed and + frail appearing; + not well nourished and no acute distress Eyes: + anicteric sclerae; normal pupil size Respiratory: normal respiratory effort and able to speak in complete sentences; no respiratory distress, no labored breathing, does not use accessory muscles, no cough and expiratory phase not prolonged Auscultation: + diminished lung sounds (bibasal); no crackles and no wheezes Cardiovascular: Rate/Rhythm: regular rate and regular rhythm Heart Sounds: normal S1, normal S2 and + murmur (systolic) Vessels: + JVD Extremities: + pedal edema (1+ b/l pretibial) Skin: Intact blister on left leg, venous dermatitis changes on left leg, right lower extremity with mild not well circumcised erythema, mild warmth to touch, does not extend beyond ankle or knee Neurologic: moves all extremities and awake; not confused Psychiatric: A+Ox3, euthymic affect Results & Data Results & Data ([facility]) Vital Signs (Past 12 Hours) Vital Signs Temp Pulse Resp BP Pulse Ox 11/06/20 10:41 67 23 144/59 H 96 11/06/20 10:12 74 19 156/65 H 95 11/06/20 10:04 36.3 C L 85 20 137/71 94 Diagnostic Findings SINGLE VIEW CHEST IMPRESSION: 1. Cardiomegaly and cardiac pacemaker with evidence of congestive failure. 2. Small pleural effusions with bibasilar atelectasis. Medications Administered ER medications given: Bumex 1 mg IV PG Care Time/CCT Total # of Minutes Spent Total Time Spent with Patient: Total time spent is greater than 50% in coordination of care (as documented) at patient's floor/unit and/or counseling patient: Coding Level of Care Code 49425 Initial Inpt Care Lvl 3 Diagnoses Acute heart failure with preserved ejection fraction I50.31 Cellulitis of right lower extremity L03.115 Acute kidney injury N17.9 Rheumatoid arthritis M06.9 CLL (chronic lymphocytic leukemia) C91.90 Diabetes mellitus with insulin therapy E11.9; Z79.4 Hypothyroidism E03.9 Presence of cardiac pacemaker Z95.0 Persistent atrial fibrillation I48.19 Resistant hypertension I10 DVT prophylaxis Z29.9
[2020-11-06] MEDS ORDERED: VANCOMYCIN CONSULT ACTIVE PRN (12:14)
[2020-11-06] MEDS ORDERED: cefTRIAXone SODIUM 2,000 MG/70 ML BAG IV STA (12:14)
[2020-11-06] MEDS ORDERED: VANCOMYCIN HCL 1,750 MG in SODIUM CHLORIDE 0.9% 500 ML IV STA (12:29)
[2020-11-06] MEDS ORDERED: ONDANSETRON INJ 2 MG/ML 2 ML VIAL IV PRN (14:08)
[2020-11-06] MEDS ORDERED: DICLOFENAC SOD 1% GEL 100 GM TUBE EXT PRN (14:08)
[2020-11-06] MEDS ORDERED: POLYETHYLENE (MIRALAX) 17 GM PACK PO PRN (14:08)
--- NOTE | 2020-11-06 14:36 | Pharmacy Report ---
Pharmacy Abx Dose Short Note - Date of Service November 06, 2020 - Assessment & Plan Assessment * 89 year old F admitted 11/06 for acute on chronic heart failure and also receiving ceftriaxone and vancomycin for treatment of b/l LE cellulitis. 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 Thank you.
[2020-11-06] MEDS ORDERED: PHARMACY GLYCEMIC MGMT CONSULT PRN (14:41)
--- NOTE | 2020-11-06 14:51 | Pharmacy Report ---
Pharmacy Glycemic Short Note 2 - Date of Service November 06, 2020 - Glycemic Short BSG Results (Last 24 hours): 11/06/20 10:21 Glucose 147 H OUTPATIENT ANTIDIABETIC REGIMEN: * Levemir 27 units QPM * Novolog 4 units TIDM ASSESSMENT: * 89 y/o F admitted for acute heart failure and also being treated for b/l LE cellulitis. P * Patient is a diabetic managed at home on insulins -once daily Levemir and Novolog bolus with meals. * Will continue the same insulins while admitted here but with reduced basal dose d/t current renal insufficiency. * Novolog ordered based on wt and stress of 2. PLAN FOR INPATIENT GLYCEMIC CONTROL: * Basal insulin * Levemir 22 units SQ HS * Bolus insulin * NovoLog per scale ACHS or Q6hrs while NPO * Goal Range: Low 120 mg/dL - High 150 mg/dL * Correction Factor: 30 mg/dL/unit * Nutritional / Prandial insulin per carb ratio of 1 unit per 10 grams CHO consumed PLAN FOR DISCHARGE: * TBD
[2020-11-06] MEDS ORDERED: GLUCAGON FOR INJ 1 MG VIAL IM PRN (16:00)
[2020-11-06] MEDS ORDERED: CARBOHYDRATES FOR HYPOGLYCEMIA PO PRN (16:00)
[2020-11-06] MEDS ORDERED: DEXTROSE 50% 50 ML SYRINGE IV PRN (16:00)
[2020-11-06] MEDS ORDERED: GLUCOSE 10 TABS/TUBE PO PRN (16:00)
[2020-11-06] MEDS ORDERED: GLUCOSE 40% GEL 15 GM TUBE PO PRN (16:00)
[2020-11-06] MEDS: INSULIN ASPART 100 UNITS/ML 3 ML PEN SC SCH ×2 (17:10→20:46)
[2020-11-06] MEDS: BUMETANIDE 1 MG in SYRINGE 0 ML IV SCH (17:11)
--- NOTE | 2020-11-06 19:35 | Cardiology Consultation ---
Date of Consultation November 06, 2020 Assessment & Plan (1) Acute heart failure with preserved ejection fraction: Continue IV Bumex 1 mg twice daily. Repeat basic metabolic panel in a.m. Monitor daily weight, fluid balance, and GFR. Patient is not an ideal candidate for Aldactone due to renal insufficiency. Reduce amlodipine to 5 mg daily due to edema. Monitor blood pressure closely. Results of most recent echocardiogram noted above. No indication for repeat echo at this time. (2) Permanent atrial fibrillation: Telemetry reveals a paced rhythm. INR mildly supratherapeutic on admission. Warfarin placed on hold. Repeat INR in a.m. (3) Acute renal failure superimposed on stage 3 chronic kidney disease: Continue IV diuretic therapy. Avoid NSAIDs and nephrotoxic agents. Repeat BMP in a.m. History of Present Illness Reason for Consultation: CHF Requesting Physician: Dr. Narayanan Attending Physician: Alfredito Narayanan MD History of Present Illness 89-year-old female present to the emergency department with weight gain and shortness of breath. Carries a history of chronic diastolic heart failure, right ventricular heart failure, and pulmonary hypertension. She is somewhat of a poor historian however notes her shortness of breath "comes and goes". Notes two-pillow orthopnea which is chronic. 6 pound weight gain noted prior to admission. Treated with 1 dose of intravenous Bumex at 5 PM. Currently resting comfortably and lying nearly supine. Denies chest discomfort or palpitations. No lightheadedness or dizziness. Denies noncompliance with diuretic therapy in the outpatient setting. Voices concern regarding chronic edema with occasional ulcers. History of permanent atrial fibrillation with sinus node dysfunction status post pacemaker implantation in 2017. Most recent echocardiogram performed in early October demonstrates left ventricular ejection fraction of 50% with evidence of severe pulmonary hypertension, moderate mitral and tricuspid regurgitation. Septal flattening reported consistent with right ventricular pressure and volume overload. BNP drawn in the outpatient setting 10/28/2020 found to be elevated prompting titration of diuretic therapy. Current dose of oral diuretics is 20 mg of torsemide daily. Allergies Allergy/AdvReac Type Severity Reaction Status Date / Time No Known Allergies Allergy Unverified 11/06/20 10:42 Home Medications Medication Instructions Recorded Confirmed Type aspirin 81 mg tablet,delayed 81 mg PO DAILY 02/06/18 11/06/20 History release cholecalciferol (vitamin D3) 25 1,000 units PO DAILY 02/06/18 11/06/20 History mcg (1,000 unit) capsule cyanocobalamin (vitamin B-12) 1,000 mcg PO DAILY 02/06/18 11/06/20 History 1,000 mcg capsule omega-3 fatty acids 1,000 mg 1,000 mg PO DAILY 02/06/18 11/06/20 History capsule simvastatin 20 mg tablet 20 mg PO QPM 02/06/18 11/06/20 History hydroxychloroquine 200 mg tablet 200 mg PO HS tab 01/01/19 11/06/20 History hydralazine 10 mg PO BID 08/05/20 11/06/20 History insulin aspart U-100 [Novolog 4 unit SQ TIDM 08/05/20 11/06/20 History U-100 Insulin aspart] insulin detemir U-100 [Levemir 27 unit SQ PM 08/05/20 11/06/20 History U-100 Insulin] amlodipine 10 mg tablet 10 mg PO DAILY #90 tab 08/06/20 11/06/20 Rx warfarin 2 mg tablet 2 mg PO QAM #90 tab 08/11/20 11/06/20 Rx metoprolol succinate 100 mg 100 mg PO DAILY #90 tab 08/25/20 11/06/20 Rx tablet,extended release 24 hr albuterol sulfate 90 mcg/actuation 1 - 2 puff INH QID PRN #18 g 08/26/20 11/06/20 Rx aerosol inhaler bumetanide 0.5 mg PO DAILY 08/26/20 11/06/20 History diclofenac sodium 1 ea TOPICAL UD PRN 08/26/20 11/06/20 History levothyroxine 75 mcg tablet 75 mcg PO DAILY tab 09/18/20 11/06/20 History multivitamin 1 tab PO DAILY 09/29/20 11/06/20 History wheelchair- light weight with leg #1 ea 10/20/20 10/31/20 Rx rest gel foam cushion sulfamethoxazole 800 1 tab PO BID #14 tab 10/31/20 11/06/20 Rx mg-trimethoprim 160 mg tablet Patient History Medical History Acquired deformity of both feet Acquired hallux valgus of right foot Callus COVID-19 virus infection 08/2020 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 of left foot Persistent atrial fibrillation Presence of cardiac pacemaker permanent dual chamber 11/19/2016 for sinus node dysfuction Rheumatoid arthritis Stage 3b chronic kidney disease Surgical History History of cataract surgery History of cholecystectomy History of facial surgery History of hysterectomy Family History Mother Alzheimer disease Brother Myocardial infarction Other Diabetes Hypertension Hypothyroidism Denies family history of Ovarian cancer Prostate cancer Breast cancer Colorectal cancer Social History Smoking Status: Never smoker Second Hand Exposure: No; Do You Dip or Chew Tobacco: No; Tobacco Cessation Education Requested by Patient: No Hx Alcohol Use: No Hx Substance Use: No Preferred Language: Lebanese Communication Ability: Effective Channel Process Supervisor Required: No Beliefs That Will Affect Care: None marital status: / Current Living Situation: Family current occupational status: retired Other Information That Helps Us Care for You: No Feels Safe at Home: Yes Safety Concerns: Feels Safe At This Time caffeine: Yes Dental Care, Regularly: No Physical Activity Frequency: Does not Exercise Seatbelt Use: always Sunscreen Use: Yes Assistive Devices: Glasses and Oxygen - Continuous Review of Systems Review of Systems: All systems reviewed & are unremarkable except as noted in Subjective Physical Exam Constitutional: well developed and well nourished; no acute distress Respiratory: normal respiratory effort; no respiratory distress and no labored breathing Auscultation: + diminished lung sounds (Bases bilateral.); no crackles, no rales, no rhonchi and no wheezes Cardiovascular: Rate/Rhythm: regular rate and regular rhythm Heart Sounds: normal S1, normal S2 and + murmur Vessels: + JVD Extremities: + edema Gastrointestinal (Abdomen): Inspection/Auscultation: normal bowel sounds; abdomen not distended Percussion/Palpation: abdomen nontender, no guarding, abdomen not rigid and + abdomen not soft Neurologic: CN's II-XI intact bilaterally and moves all extremities; no focal motor deficits Motor/Sensory: no tremor Results & Data ([facility]) Vital Signs (Past 12 Hours) Vital Signs Temp Pulse Pulse Resp BP BP Pulse Ox 11/06/20 18:41 122/52 L 11/06/20 18:40 36.6 C 60 18 87/50 L 92 11/06/20 16:46 72 11/06/20 14:53 65 11/06/20 14:10 36.4 C L 18 148/62 H 93 11/06/20 13:30 60 18 135/83 95 11/06/20 13:00 61 23 134/73 96 11/06/20 12:30 60 23 135/63 94 11/06/20 12:00 60 23 130/60 94 11/06/20 11:30 60 24 126/74 95 11/06/20 10:41 67 23 144/59 H 96 11/06/20 10:12 74 19 156/65 H 95 11/06/20 10:04 36.3 C L 85 20 137/71 94
[2020-11-06] MEDS: SIMVASTATIN 20 MG TAB PO SCH (20:45)
[2020-11-06] MEDS: HYDROXYCHLOROQUINE SULFATE 200 MG TAB PO SCH (20:45)
[2020-11-06] MEDS ORDERED: INSULIN DETEMIR FLEXPEN/FLEX TOUCH 100 UNITS/ML 3ML SC SCH (21:00)
[2020-11-07] MEDS: INSULIN ASPART 100 UNITS/ML 3 ML PEN SC SCH ×6 (00:08→21:33)
[2020-11-07] MEDS: LEVOTHYROXINE SODIUM 75 MCG TABLET PO SCH (06:03)
--- NOTE | 2020-11-07 06:07 | Electrocardiogram Report ---
Test Reason : Blood Pressure : / mmHG Vent. Rate : 071 BPM Atrial Rate : 227 BPM P-R Int : 000 ms QRS Dur : 188 ms QT Int : 486 ms P-R-T Axes : 000 -81 096 degrees QTc Int : 528 ms Poor data quality, interpretation may be adversely affected Ventricular-paced rhythm Atrial flutter Abnormal ECG When compared with ECG of 26-AUG-2020 14:00, No significant change Confirmed by Smith Park ([id number]) on 11/07/2020 6:06:57 AM Referred By: SELF Confirmed By:Smith Park
[2020-11-07 07:58] LABS: Basophils # (auto) 0.05 K/uL (0-0.2); Basophils % (auto) 0.6 %; Hematocrit (blood only) 33.9 % (37-47); Hemoglobin 10.6 g/dL (12.0-16.0); Immature Granulocytes # (auto) 0.03 K/uL (0.00-0.02); Immature Granulocytes % (auto) 0.3 %; Lymphocytes # (auto) 0.86 K/uL (1.2-3.4); Lymphocytes % (auto) 9.6 %; Mean Corpuscular Hemoglobin 27.5 pg (25-34); Mean Corpuscular Hgb Conc 31.3 g/dL (32-36); Mean Corpuscular Volume 87.8 fL (80-100); Mean Platelet Volume 10.8 fL (7.4-10.4); Monocytes # (auto) 0.77 K/uL (0.11-0.59); Monocytes % (auto) 8.6 %; Neutrophils # (auto) 7.22 K/uL (1.4-6.5); Neutrophils % (auto) 80.9 %; Nucleated RBC # (auto) 0.03 K/uL (0-0); Nucleated RBC % (auto) 0.4 %; Platelet Count 226 K/uL (130-400); RDW Coefficient of Variation 18.7 % (11.5-14.5); RDW Standard Deviation 59.7 fL (36.4-46.3); Red Blood Count 3.86 M/uL (4.2-5.4); White Blood Count 8.93 K/uL (4.8-10.8)
[2020-11-07] MEDS: METOPROLOL SUCC 50MG EXT REL TAB PO SCH (08:10)
[2020-11-07] MEDS: amLODIPine BESYLATE 5 MG TAB PO SCH (08:10)
[2020-11-07] MEDS: MULTIVITAMIN TAB PO SCH (08:10)
[2020-11-07] MEDS: CYANOCOBALAMIN 500 MCG TABLET (VITAMIN B-12) PO SCH (08:11)
[2020-11-07] MEDS: ASPIRIN 81 MG ECTAB PO SCH (08:11)
[2020-11-07] MEDS: CHOLECALCIFEROL 1,000 UNITS 25 MCG TAB PO SCH (08:11)
[2020-11-07] MEDS: BUMETANIDE 1 MG in SYRINGE 0 ML IV SCH ×2 (08:11→17:07)
[2020-11-07 08:13] LABS: INR 4.2 (0.9-1.1)
[2020-11-07 08:24] LABS: BUN Creatinine Ratio 17.3 (10-20); Calcium 8.4 mg/dl (8.5-10.1); Creatinine Clr Calc Pharmacy 20.6 ml/min; Est GFR (African American) 25.8 ml/min; Est GFR (Non-African American) 22.3 ml/min; Potassium 3.4 mmol/L (3.5-5.1)
[2020-11-07 08:46] LABS: Estimated Average Glucose 143 mg/dl; Hemoglobin A1C 6.6 % (4.5-5.6)
[2020-11-07] MEDS ORDERED: amLODIPine BESYLATE 5 MG TAB PO SCH (09:00)
[2020-11-07] MEDS ORDERED: VANCOMYCIN HCL 1,250 MG in SODIUM CHLORIDE 0.9% 250 ML IV ONE (10:00)
--- NOTE | 2020-11-07 11:14 | Cardiology Progress Note ---
Date of Service November 07, 2020 Assessment & Plan (1) Acute heart failure with preserved ejection fraction: Continue IV Bumex 1 mg twice daily. Serum creatinine trending down slightly today. Monitor daily weight, fluid balance, and GFR. Patient is not an ideal candidate for Aldactone due to renal insufficiency. Amlodipine reduced to 5 mg daily 11/06/2020. Blood pressure remains stable. Continue to monitor. Results of most recent echocardiogram reviewed. No indication for repeat study at this time. (2) Permanent atrial fibrillation: Telemetry reveals a paced rhythm. INR continues to trend upward, likely secondary to antibiotic therapy. Warfarin on hold. Repeat INR in a.m. (3) Acute renal failure superimposed on stage 3 chronic kidney disease: Continue IV diuretic therapy. Avoid NSAIDs and nephrotoxic agents. Repeat BMP in a.m. (4) Cellulitis of right lower extremity: Antibiotics per internal medicine. Admission and Anticipated Discharge Date Admission Date: November 06, 2020 Subjective Patient seen and examined at the bedside. Clinically improved overnight. Positive fluid balance recorded. Serum creatinine trending downward. INR remains supratherapeutic at 4.2. Warfarin on hold. No signs or symptoms of GI/ blood loss. Review of Systems Review of Systems: All systems reviewed & are unremarkable except as noted in Subjective Physical Exam Constitutional: well developed and well nourished; no acute distress Respiratory: normal respiratory effort; no respiratory distress and no labored breathing Auscultation: + diminished lung sounds (Bases bilateral.); no crackles, no rales, no rhonchi and no wheezes Cardiovascular: Rate/Rhythm: regular rate and regular rhythm Heart Sounds: normal S1, normal S2 and + murmur Vessels: + JVD Extremities: + edema (Right lower extremity erythema, left pretibial ulceration.) Gastrointestinal (Abdomen): Inspection/Auscultation: normal bowel sounds; abdomen not distended Percussion/Palpation: abdomen nontender, no guarding, abdomen not rigid and + abdomen not soft Neurologic: CN's II-XI intact bilaterally and moves all extremities; no focal motor deficits Motor/Sensory: no tremor Results & Data ([facility]) Vital Signs (Past 12 Hours) Vital Signs Temp Pulse Pulse Resp BP Pulse Ox 11/07/20 08:11 36.6 C 64 16 131/79 95 11/07/20 06:23 61 06/25/21 04:00 36.6 C 65 18 133/65 93 11/07/20 00:00 36.7 C 62 18 132/61 92
[2020-11-07] MEDS ORDERED: cefTRIAXone SODIUM 2,000 MG in DEXTROSE 5% 50 ML IV SCH (13:00)
--- NOTE | 2020-11-07 13:57 | Pharmacy Report ---
Pharmacy Glycemic Short Note 2 - Date of Service November 07, 2020 - Glycemic Short BSG Results (Last 24 hours): 11/06/20 11/06/20 11/07/20 16:34 20:12 00:08 Glucose POC Glucose 175 H 113 H 107 H 11/07/20 11/07/20 11/07/20 05:28 05:29 05:43 Glucose POC Glucose 57 L* 62 L* 61 L* 11/07/20 11/07/20 11/07/20 05:57 06:28 07:25 Glucose 155 H POC Glucose 69 L* 93 11/07/20 11/07/20 11/07/20 08:05 11:11 11:55 Glucose POC Glucose 150 H 78 118 H OUTPATIENT ANTIDIABETIC REGIMEN: * Levemir 27 units QPM * Novolog 4 units TIDM ASSESSMENT: 11/07: * Pt received 27 units of insulin yesterday; 22 units basal and 5 units bolus. * Pt was hypoglycemic overnight. Reduced basal dosing for tonight and Novolog CR this AM. * Pre-lunch BSG lower at 78. Novolog CR further loosened. 11/06: * 89 y/o F admitted for acute heart failure and also being treated for b/l LE cellulitis. P * Patient is a diabetic managed at home on insulins -once daily Levemir and Novolog bolus with meals. * Will continue the same insulins while admitted here but with reduced basal dose d/t current renal insufficiency. * Novolog ordered based on wt and stress of 2. PLAN FOR INPATIENT GLYCEMIC CONTROL: * Basal insulin: decreased * Levemir 8-12 units scale SQ HS based on BSG (see EMR for details). * Bolus insulin: loosened CR * NovoLog per scale ACHS or Q6hrs while NPO * Goal Range: Low 120 mg/dL - High 150 mg/dL * Correction Factor: 30 mg/dL/unit * Nutritional / Prandial insulin per carb ratio of 1 unit per 15 grams CHO consumed PLAN FOR DISCHARGE: * TBD
--- NOTE | 2020-11-07 15:28 | Pharmacy Report ---
Pharmacy Abx Dose Short Note - Date of Service November 07, 2020 - Assessment & Plan Assessment 89 year old F receiving Vancomycin for treatment of b/l LE cellulitis. Day #2 of antimicrobial therapy. Patient received a loading dose of Vancomycin 1750 mg IV x 1 yesterday. Since patient is with JOSH, a maintenance dose is not currently ordered. Random level obtained with AM labs today. Laboratory Tests 11/07/20 07:25 Random Vancomycin 15.4 Plan Vancomycin * Random level of 15.4 mcg/mL is therapeutic. Patient due to receive another dose. * Vancomycin 1250 mg IV x 1 dose ordered and given around 1000 today. * Renal function improving but S creatinine still elevated. Will continue to order one-time Vanc doses and check random level in AM. * Goal trough level for Cellulitis: ~ 15 mcg/mL * Random level ordered for: 11/08/20 with AM labs Pharmacy will continue to follow and will adjust dose/frequency as necessary. Thank you.
--- NOTE | 2020-11-07 15:38 | Hospitalist Progress Note ---
Date of Service November 07, 2020 Assessment & Plan (1) Acute heart failure with preserved ejection fraction: Elevated BNP, LVEF 50% in setting of moderate MR, moderate TR, pulmonary artery systolic pressure 65 mm Hg Strict I&Os Daily weights: she is 188lbs today, baseline is closer to 182lbs Low Na, heart healthy diet, fluid restrict 1500 mL Usual diuretics with torsemide 20mg PO, will increase to Bumex 1mg IV BID and monitor renal function making more urine, Cr is 1.9 from 2.[address] Rudd, anticipate her being here the weekend (2) Cellulitis of right lower extremity: Difficult to rule out since she is already been on Bactrim although leg does not appear to be overly cellulitic at that current time. Since the erythema has improved despite worsening leg edema and congestive heart failure we will switch antibiotics to ceftriaxone and vancomycin. continue for now, monitor renal function no fever and WBC normal (3) Acute kidney injury: ?artificial rise from Bactrim use - stop Bactrim ?reduced cardiac output from CHF Cr improving on Bumex 1mg IV BID, down to 1.9 from 2.1 improved UO on diuretics repeat BMP in AM (4) Rheumatoid arthritis: Continue hydroxychloroquine 200 mg p.o. at bedtime Suspect she has underlying restrictive lung disease given her pulmonary hypertension. Patient to follow up with pulmonology with PFTs after discharge. (5) CLL (chronic lymphocytic leukemia): (6) Diabetes mellitus with insulin therapy: HbA1c 7.1 in March. hypoglycemia this morning, will decrease insulin pharmacy helping with management (7) Hypothyroidism: TSH WNL in March Continue levothyroxine 75 mcg PO daily (8) Presence of cardiac pacemaker: Noted for sick sinus syndrome (9) Persistent atrial fibrillation: Anticoagulation with warfarin at home, will continue to hold, INR is 4 today Repeat INR daily Rate control strategy with metoprolol succinate 100mg (10) Resistant hypertension: Discontinue hydralazine to allow up titration of diuretics. This may also help with leg edema. Continue metoprolol succinate 100 mg p.o. daily, reduce amlodipine to 5mg p.o. daily, Bumex as above. (11) DVT prophylaxis: Warfarin maangement as above Admission and Anticipated Discharge Date Admission Date: November 06, 2020 Subjective chart reviewed, labs reviewed appreciate cardiology consult from Dr. Rudd patient is feeling better, breathing well with Bumex IV she says her weight at home should be around 182lbs, currently she is 188lbs Cr down to 1.9, K is 3.4 WBC and Hb stable updated her family at the bedside eating and drinking okay, no chest pain, no fever, no GI symptoms ambulating with help to the restroom will get PT/OT Review of Systems Review of Systems: All systems reviewed & are unremarkable except as noted in Subjective Physical Exam Constitutional: well developed, well nourished, comfortable and + edematous; no acute distress Neck: trachea midline, no thyromegaly Respiratory: normal respiratory effort, lungs clear to auscultation Cardiovascular: Rate/Rhythm: regular rate and regular rhythm Heart Sounds: normal S1 and normal S2; no murmur Vessels: no JVD Extremities: normal capillary refill and + edema (1+ ankles, compression stocking on) Gastrointestinal (Abdomen): normal bowel sounds, soft, nontender, no hepatosplenomegaly Musculoskeletal: no cyanosis or clubbing, extremities motor strength 5/5 Skin: no rashes, warm and dry Neurologic: patellar DTR's 2+ bilat, sensation intact and PERRL, EOMI, accommodation nl, no face palsy, no dysarthria Psychiatric: A+Ox3, euthymic affect Lymphatic: no cervical or axillary lymphadenopathy Results & Data Results & Data ([facility]) Vital Signs (Past 12 Hours) Vital Signs Temp Pulse Pulse Resp BP Pulse Ox 11/07/20 15:26 36.3 C L 67 18 131/75 96 11/07/20 11:34 36.3 C L 60 16 130/76 95 11/07/20 08:11 36.6 C 64 16 131/79 95 11/07/20 06:23 61 11/07/20 04:00 36.6 C 65 18 133/65 93 Laboratory Results Laboratory Results - last 24 hr 11/06/20 11/06/20 11/07/20 16:34 20:12 00:08 WBC RBC Hgb Hct MCV MCH MCHC RDW Std Deviation RDW Coeff of Te Plt Count MPV Immature Gran % (Auto) Neut % (Auto) Lymph % (Auto) [place] % (Auto) Eos % (Auto) Baso % (Auto) Neut # (Auto) Lymph # (Auto) [place] # (Auto) Eos # (Auto) Baso # (Auto) Immature Gran # (Auto) Absolute Nucleated RBC Nucleated RBC % (auto) PT INR Sodium Potassium Chloride Carbon Dioxide Anion Gap BUN Creatinine Est Cr Clr Drug Dosing Est GFR ( Amer) Est GFR (Non-Af Amer) BUN/Creatinine Ratio Glucose POC Glucose 175 H 113 H 107 H Estimat Average Glucose Hemoglobin A1c Calcium NT-Pro-B Natriuret Pep Random Vancomycin 11/07/20 11/07/20 11/07/20 05:28 05:29 05:43 WBC RBC Hgb Hct MCV MCH MCHC RDW Std Deviation RDW Coeff of Te Plt Count MPV Immature Gran % (Auto) Neut % (Auto) Lymph % (Auto) [place] % (Auto) Eos % (Auto) Baso % (Auto) Neut # (Auto) Lymph # (Auto) [place] # (Auto) Eos # (Auto) Baso # (Auto) Immature Gran # (Auto) Absolute Nucleated RBC Nucleated RBC % (auto) PT INR Sodium Potassium Chloride Carbon Dioxide Anion Gap BUN Creatinine Est Cr Clr Drug Dosing Est GFR ( Amer) Est GFR (Non-Af Amer) BUN/Creatinine Ratio Glucose POC Glucose 57 L* 62 L* 61 L* Estimat Average Glucose Hemoglobin A1c Calcium NT-Pro-B Natriuret Pep Random Vancomycin 11/07/20 11/07/20 11/07/20 05:57 06:28 07:25 WBC 8.93 RBC 3.86 L Hgb 10.6 L Hct 33.9 L MCV 87.8 MCH 27.5 MCHC 31.3 L RDW Std Deviation 59.7 H RDW Coeff of Te 18.7 H Plt Count 226 MPV 10.8 H Immature Gran % (Auto) 0.3 Neut % (Auto) 80.9 Lymph % (Auto) 9.6 Milam % (Auto) 8.6 Eos % (Auto) 0.0 Baso % (Auto) 0.6 Neut # (Auto) 7.22 H Lymph # (Auto) 0.86 L Milam # (Auto) 0.77 H Eos # (Auto) 0.00 Baso # (Auto) 0.05 Immature Gran # (Auto) 0.03 H Absolute Nucleated RBC 0.03 H Nucleated RBC % (auto) 0.4 PT INR Sodium Potassium Chloride Carbon Dioxide Anion Gap BUN Creatinine Est Cr Clr Drug Dosing Est GFR ( Amer) Est GFR (Non-Af Amer) BUN/Creatinine Ratio Glucose POC Glucose 69 L* 93 Estimat Average Glucose Hemoglobin A1c Calcium NT-Pro-B Natriuret Pep Random Vancomycin 11/07/20 11/07/20 11/07/20 07:25 07:25 07:25 WBC RBC Hgb Hct MCV MCH MCHC RDW Std Deviation RDW Coeff of Te Plt Count MPV Immature Gran % (Auto) Neut % (Auto) Lymph % (Auto) Milam % (Auto) Eos % (Auto) Baso % (Auto) Neut # (Auto) Lymph # (Auto) Mil[place] # (Auto) Eos # (Auto) Baso # (Auto) Immature Gran # (Auto) Absolute Nucleated RBC Nucleated RBC % (auto) PT INR Sodium 137 Potassium 3.4 L Chloride 103 Carbon Dioxide 29 Anion Gap 6.0 BUN 34 H Creatinine 1.96 H Est Cr Clr Drug Dosing 20.6 Est GFR ( Amer) 25.8 Est GFR (Non-Af Amer) 22.3 BUN/Creatinine Ratio 17.3 Glucose 155 H POC Glucose Estimat Average Glucose 143 Hemoglobin A1c 6.6 H Calcium 8.4 L NT-Pro-B Natriuret Pep 7293 H Random Vancomycin 15.4 11/07/20 11/07/20 11/07/20 07:43 08:05 11:11 WBC RBC Hgb Hct MCV MCH MCHC RDW Std Deviation RDW Coeff of Te Plt Count MPV Immature Gran % (Auto) Neut % (Auto) Lymph % (Auto) Mil[place] % (Auto) Eos % (Auto) Baso % (Auto) Neut # (Auto) Lymph # (Auto) Mil[place] # (Auto) Eos # (Auto) Baso # (Auto) Immature Gran # (Auto) Absolute Nucleated RBC Nucleated RBC % (auto) PT 38.0 H INR 4.2 H Sodium Potassium Chloride Carbon Dioxide Anion Gap BUN Creatinine Est Cr Clr Drug Dosing Est GFR ( Amer) Est GFR (Non-Af Amer) BUN/Creatinine Ratio Glucose POC Glucose 150 H 78 Estimat Average Glucose Hemoglobin A1c Calcium NT-Pro-B Natriuret Pep Random Vancomycin 11/07/20 11:55 WBC RBC Hgb Hct MCV MCH MCHC RDW Std Deviation RDW Coeff of Te Plt Count MPV Immature Gran % (Auto) Neut % (Auto) Lymph % (Auto) Milam % (Auto) Eos % (Auto) Baso % (Auto) Neut # (Auto) Lymph # (Auto) [place] # (Auto) Eos # (Auto) Baso # (Auto) Immature Gran # (Auto) Absolute Nucleated RBC Nucleated RBC % (auto) PT INR Sodium Potassium Chloride Carbon Dioxide Anion Gap BUN Creatinine Est Cr Clr Drug Dosing Est GFR ( Amer) Est GFR (Non-Af Amer) BUN/Creatinine Ratio Glucose POC Glucose 118 H Estimat Average Glucose Hemoglobin A1c Calcium NT-Pro-B Natriuret Pep Random Vancomycin Medications Administered Current Inpatient Medications Acetaminophen (Acetaminophen 325 Mg Tab) 650 mg PO Q4H PRN PRN Reason: Pain or Fever Stop: 12/06/20 14:07 Amlodipine Besylate (Amlodipine Besylate 5 Mg Tab) 5 mg PO DAILY RODOLFO Stop: 12/07/20 08:59 Last Admin: 11/07/20 08:10 Dose: 5 mg Documented by: Aspirin (Aspirin 81 Mg Ectab) 81 mg PO DAILY RODOLFO Stop: 12/07/20 08:59 Last Admin: 11/07/20 08:11 Dose: 81 mg Documented by: Cyanocobalamin (Cyanocobalamin 500 Mcg Tablet (Vitamin B-12)) 1,000 mcg PO DAILY RODOLFO Stop: 12/07/20 08:59 Last Admin: 11/07/20 08:11 Dose: 1,000 mcg Documented by: Dextrose (Dextrose 50% 50 Ml Syringe) 25 - 50 ml IV UD PRN; Protocol PRN Reason: Hypoglycemia Protocol Stop: 12/06/20 15:59 Diclofenac Sodium (Diclofenac Sod 1% Gel 100 Gm Tube) 2 gm EXT Q6H PRN PRN Reason: Pain Stop: 12/06/20 14:07 Glucagon (Glucagon For Inj 1 Mg Vial) 1 mg IM UD PRN; Protocol PRN Reason: Hypoglycemia Protocol Stop: 12/06/20 15:59 Glucose (Glucose 40% Gel 15 Gm Tube) 15 - 30 gm PO UD PRN; Protocol PRN Reason: Hypoglycemia Protocol Stop: 12/06/20 15:59 Glucose (Glucose 10 Tabs/Tube) 4 - 8 tabs PO UD PRN; Protocol PRN Reason: Hypoglycemia Protocol Stop: 12/06/20 15:59 Hydroxychloroquine Sulfate (Hydroxychloroquine Sulfate 200 Mg Tab) 200 mg PO HS RODOLFO Stop: 12/06/20 20:59 Last Admin: 11/06/20 20:45 Dose: 200 mg Documented by: Ceftriaxone Sodium 2,000 mg/ (Dextrose) 70 mls @ 140 mls/hr IV Q24H [facility]; Protocol Stop: 11/14/20 12:59 Last Infusion: 11/07/20 13:39 Dose: Infused Documented by: Bumetanide 1 mg/ Syringe 4 mls @ 4 mls/min IV BID@0900,1700 [facility] Stop: 12/06/20 16:59 Last Admin: 11/07/20 08:11 Dose: 4 mls/min Documented by: Insulin Aspart (Insulin Aspart 100 Units/Ml 3 Ml Pen) 0 units SC ACHS [facility] Stop: 12/06/20 16:29 Last Admin: 11/07/20 12:13 Dose: Not Given Documented by: Insulin Aspart (Insulin Aspart 100 Units/Ml 3 Ml Pen) 0 units SC 0000,0400 [facility] Stop: 11/08/20 04:01 Insulin Detemir (Insulin Detemir Flexpen/Flex Touch 100 Units/Ml 3ml) 0 units SC HS [facility]; Protocol Stop: 12/07/20 20:59 Levothyroxine Sodium (Levothyroxine Sodium 75 Mcg Tablet) [facility] Stop: 12/07/20 06:29 Last Admin: 11/07/20 06:03 Dose: 75 mcg Documented by: Metoprolol Succinate (Metoprolol Succ 50mg Ext Rel Tab) 100 mg PO DAILY [facility] Stop: 12/07/20 08:59 Last Admin: 11/07/20 08:10 Dose: 100 mg Documented by: Miscellaneous (Carbohydrates For Hypoglycemia ) 15 - 30 gm PO UD PRN PRN Reason: Hypoglycemia Treatment Stop: 12/06/20 15:59 Miscellaneous Information (Vancomycin Consult Active) 1 ea N/A UD PRN PRN Reason: Consult Stop: 12/06/20 12:13 Miscellaneous Information (Pharmacy Glycemic Mgmt Consult) 1 ea N/A UD PRN PRN Reason: Consult Stop: 12/06/20 14:40 Multivitamins (Multivitamin Tab) 1 tab PO DAILY [facility] Stop: 12/07/20 08:59 Last Admin: 11/07/20 08:10 Dose: 1 tab Documented by: Ondansetron HCl (Ondansetron Inj 2 Mg/Ml 2 Ml Vial) 4 mg IV Q6H PRN PRN Reason: Nausea Stop: 12/06/20 14:07 Polyethylene Glycol (Polyethylene (Miralax) 17 Gm Pack) 17 gm PO DAILY PRN PRN Reason: Constipation Stop: 12/06/20 14:07 Simvastatin (Simvastatin 20 Mg Tab) 20 mg PO QPM [facility] Stop: 12/06/20 20:59 Last Admin: 11/06/20 20:45 Dose: 20 mg Documented by: Vitamin D (Cholecalciferol 1,000 Units 25 Mcg Tab) 1,000 units PO DAILY [facility]FO Stop: 12/07/20 08:59 Last Admin: 11/07/20 08:11 Dose: 1,000 units Documented by: PG Care Time/CCT Total # of Minutes Spent Total Time Spent with Patient: Total time spent is greater than 50% in coordination of care (as documented) at patient's floor/unit and/or counseling patient: Coding Level of Care Code 38714 Subseq Hosp Care Lvl 3 Diagnoses Acute heart failure with preserved ejection fraction I50.31 Cellulitis of right lower extremity L03.115 Acute kidney injury N17.9 Rheumatoid arthritis M06.9 CLL (chronic lymphocytic leukemia) C91.90 Diabetes mellitus with insulin therapy E11.9; Z79.4 Hypothyroidism E03.9 Presence of cardiac pacemaker Z95.0 Persistent atrial fibrillation I48.19 Resistant hypertension I10 DVT prophylaxis Z29.9
[2020-11-07] MEDS ORDERED: INSULIN DETEMIR FLEXPEN/FLEX TOUCH 100 UNITS/ML 3ML SC SCH (21:00)
[2020-11-07] MEDS: ACETAMINOPHEN 325 MG TAB PO PRN (21:30)
[2020-11-07] MEDS: SIMVASTATIN 20 MG TAB PO SCH (21:31)
[2020-11-07] MEDS: HYDROXYCHLOROQUINE SULFATE 200 MG TAB PO SCH (21:31)
[2020-11-08] MEDS: INSULIN ASPART 100 UNITS/ML 3 ML PEN SC SCH ×6 (00:50→21:15)
[2020-11-08] MEDS: LEVOTHYROXINE SODIUM 75 MCG TABLET PO SCH (06:09)
[2020-11-08 06:36] LABS: Hematocrit (blood only) 34.6 % (37-47); Hemoglobin 10.8 g/dL (12.0-16.0); Mean Corpuscular Hemoglobin 27.5 pg (25-34); Mean Corpuscular Hgb Conc 31.2 g/dL (32-36); Nucleated RBC # (auto) 0.03 K/uL (0-0); Nucleated RBC % (auto) 0.3 %; Platelet Count 213 K/uL (130-400); RDW Coefficient of Variation 18.5 % (11.5-14.5); RDW Standard Deviation 59.4 fL (36.4-46.3); Red Blood Count 3.93 M/uL (4.2-5.4); White Blood Count 9.01 K/uL (4.8-10.8)
[2020-11-08 06:51] LABS: INR 3.5 (0.9-1.1); Prothrombin Time 31.8 Seconds (9.0-12.0)
[2020-11-08 07:07] LABS: BUN Creatinine Ratio 17.2 (10-20); Calcium 8.8 mg/dl (8.5-10.1); Creatinine Clr Calc Pharmacy 21.6 ml/min; Est GFR (African American) 27.5 ml/min; Est GFR (Non-African American) 23.7 ml/min; Potassium 3.6 mmol/L (3.5-5.1)
--- NOTE | 2020-11-08 08:05 | Cardiology Progress Note ---
Date of Service November 08, 2020 Assessment & Plan (1) Acute heart failure with preserved ejection fraction: Patient clinically improved. Would continue IV Bumex through the day, likely switch to oral in a.m. Blood pressure trending slightly higher, may resume hydralazine (2) Permanent atrial fibrillation: Telemetry reveals a paced rhythm. (3) Acute renal failure superimposed on stage 3 chronic kidney disease: Continue IV diuretic therapy. Avoid NSAIDs and nephrotoxic agents. Repeat BMP in a.m. (4) Cellulitis of right lower extremity: Antibiotics per internal medicine. Admission and Anticipated Discharge Date Admission Date: November 06, 2020 Subjective Patient was seen and examined, chart, medications, telemetry reviewed. Patient subjectively feels improved per her description. Weights and urinary outputs not reflective of profound diuresis but renal function also improving. Ventricular paced rhythm on telemetry unchanged Blood pressures trending slightly upward Review of Systems Review of Systems: All systems reviewed & are unremarkable except as noted in HPI & below Physical Exam Constitutional: well developed and well nourished; no acute distress Respiratory: normal respiratory effort; no respiratory distress and no labored breathing Auscultation: + diminished lung sounds (Bases bilateral.); no crackles, no rales, no rhonchi and no wheezes Cardiovascular: Rate/Rhythm: regular rate and regular rhythm (Paced) Heart Sounds: normal S1, normal S2 and + murmur Vessels: no JVD Extremities: + edema (Trace) Gastrointestinal (Abdomen): Inspection/Auscultation: normal bowel sounds; abdomen not distended Percussion/Palpation: abdomen nontender, no guarding, abdomen not rigid and + abdomen not soft Neurologic: CN's II-XI intact bilaterally and moves all extremities; no focal motor deficits Motor/Sensory: no tremor Results & Data ([facility]) Vital Signs (Past 12 Hours) Vital Signs Temp Pulse Pulse Resp BP BP Pulse Ox 11/08/20 07:19 75 11/08/20 02:42 36.4 C L 67 22 157/76 H 97 11/07/20 23:50 36.5 C 65 18 145/52 H 96 11/07/20 22:20 61 Laboratory Results Laboratory Results - last 24 hr 11/07/20 11/07/20 11/07/20 07:25 07:25 07:25 WBC RBC Hgb Hct MCV MCH MCHC RDW Std Deviation RDW Coeff of Te Plt Count MPV Absolute Nucleated RBC Nucleated RBC % (auto) PT INR Sodium 137 Potassium 3.4 L Chloride 103 Carbon Dioxide 29 Anion Gap 6.0 BUN 34 H Creatinine 1.96 H Est Cr Clr Drug Dosing 20.6 Est GFR ( Amer) 25.8 Est GFR (Non-Af Amer) 22.3 BUN/Creatinine Ratio 17.3 Glucose 155 H POC Glucose Estimat Average Glucose 143 Hemoglobin A1c 6.6 H Calcium 8.4 L NT-Pro-B Natriuret Pep 7293 H Random Vancomycin 15.4 11/07/20 11/07/20 11/07/20 07:43 08:05 11:11 WBC RBC Hgb Hct MCV MCH MCHC RDW Std Deviation RDW Coeff of Te Plt Count MPV Absolute Nucleated RBC Nucleated RBC % (auto) PT 38.0 H INR 4.2 H Sodium Potassium Chloride Carbon Dioxide Anion Gap BUN Creatinine Est Cr Clr Drug Dosing Est GFR ( Amer) Est GFR (Non-Af Amer) BUN/Creatinine Ratio Glucose POC Glucose 150 H 78 Estimat Average Glucose Hemoglobin A1c Calcium NT-Pro-B Natriuret Pep Random Vancomycin 11/07/20 11/07/20 11/07/20 11:55 17:07 20:36 WBC RBC Hgb Hct MCV MCH MCHC RDW Std Deviation RDW Coeff of Te Plt Count MPV Absolute Nucleated RBC Nucleated RBC % (auto) PT INR Sodium Potassium Chloride Carbon Dioxide Anion Gap BUN Creatinine Est Cr Clr Drug Dosing Est GFR ( Amer) Est GFR (Non-Af Amer) BUN/Creatinine Ratio Glucose POC Glucose 118 H 99 167 H Estimat Average Glucose Hemoglobin A1c Calcium NT-Pro-B Natriuret Pep Random Vancomycin 11/08/20 11/08/20 11/08/20 00:19 06:26 06:26 WBC 9.01 RBC 3.93 L Hgb 10.8 L Hct 34.6 L MCV 88.0 MCH 27.5 MCHC 31.2 L RDW Std Deviation 59.4 H RDW Coeff of Te 18.5 H Plt Count 213 MPV 10.0 Absolute Nucleated RBC 0.03 H Nucleated RBC % (auto) 0.3 PT INR Sodium Potassium Chloride Carbon Dioxide Anion Gap BUN Creatinine Est Cr Clr Drug Dosing Est GFR ( Amer) Est GFR (Non-Af Amer) BUN/Creatinine Ratio Glucose POC Glucose 182 H Estimat Average Glucose Hemoglobin A1c Calcium NT-Pro-B Natriuret Pep Random Vancomycin 19.4 11/08/20 11/08/20 06:26 06:26 WBC RBC Hgb Hct MCV MCH MCHC RDW Std Deviation RDW Coeff of Te Plt Count MPV Absolute Nucleated RBC Nucleated RBC % (auto) PT 31.8 H INR 3.5 H Sodium 138 Potassium 3.6 Chloride 105 Carbon Dioxide 32 Anion Gap 1.0 L BUN 32 H Creatinine 1.86 H Est Cr Clr Drug Dosing 21.6 Est GFR ( Amer) 27.5 Est GFR (Non-Af Amer) 23.7 BUN/Creatinine Ratio 17.2 Glucose 66 L POC Glucose Estimat Average Glucose Hemoglobin A1c Calcium 8.8 NT-Pro-B Natriuret Pep Random Vancomycin
[2020-11-08] MEDS: CHOLECALCIFEROL 1,000 UNITS 25 MCG TAB PO SCH (08:20)
[2020-11-08] MEDS: ASPIRIN 81 MG ECTAB PO SCH (08:20)
[2020-11-08] MEDS: METOPROLOL SUCC 50MG EXT REL TAB PO SCH (08:21)
[2020-11-08] MEDS: CYANOCOBALAMIN 500 MCG TABLET (VITAMIN B-12) PO SCH (08:21)
[2020-11-08] MEDS: amLODIPine BESYLATE 5 MG TAB PO SCH (08:21)
[2020-11-08] MEDS: MULTIVITAMIN TAB PO SCH (08:22)
[2020-11-08] MEDS: BUMETANIDE 1 MG in SYRINGE 0 ML IV SCH ×2 (08:51→17:15)
[2020-11-08] MEDS: hydrALAZINE 10 MG TAB PO SCH ×2 (08:51→21:13)
--- NOTE | 2020-11-08 08:51 | Pharmacy Report ---
Pharmacy Abx Dose Short Note - Date of Service November 08, 2020 - Assessment & Plan Assessment 89 year old F receiving Vancomycin for treatment of b/l LE cellulitis. Day #3 of antimicrobial therapy. Patient with acute on chronic renal insufficiency- SCr downtrending (today 1.86mg/dL). Vancomycin dosing by levels. This AM's random level was ~ 20.5hr level. Plan Vancomycin * Random level this AM within goal to re-dose. * Vancomycin 1gm (~12mg/kg) X 1 * Goal trough level for cellulitis: 10-15mcg/mL * Will obtain a 24hr random level tomorrow Pharmacy will continue to follow and will adjust dose/frequency as necessary. Thank you.
[2020-11-08] MEDS ORDERED: VANCOMYCIN HCL 1,000 MG in SODIUM CHLORIDE 0.9% 250 ML IV ONE (10:00)
--- NOTE | 2020-11-08 10:30 | Hospitalist Progress Note ---
Date of Service November 08, 2020 Assessment & Plan (1) Acute heart failure with preserved ejection fraction: Elevated BNP, LVEF 50% in setting of moderate MR, moderate TR, pulmonary artery systolic pressure 65 mm Hg Strict I&Os Daily weights: she is 187lbs today, baseline is closer to 182lbs Low Na, heart healthy diet, fluid restrict 1500 mL Usual diuretics with torsemide 20mg PO, will increase to Bumex 1mg IV BID and monitor renal function making more urine, Cr is 1.8, improving appreciate consult from Dr. Rudd, anticipate her being here the weekend (2) Cellulitis of right lower extremity: no clear evidence of cellulitis, could have been erythema associated with edema, venous insufficiency no fever, normal WBC since admission will stop Vanco/Rocephin and monitor clinically continue compression stockings (3) Acute kidney injury: ?artificial rise from Bactrim use - stop Bactrim ?reduced cardiac output from CHF Cr improving on Bumex 1mg IV BID, down to 1.8 from 2.1 improved UO on diuretics repeat BMP in AM stop Vanco to limit renal toxic effects (4) Rheumatoid arthritis: Continue hydroxychloroquine 200 mg p.o. at bedtime Suspect she has underlying restrictive lung disease given her pulmonary hypertension. Patient to follow up with pulmonology with PFTs after discharge. (5) CLL (chronic lymphocytic leukemia): (6) Diabetes mellitus with insulin therapy: HbA1c 7.1 in March. hypoglycemia yesterday morning, will decrease insulin pharmacy helping with management no further episodes (7) Hypothyroidism: TSH WNL in March Continue levothyroxine 75 mcg PO daily (8) Presence of cardiac pacemaker: Noted for sick sinus syndrome (9) Persistent atrial fibrillation: Anticoagulation with warfarin at home, will continue to hold, INR is 3.5 today Repeat INR daily Rate control strategy with metoprolol succinate 100mg (10) Resistant hypertension: Discontinue hydralazine to allow up titration of diuretics. This may also help with leg edema. Continue metoprolol succinate 100 mg p.o. daily, reduce amlodipine to 5mg p.o. daily, Bumex as above. (11) DVT prophylaxis: Warfarin maangement as above Admission and Anticipated Discharge Date Admission Date: November 06, 2020 Subjective patient sitting up in her chair, feeling well, making more urine with the Bumex, had a BM today, eating well breathing comfortably, try to wean back off oxygen Cr coming down to 1.8 weight down 0.5kg today, not back to baseline no chest pain, no fever, no chills, strength is good try to discharge tomorrow afternoon, she agrees with plan Review of Systems Review of Systems: All systems reviewed & are unremarkable except as noted in Subjective Physical Exam Constitutional: well developed, well nourished, comfortable and + edematous; no acute distress Neck: trachea midline, no thyromegaly Respiratory: normal respiratory effort, lungs clear to auscultation Cardiovascular: Rate/Rhythm: regular rate and regular rhythm Heart Sounds: normal S1 and normal S2; no murmur Vessels: no JVD Extremities: normal capillary refill and + edema (1+ ankles, compression stocking on) Gastrointestinal (Abdomen): normal bowel sounds, soft, nontender, no hepatospl enomegaly Musculoskeletal: no cyanosis or clubbing, extremities motor strength 5/5 Skin: no rashes, warm and dry Neurologic: patellar DTR's 2+ bilat, sensation intact and PERRL, EOMI, accommodation nl, no face palsy, no dysarthria Psychiatric: A+Ox3, euthymic affect Lymphatic: no cervical or axillary lymphadenopathy Results & Data Results & Data ([facility]) Vital Signs (Past 12 Hours) Vital Signs Temp Pulse Pulse Pulse Resp BP BP 11/08/20 08:00 36.4 C L 82 18 141/82 H 11/08/20 07:19 75 11/08/20 02:42 36.4 C L 67 22 157/76 H 11/07/20 23:50 36.5 C 65 18 145/52 H Pulse Ox 11/08/20 08:00 100 11/08/20 07:19 11/08/20 02:42 97 11/07/20 23:50 96 Laboratory Results Laboratory Results - last 24 hr 11/07/20 11/07/20 11/07/20 11:11 11:55 17:07 WBC RBC Hgb Hct MCV MCH MCHC RDW Std Deviation RDW Coeff of Te Plt Count MPV Absolute Nucleated RBC Nucleated RBC % (auto) PT INR Sodium Potassium Chloride Carbon Dioxide Anion Gap BUN Creatinine Est Cr Clr Drug Dosing Est GFR ( Amer) Est GFR (Non-Af Amer) BUN/Creatinine Ratio Glucose POC Glucose 78 118 H 99 Calcium Random Vancomycin 06/25/21 06/26/21 06/26/21 20:36 00:19 06:26 WBC RBC Hgb Hct MCV MCH MCHC RDW Std Deviation RDW Coeff of Te Plt Count MPV Absolute Nucleated RBC Nucleated RBC % (auto) PT INR Sodium Potassium Chloride Carbon Dioxide Anion Gap BUN Creatinine Est Cr Clr Drug Dosing Est GFR ( Amer) Est GFR (Non-Af Amer) BUN/Creatinine Ratio Glucose POC Glucose 167 H 182 H Calcium Random Vancomycin 19.4 11/08/20 11/08/20 11/08/20 06:26 06:26 06:26 WBC 9.01 RBC 3.93 L Hgb 10.8 L Hct 34.6 L MCV 88.0 MCH 27.5 MCHC 31.2 L RDW Std Deviation 59.4 H RDW Coeff of Te 18.5 H Plt Count 213 MPV 10.0 Absolute Nucleated RBC 0.03 H Nucleated RBC % (auto) 0.3 PT 31.8 H INR 3.5 H Sodium 138 Potassium 3.6 Chloride 105 Carbon Dioxide 32 Anion Gap 1.0 L BUN 32 H Creatinine 1.86 H Est Cr Clr Drug Dosing 21.6 Est GFR ( Amer) 27.5 Est GFR (Non-Af Amer) 23.7 BUN/Creatinine Ratio 17.2 Glucose 66 L POC Glucose Calcium 8.8 Random Vancomycin 11/08/20 08:22 WBC RBC Hgb Hct MCV MCH MCHC RDW Std Deviation RDW Coeff of Te Plt Count MPV Absolute Nucleated RBC Nucleated RBC % (auto) PT INR Sodium Potassium Chloride Carbon Dioxide Anion Gap BUN Creatinine Est Cr Clr Drug Dosing Est GFR ( Amer) Est GFR (Non-Af Amer) BUN/Creatinine Ratio Glucose POC Glucose 94 Calcium Random Vancomycin Medications Administered Current Inpatient Medications Acetaminophen (Acetaminophen 325 Mg Tab) 650 mg PO Q4H PRN PRN Reason: Pain or Fever Stop: 12/06/20 14:07 Last Admin: 11/07/20 21:30 Dose: 650 mg Documented by: Amlodipine Besylate (Amlodipine Besylate 5 Mg Tab) 5 mg PO DAILY [facility] Stop: 12/07/20 08:59 Last Admin: 11/08/20 08:21 Dose: 5 mg Documented by: Aspirin (Aspirin 81 Mg Ectab) 81 mg PO DAILY [facility] Stop: 12/07/20 08:59 Last Admin: 11/08/20 08:20 Dose: 81 mg Documented by: Cyanocobalamin (Cyanocobalamin 500 Mcg Tablet (Vitamin B-12)) 1,000 mcg PO D AILY [facility] Stop: 12/07/20 08:59 Last Admin: 11/08/20 08:21 Dose: 1,000 mcg Documented by: Dextrose (Dextrose 50% 50 Ml Syringe) 25 - 50 ml IV UD PRN; Protocol PRN Reason: Hypoglycemia Protocol Stop: 12/06/20 15:59 Diclofenac Sodium (Diclofenac Sod 1% Gel 100 Gm Tube) 2 gm EXT Q6H PRN PRN Reason: Pain Stop: 12/06/20 14:07 Glucagon (Glucagon For Inj 1 Mg Vial) 1 mg IM UD PRN; Protocol PRN Reason: Hypoglycemia Protocol Stop: 12/06/20 15:59 Glucose (Glucose 40% Gel 15 Gm Tube) 15 - 30 gm PO UD PRN; Protocol PRN Reason: Hypoglycemia Protocol Stop: 12/06/20 15:59 Glucose (Glucose 10 Tabs/Tube) 4 - 8 tabs PO UD PRN; Protocol PRN Reason: Hypoglycemia Protocol Stop: 12/06/20 15:59 Hydralazine HCl (Hydralazine 10 Mg Tab) 10 mg PO BID [facility] Stop: 12/08/20 08:59 Last Admin: 11/08/20 08:51 Dose: 10 mg Documented by: Hydroxychloroquine Sulfate (Hydroxychloroquine Sulfate 200 Mg Tab) 200 mg PO HS [facility] Stop: 12/06/20 20:59 Last Admin: 11/07/20 21:31 Dose: 200 mg Documented by: Ceftriaxone Sodium 2,000 mg/ (Dextrose) 70 mls @ 140 mls/hr IV Q24H [facility]; Protocol Stop: 11/14/20 12:59 Last Infusion: 11/07/20 13:39 Dose: Infused Documented by: Bumetanide 1 mg/ Syringe 4 mls @ 4 mls/min IV BID@0900,1700 [facility] Stop: 12/06/20 16:59 Last Admin: 11/08/20 08:51 Dose: 4 mls/min Documented by: Vancomycin HCl 1,000 mg/ (Sodium Chloride) 270 mls @ 200 mls/hr IV ONCE ONE Stop: 11/08/20 11:20 Last Admin: 11/08/20 10:15 Dose: 200 mls/hr Documented by: Insulin Aspart (Insulin Aspart 100 Units/Ml 3 Ml Pen) 0 units SC ACHS [facility] Stop: 12/06/20 16:29 Last Admin: 11/08/20 08:27 Dose: 2 units Documented by: Insulin Detemir (Insulin Detemir Flexpen/Flex Touch 100 Units/Ml 3ml) 0 units SC HS [facility]; Protocol Stop: 12/07/20 20:59 Last Admin: 11/07/20 21:32 Dose: 12 units Documented by: Levothyroxine Sodium (Levothyroxine Sodium 75 Mcg Tablet) [facility] Stop: 12/07/20 06:29 Last Admin: 11/08/20 06:09 Dose: 75 mcg Documented by: Metoprolol Succinate (Metoprolol Succ 50mg Ext Rel Tab) 100 mg PO DAILY [facility] Stop: 12/07/20 08:59 Last Admin: 11/08/20 08:21 Dose: 100 mg Documented by: Miscellaneous (Carbohydrates For Hypoglycemia ) 15 - 30 gm PO UD PRN PRN Reason: Hypoglycemia Treatment Stop: 12/06/20 15:59 Miscellaneous Information (Vancomycin Consult Active) 1 ea N/A UD PRN PRN Reason: Consult Stop: 12/06/20 12:13 Miscellaneous Information (Pharmacy Glycemic Mgmt Consult) 1 ea N/A UD PRN PRN Reason: Consult Stop: 12/06/20 14:40 Multivitamins (Multivitamin Tab) 1 tab PO DAILY [facility] Stop: 12/07/20 08:59 Last Admin: 11/08/20 08:22 Dose: 1 tab Documented by: Ondansetron HCl (Ondansetron Inj 2 Mg/Ml 2 Ml Vial) 4 mg IV Q6H PRN PRN Reason: Nausea Stop: 12/06/20 14:07 Polyethylene Glycol (Polyethylene (Miralax) 17 Gm Pack) 17 gm PO DAILY PRN PRN Reason: Constipation Stop: 12/06/20 14:07 Simvastatin (Simvastatin 20 Mg Tab) 20 mg PO QPM [facility] Stop: 12/06/20 20:59 Last Admin: 11/07/20 21:31 Dose: 20 mg Documented by: Vitamin D (Cholecalciferol 1,000 Units 25 Mcg Tab) 1,000 units PO DAILY [facility] Stop: 12/07/20 08:59 Last Admin: 11/08/20 08:20 Dose: 1,000 units Documented by: PG Care Time/CCT Total # of Minutes Spent Total Time Spent with Patient: Total time spent is greater than 50% in coordination of care (as documented) at patient's floor/unit and/or counseling patient: Coding Level of Care Code 58464 Subseq Hosp Care Lvl 3 Diagnoses Acute heart failure with preserved ejection fraction I50.31 Cellulitis of right lower extremity L03.115 Acute kidney injury N17.9 Rheumatoid arthritis M06.9 CLL (chronic lymphocytic leukemia) C91.90 Diabetes mellitus with insulin therapy E11.9; Z79.4 Hypothyroidism E03.9 Presence of cardiac pacemaker Z95.0 Persistent atrial fibrillation I48.19 Resistant hypertension I10 DVT prophylaxis Z29.9
--- NOTE | 2020-11-08 11:26 | Pharmacy Report ---
Pharmacy Glycemic Short Note 2 - Date of Service November 08, 2020 - Glycemic Short BSG Results (Last 24 hours): 11/07/20 11/07/20 11/07/20 11:55 17:07 20:36 Glucose POC Glucose 118 H 99 167 H 11/08/20 11/08/20 11/08/20 00:19 06:26 08:22 Glucose 66 L POC Glucose 182 H 94 11/08/20 11:05 Glucose POC Glucose 146 H OUTPATIENT ANTIDIABETIC REGIMEN: * Levemir 27 units QPM * Novolog 4 units TIDM ASSESSMENT: 11/08: * Patient received total of 18 units of insulin yesterday, of which 12 units were basal insulin * BSG on labs 66 mg/dL - POC test 99 mg/dL - september scale back slightly to 10 units for tonight * Loosened CF/CR this AM as BSGs on lower end of range, likely due to higher basal dose given day prior and still seeing effects - will tighten with lunch 11/07: * Pt received 27 units of insulin yesterday; 22 units basal and 5 units bolus. * Pt was hypoglycemic overnight. Reduced basal dosing for tonight and Novolog CR this AM. * Pre-lunch BSG lower at 78. Novolog CR further loosened. 11/06: * 89 y/o F admitted for acute heart failure and also being treated for b/l LE cellulitis. P * Patient is a diabetic managed at home on insulins -once daily Levemir and Novolog bolus with meals. * Will continue the same insulins while admitted here but with reduced basal dose d/t current renal insufficiency. * Novolog ordered based on wt and stress of 2. PLAN FOR INPATIENT GLYCEMIC CONTROL: * Basal insulin: decreased * Levemir 10 units scale SQ HS * Bolus insulin: loosened CR * NovoLog per scale ACHS or Q6hrs while NPO * Goal Range: Low 120 mg/dL - High 150 mg/dL * Correction Factor: 40 mg/dL/unit * Nutritional / Prandial insulin per carb ratio of 1 unit per 15 grams CHO consumed PLAN FOR DISCHARGE: * TBD
[2020-11-08] MEDS: ACETAMINOPHEN 325 MG TAB PO PRN (21:12)
[2020-11-08] MEDS: SIMVASTATIN 20 MG TAB PO SCH (21:14)
[2020-11-08] MEDS: HYDROXYCHLOROQUINE SULFATE 200 MG TAB PO SCH (21:14)
[2020-11-08] MEDS: INSULIN DETEMIR FLEXPEN/FLEX TOUCH 100 UNITS/ML 3ML SC SCH (21:16)
[2020-11-09] MEDS: LEVOTHYROXINE SODIUM 75 MCG TABLET PO SCH (06:22)
[2020-11-09 07:02] LABS: INR 2.2 (0.9-1.1); Prothrombin Time 20.9 Seconds (9.0-12.0)
[2020-11-09 07:13] LABS: BUN Creatinine Ratio 19.8 (10-20); Calcium 8.7 mg/dl (8.5-10.1); Creatinine Clr Calc Pharmacy 22.7 ml/min; Est GFR (African American) 28.8 ml/min; Est GFR (Non-African American) 24.9 ml/min; Potassium 3.3 mmol/L (3.5-5.1)
[2020-11-09] MEDS: amLODIPine BESYLATE 5 MG TAB PO SCH (07:54)
[2020-11-09] MEDS: METOPROLOL SUCC 50MG EXT REL TAB PO SCH (07:54)
[2020-11-09] MEDS: CHOLECALCIFEROL 1,000 UNITS 25 MCG TAB PO SCH (07:55)
[2020-11-09] MEDS: CYANOCOBALAMIN 500 MCG TABLET (VITAMIN B-12) PO SCH (07:55)
[2020-11-09] MEDS: MULTIVITAMIN TAB PO SCH (07:55)
[2020-11-09] MEDS: ASPIRIN 81 MG ECTAB PO SCH (07:55)
[2020-11-09] MEDS: INSULIN ASPART 100 UNITS/ML 3 ML PEN SC SCH ×4 (07:56→21:19)
[2020-11-09] MEDS: BUMETANIDE 1 MG in SYRINGE 0 ML IV SCH ×3 (07:56→21:17)
[2020-11-09] MEDS: hydrALAZINE 10 MG TAB PO SCH ×2 (08:49→21:11)
--- NOTE | 2020-11-09 13:06 | Cardiology Progress Note ---
Date of Service November 09, 2020 Assessment & Plan (1) Acute heart failure with preserved ejection fraction: Urinary outs appear negative however lower extremity edema more pronounced today. Weight little change. Will increase Bumex IV 1 mg 3 times daily today Continue hydralazine add oral isosorbide 10 mg twice per day for afterload reduction, further hypertension control (2) Permanent atrial fibrillation: Telemetry reveals a paced rhythm. (3) Acute renal failure superimposed on stage 3 chronic kidney disease: Continue IV diuretic therapy. Avoid NSAIDs and nephrotoxic agents. Repeat BMP in a.m. (4) Cellulitis of right lower extremity: Antibiotics per internal medicine. Admission and Anticipated Discharge Date Admission Date: November 06, 2020 Subjective Patient was seen and examined, chart, medications, telemetry reviewed. Patient notes lower extremity edema appears more pronounced today. No chest pains or dizziness no worsening shortness of breath did have brisk diuresis over the past 24 hours with improving renal function. No arrhythmias on telemetry. Physical Exam Constitutional: well developed and well nourished; no acute distress Respiratory: normal respiratory effort; no respiratory distress and no labored breathing Auscultation: + diminished lung sounds (Bases bilateral.); no crackles, no rales, no rhonchi and no wheezes Cardiovascular: Rate/Rhythm: regular rate and regular rhythm (Paced) Heart Sounds: normal S1, normal S2 and + murmur Vessels: no JVD Extremities: + edema (Trace) Gastrointestinal (Abdomen): Inspection/Auscultation: normal bowel sounds; abdomen not distended Percussion/Palpation: abdomen nontender, no guarding, abdomen not rigid and + abdomen not soft Neurologic: CN's II-XI intact bilaterally and moves all extremities; no focal motor deficits Motor/Sensory: no tremor Results & Data ([facility]) Vital Signs (Past 12 Hours) Vital Signs Temp Pulse Pulse Resp BP Pulse Ox 11/09/20 11:33 36.2 C L 64 16 155/73 H 95 11/09/20 07:30 36.4 C L 61 16 123/49 L 96 11/09/20 06:19 70 11/09/20 04:14 36.9 C 63 17 115/81 100 Laboratory Results Laboratory Results - last 24 hr 11/08/20 11/08/20 11/09/20 16:39 21:04 00:29 PT INR Sodium Potassium Chloride Carbon Dioxide Anion Gap BUN Creatinine Est Cr Clr Drug Dosing Est GFR ( Amer) Est GFR (Non-Af Amer) BUN/Creatinine Ratio Glucose POC Glucose 121 H 154 H 133 H Calcium 11/09/20 11/09/20 11/09/20 06:32 06:32 07:35 PT 20.9 H INR 2.2 H Sodium 141 Potassium 3.3 L Chloride 104 Carbon Dioxide 32 Anion Gap 5.0 BUN 35 H Creatinine 1.79 H Est Cr Clr Drug Dosing 22.7 Est GFR ( Amer) 28.8 Est GFR (Non-Af Amer) 24.9 BUN/Creatinine Ratio 19.8 Glucose 90 POC Glucose 105 H Calcium 8.7 11/09/20 11:40 PT INR Sodium Potassium Chloride Carbon Dioxide Anion Gap BUN Creatinine Est Cr Clr Drug Dosing Est GFR ( Amer) Est GFR (Non-Af Amer) BUN/Creatinine Ratio Glucose POC Glucose 133 H Calcium (1) Acute renal failure superimposed on stage 3 chronic kidney disease Acute renal failure type: unspecified Chronic kidney disease stage 3 subtype: unspecified whether 3a or 3b Qualified Code(s): N17.9 - Acute kidney failure, unspecified; N18.30 - Chronic kidney disease, stage 3 unspecified
--- NOTE | 2020-11-09 13:18 | Hospitalist Progress Note ---
Date of Service November 09, 2020 Assessment & Plan (1) Acute heart failure with preserved ejection fraction: Elevated BNP, LVEF 50% in setting of moderate MR, moderate TR, pulmonary artery systolic pressure 65 mm Hg Strict I&Os Daily weights: her weight is up today? 189lbs today compared to 187lbs yesterday, baseline is closer to 182lbs unsure if weights are accurate as based on I/O she was negative 1.5 liters which should correlate with 3lb weight loss Low Na, heart healthy diet, fluid restrict 1500 mL cardiology recommends increasing Bumex to 1mg IV TID added Hydalazine 10mg BID and Imdur 10mg BID to reduce afterload making more urine, Cr is stable at 1.7 defer to cardiology on when she is ready for discharge would likely need to follow with [facility] clinic (2) Cellulitis of right lower extremity: no clear evidence of cellulitis, could have been erythema associated with edema, venous insufficiency does have a venous stasis ulcer/blister on left lower leg no fever, normal WBC since admission will stop Vanco/Rocephin and monitor clinically continue compression stockings (3) Acute kidney injury: ?artificial rise from Bactrim use - stop Bactrim ?reduced cardiac output from CHF Cr improving on Bumex 1mg IV BID, down to 1.7 from 2.1 at time of admission improved UO on diuretics repeat BMP in AM stop Vanco to limit renal toxic effects (4) Rheumatoid arthritis: Continue hydroxychloroquine 200 mg p.o. at bedtime Suspect she has underlying restrictive lung disease given her pulmonary hypertension. Patient to follow up with pulmonology with PFTs after discharge. (5) CLL (chronic lymphocytic leukemia): (6) Diabetes mellitus with insulin therapy: HbA1c 7.1 in March. hypoglycemia yesterday morning, will decrease insulin pharmacy helping with management no further episodes (7) Hypothyroidism: TSH WNL in March Continue levothyroxine 75 mcg PO daily (8) Presence of cardiac pacemaker: Noted for sick sinus syndrome (9) Persistent atrial fibrillation: Anticoagulation with warfarin at home, INR is 2.2, resume Comadin Repeat INR daily Rate control strategy with metoprolol succinate 100mg (10) Resistant hypertension: Continue metoprolol succinate 100 mg p.o. daily, reduce amlodipine to 5mg p.o. daily, Bumex as above. add Hydralazine 10mg BID and Imdur 10mg BID per cardiology (11) DVT prophylaxis: Warfarin maangement as above Admission and Anticipated Discharge Date Admission Date: November 06, 2020 Subjective patient doing well, sitting up in chair, negative fluid balance on I/O but weight up? more edema in legs on exam? appreciate recommendations from Dr. Carrasco: increasing Bumex to 1mg TID, adding Hydralazine and Imdur for afterload reduction Cr is stable at 1.7, K is 3.3 INR is 2.2, resume Coumadin today (could have been up due to Bactrim use) Review of Systems Review of Systems: All systems reviewed & are unremarkable except as noted in Subjective Constitutional: + fatigue and + weakness; no fever Respiratory: no cough, no dyspnea and no dyspnea on exertion Cardiovascular: + edema; no chest pain, no palpitations and no syncope Gastrointestinal: no abdominal pain, no nausea, no vomiting, no constipation and no diarrhea/loose stools Physical Exam Constitutional: well developed, well nourished, comfortable and + edematous; no acute distress Neck: trachea midline, no thyromegaly Respiratory: normal respiratory effort, lungs clear to auscultation Cardiovascular: Rate/Rhythm: regular rate and regular rhythm Heart Sounds: normal S1 and normal S2; no murmur Vessels: no JVD Extremities: normal capillary refill and + edema (more edema in left leg, to mid shins) Gastrointestinal (Abdomen): normal bowel sounds, soft, nontender, no hepatosplenomegaly Musculoskeletal: no cyanosis or clubbing, extremities motor strength 5/5 Skin: no rashes, warm and dry Neurologic: patellar DTR's 2+ bilat, sensation intact and PERRL, EOMI, accommodation nl, no face palsy, no dysarthria Psychiatric: A+Ox3, euthymic affect Lymphatic: no cervical or axillary lymphadenopathy Results & Data Results & Data ([facility]) Vital Signs (Past 12 Hours) Vital Signs Temp Pulse Pulse Resp BP Pulse Ox 11/09/20 11:33 36.2 C L 64 16 155/73 H 95 11/09/20 07:30 36.4 C L 61 16 123/49 L 96 11/09/20 06:19 70 11/09/20 04:14 36.9 C 63 17 115/81 100 Laboratory Results Laboratory Results - last 24 hr 06/26/21 06/26/21 06/27/21 16:39 21:04 00:29 PT INR Sodium Potassium Chloride Carbon Dioxide Anion Gap BUN Creatinine Est Cr Clr Drug Dosing Est GFR ( Amer) Est GFR (Non-Af Amer) BUN/Creatinine Ratio Glucose POC Glucose 121 H 154 H 133 H Calcium 11/09/20 11/09/20 11/09/20 06:32 06:32 07:35 PT 20.9 H INR 2.2 H Sodium 141 Potassium 3.3 L Chloride 104 Carbon Dioxide 32 Anion Gap 5.0 BUN 35 H Creatinine 1.79 H Est Cr Clr Drug Dosing 22.7 Est GFR ( Amer) 28.8 Est GFR (Non-Af Amer) 24.9 BUN/Creatinine Ratio 19.8 Glucose 90 POC Glucose 105 H Calcium 8.7 11/09/20 11:40 PT INR Sodium Potassium Chloride Carbon Dioxide Anion Gap BUN Creatinine Est Cr Clr Drug Dosing Est GFR ( Amer) Est GFR (Non-Af Amer) BUN/Creatinine Ratio Glucose POC Glucose 133 H Calcium Medications Administered Current Inpatient Medications Acetaminophen (Acetaminophen 325 Mg Tab) 650 mg PO Q4H PRN PRN Reason: Pain or Fever Stop: 12/06/20 14:07 Last Admin: 11/08/20 21:12 Dose: 650 mg Documented by: Amlodipine Besylate (Amlodipine Besylate 5 Mg Tab) 5 mg PO DAILY RODOLFO Stop: 12/07/20 08:59 Last Admin: 11/09/20 07:54 Dose: 5 mg Documented by: Aspirin (Aspirin 81 Mg Ectab) 81 mg PO DAILY RODOLFO Stop: 12/07/20 08:59 Last Admin: 11/09/20 07:55 Dose: 81 mg Documented by: Cyanocobalamin (Cyanocobalamin 500 Mcg Tablet (Vitamin B-12)) 1,000 mcg PO DAILY RODOLFO Stop: 12/07/20 08:59 Last Admin: 11/09/20 07:55 Dose: 1,000 mcg Documented by: Dextrose (Dextrose 50% 50 Ml Syringe) 25 - 50 ml IV UD PRN; Protocol PRN Reason: Hypoglycemia Protocol Stop: 12/06/20 15:59 Diclofenac Sodium (Diclofenac Sod 1% Gel 100 Gm Tube) 2 gm EXT Q6H PRN PRN Reason: Pain Stop: 12/06/20 14:07 Glucagon (Glucagon For Inj 1 Mg Vial) 1 mg IM UD PRN; Protocol PRN Reason: Hypoglycemia Protocol Stop: 12/06/20 15:59 Glucose (Glucose 40% Gel 15 Gm Tube) 15 - 30 gm PO UD PRN; Protocol PRN Reason: Hypoglycemia Protocol Stop: 12/06/20 15:59 Glucose (Glucose 10 Tabs/Tube) 4 - 8 tabs PO UD PRN; Protocol PRN Reason: Hypoglycemia Protocol Stop: 12/06/20 15:59 Hydralazine HCl (Hydralazine 10 Mg Tab) 10 mg PO BID [facility] Stop: 12/08/20 08:59 Last Admin: 11/09/20 08:49 Dose: 10 mg Documented by: Hydroxychloroquine Sulfate (Hydroxychloroquine Sulfate 200 Mg Tab) 200 mg PO [facility] Stop: 12/06/20 20:59 Last Admin: 11/08/20 21:14 Dose: 200 mg Documented by: Bumetanide 1 mg/ Syringe 4 mls @ 4 mls/min IV TID [facility] Stop: 12/09/20 13:59 Insulin Aspart (Insulin Aspart 100 Units/Ml 3 Ml Pen) 0 units SC [facility] Stop: 12/06/20 16:29 Last Admin: 11/09/20 11:56 Dose: 5 units Documented by: Insulin Detemir (Insulin Detemir Flexpen/Flex Touch 100 Units/Ml 3ml) 10 units SC [facility] Stop: 12/08/20 20:59 Last Admin: 11/08/20 21:16 Dose: 10 units Documented by: Isosorbide Dinitrate (Isosorbide Dinitrate 10 Mg Tab) 10 mg PO BID@0700,1200 [facility] Stop: 12/09/20 13:59 Levothyroxine Sodium (Levothyroxine Sodium 75 Mcg Tablet) [facility] Stop: 12/07/20 06:29 Last Admin: 11/09/20 06:22 Dose: 75 mcg Documented by: Metoprolol Succinate (Metoprolol Succ 50mg Ext Rel Tab) 100 mg PO DAILY [facility] Stop: 12/07/20 08:59 Last Admin: 11/09/20 07:54 Dose: 100 mg Documented by: Miscellaneous (Carbohydrates For Hypoglycemia ) 15 - 30 gm PO UD PRN PRN Reason: Hypoglycemia Treatment Stop: 12/06/20 15:59 Miscellaneous Information (Pharmacy Glycemic Mgmt Consult) 1 ea N/A UD PRN PRN Reason: Consult Stop: 12/06/20 14:40 Multivitamins (Multivitamin Tab) 1 tab PO DAILY RODOLFO Stop: 12/07/20 08:59 Last Admin: 11/09/20 07:55 Dose: 1 tab Documented by: Ondansetron HCl (Ondansetron Inj 2 Mg/Ml 2 Ml Vial) 4 mg IV Q6H PRN PRN Reason: Nausea Stop: 12/06/20 14:07 Polyethylene Glycol (Polyethylene (Miralax) 17 Gm Pack) 17 gm PO DAILY PRN PRN Reason: Constipation Stop: 12/06/20 14:07 Simvastatin (Simvastatin 20 Mg Tab) 20 mg PO QPM [facility] Stop: 12/06/20 20:59 Last Admin: 11/08/20 21:14 Dose: 20 mg Documented by: Vitamin D (Cholecalciferol 1,000 Units 25 Mcg Tab) 1,000 units PO DAILY RODOLFO Stop: 12/07/20 08:59 Last Admin: 11/09/20 07:55 Dose: 1,000 units Documented by: Warfarin Sodium (Warfarin Sod 2 Mg Tab) 2 mg PO DAILY@1600 [facility] Stop: 12/09/20 15:59 PG Care Time/CCT Total # of Minutes Spent Total Time Spent with Patient: Total time spent is greater than 50% in coordination of care (as documented) at patient's floor/unit and/or counseling patient: Coding Level of Care Code 70796 Subseq Hosp Care Lvl 3 Diagnoses Acute heart failure with preserved ejection fraction I50.31 Cellulitis of right lower extremity L03.115 Acute kidney injury N17.9 Rheumatoid arthritis M06.9 CLL (chronic lymphocytic leukemia) C91.90 Diabetes mellitus with insulin therapy E11.9; Z79.4 Hypothyroidism E03.9 Presence of cardiac pacemaker Z95.0 Persistent atrial fibrillation I48.19 Resistant hypertension I10 DVT prophylaxis Z29.9
[2020-11-09] MEDS: ISOSORBIDE DINITRATE 10 MG TAB PO SCH (14:00)
[2020-11-09] MEDS: WARFARIN SOD 2 MG TAB PO SCH (15:58)
[2020-11-09] MEDS: HYDROXYCHLOROQUINE SULFATE 200 MG TAB PO SCH (21:11)
[2020-11-09] MEDS: SIMVASTATIN 20 MG TAB PO SCH (21:11)
[2020-11-09] MEDS: ACETAMINOPHEN 325 MG TAB PO PRN (21:17)
[2020-11-09] MEDS: INSULIN DETEMIR FLEXPEN/FLEX TOUCH 100 UNITS/ML 3ML SC SCH (21:18)
[2020-11-10] MEDS: ISOSORBIDE DINITRATE 10 MG TAB PO SCH ×2 (06:05→12:18)
[2020-11-10] MEDS: LEVOTHYROXINE SODIUM 75 MCG TABLET PO SCH (06:05)
[2020-11-10 07:19] LABS: INR 1.9 (0.9-1.1); Prothrombin Time 18.4 Seconds (9.0-12.0)
[2020-11-10 07:40] LABS: BUN Creatinine Ratio 18.3 (10-20); Calcium 8.7 mg/dl (8.5-10.1); Creatinine Clr Calc Pharmacy 23.8 ml/min; Est GFR (African American) 31.6 ml/min; Est GFR (Non-African American) 27.2 ml/min; Potassium 3.3 mmol/L (3.5-5.1)
[2020-11-10] MEDS: CYANOCOBALAMIN 500 MCG TABLET (VITAMIN B-12) PO SCH (08:07)
[2020-11-10] MEDS: amLODIPine BESYLATE 5 MG TAB PO SCH (08:08)
[2020-11-10] MEDS: MULTIVITAMIN TAB PO SCH (08:08)
[2020-11-10] MEDS: ASPIRIN 81 MG ECTAB PO SCH (08:08)
[2020-11-10] MEDS: hydrALAZINE 10 MG TAB PO SCH (08:08)
[2020-11-10] MEDS: CHOLECALCIFEROL 1,000 UNITS 25 MCG TAB PO SCH (08:08)
[2020-11-10] MEDS: METOPROLOL SUCC 50MG EXT REL TAB PO SCH (08:08)
[2020-11-10] MEDS: INSULIN ASPART 100 UNITS/ML 3 ML PEN SC SCH ×3 (08:10→16:58)
[2020-11-10] MEDS: ACETAMINOPHEN 325 MG TAB PO PRN (08:15)
[2020-11-10] MEDS: BUMETANIDE 1 MG in SYRINGE 0 ML IV SCH (09:30)
[2020-11-10] MEDS ORDERED: POTASSIUM CHLORIDE CRTAB 20 MEQ TABCR PO STA (10:18)
--- NOTE | 2020-11-10 11:49 | Pharmacy Report ---
Pharmacy Glycemic Short Note 2 - Date of Service November 10, 2020 - Glycemic Short BSG Results (Last 24 hours): 11/09/20 11/09/20 11/10/20 16:35 20:57 06:41 Glucose 115 H POC Glucose 111 H 183 H 11/10/20 11/10/20 07:15 11:14 Glucose POC Glucose 133 H 171 H OUTPATIENT ANTIDIABETIC REGIMEN: * Levemir 27 units QPM * Novolog 4 units TIDM ASSESSMENT: 11/10: * Pt has received 21 units of insulin over the past 24hrs * 10 units of basal with Levemir * 11 units of bolus with NovoLog * BSGs [phone] mg/dl * All BSgs in goal range with current orders. No changes needed to insulin regimen. The only BSG that was out of range was the HS BSG after only receiving 2 units of CHO coverage at dinner. One unit was "subtracted off" because the pre-dinner BSG was below the goal range of 120-150 mg/dl. Will lower the low end of the goal range to prevent CHO coverage from being subtracted off. 11/08: * Patient received total of 18 units of insulin yesterday, of which 12 units were basal insulin * BSG on labs 66 mg/dL - POC test 99 mg/dL - may scale back slightly to 10 units for tonight * Loosened CF/CR this AM as BSGs on lower end of range, likely due to higher basal dose given day prior and still seeing effects - will tighten with lunch 11/07: * Pt received 27 units of insulin yesterday; 22 units basal and 5 units bolus. * Pt was hypoglycemic overnight. Reduced basal dosing for tonight and Novolog CR this AM. * Pre-lunch BSG lower at 78. Novolog CR further loosened. 11/06: * 89 y/o F admitted for acute heart failure and also being treated for b/l LE c ellulitis. P * Patient is a diabetic managed at home on insulins -once daily Levemir and Novolog bolus with meals. * Will continue the same insulins while admitted here but with reduced basal dose d/t current renal insufficiency. * Novolog ordered based on wt and stress of 2. PLAN FOR INPATIENT GLYCEMIC CONTROL: * Basal insulin: * Levemir 10 units scale SQ HS * Bolus insulin: * NovoLog per scale ACHS or Q6hrs while NPO * Goal Range: Low 110 mg/dL - High 140 mg/dL * Correction Factor: 40 mg/dL/unit * Nutritional / Prandial insulin per carb ratio of 1 unit per 15 grams CHO consumed PLAN FOR DISCHARGE: * TBD
--- NOTE | 2020-11-10 12:13 | Cardiology Progress Note ---
Date of Service November 10, 2020 Assessment & Plan (1) Acute heart failure with preserved ejection fraction: Patient is improving clinically. Acute decompensation multifactorial. We will discontinue IV Bumex Begin torsemide 20 mg p.o. daily, potassium chloride 10 mg p.o. daily (previously ordered as an outpatient) Amlodipine reduced to 5 mg/day Isosorbide dinitrate 10 mg twice per day added to regimen with hydralazine for afterload reduction. Patient has outpatient scheduled cardiology follow-up on 11/21/2020 Future plans may include production or discontinuation of amlodipine, reduction in metoprolol to reduce ventricular pacing (2) Permanent atrial fibrillation: Patient long-term persistent now with 100% ventricular pacing possibly contributing to presentation and diastolic heart failure (3) Acute renal failure superimposed on stage 3 chronic kidney disease: (4) Cellulitis of right lower extremity: Antibiotics per internal medicine. Admission and Anticipated Discharge Date Admission Date: November 06, 2020 Subjective Patient was seen and examined, chart, medications, telemetry reviewed. Patient had brisk diuresis overnight and feels improved. No respiratory difficulties no chest pains. No dizziness or lightheadedness. Lower extremity edema has improved though with persistent stasis edema of the left leg. Physical Exam Constitutional: well developed and well nourished; no acute distress Respiratory: normal respiratory effort; no respiratory distress and no labored breathing Auscultation: + diminished lung sounds (Bases bilateral.); no crackles, no rales, no rhonchi and no wheezes Cardiovascular: Rate/Rhythm: regular rate and regular rhythm (Paced) Heart Sounds: normal S1, normal S2 and + murmur Vessels: no JVD Extremities: + edema (Trace) Gastrointestinal (Abdomen): Inspection/Auscultation: normal bowel sounds; abdomen not distended Percussion/Palpation: abdomen nontender, no guarding, abdomen not rigid and + abdomen not soft Neurologic: CN's II-XI intact bilaterally and moves all extremities; no focal motor deficits Motor/Sensory: no tremor Results & Data ([facility]) Vital Signs (Past 12 Hours) Vital Signs Temp Pulse Pulse Resp BP Pulse Ox 11/10/20 11:24 36.2 C L 61 18 123/56 L 95 11/10/20 07:20 36.3 C L 61 18 119/64 95 11/10/20 06:55 66 11/10/20 04:00 36.5 C 60 18 130/67 96 (1) Acute renal failure superimposed on stage 3 chronic kidney disease Acute renal failure type: unspecified Chronic kidney disease stage 3 subtype: unspecified whether 3a or 3b Qualified Code(s): N17.9 - Acute kidney failure, unspecified; N18.30 - Chronic kidney disease, stage 3 unspecified
[2020-11-10] MEDS ORDERED: POTASSIUM CHLORIDE CRTAB 20 MEQ TABCR PO SCH (14:00)
[2020-11-10 15:03] VITALS: BP 138/70; TEMP 97.3; O2SAT 96
[2020-11-10 16:08] VITALS: PULSE 60
--- NOTE | 2020-11-10 16:08 | Discharge Summary ---
Date of Service date of admission - November 06, 2020 date of discharge - November 10, 2020 Admission HPI Per Admitting Provider Suad Park is an 89 year old female who presents to the ER due to shortness of breath and leg swelling. She has been having on and off problems since August with her breathing with changes made to her diuretics by cardiology. More recently she was diagnosed with pneumonia based on a chest XR on 10/16 although she was having no fever, chills or cough at that time. She was treated with 7 days of cefuroxime. She did not notice a significant improvement. On follow up with her supervisor [employer] on October 29 there was some concern about cellulitis with her right leg more swollen than the left side with erythema and warmth. Subsequent visit to her PCP on October 31 she was started on Bactrim for cellulitis. She reports the leg looks less erythematous now but over the last week she has been getting more short of breath and her leg swelling bilaterally has become worse. She spoke to her PCP today and recommended coming to the ER. In the ER creatinine has increased from 1.31 to 2.13. CXR showed evidence of congestive failure with bilateral small pleural effusions. She was given Bumex 1mg IV. She was referred to medicine for admission and ongoing management of CHF exacerbation and cellulitis. Principal Diagnosis acute/chronic diastolic CHF Discharge Exam Constitutional no acute distress and no altered mental status ENMT external ear and nose normal, oropharynx normal Respiratory normal respiratory effort, lungs clear to auscultation Cardiovascular Rate/Rhythm: regular rate and regular rhythm Heart Sounds: normal S1, normal S2 and + murmur (1/6 systolic LSB ) Vessels: posterior tibial pulses present and dorsalis pedis pulses present; no JVD Extremities: + edema (<1+ b/l ) Gastrointestinal (Abdomen) normal bowel sounds, soft, nontender, no hepatosplenomegaly Skin no evidence of cellulitis of either poole; venous stasis changes / hyperpigmentation of left poole; minimal stasis changes right poole. left poole - small fluid-filled blister with optifoam in place. Psychiatric A+Ox3, euthymic affect Discharge Data Allergies Allergy/AdvReac Type Severity Reaction Status Date / Time No Known Allergies Allergy Unverified 11/06/20 10:42 Consultations [facility] PT, OT Hospital Course (1) Acute heart failure with preserved ejection fraction: Echo early October 2020 at [facility] with LVEF 50% and moderate MR, moderate TR, and pulmonary artery systolic pressure 65 mmHg consistent with severe pulmonary HTN. Patient was diuresed this admission with improved pulmonary symptoms and jan ghts. Discharge weight was 82.5kg (181.5 pounds). [facility] was consulted who provided haddad recommendations for her cardiac care. The following were advised at discharge - 1. addition of isosorbide dinitrate 10mg BID 2. reduction of amlodipine to 5mg daily 3. discontinuation of bumex 4. initiation of torsemide 20mg qam on 11/11/20 5. ongoing use of metoprolol xl 100mg daily and hydralazine 10mg BID She will follow-up with the [facility] CHF clinic on November 21 and her PCP on November 14. Daily weights, fluid restriction, and salt restriction were all recommended. CHF instructions were given at discharge. (2) Cellulitis of right lower extremity: RULED OUT. There was a question of RLE cellulitis at time of admission. She also had a small blister on the anterior LLE poole. She never had fever or leukocytosis. By hospital day #2 the erythema on the RLE was gone. Because of the rapid resolution of the erythema her antibiotics were discontinued early on in her course. Ultimately it was felt that the erythema was likely due to worsening edema in the face of her decompensated CHF rather than true infection. (3) Acute kidney injury: Cr was 2.1 at admission. Cr was 1.6 at discharge. (baseline Cr = 1.3-1.6) 2nd to pre-hospital bactrim use? Cardiorenal? Other? Suspect cardiorenal as her creatinine improved with diuresis. (4) Rheumatoid arthritis: Continue hydroxychloroquine 200 mg p.o. at bedtime. Question of restrictive lung disease from RA?? Consider pulmonary consultation as outpatient for PFTs, etc. (5) CLL (chronic lymphocytic leukemia): CBCs were stable during this stay. All cell lines were acceptable. (6) Diabetes mellitus with insulin therapy: HbA1c 6.6% this admission. Had hypoglycemia early in the stay. This resolved when basal-bolus insulins were adjusted downward. Control was quite satisfactory leading up to discharge. Discharge regimen - * levemir 12 units HS * novolog 4 units TID with meals F/u with PCP for ongoing management. (7) Hypothyroidism: TSH WNL in March 2020. Continue levothyroxine 75 mcg PO daily. (8) Presence of cardiac pacemaker: Placed for sick sinus syndrome in the past. 100% ventricular pacing noted while here. This could be contributing to her HFpEF / diastolic CHF. (9) Persistent atrial fibrillation: Patient takes chronic coumadin. INR was 3.5 at time of admission - likely from recent bactrim use. INR on day of discharge was 1.9. She will continue coumadin 2mg daily. Continue metoprolol succinate 100mg daily as previous. f/u with coumadin provider as scheduled. Of note - patient now has 100% ventricular pacing which may be contributing to her decompensated diastolic heart failure. f/u with [facility] for such. (10) Resistant hypertension: At discharge BPs were controlled with the following regimen - * metoprolol succinate 100mg daily * amlodipine 5mg daily * hydralazine 10mg BID * isosorbide dinitrate 10mg BID * she will also take torsemide 20mg daily for her chronic diastolic CHF (11) Blister of skin: Left poole. Due to recent severe LE edema. Optifoam dressing - change QOD. Patient counseled the blister may pop then overlying skin may slough. Needs careful surveillance of this blister - will be at risk of superimposed infection. Total Time Total Time Spent Total Time Spent (In Minutes): 45 Total Time Includes: Examination of the Patient, Discharge Planning and Medica tion Reconciliation Discharge Plan Discharge Items Patient Disposition: Home - Self-Care Reason For Visit: CONGESTIVE HEART FAILURE Discharge Diagnosis: Fluid/water retention due to congestive heart failure - improved with IV diuretics Activity: Resume your previous activity Non-emergency contact: Primary Care Provider and [employer] Call non-emergency contact if: you have any medication questions, your symptoms worsen and you have a fever Follow-up/Referrals: [facility] [Provider Group] - 11/21/20 (Please see [facility] at [facility] on this date as scheduled for your congestive heart failure.) Katharina Perez CRNP [Primary Care Provider] - 11/14/20 11:30 am (If you have any questions or need to change this appointment, please call [phone].) Diet: Carb Consistent or DM2 and Heart Healthy Fluids: 1800ml (7 cups) Moris Attending Provider Instructions: Mrs Park, You were admitted to the hospital for fluid retention due to congestive heart failure. The fluid retention was giving you shortness of breath and edema in your legs. Your breathing and fluid improved with use of IV diuretics. You were seen by the [facility]iology team. They have recommended the following -- 1. LOWER your amlodipine dose from 10mg daily to 5mg daily. This medication is for your blood pressure. You already have this medication at home. Simply cut in half and take 5mg daily. 2. STOP your bumetanide water pill. 3. START torsemide water pill/diuretic 20mg once daily every morning. Start this on 11/11/20. 4. TAKE potassium supplement once daily. You can start this TODAY. 5. START isosorbide dinitrate 10mg twice daily. Take your first dose TONIGHT. Other recommendations -- 1. LOWER your levemir (long-acting insulin) to 12 units at bedtime. Your blood sugars were either low or normal on reduced amounts of insulin while here. Start the 12 units TONIGHT. 2. STOP any previously prescribed antibiotics. The legs at this time do not appear to have skin infection. 3. For the blister on the left poole -- keep covered with an optifoam dressing or something similar. Change every other day. The blister may pop and the skin may slough. If this occurs please continue the optifoam dressing until completely healed. 4. Keep total daily salt intake to 2000mg (2 grams) or less. High salt foods - soup, fried food, fast food, deli meats (bologna, salami, etc), TV dinners, chips, etc. 5. Limit total fluid intake to about 1800cc each day. 6. Your INR (coumadin level/blood thinner number) is 1.9 today. Resume your normal coumadin dosing as previous. Follow-up - see separate section Return to any hospital if - * you have worsening shortness of breath * you have chest pains * you have fever over 100 degrees * any other concerns Enjoy being home and stay well! -Dr Mannie Subramanian Senior Fund Accountant Provider Instructions: CONGESTIVE HEART FAILURE INSTRUCTIONS: Call 911 and go to the Emergency Room if: * You have tightness or pain in your chest that does not go away with rest or Nitroglycerin * You are very short of breath even with rest Call your doctor if any of the following symptoms or problems start or get worse: * Shortness of breath or difficulty breathing * Wake up at night short of breath * Chest pain * Cough * Swelling of your hands, fee, or legs * More fatigued or tired with your normal activity * Palpitations - sudden fast heart beats WEIGHT * Weigh yourself every morning after using the bathroom. * Use the same scale. * Wear the same amount of clothing. * Write your weight down on your chart. * Call your doctor if you gain more than 2-3 pounds in 1-2 days. This is typically the first sign of gaining fluid weight from congestive heart failure. Don't wait to call - be sure to contact your doctors right away.* YOUR DISCHARGE WEIGHT = 182 pounds MEDICATIONS * Use this discharge instruction sheet for instructions. * Take your medications at the time your doctor ordered. * Do not skip a dose of your medicines. * If you miss a dose of medicine, take as soon as possible, but DO NOT DOUBLE A DOSE. * Read your medicine information when you get home. * Know all of the side effects of your medicine. * Call your doctor's office if you have any side effects. * Be sure all of your doctors know what medicine and herbs you take (including cold, flu, and herbal medicine). * Pain Medicine: If you do not get relief from your pain, please call your doctor for help. Take the following with you to your follow-up doctor appointments: * Weight Chart * Medication List * List of questions Do not drink excessive alcohol, beer or wine. Pending Studies at Discharge: No Stand-Alone Forms: [facility], Smoking Cessation Medications and DC Order Prescriptions: New isosorbide dinitrate 10 mg Tablet 10 mg PO BID Qty: 60 RF: 2 potassium chloride [Klor-Con M10] 10 mEq Tablet,Er Particles/Crystals 10 meq PO DAILY Qty: 30 RF: 1 torsemide 20 mg tablet 20 mg PO QAM Qty: 30 RF: 1 Continued omega-3 fatty acids [Fish Oil Concentrate] 1,000 mg capsule 1,000 mg PO DAILY RF: 0 aspirin [Adult Aspirin Regimen] 81 mg tablet,delayed release (DR/EC) 81 mg PO DAILY RF: 0 simvastatin 20 mg tablet 20 mg PO QPM RF: 0 cholecalciferol (vitamin D3) 1,000 unit capsule 1,000 units PO DAILY RF: 0 cyanocobalamin (vitamin B-12) 1,000 mcg capsule 1,000 mcg PO DAILY RF: 0 hydroxychloroquine 200 mg tablet 200 mg PO HS RF: 0 multivitamin Tablet 1 tab PO DAILY RF: 0 warfarin [Jantoven] 2 mg tablet 2 mg PO QAM Qty: 90 RF: 1 metoprolol succinate 100 mg tablet extended release 24 hr 100 mg PO DAILY Qty: 90 RF: 1 albuterol sulfate [ProAir HFA] 90 mcg/actuation HFA aerosol inhaler 1 - 2 puff INH QID PRN (Reason: bronchospasm) Qty: 18 RF: 3 hydralazine 10 mg tablet 10 mg PO BID RF: 0 insulin aspart U-100 [Novolog U-100 Insulin aspart] 100 unit/mL solution 4 unit SQ TIDM RF: 0 levothyroxine 75 mcg tablet 75 mcg PO DAILY RF: 0 diclofenac sodium 1 % gel 1 ea TOPICAL UD PRN (Reason: Pain) RF: 0 Changed amlodipine 10 mg tablet 5 mg PO DAILY Qty: 90 RF: 3 Levemir U-100 Insulin 100 unit/mL solution 12 unit SQ PM Qty: 1 RF: 0 Discontinued sulfamethoxazole-trimethoprim [Bactrim DS] 800-160 mg tablet 1 tab PO BID Qty: 14 RF: 0 bumetanide 0.5 mg tablet 0.5 mg PO DAILY RF: 0 No Action (DME) Standard light weight Wheelchair with elevating leg rests and gel foam cushion See Rx Instructions .Route .MEDSUPPLY Qty: 1 RF: 0 Discharge Orders: Discharge Order (Routine); Ordered 11/10/20 Ordered By: Alfredito Alvarado/Other Patient Handouts: Managing Type 2 Diabetes, Coping with Heart Failure, Discharge Instructions for Cellulitis, A1C Admission Data Admit Date/Time: 11/06/20 12:27 Attending Provider: Alfredito Chand Admit Provider: Alfredito Narayanan Primary Care Provider: Katharina Perez Other Providers: Alfredito Narayanan ; Jaime Gandhi Other Interventions: Discharge Summary Assessment (RN) Last Done: 11/10/20 15:56 Coding Level of Care Code D/C Day Management >30 mins Diagnoses Acute heart failure with preserved ejection fraction I50.31 Cellulitis of right lower extremity L03.115 Acute kidney injury N17.9 Rheumatoid arthritis M06.9 CLL (chronic lymphocytic leukemia) C91.90 Diabetes mellitus with insulin therapy E11.9; Z79.4 Hypothyroidism E03.9 Presence of cardiac pacemaker Z95.0 Persistent atrial fibrillation I48.19 Resistant hypertension I10 Blister of skin T14.8XXA
[2020-11-10] MEDS: WARFARIN SOD 2 MG TAB PO SCH (16:11)
[2020-11-11] MEDS ORDERED: TORSEMIDE 10 MG TAB PO SCH (09:00)
[2020-11-11] MEDS ORDERED: POTASSIUM CHLORIDE 10 MEQ TABCR PO SCH (09:00)
== END 2020-11-10 17:43 | disposition home or self-care (01) | DRG 291 ==
LOC: ED 10:00 → 1E 11:56 → SUATTDRO 12:27 → 2N 12:27